=== PATIENT | male | born 1955 | race Caucasian/White ===

== ENCOUNTER 2018-03-31 18:03 | Inpatient (IN) | payer MEDICARE, BC ==
[2018-03-31 18:31] LABS: HEMATOCRIT 26.2 % (41.0-60); HEMOGLOBIN 8.7 gm/dL (12-16); MEAN CELL VOLUME 93.7 fl (80-99); MEAN CORPUSCULAR HEMOGLOBIN 31.1 pg (26.0-30.0); MEAN CORPUSCULAR HGB CONC 33.2 pg (28.0-36.0); MEAN PLATELET VOLUME 7.4 fl; PLATELET COUNT 159 Th/cmm (150-400); RED BLOOD COUNT 2.79 Mil/cmm (4.30-5.70); RED CELL DISTRIBUTION WIDTH 21.2 % (11.5-20.0); WHITE BLOOD COUNT 11.1 Th/cmm (4.8-10.8)
[2018-03-31 18:48] LABS: ALB/GLOB RATIO 0.8 (1.0-1.8); ALBUMIN 2.4 gm/dL (4.2-5.5); BILIRUBIN,TOTAL 0.6 mg/dL (0.3-1.0); CALCIUM SERUM 7.9 mg/dL (8.6-10.3); CARBON DIOXIDE 24.6 mEq/L (21.0-31.0); CREATININE - SERUM 2.3 mg/dL (0.7-1.3); GFR AFRICAN-AMERICAN 37.5 ml/min (>90); POTASSIUM SERUM 3.6 mEq/L (3.5-5.1); TOTAL PROTEIN,SERUM 5.6 gm/dL (6.0-8.3)
[2018-03-31 18:55] LABS: URINE MICROSCOPIC INDICATED? YES; URINE SOURCE CLEAN C
[2018-03-31 18:56] LABS: URINE BILIRUBIN NEGATIVE (NEGATIVE); URINE BLOOD LARGE (NEGATIVE); URINE GLUCOSE (UA) NEGATIVE (NEGATIVE); URINE KETONE NEGATIVE (NEGATIVE); URINE LEUKOCYTE ESTERASE MODERATE (NEGATIVE); URINE NITRATE NEGATIVE (NEGATIVE); URINE PROTEIN >=300 mg/dL (NEGATIVE); URINE UROBILINOGEN 0.2 E.U./dL (0.2 - 1.0)
--- NOTE | 2018-03-31 18:58 | ED Physician Chart ---
ED Chief Complaint/HPI - Patient Information Date Seen:: 03/31/18 Time Seen:: 18:24 Chief Complaint:: INFECTED COCCYX DECUBES History of Present Illness:: THIS IS A 62 YR OLD DIALYSIS PATIENT WAS SENT HERE FOR AN EVALUATION OF THE MULTIPLE DECUBITI AND RENAL FAILURE. HE MISSED HAVING DIALYSIS YESTERDAY AND IS DIABETIC WITH A GENERALIZE BULLA TYPE RASH NOTED. Allergies:: Allergies Allergy/AdvReac Type Severity Reaction Status Date / Time Penicillins Allergy Verified 03/31/18 18:19 vancomycin Allergy Verified 03/31/18 18:19 Vitals:: Vital Signs - 8 hr 03/31/18 18:20 Temp 98.0 F HR 89 RR 18 BP 104/58 O2 Sat % 98 Historian:: EMS, Medical Records Review:: Nurse's Note Reviewed, Transfer documents Reviewed ED Review of Systems - Review of Systems General/Constitutional: No fever, No chills, No weight loss, No weakness, No diaphoresis, No edema, No loss of appetite Skin: Skin lesions, No rash, No bruising Head: No headache, No light-headedness Eyes: No loss of vision, No pain, No diplopia ENT: No earache, No nasal drainage, No sore throat, No tinnitus Neck: No neck pain, No swelling, No thyromegaly, No stiffness, No mass noted Cardio Vascular: No chest pain, No palpitations, No PND, No orthopnea, No edema Pulmonary: No SOB, No cough, No sputum, No wheezing GI: No nausea, No vomiting, No diarrhea, No pain, No melena, No hematochezia, No constipation, No hematemesis G/U: No dysuria, No frequency, No hematuria Musculoskeletal: Bone or joint pain, No back pain, No muscle pain Endocrine: No polyuria, No polydipsia Psychiatric: No prior psych history, No depression, Anxiety, No suicidal ideation Hematopoietic: Bruising, No lymphadenopathy Allergic/Immuno: No urticaria, No angioedema Neurological: No syncope, No focal symptoms, No weakness, No paresthesia, No headache, No seizure, No dizziness, No confusion, No vertigo ED Past Medical History - Past Medical History Obtainable: Yes Past Medical History: HTN, DM, CVA/TIA, ESRD Family History: None Social History: Non Smoker, No Alcohol, No Drug Use, Care Facility Surgical History: None Psychiatricy History: Dementia ED Physical Exam - Physical Examination General/Constitutional: Awake, Well-developed, well-nourished, Alert, No distress, GCS 15, Non-toxic appearing, Ambulatory Head: Atraumatic Eyes: Lids, conjuctiva normal, PERRL, EOMI Skin: Nl inspection, No rash (GENERALIZED BULBA RASH), No skin lesions, No ecchymosis, Well hydrated, No lymphadenopathy ENMT: External ears, nose nl, Nasal exam nl, Lips, teeth, gums nl Neck: Nontender, Full ROM w/o pain, No JVD, No nuchal rigidity, No bruit, No mass, No stridor Respiratory: Nl effort/Exclusion, Clear to Auscultation, No Wheeze/Rhonchi/Rales Cardio Vascular: RRR, No murmur, gallop, rubs, NL S1 S2 GI: No tenderness/rebounding/guarding, No organomegaly, No hernia, Normal BS's, Nondistended, No mass/bruits, No McBurney tenderness : No CVA tenderness Extremities: No tenderness or effusion, Full ROM, normal strength in all extremities, No edema, Normal digits & nails Neuro/Psych: Alert/oriented, DTR's symmetric, Normal sensory exam, Normal motor strength, Judgement/insight normal, Mood normal, Normal gait, No focal deficits Misc: Normal back, No paraspinal tenderness ED Labs/Radiology/EKG Results - Lab Results Results: Laboratory Tests 03/31/18 03/31/18 18:25 18:25 WBC 11.1 H RBC 2.79 L Hgb 8.7 L Hct 26.2 L MCV 93.7 MCH 31.1 H MCHC Differential 33.2 RDW 21.2 H Plt Count 159 MPV 7.4 Neutrophils % 86.1 H Lymphocytes % 5.3 L Monocytes % 5.4 Eosinophils % 2.7 Basophils % 0.5 Sodium 125 L Potassium 3.6 Chloride 91 L Carbon Dioxide 24.6 Anion Gap 13.0 BUN 26 H Creatinine 2.3 H Est GFR ( Amer) 37.5 Est GFR (Non-Af Amer) 31.0 BUN/Creatinine Ratio 11.3 Glucose 86 Calcium 7.9 L Total Bilirubin 0.6 AST 9 L ALT 6 L Alkaline Phosphatase 124 H Total Protein 5.6 L Albumin 2.4 L Globulin 3.2 Albumin/Globulin Ratio 0.8 L Abnormal Lab Results 03/31/18 03/31/18 03/31/18 18:25 18:25 18:25 WBC 11.1 H RBC 2.79 L Hgb 8.7 L Hct 26.2 L MCV 93.7 MCH 31.1 H MCHC Differential 33.2 RDW 21.2 H Plt Count 159 MPV 7.4 Neutrophils % ENVIRONMENTAL JOURNALIST Lymphocytes % ENVIRONMENTAL JOURNALIST Monocytes % ENVIRONMENTAL JOURNALIST Eosinophils % ENVIRONMENTAL JOURNALIST Basophils % ENVIRONMENTAL JOURNALIST Sodium 125 L Potassium 3.6 Chloride 91 L Carbon Dioxide 24.6 Anion Gap 13.0 BUN 26 H Creatinine 2.3 H Est GFR ( Amer) 37.5 Est GFR (Non-Af Amer) 31.0 BUN/Creatinine Ratio 11.3 Glucose 86 Calcium 7.9 L Total Bilirubin 0.6 AST 9 L ALT 6 L Alkaline Phosphatase 124 H Troponin I 0.05 Total Protein 5.6 L Albumin 2.4 L Globulin 3.2 Albumin/Globulin Ratio 0.8 L Urine Source Urine Color Urine Clarity Urine pH Ur Specific [place] Urine Protein Urine Glucose (UA) Urine Ketones Urine Blood Urine Nitrate Urine Bilirubin Urine Urobilinogen Ur Leukocyte Esterase Urine RBC Urine WBC Ur Epithelial Cells Urine Bacteria 03/31/18 18:45 WBC RBC Hgb Hct MCV MCH MCHC Differential RDW Plt Count MPV Neutrophils % Lymphocytes % Monocytes % Eosinophils % Basophils % Sodium Potassium Chloride Carbon Dioxide Anion Gap BUN Creatinine Est GFR ( Amer) Est GFR (Non-Af Amer) BUN/Creatinine Ratio Glucose Calcium Total Bilirubin AST ALT Alkaline Phosphatase Troponin I Total Protein Albumin Globulin Albumin/Globulin Ratio Urine Source CLEAN C Urine Color YELLOW Urine Clarity CLOUDY Urine pH 6.0 Ur Specific [place] 1.020 Urine Protein >=300 Urine Glucose (UA) NEGATIVE Urine Ketones NEGATIVE Urine Blood LARGE H Urine Nitrate NEGATIVE Urine Bilirubin NEGATIVE Urine Urobilinogen 0.2 Ur Leukocyte Esterase MODERATE H Urine RBC 50-100 H Urine WBC 25-50 H Ur Epithelial Cells NONE SEEN Urine Bacteria FEW - Radiology Results Results: CHEST X-RAY = NAD SEEN - EKG Interpretations EKG Time:: 18:12 Rate & Rhythm: RATE= 90, LEFT SINUS Mcinty[place]: LEFT AXIS ED Assessment - Assessment General Assessment: MULTIPLE DECUBITI INFECTIVE RASH DEHYDRATION ED Septic Shock - . Is Septic Shock (SBP<90, OR Lactate>4 mmol\L) present?: No - <6hrs of presentation: Vital Signs: Vital Signs - 8 hr 03/31/ 18:20 Temp 98.0 F HR 89 RR 18 BP 104/58 O2 Sat % 98 ED Reassessment (Disposition) - Diagnosis Diagnosis:: DEHYDRATION MULTIPLE DECUBE ULCERS URINARY TRACT INFECTION ANEMIA INFECTIVE GENERALIZE RASH - Patient Disposition Discharge/Transfer:: Acute Care w/in this hosp Admitting Medical Physician:: Omar Schrader Condition at Disposition:: Improved ED Discharge Plan - Patient Disposition Admit/Discharge/Transfer: Acute Care w/in this hosp Condition at Disposition: Improved
[2018-03-31 19:45] LABS: URINE CLARITY CLOUDY (CLEAR); URINE COLOR YELLOW
[2018-03-31 19:50] LABS: URINE RBC 50-100 /hpf (0-5)
[2018-03-31 19:51] LABS: URINE BACTERIA FEW /hpf (NONE SEEN); URINE EPITHELIAL CELLS NONE SEEN /lpf (FEW); URINE WBC 25-50 /hpf (0-5)
[2018-03-31 20:16] LABS: BAND NEUTROPHILE 5 % (0-10); BASOPHIL 0 % (0-3); EOSINOPHIL 3 % (0-5); LYMPHOCYTE 7 % (20-50); MONOCYTE 5 % (2-10); NEUTROPHILS 80 % (40-80); PLATELET ESTIMATE ADEQUATE (NORMAL)
[2018-03-31 20:17] LABS: ANISOCYTOSIS 1+; PLATELET MORPHOLOGY NORMAL (NORMAL)
[2018-03-31 20:19] LABS: BAND NEUTROPHILE 5 % (0-10); BASOPHIL 0 % (0-3); EOSINOPHIL 3 % (0-5); LYMPHOCYTE 7 % (20-50); MONOCYTE 5 % (2-10); NEUTROPHILS 80 % (40-80); PLATELET ESTIMATE ADEQUATE (NORMAL); PLATELET MORPHOLOGY NORMAL (NORMAL)
[2018-03-31 20:20] LABS: ANISOCYTOSIS 1+
[2018-03-31 20:22] LABS: BAND NEUTROPHILE 5 % (0-10); BASOPHIL 0 % (0-3); EOSINOPHIL 3 % (0-5); LYMPHOCYTE 7 % (20-50); MONOCYTE 5 % (2-10); NEUTROPHILS 80 % (40-80); PLATELET ESTIMATE ADEQUATE (NORMAL); PLATELET MORPHOLOGY NORMAL (NORMAL)
[2018-03-31 20:23] LABS: ANISOCYTOSIS 1+
[2018-03-31] MEDS ORDERED: Fleet Enema 135 mL RC PRN (22:22)
[2018-03-31] MEDS ORDERED: Dextrose 50% 50 mL Abboject IVP PRN (23:04)
[2018-03-31 23:57] VITALS: BP 102/60
[2018-04-01] MEDS: D5-0.45NS 1,000 ML IV SCH
[2018-04-01] MEDS ORDERED: Pneumococcal Vaccine 0.5 mL Vial IM ONE (00:10)
[2018-04-01] MEDS: Hydrocodone/APAP 5mg/325mg Tab PO PRN ×3 (00:23→20:31)
[2018-04-01] MEDS: Albuterol/Ipratropium Neb 3 ML AERS HHN SCH ×4 (00:58→19:11)
[2018-04-01] MEDS ORDERED: Levofloxacin 500mg/100mL 500 MG/100 ML BAG IV ONE ×3 (01:57→09:00)
--- NOTE | 2018-04-01 03:44 | Consultation ---
DATE OF CONSULTATION: 03/31/2018 INFECTIOUS DISEASE CONSULTATION REFERRING PHYSICIAN: Dr. Schrader. REASON FOR CONSULTATION: Multiple wounds. HISTORY OF PRESENT ILLNESS: The patient is a 62-year-old with past medical history of prolonged MRSA sepsis, suspected endocarditis, CKD stage 5, on hemodialysis, CHF, sacral decubitus ulcer stage 4, chronic pain syndrome, history of CVA, TIA, history of diabetes mellitus type 2, and hypertension, brought in from nursing facility for infected coccyx sacral decubitus ulcer. ____ on initial evaluation, temperature 98 degrees Fahrenheit and WBC count was 11,100. The patient was started on Rocephin and doxycycline. ID consult was called for antibiotic management. PAST MEDICAL HISTORY: Includes: 1. MRSA bacteremia and sepsis for prolonged period. 2. Nonhealing sacral decubitus ulcer. 3. Chronic kidney disease stage 5, on hemodialysis. 4. Diabetes mellitus type 2. 5. Chronic pain syndrome. REVIEW OF SYSTEMS: GENERAL: The patient has body pain, otherwise no fever, no chills. HEENT: No diplopia, no photophobia, no sore throat. RESPIRATORY: No cough, no shortness of breath. CARDIOVASCULAR: No chest pain or palpitation. GASTROINTESTINAL: No nausea, no vomiting, no diarrhea, no constipation. GENITOURINARY: No dysuria. NEUROLOGIC: No headache, no dizziness, no focal weakness. PHYSICAL EXAMINATION: VITAL SIGNS: Current vial sign shows temperature is 99 degrees Fahrenheit, pulse 90, respiration 20, blood pressure 100/60. GENERAL: The patient is comfortable lying in the bed, not in acute distress. HEENT: Head is normocephalic, atraumatic. Oral cavity moist, pink tongue. Eyes: Pallor is present, no icterus. PERRLA, EOMI. NECK: Supple, no JVD, no bruit. Trachea midline. LUNGS: Bilateral breath sounds. No crackles or wheezing. HEART: S1, S2 within normal limits. Regular rhythm. No murmur, no gallop. ABDOMEN: Soft, nontender, nondistended. Bowel sounds present. EXTREMITIES: No cyanosis, no clubbing, no edema. NEUROLOGIC: Alert, awake, and oriented x 3. LABORATORY DATA: Current lab shows WBC count is 11,100, hemoglobin 8.7, hematocrit 26.2, platelets are 159,000. Neutrophil is 80%. Sodium is 125, potassium 3.6, chloride 91, bicarbonate is 24.6, BUN is 26, and creatinine is 2.3. UA shows large blood, WBC 25-50 with a moderate leukoesterase, RBCs 50-100, and bacteria few. IMPRESSION: 1. Sacral decubitus ulcer. 2. History of Methicillin-resistant Staphylococcus aureus infection. 3. Urinary tract infection. 4. Anemia. 5. Diabetes mellitus type 2. 6. Hypertension. RECOMMENDATIONS: We will start Levaquin. Check the blood culture and go from there. We will do the wound care. Thank you, Dr. Schrader for involving me in taking care of this patient. JOB# [id number]
[2018-04-01 06:40] LABS: HEMATOCRIT 26.4 % (41.0-60); HEMOGLOBIN 8.9 gm/dL (12-16); MEAN CELL VOLUME 93.4 fl (80-99); MEAN CORPUSCULAR HEMOGLOBIN 31.6 pg (26.0-30.0); MEAN CORPUSCULAR HGB CONC 33.8 pg (28.0-36.0); MEAN PLATELET VOLUME 7.7 fl; PLATELET COUNT 158 Th/cmm (150-400); RED BLOOD COUNT 2.82 Mil/cmm (4.30-5.70); RED CELL DISTRIBUTION WIDTH 22.9 % (11.5-20.0); WHITE BLOOD COUNT 7.6 Th/cmm (4.8-10.8)
[2018-04-01 06:47] LABS: ANION GAP 12.7 (7.0-16.0); CALCIUM SERUM 7.9 mg/dL (8.6-10.3); CREATININE - SERUM 2.5 mg/dL (0.7-1.3); GFR NON AFRICAN-AMERICAN 28.1 ml/min; POTASSIUM SERUM 3.7 mEq/L (3.5-5.1)
[2018-04-01 07:06] LABS: BAND NEUTROPHILE 1 % (0-10); EOSINOPHIL 3 % (0-5); LYMPHOCYTE 6 % (20-50); MONOCYTE 4 % (2-10); NEUTROPHILS 85 % (40-80)
[2018-04-01 07:07] LABS: ANISOCYTOSIS 1+; BASOPHIL 1 % (0-3)
[2018-04-01] MEDS ORDERED: INSULIN ASPART SLIDING SCALE 100 UNITS/ML UNIT SUBQ SCH (07:30)
--- NOTE | 2018-04-01 07:53 | Diagnostic Imaging Report ---
CHEST X-RAY: AP view INDICATION: CHF COMPARISON: None FINDINGS: Right dialysis catheter is noted with tip not well visualized due to overlapping from multilevel spinal fixation hardware. Mild congestive changes are seen with small bilateral effusions. Mild cardiomegaly is noted with atherosclerosis. Diffuse postsurgical changes of the thoracic spine are noted. IMPRESSION: Mild congestive changes with small bilateral effusions. Pneumonia of the left lung base cannot be excluded. Mild cardiomegaly with atherosclerosis. Right sided dialysis catheter noted. Diffuse postsurgical changes of the thoracic spine.
[2018-04-01] MEDS: INSULIN ASPART SLIDING SCALE 100 UNITS/ML UNIT SUBQ SCH ×4 (08:03→20:31)
[2018-04-01] MEDS: Levothyroxine 0.025 Mg Tab PO SCH (08:06)
[2018-04-01] MEDS: Pantoprazole 40 mg EC Tab PO SCH (08:43)
[2018-04-01] MEDS: Vitamin B Complex w/Vitamin C Tab PO SCH (08:43)
[2018-04-01] MEDS: Multivitamin w/ Minerals Tab PO SCH (08:43)
[2018-04-01] MEDS ORDERED: DARBEPOETIN ALFA SQ SCH (09:00)
[2018-04-01] MEDS ORDERED: [UNRECOGNIZED DRUG - OTHER] SQ SCH (09:00)
[2018-04-01] MEDS ORDERED: ARGININE HCL PO SCH (09:00)
[2018-04-01] MEDS ORDERED: Non-Formulary Item 1 EA (Cranberry Fruit Extract [Cranberry] 425 MG) PO SCH (09:00)
[2018-04-01] MEDS ORDERED: Non-Formulary Item 1 EA (Argin/Glut/Cahmb/Collag/Mv-Min [Juven Packet] 1 EACH) PO SCH (09:00)
[2018-04-01] MEDS ORDERED: [UNRECOGNIZED DRUG - OTHER] TP SCH (09:00)
[2018-04-01] MEDS: cefTRIAXone 1 GM in Sodium Chloride 0.9% 50 ML IV SCH (20:25)
[2018-04-01] MEDS: Atorvastatin Calcium 10 MG TAB PO SCH (20:27)
[2018-04-01] MEDS ORDERED: Albumin 25% 25gm/100mL 25 GM/100 ML BTL IV ONE (23:00)
--- NOTE | 2018-04-01 23:13 | Infectious Disease Prog Note ---
Infectious Disease Subjective - Review of Systems Service Date: 04/01/18 Subjective: No new change, no fever. Infectious Disease Objective - Results Result Diagrams: 04/01/18 06:03 04/01/18 06:03 Recent Labs: Laboratory Last Values WBC 7.6 Th/cmm (4.8-10.8) 04/01/18 06:03 RBC 2.82 Mil/cmm (4.30-5.70) L 04/01/18 06:03 Hgb 8.9 gm/dL (12-16) L 04/01/18 06:03 Hct 26.4 % (41.0-60) L 04/01/18 06:03 MCV 93.4 fl (80-99) 04/01/18 06:03 MCH 31.6 pg (26.0-30.0) H 04/01/18 06:03 MCHC Differential 33.8 pg (28.0-36.0) 04/01/18 06:03 RDW 22.9 % (11.5-20.0) H 04/01/18 06:03 Plt Count 158 Th/cmm (150-400) 04/01/18 06:03 MPV 7.7 fl 04/01/18 06:03 Add Manual Diff YES 04/01/18 06:03 Neutrophils % NURSE RECEPTIONIST 03/31/18 18:25 Band Neutrophils % 1 % (0-10) 04/01/18 06:03 Lymphocytes % NURSE RECEPTIONIST 03/31/18 18:25 Monocytes % NURSE RECEPTIONIST 03/31/18 18:25 Eosinophils % NURSE RECEPTIONIST 03/31/18 18:25 Basophils % NURSE RECEPTIONIST 03/31/18 18:25 Neutrophils (Manual) 85 % (40-80) H 04/01/18 06:03 Lymphocytes 6 % (20-50) L 04/01/18 06:03 Monocytes 4 % (2-10) 04/01/18 06:03 Eosinophils 3 % (0-5) 04/01/18 06:03 Basophils 1 % (0-3) 04/01/18 06:03 Platelet Estimate ADEQUATE (NORMAL) 03/31/18 18:25 Platelet Morphology NORMAL (NORMAL) 03/31/18 18:25 Anisocytosis 1+ 04/01/18 06:03 RBC Morph Micro Appear ABNORMAL (NORMAL) 03/31/18 18:25 Sodium 127 mEq/L (136-145) L 04/01/18 06:03 Potassium 3.7 mEq/L (3.5-5.1) 04/01/18 06:03 Chloride 92 mEq/L (98-107) L 04/01/18 06:03 Carbon Dioxide 26.0 mEq/L (21.0-31.0) 04/01/18 06:03 Anion Gap 12.7 (7.0-16.0) 04/01/18 06:03 BUN 28 mg/dL (7-25) H 04/01/18 06:03 Creatinine 2.5 mg/dL (0.7-1.3) H 04/01/18 06:03 Est GFR ( Amer) 34.0 ml/min (>90) 04/01/18 06:03 Est GFR (Non-Af Amer) 28.1 ml/min 04/01/18 06:03 BUN/Creatinine Ratio 11.2 04/01/18 06:03 Glucose 90 mg/dL (70-105) 04/01/18 06:03 POC Glucose 148 MG/DL (70 - 105) H 04/01/18 16:38 Calcium 7.9 mg/dL (8.6-10.3) L 04/01/18 06:03 Total Bilirubin 0.6 mg/dL (0.3-1.0) 03/31/18 18:25 AST 9 U/L (13-39) L 03/31/18 18:25 ALT 6 U/L (7-52) L 03/31/18 18:25 Alkaline Phosphatase 124 U/L (34-104) H 03/31/18 18:25 Troponin I 0.05 ng/mL (0.01-0.05) 03/31/18 18:25 Total Protein 5.6 gm/dL (6.0-8.3) L 03/31/18 18:25 Albumin 2.4 gm/dL (4.2-5.5) L 03/31/18 18:25 Globulin 3.2 gm/dL 03/31/18 18:25 Albumin/Globulin Ratio 0.8 (1.0-1.8) L 03/31/18 18:25 Urine Source CLEAN C 03/31/18 18:45 Urine Color YELLOW 03/31/18 18:45 Urine Clarity CLOUDY (CLEAR) 03/31/18 18:45 Urine pH 6.0 (4.6 - 8.0) 03/31/18 18:45 Ur Specific [place] 1.020 (1.005-1.030) 03/31/18 18:45 Urine Protein >=300 mg/dL (NEGATIVE) 03/31/18 18:45 Urine Glucose (UA) NEGATIVE mg/dL (NEGATIVE) 03/31/18 18:45 Urine Ketones NEGATIVE mg/dL (NEGATIVE) 03/31/18 18:45 Urine Blood LARGE (NEGATIVE) H 03/31/18 18:45 Urine Nitrate NEGATIVE (NEGATIVE) 03/31/18 18:45 Urine Bilirubin NEGATIVE (NEGATIVE) 03/31/18 18:45 Urine Urobilinogen 0.2 E.U./dL (0.2 - 1.0) 03/31/18 18:45 Ur Leukocyte Esterase MODERATE (NEGATIVE) H 03/31/18 18:45 Urine RBC 50-100 /hpf (0-5) H 03/31/18 18:45 Urine WBC 25-50 /hpf (0-5) H 03/31/18 18:45 Ur Epithelial Cells NONE SEEN /lpf (FEW) 03/31/18 18:45 Urine Bacteria FEW /hpf (NONE SEEN) 03/31/18 18:45 - Physical Exam Vitals and I&O: Vital Signs Temp 97.1 F 04/01/18 16:00 Pulse 95 04/01/18 19:11 Resp 18 04/01/18 19:11 BP 104/64 04/01/18 16:00 Pulse Ox 99 04/01/18 19:11 Intake & Output 04/01/18 04/01/18 04/02/18 06:59 18:59 06:59 Intake Total 600 1800 Output Total 312 100 Balance 288 1700 Weight (lbs) 93.894 kg 91.626 kg 91.626 kg Intake: Oral 600 1800 Output: Drainage 10 right buttock 10 Urine 300 100 Stool 2 Other: # Bowel Movements 2 1 Stool Characteristics Liquid Weight Source Bedscale Bedscale Bedscale Active Medications: Current Medications Acetaminophen (Tylenol) 650 mg PO Q4HR PRN PRN Reason: MILD Pain or Fever >101 Stop: 05/30/18 22:21 Acetaminophen/Hydrocodone Bitart ([place] 5mg/325mg) 1 tab PO Q6H PRN PRN Reason: Pain (Severe) Stop: 05/30/18 22:21 Last Admin: 04/01/18 20:31 Dose: 1 tab Albuterol/Ipratropium (Duoneb Neb) 3 ml HHN Q6HRT [facility] Stop: 05/31/18 00:59 Last Admin: 04/01/18 19:11 Dose: 3 ml Ascorbic Acid (Vitamin C) 500 mg PO DAILY [facility] Stop: 05/31/18 08:59 Last Admin: 04/01/18 08:33 Dose: 500 mg Aspirin (Ecotrin) 81 mg PO DAILY [facility] Stop: 05/31/18 08:59 Last Admin: 04/01/18 08:33 Dose: 81 mg Atorvastatin Calcium (Lipitor) 20 mg PO HS [facility] Stop: 05/31/18 20:59 Last Admin: 04/01/18 20:27 Dose: 20 mg Bisacodyl (Dulcolax 10 Mg Supp) 10 mg RC DAILY PRN PRN Reason: Constipation Stop: 05/30/18 22:21 Dextrose (D50w) 50 ml IVP PRN PRN; Protocol PRN Reason: HYPOGLYCEMIA PROTOCOL Stop: 05/30/18 23:03 Diphenhydramine HCl (Benadryl) 25 mg PO Q6HR PRN PRN Reason: Itching Stop: 05/30/18 22:21 Last Admin: 04/01/18 00:23 Dose: 25 mg Docusate Sodium (Colace) 100 mg PO DAILY [facility] Stop: 05/31/18 08:59 Last Admin: 04/01/18 08:33 Dose: 100 mg Doxycycline Hyclate (Vibramycin) 100 mg PO BID@1000,1700 [facility] Stop: 05/31/18 09:59 Last Admin: 04/01/18 17:27 Dose: 100 mg Ceftriaxone Sodium 1 gm/ (Sodium Chloride) 50 mls @ 100 mls/hr IV Q24HR@2100 [facility] Stop: 05/31/18 20:59 Last Admin: 04/01/18 20:25 Dose: 100 mls/hr Dextrose/Sodium Chloride (D5-0.45ns) 1,000 mls @ 50 mls/hr IV .Q20H [facility] Stop: 05/30/18 21:59 Last Admin: 04/01/18 00:00 Dose: 50 mls/hr Levofloxacin (Levaquin Pb) 250 mg in 50 mls @ 50 mls/hr IV Q24HR@0900 [facility] Stop: 06/01/18 08:59 Albumin Human (Albuminar 25%) 25 gm in 100 mls @ 50 mls/hr IV X1 ONE Stop: 04/02/18 00:59 Last Admin: 04/01/18 23:01 Dose: 50 mls/hr Insulin Aspart (Novolog Insulin Sliding Scale) 0 units SUBQ ACHS [facility]; Protocol Stop: 05/31/18 07:29 Last Admin: 04/01/18 20:31 Dose: Not Given Levetiracetam (Keppra) 500 mg PO BID [facility] Stop: 05/31/18 08:59 Last Admin: 04/01/18 17:27 Dose: 500 mg Levothyroxine Sodium (Synthroid) 0.025 mg PO QDAC [facility] Stop: 05/31/18 07:29 Last Admin: 04/01/18 08:06 Dose: 0.025 mg Lorazepam (Ativan) 1 mg IVP Q6H PRN; Protocol PRN Reason: Agitation Stop: 05/31/18 22:59 Miscellaneous (Darbepoetin [place] In Polysorbat [Aranesp]) 85 mcg SQ UD [facility] Stop: 05/31/18 08:59 Pantoprazole Sodium (Protonix) 40 mg PO DAILY [facility] Stop: 05/31/18 08:59 Last Admin: 04/01/18 08:43 Dose: 40 mg Rifampin (Rifadin) 600 mg PO DAILY [facility] Stop: 05/31/18 08:59 Sodium Phosphate (Fleet Enema) 135 ml RC DAILY PRN PRN Reason: Constipation Stop: 05/30/18 22:21 Vitamin B Complex/Vit C/Folic Acid (Vitamin B Complex W/Vitamin C) 1 tab PO DAILY [facility] Stop: 05/31/18 08:59 Last Admin: 04/01/18 08:43 Dose: 1 tab Zinc Sulfate (Zinc Sulfate) 220 mg PO DAILY [facility] Stop: 05/31/18 08:59 Last Admin: 04/01/18 08:34 Dose: 220 mg General: no acute distress, well developed, well nourished HEENT: atraumatic, normocephalic, PERRLA, EOMI Neck: supple, no thyromegaly, no lymphadenopathy Cardiovascular: S1S2, regular Lungs: clear to auscultation bilaterally, clear to percussion Abdomen: soft, no tender, no mass Extremities: no cyanosis, no clubbing, no edema Neurological: awake, alert, oriented Skin: intact Infectious Disease Assmt/Plan - Assessment Assessment: 1. Sacral decubitus ulcer. 2. History of Methicillin-resistant Staphylococcus aureus infection. 3. Urinary tract infection. 4. Anemia. 5. Diabetes mellitus type 2. 6. Hypertension. - Plan Plan: Continue levaquin. Wound care.
--- NOTE | 2018-04-01 23:16 | Consultation ---
DATE OF CONSULTATION: AGE: 62 years. SEX: Male. RACE: . HISTORY OF PRESENT ILLNESS: The patient looks much older than the age noted here. He admitted because of the fact that the patient has chronic renal failure, also has a UTI and multiple skin lesions and some punch skin lesions, reasons for this is not clear. The patient is somewhat disoriented and definitely has dementia moderately. He keeps on saying same things again and again. He does not know who his kidney doctor was, where he is being dialyzed, but he remembers that he has been dialyzed for about six months or so. On further questioning, denies any pain at present time. 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 Besides this, he does not know anything more. The patient does have multiple skin lesions on the knuckles in the thigh area, which had punched in big lesions. The patient is asking for the nurse again and again. PHYSICAL EXAMINATION: VITAL SIGNS: The patient's vital signs at present are stable. The patient is afebrile at present time. Blood pressure 115/61, temperature 97.6 degrees Fahrenheit, heart rate around 96 per minute. HEENT: Oropharynx is clear. The patient does have some lesions even on the face of the skin, reason for this is not clear. NECK: Jugular venous pressure is not raised. The patient has a dialysis catheter in the right subclavian area. Clinical examination further reveals the patient to be a little bit on the dry side. CHEST: Reveals good air entry with few rhonchi. No significant rales noticed. ABDOMEN: Soft, nontender. No organomegaly noticed there. EXTREMITIES: As mentioned before, there are multiple punch lesions on the thigh and the patient is basically lying in the bed, not able to move his lower extremities well. Upper extremities, he is able to move, but the left arm is wrapped around because probably also of the skin lesions. GENITOURINARY: Denies any pain on urination. LABORATORY DATA: The patient had a biochemical data done this morning, which revealed sodium 127, potassium 3.7, chloride 92, CO2 content 26, BUN 28, creatinine 2.5, GFR calculated is 28.1-34. Hemoglobin 8.9, WBC count 7.6, platelet count 158. MEDICATIONS: Considering all the above and the patient is on multiple medications, which include; 1. Tylenol and Tylenol with hydrocodone. 2. The patient was on inhalation therapy. 3. Antilipid therapy 20 mg atorvastatin. 4. Benadryl at q.6 hours p.r.n. for itching. 5. Docusate sodium for constipation. 6. The patient is also on doxycycline 100 mg p.o. b.i.d. 7. Ceftriaxone 1 gram q.24 hours. 8. Levofloxacin 250 mg daily. 9. The patient also on insulin as per sliding scale. 10. In addition to that, the patient is also on Synthroid 25 mcg daily. 11. Keppra 500 mg p.o. b.i.d. 12. Rifampin, reason not known why. 13. Combination vitamin along with zinc sulfate. IMPRESSION: Considering that the impression remains as: 1. Chronic renal failure. 2. Anemia. 3. Rule out iron deficiency. 4. Dementia. 5. Urine shows suggestion of urinary tract infection, so likely that for multiple medications including rifampin. Therefore, we will try to get more information about any infective pathology plus possibly a seizure disorder because the patient is on Keppra. PLAN: To get more information. Consideration dialysis tomorrow, repeat chemistries, get a iron profile. I appreciate and thank Dr. Schrader for referring this patient to me and would do the needful. JOB# [id number]
[2018-04-02] MEDS: Albuterol/Ipratropium Neb 3 ML AERS HHN SCH ×4 (00:24→19:10)
[2018-04-02] MEDS: D5-0.45NS 1,000 ML IV SCH ×2 (00:29→17:54)
--- NOTE | 2018-04-02 02:49 | History & Physical ---
ADMIT DATE: HISTORY OF PRESENT ILLNESS: The patient very well known to me. The patient came from [place] with multiple wounds and having fever and increasing renal problems. The patient is a 62-year-old male patient, known to have history of prolonged MRSA sepsis, history of suspected endocarditis, history of ESRD and on dialysis, CHF, history of sacral decubitus type 4, chronic pain syndrome, history of CVA, history of hypertension, [facility] from the [facility] because of infected sacral decubitus ulcer and the patient's temperature was high. The patient was started on Rocephin ____. The patient was admitted. PHYSICAL EXAMINATION: HEAD: Normal. ENT: Normal. NECK: Supple, nontender. LUNGS: Clear. CARDIOVASCULAR SYSTEM: S1, S2 heard. SKIN: Sacral decubitus noted. LABORATORY DATA: WBC count 11,000, hemoglobin 8.7, platelets are normal. Urine showed WBCs 25-50. DIAGNOSES: Sacral decubitus, infected; methicillin-resistant Staphylococcus infection; urinary tract infection; anemia; diabetes type 2; hypertension. PLAN: The patient is being admitted. I will go ahead give IV antibiotic. We will have ID consult as well as a Nephrology consult. I will follow the patient. JOB# [id number]
[2018-04-02 06:33] LABS: % BASOPHILS 1.2 % (0.0-2.0); % EOSINOPHILS 2.3 % (0.0-5.0); % LYMPHOCYTES 7.9 % (20.0-50.0); % MONOCYTES 8.4 % (2.0-10.0); % NEUTROPHILS 80.2 % (40.0-80.0); BASOPHILE ABSOLUTE 0.1 Th/cumm (0-0.2); EOSINOPHILE ABSOLUTE 0.2 Th/cmm (0.1-0.4); HEMATOCRIT 24.6 % (41.0-60); HEMOGLOBIN 8.3 gm/dL (12-16); LYMPHOCYTE ABSOLUTE 0.6 Th/cmm (1.5-3.0); MEAN CELL VOLUME 93.1 fl (80-99); MEAN CORPUSCULAR HEMOGLOBIN 31.2 pg (26.0-30.0); MEAN CORPUSCULAR HGB CONC 33.6 pg (28.0-36.0); MEAN PLATELET VOLUME 7.7 fl; MONOCYTE ABSOLUTE 0.6 Th/cmm (0.3-1.0); NEUTROPHILE ABSOLUTE 6.2 Th/cmm (1.8-8.0); PLATELET COUNT 162 Th/cmm (150-400); RED BLOOD COUNT 2.65 Mil/cmm (4.30-5.70); RED CELL DISTRIBUTION WIDTH 22.5 % (11.5-20.0); WHITE BLOOD COUNT 7.7 Th/cmm (4.8-10.8)
[2018-04-02 06:41] LABS: ALB/GLOB RATIO 0.9 (1.0-1.8); ALBUMIN 2.7 gm/dL (4.2-5.5); ANION GAP 13.8 (7.0-16.0); BILIRUBIN,TOTAL 0.5 mg/dL (0.3-1.0); CALCIUM SERUM 8.2 mg/dL (8.6-10.3); CARBON DIOXIDE 25.1 mEq/L (21.0-31.0); CREATININE - SERUM 2.8 mg/dL (0.7-1.3); GFR AFRICAN-AMERICAN 29.9 ml/min (>90); GFR NON AFRICAN-AMERICAN 24.7 ml/min; PHOSPHOROUS 4.8 mg/dL (2.5-5.0); POTASSIUM SERUM 3.9 mEq/L (3.5-5.1); TOTAL PROTEIN,SERUM 5.7 gm/dL (6.0-8.3)
[2018-04-02] MEDS: Levothyroxine 0.025 Mg Tab PO SCH (07:49)
[2018-04-02 08:30] LABS: BASOPHIL 2 % (0-3); EOSINOPHIL 3 % (0-5); LYMPHOCYTE 7 % (20-50); MONOCYTE 6 % (2-10); NEUTROPHILS 82 % (40-80); PLATELET ESTIMATE ADEQUATE (NORMAL)
[2018-04-02 08:31] LABS: ANISOCYTOSIS 1+
[2018-04-02] MEDS: INSULIN ASPART SLIDING SCALE 100 UNITS/ML UNIT SUBQ SCH ×4 (08:36→22:13)
[2018-04-02] MEDS: Levofloxacin 250mg/50mL 250 MG/50 ML BAG IV SCH (10:01)
[2018-04-02] MEDS: Multivitamin w/ Minerals Tab PO SCH (10:08)
[2018-04-02] MEDS: Vitamin B Complex w/Vitamin C Tab PO SCH (10:08)
[2018-04-02] MEDS: Pantoprazole 40 mg EC Tab PO SCH ×2 (10:08→10:31)
[2018-04-02] MEDS: Lactobacillus Rhamnosus GG 15 Billion CFU CAP.SPRINK PO SCH (14:29)
[2018-04-02] MEDS: Hydrocodone/APAP 5mg/325mg Tab PO PRN (14:29)
[2018-04-02] MEDS: Epoetin Alfa 20000 Units/mL Vial IVP SCH (14:32)
[2018-04-02] MEDS ORDERED: Epoetin Alfa 20000 Units/mL Vial SUBQ SCH (15:00)
[2018-04-02] MEDS ORDERED: Heparin Sodium 1,000 Units/mL Vial HD ONE (15:41)
--- NOTE | 2018-04-02 16:13 | General Progress Note ---
Subjective - Review of Systems Events since last encounter: patient tolerating antibiotics well no distress Objective - Results Result Diagrams: 04/02/18 06:00 04/02/18 06:00 Recent Labs: Laboratory Last Values WBC 7.7 Th/cmm (4.8-10.8) 04/02/18 06:00 RBC 2.65 Mil/cmm (4.30-5.70) L 04/02/18 06:00 Hgb 8.3 gm/dL (12-16) L 04/02/18 06:00 Hct 24.6 % (41.0-60) L 04/02/18 06:00 MCV 93.1 fl (80-99) 04/02/18 06:00 MCH 31.2 pg (26.0-30.0) H 04/02/18 06:00 MCHC Differential 33.6 pg (28.0-36.0) 04/02/18 06:00 RDW 22.5 % (11.5-20.0) H 04/02/18 06:00 Plt Count 162 Th/cmm (150-400) 04/02/18 06:00 MPV 7.7 fl 04/02/18 06:00 Add Manual Diff YES 04/01/18 06:03 Neutrophils % 80.2 % (40.0-80.0) H 04/02/18 06:00 Band Neutrophils % 1 % (0-10) 04/01/18 06:03 Lymphocytes % 7.9 % (20.0-50.0) L 04/02/18 06:00 Monocytes % 8.4 % (2.0-10.0) 04/02/18 06:00 Eosinophils % 2.3 % (0.0-5.0) 04/02/18 06:00 Basophils % 1.2 % (0.0-2.0) 04/02/18 06:00 Neutrophils (Manual) 82 % (40-80) H 04/02/18 06:00 Lymphocytes 7 % (20-50) L 04/02/18 06:00 Monocytes 6 % (2-10) 04/02/18 06:00 Eosinophils 3 % (0-5) 04/02/18 06:00 Basophils 2 % (0-3) 04/02/18 06:00 Platelet Estimate ADEQUATE (NORMAL) 04/02/18 06:00 Platelet Morphology NORMAL (NORMAL) 03/31/18 18:25 Anisocytosis 1+ 04/02/18 06:00 RBC Morph Micro Appear ABNORMAL (NORMAL) 03/31/18 18:25 Sodium 125 mEq/L (136-145) L 04/02/18 06:00 Potassium 3.9 mEq/L (3.5-5.1) 04/02/18 06:00 Chloride 90 mEq/L (98-107) L 04/02/18 06:00 Carbon Dioxide 25.1 mEq/L (21.0-31.0) 04/02/18 06:00 Anion Gap 13.8 (7.0-16.0) 04/02/18 06:00 BUN 31 mg/dL (7-25) H 04/02/18 06:00 Creatinine 2.8 mg/dL (0.7-1.3) H 04/02/18 06:00 Est GFR ( Amer) 29.9 ml/min (>90) 04/02/18 06:00 Est GFR (Non-Af Amer) 24.7 ml/min 04/02/18 06:00 BUN/Creatinine Ratio 11.1 04/02/18 06:00 Glucose 141 mg/dL (70-105) H 04/02/18 06:00 POC Glucose 161 MG/DL (70 - 105) H 04/02/18 11:46 Calcium 8.2 mg/dL (8.6-10.3) L 04/02/18 06:00 Phosphorus 4.8 mg/dL (2.5-5.0) 04/02/18 06:00 Total Bilirubin 0.5 mg/dL (0.3-1.0) 04/02/18 06:00 AST 8 U/L (13-39) L 04/02/18 06:00 ALT 6 U/L (7-52) L 04/02/18 06:00 Alkaline Phosphatase 104 U/L (34-104) 04/02/18 06:00 Troponin I 0.05 ng/mL (0.01-0.05) 03/31/18 18:25 Total Protein 5.7 gm/dL (6.0-8.3) L 04/02/18 06:00 Albumin 2.7 gm/dL (4.2-5.5) L 04/02/18 06:00 Globulin 3.0 gm/dL 04/02/18 06:00 Albumin/Globulin Ratio 0.9 (1.0-1.8) L 04/02/18 06:00 Urine Source CLEAN C 03/31/18 18:45 Urine Color YELLOW 03/31/18 18:45 Urine Clarity CLOUDY (CLEAR) 03/31/18 18:45 Urine pH 6.0 (4.6 - 8.0) 03/31/18 18:45 Ur Specific [place] 1.020 (1.005-1.030) 03/31/18 18:45 Urine Protein >=300 mg/dL (NEGATIVE) 03/31/18 18:45 Urine Glucose (UA) NEGATIVE mg/dL (NEGATIVE) 03/31/18 18:45 Urine Ketones NEGATIVE mg/dL (NEGATIVE) 03/31/18 18:45 Urine Blood LARGE (NEGATIVE) H 03/31/18 18:45 Urine Nitrate NEGATIVE (NEGATIVE) 03/31/18 18:45 Urine Bilirubin NEGATIVE (NEGATIVE) 03/31/18 18:45 Urine Urobilinogen 0.2 E.U./dL (0.2 - 1.0) 03/31/18 18:45 Ur Leukocyte Esterase MODERATE (NEGATIVE) H 03/31/18 18:45 Urine RBC 50-100 /hpf (0-5) H 03/31/18 18:45 Urine WBC 25-50 /hpf (0-5) H 03/31/18 18:45 Ur Epithelial Cells NONE SEEN /lpf (FEW) 03/31/18 18:45 Urine Bacteria FEW /hpf (NONE SEEN) 03/31/18 18:45 - Physical Exam Vitals and I&O: Vital Signs Temp 97.4 F 04/02/18 11:59 Pulse 74 04/02/18 12:01 Resp 18 04/02/18 12:01 BP 93/59 04/02/18 11:59 Pulse Ox 100 04/02/18 12:01 Intake & Output 04/01/18 04/02/18 04/02/18 18:59 06:59 18:59 Intake Total 600 3100 Output Total 312 100 Balance 288 3000 Weight (lbs) 91.626 kg 91.626 kg Intake: Intake, IV Amount 1000 D5-0.45NS 1,000 ml @ 50 1000 mls/hr IV .Q20H [facility] Rx#: [id number] Oral 600 2100 Output: Drainage 10 right buttock 10 Urine 300 100 Stool 2 Other: # Bowel Movements 2 1 Stool Characteristics Liquid Liquid Liquid Brown Weight Source Bedscale Bedscale Active Medications: Current Medications Acetaminophen (Tylenol) 650 mg PO Q4HR PRN PRN Reason: MILD Pain or Fever >101 Stop: 05/30/18 22:21 Acetaminophen/Hydrocodone Bitart ([place] 5mg/325mg) 1 tab PO Q6H PRN PRN Reason: Pain (Severe) Stop: 05/30/18 22:21 Last Admin: 04/02/18 14:29 Dose: 1 tab Albuterol/Ipratropium (Duoneb Neb) 3 ml HHN Q6HRT [facility] Stop: 05/31/18 00:59 Last Admin: 04/02/18 12:00 Dose: 3 ml Ascorbic Acid (Vitamin C) 500 mg PO DAILY [facility] Stop: 05/31/18 08:59 Last Admin: 04/02/18 10:07 Dose: Not Given Aspirin (Ecotrin) 81 mg PO DAILY [facility] Stop: 05/31/18 08:59 Last Admin: 04/02/18 10:07 Dose: Not Given Atorvastatin Calcium (Lipitor) 20 mg PO HS [facility] Stop: 05/31/18 20:59 Last Admin: 04/01/18 20:27 Dose: 20 mg Bisacodyl (Dulcolax 10 Mg Supp) 10 mg RC DAILY PRN PRN Reason: Constipation Stop: 05/30/18 22:21 Dextrose (D50w) 50 ml IVP PRN PRN; Protocol PRN Reason: HYPOGLYCEMIA PROTOCOL Stop: 05/30/18 23:03 Diphenhydramine HCl (Benadryl) 25 mg PO Q6HR PRN PRN Reason: Itching Stop: 05/30/18 22:21 Last Admin: 04/01/18 00:23 Dose: 25 mg Docusate Sodium (Colace) 100 mg PO DAILY [facility] Stop: 05/31/18 08:59 Last Admin: 04/02/18 10:07 Dose: Not Given Doxycycline Hyclate (Vibramycin) 100 mg PO BID@1000,1700 [facility] Stop: 05/31/18 09:59 Last Admin: 04/02/18 10:08 Dose: Not Given Epoetin Ramirez (Epogen) 5,000 units IVP MoWeFr [facility] Stop: 06/01/18 14:59 Last Admin: 04/02/18 14:32 Dose: 5,000 units Ceftriaxone Sodium 1 gm/ (Sodium Chloride) 50 mls @ 100 mls/hr IV Q24HR@2100 [facility] Stop: 05/31/18 20:59 Last Admin: 04/01/18 20:25 Dose: 100 mls/hr Levofloxacin (Levaquin Pb) 250 mg in 50 mls @ 50 mls/hr IV Q24HR@0900 [facility] Stop: 06/01/18 08:59 Last Admin: 04/02/18 10:01 Dose: 50 mls/hr Dextrose/Sodium Chloride (D5-0.45ns) 1,000 mls @ 75 mls/hr IV .[id number] [facility] Stop: 06/01/18 14:44 Insulin Aspart (Novolog Insulin Sliding Scale) 0 units SUBQ ACHS [facility]; Protocol Stop: 05/31/18 07:29 Last Admin: 04/02/18 12:46 Dose: 2 units Lactobacillus Rhamnosus (Culturelle 15b) 1 each PO DAILY [facility] Stop: 06/01/18 12:59 Last Admin: 04/02/18 14:29 Dose: 1 each Levetiracetam (Keppra) 500 mg PO BID [facility] Stop: 05/31/18 08:59 Last Admin: 04/02/18 10:30 Dose: 500 mg Levothyroxine Sodium (Synthroid) 0.025 mg PO QDAC [facility] Stop: 05/31/18 07:29 Last Admin: 04/02/18 07:49 Dose: Not Given Lorazepam (Ativan) 1 mg IVP Q6H PRN; Protocol PRN Reason: Agitation Stop: 05/31/18 22:59 Last Admin: 04/02/18 00:37 Dose: 1 mg Miscellaneous (Clinical Monitoring) 1 ea MC PRN PRN PRN Reason: RENAL Stop: 06/01/18 10:15 Pantoprazole Sodium (Protonix) 40 mg PO DAILY [facility] Stop: 05/31/18 08:59 Last Admin: 04/02/18 10:31 Dose: 40 mg Rifampin (Rifadin) 600 mg PO DAILY [facility] Stop: 05/31/18 08:59 Sodium Phosphate (Fleet Enema) 135 ml RC DAILY PRN PRN Reason: Constipation Stop: 05/30/18 22:21 Vitamin B Complex/Vit C/Folic Acid (Vitamin B Complex W/Vitamin C) 1 tab PO DAILY [facility] Stop: 05/31/18 08:59 Last Admin: 04/02/18 10:08 Dose: Not Given Zinc Sulfate (Zinc Sulfate) 220 mg PO DAILY [facility] Stop: 05/31/18 08:59 Last Admin: 04/02/18 10:08 Dose: Not Given
[2018-04-02] MEDS: cefTRIAXone 1 GM in Sodium Chloride 0.9% 50 ML IV SCH (21:19)
[2018-04-02] MEDS: Atorvastatin Calcium 10 MG TAB PO SCH (21:19)
[2018-04-03] MEDS: Albuterol/Ipratropium Neb 3 ML AERS HHN SCH ×4 (00:07→19:31)
[2018-04-03] MEDS: Hydrocodone/APAP 5mg/325mg Tab PO PRN ×2 (05:21→15:26)
[2018-04-03] MEDS: INSULIN ASPART SLIDING SCALE 100 UNITS/ML UNIT SUBQ SCH ×4 (07:58→22:49)
[2018-04-03] MEDS: D5-0.45NS 1,000 ML IV SCH ×2 (08:08→22:12)
--- NOTE | 2018-04-03 08:57 | Infectious Disease Prog Note ---
Infectious Disease Subjective - Review of Systems Service Date: 04/03/18 Subjective: No new change, no fever. Infectious Disease Objective - Results Result Diagrams: 04/02/18 06:00 04/02/18 06:00 Recent Labs: Laboratory Last Values WBC 7.7 Th/cmm (4.8-10.8) 04/02/18 06:00 RBC 2.65 Mil/cmm (4.30-5.70) L 04/02/18 06:00 Hgb 8.3 gm/dL (12-16) L 04/02/18 06:00 Hct 24.6 % (41.0-60) L 04/02/18 06:00 MCV 93.1 fl (80-99) 04/02/18 06:00 MCH 31.2 pg (26.0-30.0) H 04/02/18 06:00 MCHC Differential 33.6 pg (28.0-36.0) 04/02/18 06:00 RDW 22.5 % (11.5-20.0) H 04/02/18 06:00 Plt Count 162 Th/cmm (150-400) 04/02/18 06:00 MPV 7.7 fl 04/02/18 06:00 Add Manual Diff YES 04/01/18 06:03 Neutrophils % 80.2 % (40.0-80.0) H 04/02/18 06:00 Band Neutrophils % 1 % (0-10) 04/01/18 06:03 Lymphocytes % 7.9 % (20.0-50.0) L 04/02/18 06:00 Monocytes % 8.4 % (2.0-10.0) 04/02/18 06:00 Eosinophils % 2.3 % (0.0-5.0) 04/02/18 06:00 Basophils % 1.2 % (0.0-2.0) 04/02/18 06:00 Neutrophils (Manual) 82 % (40-80) H 04/02/18 06:00 Lymphocytes 7 % (20-50) L 04/02/18 06:00 Monocytes 6 % (2-10) 04/02/18 06:00 Eosinophils 3 % (0-5) 04/02/18 06:00 Basophils 2 % (0-3) 04/02/18 06:00 Platelet Estimate ADEQUATE (NORMAL) 04/02/18 06:00 Platelet Morphology NORMAL (NORMAL) 03/31/18 18:25 Anisocytosis 1+ 04/02/18 06:00 RBC Morph Micro Appear ABNORMAL (NORMAL) 03/31/18 18:25 Sodium 125 mEq/L (136-145) L 04/02/18 06:00 Potassium 3.9 mEq/L (3.5-5.1) 04/02/18 06:00 Chloride 90 mEq/L (98-107) L 04/02/18 06:00 Carbon Dioxide 25.1 mEq/L (21.0-31.0) 04/02/18 06:00 Anion Gap 13.8 (7.0-16.0) 04/02/18 06:00 BUN 31 mg/dL (7-25) H 04/02/18 06:00 Creatinine 2.8 mg/dL (0.7-1.3) H 04/02/18 06:00 Est GFR ( Amer) 29.9 ml/min (>90) 04/02/18 06:00 Est GFR (Non-Af Amer) 24.7 ml/min 04/02/18 06:00 BUN/Creatinine Ratio 11.1 04/02/18 06:00 Glucose 141 mg/dL (70-105) H 04/02/18 06:00 POC Glucose 93 MG/DL (70 - 105) 04/03/18 06:56 Calcium 8.2 mg/dL (8.6-10.3) L 04/02/18 06:00 Phosphorus 4.8 mg/dL (2.5-5.0) 04/02/18 06:00 Total Bilirubin 0.5 mg/dL (0.3-1.0) 04/02/18 06:00 AST 8 U/L (13-39) L 04/02/18 06:00 ALT 6 U/L (7-52) L 04/02/18 06:00 Alkaline Phosphatase 104 U/L (34-104) 04/02/18 06:00 Troponin I 0.05 ng/mL (0.01-0.05) 03/31/18 18:25 Total Protein 5.7 gm/dL (6.0-8.3) L 04/02/18 06:00 Albumin 2.7 gm/dL (4.2-5.5) L 04/02/18 06:00 Globulin 3.0 gm/dL 04/02/18 06:00 Albumin/Globulin Ratio 0.9 (1.0-1.8) L 04/02/18 06:00 Urine Source CLEAN C 03/31/18 18:45 Urine Color YELLOW 03/31/18 18:45 Urine Clarity CLOUDY (CLEAR) 03/31/18 18:45 Urine pH 6.0 (4.6 - 8.0) 03/31/18 18:45 Ur Specific [place] 1.020 (1.005-1.030) 03/31/18 18:45 Urine Protein >=300 mg/dL (NEGATIVE) 03/31/18 18:45 Urine Glucose (UA) NEGATIVE mg/dL (NEGATIVE) 03/31/18 18:45 Urine Ketones NEGATIVE mg/dL (NEGATIVE) 03/31/18 18:45 Urine Blood LARGE (NEGATIVE) H 03/31/18 18:45 Urine Nitrate NEGATIVE (NEGATIVE) 03/31/18 18:45 Urine Bilirubin NEGATIVE (NEGATIVE) 03/31/18 18:45 Urine Urobilinogen 0.2 E.U./dL (0.2 - 1.0) 03/31/18 18:45 Ur Leukocyte Esterase MODERATE (NEGATIVE) H 03/31/18 18:45 Urine RBC 50-100 /hpf (0-5) H 03/31/18 18:45 Urine WBC 25-50 /hpf (0-5) H 03/31/18 18:45 Ur Epithelial Cells NONE SEEN /lpf (FEW) 03/31/18 18:45 Urine Bacteria FEW /hpf (NONE SEEN) 03/31/18 18:45 - Physical Exam Vitals and I&O: Vital Signs Temp 98.3 F 04/03/18 07:57 Pulse 91 04/03/18 07:57 Resp 20 04/03/18 07:57 BP 112/67 04/03/18 07:57 Pulse Ox 99 04/03/18 07:57 Intake & Output 04/02/18 04/03/18 04/03/18 18:59 06:59 18:59 Intake Total 700 1000 Output Total 1200 350 Balance -500 -350 1000 Weight (lbs) 90.718 kg 90.718 kg Intake: Intake, IV Amount 1000 D5-0.45NS 1,000 ml @ 75 1000 mls/hr IV .[id number] [facility] Rx #:[id number] Oral 700 Output: Urine 200 350 Stool 0 Hemodialysis 1000 Other: # Bowel Movements 0 Stool Characteristics Liquid Liquid Brown Weight Source Bedscale Bedscale Active Medications: Current Medications Acetaminophen (Tylenol) 650 mg PO Q4HR PRN PRN Reason: MILD Pain or Fever >101 Stop: 05/30/18 22:21 Acetaminophen/Hydrocodone Bitart ([place] 5mg/325mg) 1 tab PO Q6H PRN PRN Reason: Pain (Severe) Stop: 05/30/18 22:21 Last Admin: 04/03/18 05:21 Dose: 1 tab Albuterol/Ipratropium (Duoneb Neb) 3 ml HHN Q6HRT [facility] Stop: 05/31/18 00:59 Last Admin: 04/03/18 07:16 Dose: 3 ml Ascorbic Acid (Vitamin C) 500 mg PO DAILY [facility] Stop: 05/31/18 08:59 Last Admin: 04/02/18 10:07 Dose: Not Given Aspirin (Ecotrin) 81 mg PO DAILY [facility] Stop: 05/31/18 08:59 Last Admin: 04/02/18 10:07 Dose: Not Given Atorvastatin Calcium (Lipitor) 20 mg PO HS [facility] Stop: 05/31/18 20:59 Last Admin: 04/02/18 21:19 Dose: 20 mg Bisacodyl (Dulcolax 10 Mg Supp) 10 mg RC DAILY PRN PRN Reason: Constipation Stop: 05/30/18 22:21 [place] Oil/Romanian Balsam/Trypsin (Venelex) 1 appl TP DAILY [facility] Stop: 06/02/18 08:59 Dextrose (D50w) 50 ml IVP PRN PRN; Protocol PRN Reason: HYPOGLYCEMIA PROTOCOL Stop: 05/30/18 23:03 Diphenhydramine HCl (Benadryl) 25 mg PO Q6HR PRN PRN Reason: Itching Stop: 05/30/18 22:21 Last Admin: 04/01/18 00:23 Dose: 25 mg Docusate Sodium (Colace) 100 mg PO DAILY [facility] Stop: 05/31/18 08:59 Last Admin: 04/02/18 10:07 Dose: Not Given Doxycycline Hyclate (Vibramycin) 100 mg PO BID@1000,1700 [facility] Stop: 05/31/18 09:59 Last Admin: 04/02/18 16:47 Dose: 100 mg Epoetin Ramirez (Epogen) 5,000 units IVP MoWeFr [facility] Stop: 06/01/18 14:59 Last Admin: 04/02/18 14:32 Dose: 5,000 units Ceftriaxone Sodium 1 gm/ (Sodium Chloride) 50 mls @ 100 mls/hr IV Q24HR@2100 [facility] Stop: 05/31/18 20:59 Last Admin: 04/02/18 21:19 Dose: 100 mls/hr Levofloxacin (Levaquin Pb) 250 mg in 50 mls @ 50 mls/hr IV Q24HR@0900 [facility] Stop: 06/01/18 08:59 Last Admin: 04/02/18 10:01 Dose: 50 mls/hr Dextrose/Sodium Chloride (D5-0.45ns) 1,000 mls @ 75 mls/hr IV .[id number] [facility] Stop: 06/01/18 14:44 Last Admin: 04/03/18 08:08 Dose: 75 mls/hr Insulin Aspart (Novolog Insulin Sliding Scale) 0 units SUBQ ACHS [facility]; Protocol Stop: 05/31/18 07:29 Last Admin: 04/03/18 07:58 Dose: Not Given Lactobacillus Rhamnosus (Culturelle 15b) 1 each PO DAILY [facility] Stop: 06/01/18 12:59 Last Admin: 04/02/18 14:29 Dose: 1 each Levetiracetam (Keppra) 500 mg PO BID [facility] Stop: 05/31/18 08:59 Last Admin: 04/02/18 16:47 Dose: 500 mg Levothyroxine Sodium (Synthroid) 0.025 mg PO QDAC [facility] Stop: 05/31/18 07:29 Last Admin: 04/02/18 07:49 Dose: Not Given Lorazepam (Ativan) 1 mg IVP Q6H PRN; Protocol PRN Reason: Agitation Stop: 05/31/18 22:59 Last Admin: 04/02/18 23:11 Dose: 1 mg Miscellaneous (Clinical Monitoring) 1 ea MC PRN PRN PRN Reason: RENAL Stop: 06/01/18 10:15 Pantoprazole Sodium (Protonix) 40 mg PO DAILY [facility] Stop: 05/31/18 08:59 Last Admin: 04/02/18 10:31 Dose: 40 mg Rifampin (Rifadin) 600 mg PO DAILY [facility] Stop: 05/31/18 08:59 Sodium Phosphate (Fleet Enema) 135 ml RC DAILY PRN PRN Reason: Constipation Stop: 05/30/18 22:21 Vitamin B Complex/Vit C/Folic Acid (Vitamin B Complex W/Vitamin C) 1 tab PO DAILY [facility] Stop: 05/31/18 08:59 Last Admin: 04/02/18 10:08 Dose: Not Given Zinc Sulfate (Zinc Sulfate) 220 mg PO DAILY [facility] Stop: 05/31/18 08:59 Last Admin: 04/02/18 10:08 Dose: Not Given General: no acute distress, well developed, well nourished HEENT: atraumatic, normocephalic, PERRLA, EOMI Neck: supple Cardiovascular: S1S2, regular Lungs: clear to auscultation bilaterally, clear to percussion Abdomen: soft, no tender, no distended Extremities: no cyanosis, no clubbing, no edema Neurological: awake, alert, oriented Skin: other (decubiti) Infectious Disease Assmt/Plan - Assessment Assessment: 1. Sacral decubitus ulcer. 2. History of Methicillin-resistant Staphylococcus aureus infection. 3. Urinary tract infection. 4. Anemia. 5. Diabetes mellitus type 2. 6. Hypertension. - Plan Plan: Continue levaquin. Wound care. Nutritional Asmnt/Malnutr-PDOC - Dietary Evaluation Malnutrition Findings (Please click <Entered> for more info): Nutritional Asmnt/Malnutrition Start: 04/02/18 16: 21 Text: Status: Complete Freq: Protocol: Document 04/02/18 16:42 LCHENG (Rec: 04/02/18 17:12 LCHENG [email or web address]) Nutritional Asmnt/Malnutrition Patient General Information Nutritional Screening High Risk Consult Diagnosis UTI, renal failure Pertinent Medical Hx/Surgical Hx HTN, DM, CVA/TIA, ESRD, dementia Subjective Information Consult for multiple ulcer. Pt seen lying in bed at time of visit, awake and alert. Pt reported appetite was not good , requesting for oral supplement (chocolate flavor only). Per nurse, pt will start dialysis. Pt has multiple wounds noted. Current Diet Order/ Nutrition Support 2gm sodium, renal Pertinent Medications vit C, D5-0.45ns, colace, novolog, culturelle, levaquin, synthroid, protonix, vit B complex w/ vit C, zinc Pertinent Labs 04/02 Na 125, Cl 90, BUN 31, Cr 2.8, glucose 141, POc 146-161 Nutritional Hx/Data Height 1.8 m Height (Calculated Centimeters) 180.3 Current Weight (lbs) 91.626 kg Weight (Calculated Kilograms) 91.6 Weight (Calculated Grams) 10614.7 [place] Body Weight 172 Body Mass Index (BMI) 28.1 GI Symptoms Skin Integrity/Comment: 3+ pitting adema to right upper extremity, 1+ pitting edemat to left arm reddened to right buttocks, ulcer to left buttocks, left and right arms Current %PO Fair (50-74%) Estimated Nutritional Goals BEE in Kcals: Adj wt of IBW Calories/Kcals/Kg 25-30 Kcals Calculated [id number] Protein: Adj wt of IBW Protein g/k.1-1.3 Protein Calculated 89-105 Fluid: ml 2024-243ml (1ml/kcal) Nutritional Problem 3. Problem Problem increased nutrition needs ( calorie and protein) Etiology impaired skin integrity, increased protein loss Signs/Symptoms: multiple ulcer, pt on dialysis 2. Problem Problem inadequate food intake Etiology poor appetite Signs/Symptoms: PO intake 50% 1. Problem Problem altered nutrition related labs Etiology electrolytes imbalance, hx of DM, ESRD Signs/Symptoms: Na 125, Cl 90, BUN 31, Cr 2.8, Glucose 141, POC 146-161 Malnutrition Alert Is there a minimum of two criteria No selected? Query Text:Check all the applicable criteria. A minimum of two criteria are recommended for diagnosis of either severe or non-severe malnutrition. Malnutrition Related to Morbid Obesity Malnutrition related to morbid obesity No Intervention/Recommendation Comments 1. Continue with current diet as ordered. If glucose continue high, will consider adding CCHO diet. 2. Recommend adding oral supplement Glucerna (chocolate flavor) daily to increased nutrition intake, Hever BID for wound healing. DONAVAN Stack notified. 2. Monitor PO intake, wt, labs and skin integrity 3. F/U as high risk in 2-3 days, 04/04-04/04 Expected Outcomes/Goals Expected Outcomes/Goals 1. PO intake to meet at least 75% of nutritional needs. 2. Wt stability, skin to remain intact, labs to approach WNL.
[2018-04-03] MEDS: Vitamin B Complex w/Vitamin C Tab PO SCH (09:05)
[2018-04-03] MEDS: Pantoprazole 40 mg EC Tab PO SCH (09:05)
[2018-04-03] MEDS: Levothyroxine 0.025 Mg Tab PO SCH (09:05)
[2018-04-03] MEDS: Levofloxacin 250mg/50mL 250 MG/50 ML BAG IV SCH (09:06)
[2018-04-03] MEDS: Multivitamin w/ Minerals Tab PO SCH (09:06)
[2018-04-03] MEDS: Lactobacillus Rhamnosus GG 15 Billion CFU CAP.SPRINK PO SCH (09:06)
[2018-04-03] MEDS: Venelex 60gm Tube TP SCH (09:06)
[2018-04-03] MEDS: Rifampin 300 mg Cap PO SCH (12:06)
[2018-04-03 16:16] LABS: FERRITIN 1538 ng/mL (30-400); IRON LC 33 ug/dL (38-169); TIBC (LC) 73 ug/dL (250-450); UIBC 40 ug/dL (111-343)
[2018-04-03] MEDS: cefTRIAXone 1 GM in Sodium Chloride 0.9% 50 ML IV SCH (21:40)
--- NOTE | 2018-04-03 22:24 | Infectious Disease Prog Note ---
Infectious Disease Subjective - Review of Systems Service Date: 04/03/18 Subjective: No new change, no fever. Infectious Disease Objective - Results Result Diagrams: 04/02/18 06:00 04/02/18 06:00 Recent Labs: Laboratory Last Values WBC 7.7 Th/cmm (4.8-10.8) 04/02/18 06:00 RBC 2.65 Mil/cmm (4.30-5.70) L 04/02/18 06:00 Hgb 8.3 gm/dL (12-16) L 04/02/18 06:00 Hct 24.6 % (41.0-60) L 04/02/18 06:00 MCV 93.1 fl (80-99) 04/02/18 06:00 MCH 31.2 pg (26.0-30.0) H 04/02/18 06:00 MCHC Differential 33.6 pg (28.0-36.0) 04/02/18 06:00 RDW 22.5 % (11.5-20.0) H 04/02/18 06:00 Plt Count 162 Th/cmm (150-400) 04/02/18 06:00 MPV 7.7 fl 04/02/18 06:00 Add Manual Diff YES 04/01/18 06:03 Neutrophils % 80.2 % (40.0-80.0) H 04/02/18 06:00 Band Neutrophils % 1 % (0-10) 04/01/18 06:03 Lymphocytes % 7.9 % (20.0-50.0) L 04/02/18 06:00 Monocytes % 8.4 % (2.0-10.0) 04/02/18 06:00 Eosinophils % 2.3 % (0.0-5.0) 04/02/18 06:00 Basophils % 1.2 % (0.0-2.0) 04/02/18 06:00 Neutrophils (Manual) 82 % (40-80) H 04/02/18 06:00 Lymphocytes 7 % (20-50) L 04/02/18 06:00 Monocytes 6 % (2-10) 04/02/18 06:00 Eosinophils 3 % (0-5) 04/02/18 06:00 Basophils 2 % (0-3) 04/02/18 06:00 Platelet Estimate ADEQUATE (NORMAL) 04/02/18 06:00 Platelet Morphology NORMAL (NORMAL) 03/31/18 18:25 Anisocytosis 1+ 04/02/18 06:00 RBC Morph Micro Appear ABNORMAL (NORMAL) 03/31/18 18:25 Sodium 125 mEq/L (136-145) L 04/02/18 06:00 Potassium 3.9 mEq/L (3.5-5.1) 04/02/18 06:00 Chloride 90 mEq/L (98-107) L 04/02/18 06:00 Carbon Dioxide 25.1 mEq/L (21.0-31.0) 04/02/18 06:00 Anion Gap 13.8 (7.0-16.0) 04/02/18 06:00 BUN 31 mg/dL (7-25) H 04/02/18 06:00 Creatinine 2.8 mg/dL (0.7-1.3) H 04/02/18 06:00 Est GFR ( Amer) 29.9 ml/min (>90) 04/02/18 06:00 Est GFR (Non-Af Amer) 24.7 ml/min 04/02/18 06:00 BUN/Creatinine Ratio 11.1 04/02/18 06:00 Glucose 141 mg/dL (70-105) H 04/02/18 06:00 POC Glucose 134 MG/DL (70 - 105) H 04/03/18 16:26 Calcium 8.2 mg/dL (8.6-10.3) L 04/02/18 06:00 Phosphorus 4.8 mg/dL (2.5-5.0) 04/02/18 06:00 Iron 33 ug/dL (38-169) L 04/02/18 06:00 TIBC 73 ug/dL (250-450) L 04/02/18 06:00 Iron Saturation 45 % (15-55) 04/02/18 06:00 Unsaturated IBC 40 ug/dL (111-343) L 04/02/18 06:00 Ferritin 1538 ng/mL (30-400) H 04/02/18 06:00 Total Bilirubin 0.5 mg/dL (0.3-1.0) 04/02/18 06:00 AST 8 U/L (13-39) L 07/16/18 06:00 ALT 6 U/L (7-52) L 04/02/18 06:00 Alkaline Phosphatase 104 U/L (34-104) 04/02/18 06:00 Troponin I 0.05 ng/mL (0.01-0.05) 03/31/18 18:25 Total Protein 5.7 gm/dL (6.0-8.3) L 04/02/18 06:00 Albumin 2.7 gm/dL (4.2-5.5) L 04/02/18 06:00 Globulin 3.0 gm/dL 04/02/18 06:00 Albumin/Globulin Ratio 0.9 (1.0-1.8) L 04/02/18 06:00 Urine Source CLEAN C 03/31/18 18:45 Urine Color YELLOW 03/31/18 18:45 Urine Clarity CLOUDY (CLEAR) 03/31/18 18:45 Urine pH 6.0 (4.6 - 8.0) 03/31/18 18:45 Ur Specific [place] 1.020 (1.005-1.030) 03/31/18 18:45 Urine Protein >=300 mg/dL (NEGATIVE) 03/31/18 18:45 Urine Glucose (UA) NEGATIVE mg/dL (NEGATIVE) 03/31/18 18:45 Urine Ketones NEGATIVE mg/dL (NEGATIVE) 03/31/18 18:45 Urine Blood LARGE (NEGATIVE) H 03/31/18 18:45 Urine Nitrate NEGATIVE (NEGATIVE) 03/31/18 18:45 Urine Bilirubin NEGATIVE (NEGATIVE) 03/31/18 18:45 Urine Urobilinogen 0.2 E.U./dL (0.2 - 1.0) 03/31/18 18:45 Ur Leukocyte Esterase MODERATE (NEGATIVE) H 03/31/18 18:45 Urine RBC 50-100 /hpf (0-5) H 03/31/18 18:45 Urine WBC 25-50 /hpf (0-5) H 03/31/18 18:45 Ur Epithelial Cells NONE SEEN /lpf (FEW) 03/31/18 18:45 Urine Bacteria FEW /hpf (NONE SEEN) 03/31/18 18:45 - Physical Exam Vitals and I&O: Vital Signs Temp 99.0 F 04/03/18 20:00 Pulse 94 04/03/18 20:00 Resp 19 04/03/18 20:00 BP 98/59 04/03/18 20:00 Pulse Ox 99 04/03/18 20:00 Intake & Output 04/03/18 04/03/18 04/04/18 06:59 18:59 06:59 Intake Total 50 1450 1000 Output Total 350 250 Balance -300 1200 1000 Weight (lbs) 90.718 kg 90.718 kg Intake: Intake, IV Amount 50 1050 1000 D5-0.45NS 1,000 ml @ 75 1000 1000 mls/hr IV .[id number] [facility] Rx #:[id number] Levofloxacin 250mg/50mL 50 250 mg In 50 ml @ 50 mls/ hr IV Q24HR@0900 [facility] Rx#: [id number] cefTRIAXone 1 gm In 50 Sodium Chloride 0.9% 50 ml @ 100 mls/hr IV Q24HR@ 2100 [facility] Rx#:[id number] Oral 400 Output: Urine 350 250 Other: # Bowel Movements 1 Stool Characteristics Liquid Liquid Brown Brown Weight Source Bedscale Bedscale Active Medications: Current Medications Acetaminophen (Tylenol) 650 mg PO Q4HR PRN PRN Reason: MILD Pain or Fever >101 Stop: 05/30/18 22:21 Acetaminophen/Hydrocodone Bitart ([place] 5mg/325mg) 1 tab PO Q6H PRN PRN Reason: Pain (Severe) Stop: 05/30/18 22:21 Last Admin: 04/03/18 15:26 Dose: 1 tab Albuterol/Ipratropium (Duoneb Neb) 3 ml HHN Q6HRT [facility] Stop: 05/31/18 00:59 Last Admin: 04/03/18 19:31 Dose: 3 ml Ascorbic Acid (Vitamin C) 500 mg PO DAILY [facility] Stop: 05/31/18 08:59 Last Admin: 04/03/18 09:05 Dose: 500 mg Aspirin (Ecotrin) 81 mg PO DAILY [facility] Stop: 05/31/18 08:59 Last Admin: 04/03/18 09:05 Dose: 81 mg Atorvastatin Calcium (Lipitor) 20 mg PO HS [facility] Stop: 05/31/18 20:59 Last Admin: 04/02/18 21:19 Dose: 20 mg Bisacodyl (Dulcolax 10 Mg Supp) 10 mg RC DAILY PRN PRN Reason: Constipation Stop: 05/30/18 22:21 [place] Oil/[place] Balsam/Trypsin (Venelex) 1 appl TP DAILY [facility] Stop: 06/02/18 08:59 Last Admin: 04/03/18 09:06 Dose: 1 appl Dextrose (D50w) 50 ml IVP PRN PRN; Protocol PRN Reason: HYPOGLYCEMIA PROTOCOL Stop: 05/30/18 23:03 Diphenhydramine HCl (Benadryl) 25 mg PO Q6HR PRN PRN Reason: Itching Stop: 05/30/18 22:21 Last Admin: 04/03/18 22:04 Dose: 25 mg Docusate Sodium (Colace) 100 mg PO DAILY [facility] Stop: 05/31/18 08:59 Last Admin: 04/03/18 09:05 Dose: 100 mg Doxycycline Hyclate (Vibramycin) 100 mg PO BID@1000,1700 [facility] Stop: 05/31/18 09:59 Last Admin: 04/03/18 16:26 Dose: 100 mg Epoetin [place] (Epogen) 5,000 units IVP MoWeFr [facility] Stop: 06/01/18 14:59 Last Admin: 04/02/18 14:32 Dose: 5,000 units Ceftriaxone Sodium 1 gm/ (Sodium Chloride) 50 mls @ 100 mls/hr IV Q24HR@2100 [facility] Stop: 05/31/18 20:59 Last Admin: 04/03/18 21:40 Dose: 100 mls/hr Levofloxacin (Levaquin Pb) 250 mg in 50 mls @ 50 mls/hr IV Q24HR@0900 [facility] Stop: 06/01/18 08:59 Last Infusion: 04/03/18 13:54 Dose: Infused Dextrose/Sodium Chloride (D5-0.45ns) 1,000 mls @ 75 mls/hr IV .[id number] [facility] Stop: 06/01/18 14:44 Last Admin: 04/03/18 22:12 Dose: 75 mls/hr Insulin Aspart (Novolog Insulin Sliding Scale) 0 units SUBQ ACHS [facility]; Protocol Stop: 05/31/18 07:29 Last Admin: 04/03/18 16:53 Dose: Not Given Lactobacillus Rhamnosus (Culturelle 15b) 1 each PO DAILY [facility] Stop: 06/01/18 12:59 Last Admin: 04/03/18 09:06 Dose: 1 each Levetiracetam (Keppra) 500 mg PO BID [facility] Stop: 05/31/18 08:59 Last Admin: 04/03/18 16:27 Dose: 500 mg Levothyroxine Sodium (Synthroid) 0.025 mg PO QDAC [facility] Stop: 05/31/18 07:29 Last Admin: 04/03/18 09:05 Dose: 0.025 mg Lorazepam (Ativan) 1 mg IVP Q6H PRN; Protocol PRN Reason: Agitation Stop: 05/31/18 22:59 Last Admin: 04/03/18 22:04 Dose: 1 mg Miscellaneous (Clinical Monitoring) 1 ea MC PRN PRN PRN Reason: RENAL Stop: 06/01/18 10:15 Pantoprazole Sodium (Protonix) 40 mg PO DAILY [facility] Stop: 05/31/18 08:59 Last Admin: 04/03/18 09:05 Dose: 40 mg Rifampin (Rifadin) 600 mg PO DAILY [facility] Stop: 04/17/18 10:59 Last Admin: 04/03/18 12:06 Dose: Not Given Sodium Phosphate (Fleet Enema) 135 ml RC DAILY PRN PRN Reason: Constipation Stop: 05/30/18 22:21 Vitamin B Complex/Vit C/Folic Acid (Vitamin B Complex W/Vitamin C) 1 tab PO DAILY [facility] Stop: 05/31/18 08:59 Last Admin: 04/03/18 09:05 Dose: 1 tab Zinc Sulfate (Zinc Sulfate) 220 mg PO DAILY [facility] Stop: 05/31/18 08:59 Last Admin: 04/03/18 09:05 Dose: 220 mg General: no acute distress, well developed, well nourished HEENT: atraumatic, normocephalic, PERRLA, EOMI, moist mucous membrane Neck: supple, no thyromegaly Cardiovascular: S1S2, regular Lungs: clear to auscultation bilaterally, clear to percussion Abdomen: soft, no tender, no hepatomegaly Extremities: no cyanosis, no clubbing Neurological: awake, alert, oriented Infectious Disease Assmt/Plan - Assessment Assessment: 1. Sacral decubitus ulcer. 2. History of Methicillin-resistant Staphylococcus aureus infection. 3. Urinary tract infection. 4. Anemia. 5. Diabetes mellitus type 2. 6. Hypertension. - Plan Plan: Continue levaquin. Wound care. Nutritional Asmnt/Malnutr-PDOC - Dietary Evaluation Malnutrition Findings (Please click <Entered> for more info): Nutritional Asmnt/Malnutrition Start: 04/02/18 16: 21 Text: Status: Complete Freq: Protocol: Document 04/02/18 16:42 LCHENG (Rec: 04/02/18 17:12 [id number]) Nutritional Asmnt/Malnutrition Patient General Information Nutritional Screening High Risk Consult Diagnosis UTI, renal failure Pertinent Medical Hx/Surgical Hx HTN, DM, CVA/TIA, ESRD, dementia Subjective Information Consult for multiple ulcer. Pt seen lying in bed at time of visit, awake and alert. Pt reported appetite was not good , requesting for oral supplement (chocolate flavor only). Per nurse, pt will start dialysis. Pt has multiple wounds noted. Current Diet Order/ Nutrition Support 2gm sodium, renal Pertinent Medications vit C, D5-0.45ns, colace, novolog, culturelle, levaquin, synthroid, protonix, vit B complex w/ vit C, zinc Pertinent Labs 04/02 Na 125, Cl 90, BUN 31, Cr 2.8, glucose 141, POc 146-161 Nutritional Hx/Data Height 1.8 m Height (Calculated Centimeters) 180.3 Current Weight (lbs) 91.626 kg Weight (Calculated Kilograms) 91.6 Weight (Calculated Grams) 58288.7 [place] Body Weight 172 Body Mass Index (BMI) 28.1 GI Symptoms Skin Integrity/Comment: 3+ pitting adema to right upper extremity, 1+ pitting edemat to left arm reddened to right buttocks, ulcer to left buttocks, left and right arms Current %PO Fair (50-74%) Estimated Nutritional Goals BEE in Kcals: Adj wt of IBW Calories/Kcals/Kg 25-30 Kcals Calculated 6044-2628 Protein: Adj wt of IBW Protein g/k.1-1.3 Protein Calculated 89-105 Fluid: ml 2024-243ml (1ml/kcal) Nutritional Problem 3. Problem Problem increased nutrition needs ( calorie and protein) Etiology impaired skin integrity, increased protein loss Signs/Symptoms: multiple ulcer, pt on dialysis 2. Problem Problem inadequate food intake Etiology poor appetite Signs/Symptoms: PO intake 50% 1. Problem Problem altered nutrition related labs Etiology electrolytes imbalance, hx of DM, ESRD Signs/Symptoms: Na 125, Cl 90, BUN 31, Cr 2.8, Glucose 141, POC 146-161 Malnutrition Alert Is there a minimum of two criteria No selected? Query Text:Check all the applicable criteria. A minimum of two criteria are recommended for diagnosis of either severe or non-severe malnutrition. Malnutrition Related to Morbid Obesity Malnutrition related to morbid obesity No Intervention/Recommendation Comments 1. Continue with current diet as ordered. If glucose continue high, will consider adding CCHO diet. 2. Recommend adding oral supplement Glucerna (chocolate flavor) daily to increased nutrition intake, Hever BID for wound healing. RN Seda notified. 2. Monitor PO intake, wt, labs and skin integrity 3. F/U as high risk in 2-3 days, 04/04-04/04 Expected Outcomes/Goals Expected Outcomes/Goals 1. PO intake to meet at least 75% of nutritional needs. 2. Wt stability, skin to remain intact, labs to approach WNL.
[2018-04-03] MEDS: Atorvastatin Calcium 10 MG TAB PO SCH (22:49)
[2018-04-04] MEDS: Albuterol/Ipratropium Neb 3 ML AERS HHN SCH ×4 (01:00→19:17)
[2018-04-04] MEDS: Levothyroxine 0.025 Mg Tab PO SCH (07:19)
--- NOTE | 2018-04-04 07:56 | Consultation ---
DATE OF CONSULTATION: 04/04/2018 PSYCHIATRIC CONSULT PATIENT'S AGE: 62. SEX: Male. PHYSICIAN: Dr. Schrader. TRAFFIC INCIDENT MANAGEMENT MANAGER: Dr. Shannon. CHIEF COMPLAINT: Confusion. HISTORY OF PRESENT ILLNESS: The patient was admitted to the hospital with decubitus ulcer. The patient has been anxious and confused. The patient thinks that he lives in [place] with his . The patient also is restless and has been confused. The patient is talking about a desire to go home in "[place]." He thinks that he lives in [place]. After further discussion, the patient said that about half-way, the patient said that he lives in a half-way. He is anxious, but denies feeling depressed. PAST PSYCHIATRIC HISTORY: The patient seems to have dementia. PAST MEDICAL HISTORY: As per Dr. Schrader. SOCIAL HISTORY: The patient said that he is and lives with his and has 3 children. He denies alcohol or drug use. MENTAL STATUS EXAM: The patient appears his stated age. Anxious. Cooperative. Mood not depressed nor elated. The patient denies any hallucinations or delusions, but the patient is very confused and forgetful. The patient denies any suicide or homicide. The patient is alert and oriented to situation, but not to place or person or date. Poor insight and poor judgment. ASSESSMENT: PRIMARY DIAGNOSIS: Generalized anxiety disorder. SECONDARY DIAGNOSIS: Dementia, moderate. TREATMENT PLAN: We will monitor the patient's behavior and condition closely. Also, we will monitor psychotropic medications. Thanks Dr. Schrader and we will follow up with you and will reevaluate for any possible use of antidepressants or antipsychotic medications. [facility] [id number]
[2018-04-04] MEDS: INSULIN ASPART SLIDING SCALE 100 UNITS/ML UNIT SUBQ SCH ×5 (07:58→21:05)
[2018-04-04] MEDS: Lactobacillus Rhamnosus GG 15 Billion CFU CAP.SPRINK PO SCH (09:23)
[2018-04-04] MEDS: Vitamin B Complex w/Vitamin C Tab PO SCH (09:23)
[2018-04-04] MEDS: Pantoprazole 40 mg EC Tab PO SCH (09:23)
[2018-04-04] MEDS: Rifampin 300 mg Cap PO SCH (09:24)
[2018-04-04] MEDS: Multivitamin w/ Minerals Tab PO SCH (09:24)
[2018-04-04] MEDS: Levofloxacin 250mg/50mL 250 MG/50 ML BAG IV SCH (09:31)
[2018-04-04] MEDS ORDERED: Heparin Sodium 1,000 Units/mL Vial HD ONE (10:36)
[2018-04-04] MEDS: Venelex 60gm Tube TP SCH (10:54)
[2018-04-04 11:08] LABS: ANION GAP 13.4 (7.0-16.0); CALCIUM SERUM 8.1 mg/dL (8.6-10.3); CARBON DIOXIDE 21.6 mEq/L (21.0-31.0); CREATININE - SERUM 2.4 mg/dL (0.7-1.3); GFR AFRICAN-AMERICAN 35.7 ml/min (>90); GFR NON AFRICAN-AMERICAN 29.5 ml/min
[2018-04-04 11:32] LABS: % BASOPHILS 1.2 % (0.0-2.0); % EOSINOPHILS 2.4 % (0.0-5.0); % LYMPHOCYTES 7.9 % (20.0-50.0); % MONOCYTES 9.1 % (2.0-10.0); % NEUTROPHILS 79.4 % (40.0-80.0); BASOPHILE ABSOLUTE 0.1 Th/cumm (0-0.2); EOSINOPHILE ABSOLUTE 0.2 Th/cmm (0.1-0.4); HEMOGLOBIN 8.7 gm/dL (12-16); LYMPHOCYTE ABSOLUTE 0.7 Th/cmm (1.5-3.0); MEAN CELL VOLUME 94.6 fl (80-99); MEAN CORPUSCULAR HEMOGLOBIN 31.5 pg (26.0-30.0); MEAN CORPUSCULAR HGB CONC 33.3 pg (28.0-36.0); MEAN PLATELET VOLUME 8.4 fl; MONOCYTE ABSOLUTE 0.8 Th/cmm (0.3-1.0); NEUTROPHILE ABSOLUTE 6.9 Th/cmm (1.8-8.0); PLATELET COUNT 161 Th/cmm (150-400); RED BLOOD COUNT 2.75 Mil/cmm (4.30-5.70); WHITE BLOOD COUNT 8.7 Th/cmm (4.8-10.8)
--- NOTE | 2018-04-04 14:54 | Infectious Disease Prog Note ---
Infectious Disease Subjective - Review of Systems Service Date: 04/04/18 Subjective: No new change, no fever. Infectious Disease Objective - Results Result Diagrams: 04/04/18 10:40 04/04/18 10:40 Recent Labs: Laboratory Last Values WBC 8.7 Th/cmm (4.8-10.8) 04/04/18 10:40 RBC 2.75 Mil/cmm (4.30-5.70) L 04/04/18 10:40 Hgb 8.7 gm/dL (12-16) L 04/04/18 10:40 Hct 26.0 % (41.0-60) L 04/04/18 10:40 MCV 94.6 fl (80-99) 04/04/18 10:40 MCH 31.5 pg (26.0-30.0) H 04/04/18 10:40 MCHC Differential 33.3 pg (28.0-36.0) 04/04/18 10:40 RDW 22.0 % (11.5-20.0) H 04/04/18 10:40 Plt Count 161 Th/cmm (150-400) 04/04/18 10:40 MPV 8.4 fl 04/04/18 10:40 Add Manual Diff YES 04/01/18 06:03 Neutrophils % 79.4 % (40.0-80.0) 04/04/18 10:40 Band Neutrophils % 1 % (0-10) 04/01/18 06:03 Lymphocytes % 7.9 % (20.0-50.0) L 04/04/18 10:40 Monocytes % 9.1 % (2.0-10.0) 04/04/18 10:40 Eosinophils % 2.4 % (0.0-5.0) 04/04/18 10:40 Basophils % 1.2 % (0.0-2.0) 04/04/18 10:40 Neutrophils (Manual) Not Reportable 04/04/18 10:40 Lymphocytes 7 % (20-50) L 04/02/18 06:00 Monocytes 6 % (2-10) 04/02/18 06:00 Eosinophils 3 % (0-5) 04/02/18 06:00 Basophils 2 % (0-3) 04/02/18 06:00 Platelet Estimate ADEQUATE (NORMAL) 04/02/18 06:00 Platelet Morphology NORMAL (NORMAL) 03/31/18 18:25 Anisocytosis 1+ 04/02/18 06:00 RBC Morph Micro Appear ABNORMAL (NORMAL) 03/31/18 18:25 Sodium 123 mEq/L (136-145) L 04/04/18 10:40 Potassium 4.0 mEq/L (3.5-5.1) 04/04/18 10:40 Chloride 92 mEq/L (98-107) L 04/04/18 10:40 Carbon Dioxide 21.6 mEq/L (21.0-31.0) 04/04/18 10:40 Anion Gap 13.4 (7.0-16.0) 04/04/18 10:40 BUN 23 mg/dL (7-25) 04/04/18 10:40 Creatinine 2.4 mg/dL (0.7-1.3) H 04/04/18 10:40 Est GFR ( Amer) 35.7 ml/min (>90) 04/04/18 10:40 Est GFR (Non-Af Amer) 29.5 ml/min 04/04/18 10:40 BUN/Creatinine Ratio 9.6 04/04/18 10:40 Glucose 138 mg/dL (70-105) H 04/04/18 10:40 POC Glucose 157 MG/DL (70 - 105) H 04/04/18 11:32 Calcium 8.1 mg/dL (8.6-10.3) L 04/04/18 10:40 Phosphorus 4.8 mg/dL (2.5-5.0) 04/02/18 06:00 Iron 33 ug/dL (38-169) L 04/02/18 06:00 TIBC 73 ug/dL (250-450) L 04/02/18 06:00 Iron Saturation 45 % (15-55) 04/02/18 06:00 Unsaturated IBC 40 ug/dL (111-343) L 04/02/18 06:00 Ferritin 1538 ng/mL (30-400) H 04/02/18 06:00 Total Bilirubin 0.5 mg/dL (0.3-1.0) 04/02/18 06:00 AST 8 U/L (13-39) L 04/02/18 06:00 ALT 6 U/L (7-52) L 04/02/18 06:00 Alkaline Phosphatase 104 U/L (34-104) 04/02/18 06:00 Troponin I 0.05 ng/mL (0.01-0.05) 03/31/18 18:25 Total Protein 5.7 gm/dL (6.0-8.3) L 04/02/18 06:00 Albumin 2.7 gm/dL (4.2-5.5) L 04/02/18 06:00 Globulin 3.0 gm/dL 04/02/18 06:00 Albumin/Globulin Ratio 0.9 (1.0-1.8) L 04/02/18 06:00 Urine Source CLEAN C 03/31/18 18:45 Urine Color YELLOW 03/31/18 18:45 Urine Clarity CLOUDY (CLEAR) 03/31/18 18:45 Urine pH 6.0 (4.6 - 8.0) 03/31/18 18:45 Ur Specific [place] 1.020 (1.005-1.030) 03/31/18 18:45 Urine Protein >=300 mg/dL (NEGATIVE) 03/31/18 18:45 Urine Glucose (UA) NEGATIVE mg/dL (NEGATIVE) 03/31/18 18:45 Urine Ketones NEGATIVE mg/dL (NEGATIVE) 03/31/18 18:45 Urine Blood LARGE (NEGATIVE) H 03/31/18 18:45 Urine Nitrate NEGATIVE (NEGATIVE) 03/31/18 18:45 Urine Bilirubin NEGATIVE (NEGATIVE) 03/31/18 18:45 Urine Urobilinogen 0.2 E.U./dL (0.2 - 1.0) 03/31/18 18:45 Ur Leukocyte Esterase MODERATE (NEGATIVE) H 03/31/18 18:45 Urine RBC 50-100 /hpf (0-5) H 03/31/18 18:45 Urine WBC 25-50 /hpf (0-5) H 03/31/18 18:45 Ur Epithelial Cells NONE SEEN /lpf (FEW) 03/31/18 18:45 Urine Bacteria FEW /hpf (NONE SEEN) 03/31/18 18:45 - Physical Exam Vitals and I&O: Vital Signs Temp 97.0 F 04/04/18 11:33 Pulse 95 04/04/18 12:33 Resp 18 04/04/18 12:33 BP 97/58 07/18/18 11:33 Pulse Ox 100 04/04/18 12:33 Intake & Output 04/03/18 04/04/18 04/04/18 18:59 06:59 18:59 Intake Total 1450 1050 200 Output Total 250 300 Balance 1200 1050 -100 Weight (lbs) 90.718 kg 91.626 kg Intake: Intake, IV Amount 1050 1050 D5-0.45NS 1,000 ml @ 75 1000 1000 mls/hr IV .[id number] [facility] Rx #:[id number] Levofloxacin 250mg/50mL 50 250 mg In 50 ml @ 50 mls/ hr IV Q24HR@0900 [facility] Rx#: [id number] cefTRIAXone 1 gm In 50 Sodium Chloride 0.9% 50 ml @ 100 mls/hr IV Q24HR@ 2100 [facility] Rx#:[id number] Oral 400 200 Output: Urine 250 300 Other: # Bowel Movements 1 1 Stool Characteristics Liquid Soft Liquid Brown Brown Brown Weight Source Bedscale Bedscale Active Medications: Current Medications Acetaminophen (Tylenol) 650 mg PO Q4HR PRN PRN Reason: MILD Pain or Fever >101 Stop: 05/30/18 22:21 Last Admin: 04/04/18 10:54 Dose: 650 mg Acetaminophen/Hydrocodone Bitart ([place] 5mg/325mg) 1 tab PO Q6H PRN PRN Reason: Pain (Severe) Stop: 05/30/18 22:21 Last Admin: 04/03/18 15:26 Dose: 1 tab Albuterol/Ipratropium (Duoneb Neb) 3 ml HHN Q6HRT [facility] Stop: 05/31/18 00:59 Last Admin: 04/04/18 12:33 Dose: 3 ml Ascorbic Acid (Vitamin C) 500 mg PO DAILY [facility] Stop: 05/31/18 08:59 Last Admin: 04/04/18 09:23 Dose: 500 mg Aspirin (Ecotrin) 81 mg PO DAILY [facility] Stop: 05/31/18 08:59 Last Admin: 04/04/18 09:24 Dose: 81 mg Atorvastatin Calcium (Lipitor) 20 mg PO HS [facility] Stop: 05/31/18 20:59 Last Admin: 04/03/18 22:49 Dose: Not Given Bisacodyl (Dulcolax 10 Mg Supp) 10 mg RC DAILY PRN PRN Reason: Constipation Stop: 05/30/18 22:21 [place] Oil/[place] Balsam/Trypsin (Venelex) 1 appl TP DAILY [facility] Stop: 06/02/18 08:59 Last Admin: 04/04/18 10:54 Dose: 1 appl Dextrose (D50w) 50 ml IVP PRN PRN; Protocol PRN Reason: HYPOGLYCEMIA PROTOCOL Stop: 05/30/18 23:03 Diphenhydramine HCl (Benadryl) 25 mg PO Q6HR PRN PRN Reason: Itching Stop: 05/30/18 22:21 Last Admin: 04/03/18 22:04 Dose: 25 mg Docusate Sodium (Colace) 100 mg PO DAILY [facility] Stop: 05/31/18 08:59 Last Admin: 04/04/18 09:23 Dose: 100 mg Doxycycline Hyclate (Vibramycin) 100 mg PO BID@1000,1700 [facility] Stop: 05/31/18 09:59 Last Admin: 04/04/18 09:24 Dose: 100 mg Epoetin Ramirez (Epogen) 5,000 units IVP MoWeFr [facility] Stop: 06/01/18 14:59 Last Admin: 04/02/18 14:32 Dose: 5,000 units Ceftriaxone Sodium 1 gm/ (Sodium Chloride) 50 mls @ 100 mls/hr IV Q24HR@2100 [facility] Stop: 05/31/18 20:59 Last Infusion: 04/03/18 22:50 Dose: Infused Levofloxacin (Levaquin Pb) 250 mg in 50 mls @ 50 mls/hr IV Q24HR@0900 [facility] Stop: 06/01/18 08:59 Last Admin: 04/04/18 09:31 Dose: 50 mls/hr Dextrose/Sodium Chloride (D5-0.45ns) 1,000 mls @ 75 mls/hr IV .[id number] [facility] Stop: 06/01/18 14:44 Last Admin: 04/03/18 22:12 Dose: 75 mls/hr Insulin Aspart (Novolog Insulin Sliding Scale) 0 units SUBQ ACHS [facility]; Protocol Stop: 05/31/18 07:29 Last Admin: 04/04/18 12:18 Dose: 4 units Lactobacillus Rhamnosus (Culturelle 15b) 1 each PO DAILY [facility] Stop: 06/01/18 12:59 Last Admin: 04/04/18 09:23 Dose: 1 each Levetiracetam (Keppra) 500 mg PO BID [facility] Stop: 05/31/18 08:59 Last Admin: 04/04/18 09:23 Dose: 500 mg Levothyroxine Sodium (Synthroid) 0.025 mg PO QDAC [facility] Stop: 05/31/18 07:29 Last Admin: 04/04/18 07:19 Dose: 0.025 mg Lorazepam (Ativan) 1 mg IVP Q6H PRN; Protocol PRN Reason: Agitation Stop: 05/31/18 22:59 Last Admin: 04/04/18 09:31 Dose: 1 mg Miscellaneous (Clinical Monitoring) 1 ea MC PRN PRN PRN Reason: RENAL Stop: 06/01/18 10:15 Pantoprazole Sodium (Protonix) 40 mg PO DAILY [facility] Stop: 05/31/18 08:59 Last Admin: 04/04/18 09:23 Dose: 40 mg Rifampin (Rifadin) 600 mg PO DAILY [facility] Stop: 04/17/18 10:59 Last Admin: 04/04/18 09:24 Dose: 600 mg Sodium Phosphate (Fleet Enema) 135 ml RC DAILY PRN PRN Reason: Constipation Stop: 05/30/18 22:21 Vitamin B Complex/Vit C/Folic Acid (Vitamin B Complex W/Vitamin C) 1 tab PO DAILY [facility] Stop: 05/31/18 08:59 Last Admin: 04/04/18 09:23 Dose: 1 tab Zinc Sulfate (Zinc Sulfate) 220 mg PO DAILY [facility] Stop: 05/31/18 08:59 Last Admin: 04/04/18 09:23 Dose: 220 mg General: no acute distress, well developed, well nourished HEENT: atraumatic, normocephalic, PERRLA, EOMI Neck: supple, no thyromegaly, no lymphadenopathy Cardiovascular: S1S2, regular Lungs: clear to auscultation bilaterally, clear to percussion Abdomen: soft, no tender, no distended Extremities: no cyanosis, no clubbing Neurological: awake, alert, oriented Skin: other (sacral wound.) Infectious Disease Assmt/Plan - Assessment Assessment: 1. Sacral decubitus ulcer. 2. History of Methicillin-resistant Staphylococcus aureus infection. 3. Urinary tract infection. 4. Anemia. 5. Diabetes mellitus type 2. 6. Hypertension. - Plan Plan: Continue levaquin. Wound care. Nutritional Asmnt/Malnutr-PDOC - Dietary Evaluation Malnutrition Findings (Please click <Entered> for more info): Nutritional Asmnt/Malnutrition Start: 04/02/18 16: 21 Text: Status: Complete Freq: Protocol: Document 04/02/18 16:42 JAZZ (Rec: 04/02/18 17:12 JAZZ DE JESUS-FN) Nutritional Asmnt/Malnutrition Patient General Information Nutritional Screening High Risk Consult Diagnosis UTI, renal failure Pertinent Medical Hx/Surgical Hx HTN, DM, CVA/TIA, ESRD, dementia Subjective Information Consult for multiple ulcer. Pt seen lying in bed at time of visit, awake and alert. Pt reported appetite was not good , requesting for oral supplement (chocolate flavor only). Per nurse, pt will start dialysis. Pt has multiple wounds noted. Current Diet Order/ Nutrition Support 2gm sodium, renal Pertinent Medications vit C, D5-0.45ns, colace, novolog, culturelle, levaquin, synthroid, protonix, vit B complex w/ vit C, zinc Pertinent Labs 04/02 Na 125, Cl 90, BUN 31, Cr 2.8, glucose 141, POc 146-161 Nutritional Hx/Data Height 1.8 m Height (Calculated Centimeters) 180.3 Current Weight (lbs) 91.626 kg Weight (Calculated Kilograms) 91.6 Weight (Calculated Grams) [address]2449.7 [place] Body Weight 172 Body Mass Index (BMI) 28.1 GI Symptoms Skin Integrity/Comment: 3+ pitting adema to right upper extremity, 1+ pitting edemat to left arm reddened to right buttocks, ulcer to left buttocks, left and right arms Current %PO Fair (50-74%) Estimated Nutritional Goals BEE in Kcals: Adj wt of IBW Calories/Kcals/Kg 25-30 Kcals Calculated 5906-0948 Protein: Adj wt of IBW Protein g/k.1-1.3 Protein Calculated 89-105 Fluid: ml 2024-243ml (1ml/kcal) Nutritional Problem 3. Problem Problem increased nutrition needs ( calorie and protein) Etiology impaired skin integrity, increased protein loss Signs/Symptoms: multiple ulcer, pt on dialysis 2. Problem Problem inadequate food intake Etiology poor appetite Signs/Symptoms: PO intake 50% 1. Problem Problem altered nutrition related labs Etiology electrolytes imbalance, hx of DM, ESRD Signs/Symptoms: Na 125, Cl 90, BUN 31, Cr 2.8, Glucose 141, POC 146-161 Malnutrition Alert Is there a minimum of two criteria No selected? Query Text:Check all the applicable criteria. A minimum of two criteria are recommended for diagnosis of either severe or non-severe malnutrition. Malnutrition Related to Morbid Obesity Malnutrition related to morbid obesity No Intervention/Recommendation Comments 1. Continue with current diet as ordered. If glucose continue high, will consider adding CCHO diet. 2. Recommend adding oral supplement Glucerna (chocolate flavor) daily to increased nutrition intake, Hever BID for wound healing. RN Seda notified. 2. Monitor PO intake, wt, labs and skin integrity 3. F/U as high risk in 2-3 days, 04/04-04/04 Expected Outcomes/Goals Expected Outcomes/Goals 1. PO intake to meet at least 75% of nutritional needs. 2. Wt stability, skin to remain intact, labs to approach WNL.
--- NOTE | 2018-04-04 15:30 | General Progress Note ---
Subjective - Review of Systems Events since last encounter: no new change,no fever Objective - Results Result Diagrams: 04/04/18 10:40 04/04/18 10:40 Recent Labs: Laboratory Last Values WBC 8.7 Th/cmm (4.8-10.8) 04/04/18 10:40 RBC 2.75 Mil/cmm (4.30-5.70) L 04/04/18 10:40 Hgb 8.7 gm/dL (12-16) L 04/04/18 10:40 Hct 26.0 % (41.0-60) L 04/04/18 10:40 MCV 94.6 fl (80-99) 04/04/18 10:40 MCH 31.5 pg (26.0-30.0) H 04/04/18 10:40 MCHC Differential 33.3 pg (28.0-36.0) 04/04/18 10:40 RDW 22.0 % (11.5-20.0) H 04/04/18 10:40 Plt Count 161 Th/cmm (150-400) 04/04/18 10:40 MPV 8.4 fl 04/04/18 10:40 Add Manual Diff YES 04/01/18 06:03 Neutrophils % 79.4 % (40.0-80.0) 04/04/18 10:40 Band Neutrophils % 1 % (0-10) 04/01/18 06:03 Lymphocytes % 7.9 % (20.0-50.0) L 04/04/18 10:40 Monocytes % 9.1 % (2.0-10.0) 04/04/18 10:40 Eosinophils % 2.4 % (0.0-5.0) 04/04/18 10:40 Basophils % 1.2 % (0.0-2.0) 04/04/18 10:40 Neutrophils (Manual) Not Reportable 04/04/18 10:40 Lymphocytes 7 % (20-50) L 04/02/18 06:00 Monocytes 6 % (2-10) 04/02/18 06:00 Eosinophils 3 % (0-5) 04/02/18 06:00 Basophils 2 % (0-3) 04/02/18 06:00 Platelet Estimate ADEQUATE (NORMAL) 04/02/18 06:00 Platelet Morphology NORMAL (NORMAL) 03/31/18 18:25 Anisocytosis 1+ 04/02/18 06:00 RBC Morph Micro Appear ABNORMAL (NORMAL) 03/31/18 18:25 Sodium 123 mEq/L (136-145) L 04/04/18 10:40 Potassium 4.0 mEq/L (3.5-5.1) 04/04/18 10:40 Chloride 92 mEq/L (98-107) L 04/04/18 10:40 Carbon Dioxide 21.6 mEq/L (21.0-31.0) 04/04/18 10:40 Anion Gap 13.4 (7.0-16.0) 04/04/18 10:40 BUN 23 mg/dL (7-25) 04/04/18 10:40 Creatinine 2.4 mg/dL (0.7-1.3) H 04/04/18 10:40 Est GFR ( Amer) 35.7 ml/min (>90) 04/04/18 10:40 Est GFR (Non-Af Amer) 29.5 ml/min 04/04/18 10:40 BUN/Creatinine Ratio 9.6 04/04/18 10:40 Glucose 138 mg/dL (70-105) H 04/04/18 10:40 POC Glucose 157 MG/DL (70 - 105) H 04/04/18 11:32 Calcium 8.1 mg/dL (8.6-10.3) L 04/04/18 10:40 Phosphorus 4.8 mg/dL (2.5-5.0) 04/02/18 06:00 Iron 33 ug/dL (38-169) L 04/02/18 06:00 TIBC 73 ug/dL (250-450) L 04/02/18 06:00 Iron Saturation 45 % (15-55) 04/02/18 06:00 Unsaturated IBC 40 ug/dL (111-343) L 04/02/18 06:00 Ferritin 1538 ng/mL (30-400) H 04/02/18 06:00 Total Bilirubin 0.5 mg/dL (0.3-1.0) 04/02/18 06:00 AST 8 U/L (13-39) L 04/02/18 06:00 ALT 6 U/L (7-52) L 04/02/18 06:00 Alkaline Phosphatase 104 U/L (34-104) 04/02/18 06:00 Troponin I 0.05 ng/mL (0.01-0.05) 03/31/18 18:25 Total Protein 5.7 gm/dL (6.0-8.3) L 04/02/18 06:00 Albumin 2.7 gm/dL (4.2-5.5) L 04/02/18 06:00 Globulin 3.0 gm/dL 04/02/18 06:00 Albumin/Globulin Ratio 0.9 (1.0-1.8) L 04/02/18 06:00 Urine Source CLEAN C 03/31/18 18:45 Urine Color YELLOW 03/31/18 18:45 Urine Clarity CLOUDY (CLEAR) 03/31/18 18:45 Urine pH 6.0 (4.6 - 8.0) 03/31/18 18:45 Ur Specific [place] 1.020 (1.005-1.030) 03/31/18 18:45 Urine Protein >=300 mg/dL (NEGATIVE) 03/31/18 18:45 Urine Glucose (UA) NEGATIVE mg/dL (NEGATIVE) 03/31/18 18:45 Urine Ketones NEGATIVE mg/dL (NEGATIVE) 03/31/18 18:45 Urine Blood LARGE (NEGATIVE) H 03/31/18 18:45 Urine Nitrate NEGATIVE (NEGATIVE) 03/31/18 18:45 Urine Bilirubin NEGATIVE (NEGATIVE) 03/31/18 18:45 Urine Urobilinogen 0.2 E.U./dL (0.2 - 1.0) 03/31/18 18:45 Ur Leukocyte Esterase MODERATE (NEGATIVE) H 03/31/18 18:45 Urine RBC 50-100 /hpf (0-5) H 03/31/18 18:45 Urine WBC 25-50 /hpf (0-5) H 03/31/18 18:45 Ur Epithelial Cells NONE SEEN /lpf (FEW) 03/31/18 18:45 Urine Bacteria FEW /hpf (NONE SEEN) 03/31/18 18:45 - Physical Exam Vitals and I&O: Vital Signs Temp 97.0 F 04/04/18 11:33 Pulse 95 04/04/18 12:33 Resp 18 04/04/18 12:33 BP 97/58 04/04/18 11:33 Pulse Ox 100 04/04/18 12:33 Intake & Output 04/03/18 04/04/18 04/04/18 18:59 06:59 18:59 Intake Total 1450 1050 200 Output Total 250 300 Balance 1200 1050 -100 Weight (lbs) 90.718 kg 91.626 kg Intake: Intake, IV Amount 1050 1050 D5-0.45NS 1,000 ml @ 75 1000 1000 mls/hr IV .[id number] [facility] Rx #:[id number] Levofloxacin 250mg/50mL 50 250 mg In 50 ml @ 50 mls/ hr IV Q24HR@0900 [facility] Rx#: [id number] cefTRIAXone 1 gm In 50 Sodium Chloride 0.9% 50 ml @ 100 mls/hr IV Q24HR@ 2100 [facility] Rx#:[id number] Oral 400 200 Output: Urine 250 300 Other: # Bowel Movements 1 1 Stool Characteristics Liquid Soft Liquid Brown Brown Brown Weight Source Bedscale Bedscale Active Medications: Current Medications Acetaminophen (Tylenol) 650 mg PO Q4HR PRN PRN Reason: MILD Pain or Fever >101 Stop: 05/30/18 22:21 Last Admin: 04/04/18 10:54 Dose: 650 mg Acetaminophen/Hydrocodone Bitart ([place] 5mg/325mg) 1 tab PO Q6H PRN PRN Reason: Pain (Severe) Stop: 05/30/18 22:21 Last Admin: 04/03/18 15:26 Dose: 1 tab Albuterol/Ipratropium (Duoneb Neb) 3 ml HHN Q6HRT [facility] Stop: 05/31/18 00:59 Last Admin: 04/04/18 12:33 Dose: 3 ml Ascorbic Acid (Vitamin C) 500 mg PO DAILY [facility] Stop: 05/31/18 08:59 Last Admin: 04/04/18 09:23 Dose: 500 mg Aspirin (Ecotrin) 81 mg PO DAILY [facility] Stop: 05/31/18 08:59 Last Admin: 04/04/18 09:24 Dose: 81 mg Atorvastatin Calcium (Lipitor) 20 mg PO HS [facility] Stop: 05/31/18 20:59 Last Admin: 04/03/18 22:49 Dose: Not Given Bisacodyl (Dulcolax 10 Mg Supp) 10 mg RC DAILY PRN PRN Reason: Constipation Stop: 05/30/18 22:21 [place] Oil/[place] Balsam/Trypsin (Venelex) 1 appl TP DAILY [facility] Stop: 06/02/18 08:59 Last Admin: 04/04/18 10:54 Dose: 1 appl Dextrose (D50w) 50 ml IVP PRN PRN; Protocol PRN Reason: HYPOGLYCEMIA PROTOCOL Stop: 05/30/18 23:03 Diphenhydramine HCl (Benadryl) 25 mg PO Q6HR PRN PRN Reason: Itching Stop: 05/30/18 22:21 Last Admin: 04/03/18 22:04 Dose: 25 mg Docusate Sodium (Colace) 100 mg PO DAILY [facility] Stop: 05/31/18 08:59 Last Admin: 04/04/18 09:23 Dose: 100 mg Doxycycline Hyclate (Vibramycin) 100 mg PO BID@1000,1700 [facility] Stop: 05/31/18 09:59 Last Admin: 04/04/18 09:24 Dose: 100 mg Epoetin Ramirez (Epogen) 5,000 units IVP MoWeFr [facility] Stop: 06/01/18 14:59 Last Admin: 04/02/18 14:32 Dose: 5,000 units Ceftriaxone Sodium 1 gm/ (Sodium Chloride) 50 mls @ 100 mls/hr IV Q24HR@2100 [facility] Stop: 05/31/18 20:59 Last Infusion: 04/03/18 22:50 Dose: Infused Levofloxacin (Levaquin Pb) 250 mg in 50 mls @ 50 mls/hr IV Q24HR@0900 [facility] Stop: 06/01/18 08:59 Last Admin: 04/04/18 09:31 Dose: 50 mls/hr Dextrose/Sodium Chloride (D5-0.45ns) 1,000 mls @ 75 mls/hr IV .[id number] [facility] Stop: 06/01/18 14:44 Last Admin: 04/03/18 22:12 Dose: 75 mls/hr Insulin Aspart (Novolog Insulin Sliding Scale) 0 units SUBQ ACHS [facility]; Protocol Stop: 05/31/18 07:29 Last Admin: 04/04/18 12:18 Dose: 4 units Lactobacillus Rhamnosus (Culturelle 15b) 1 each PO DAILY [facility] Stop: 06/01/18 12:59 Last Admin: 04/04/18 09:23 Dose: 1 each Levetiracetam (Keppra) 500 mg PO BID [facility] Stop: 05/31/18 08:59 Last Admin: 04/04/18 09:23 Dose: 500 mg Levothyroxine Sodium (Synthroid) 0.025 mg PO QDAC [facility] Stop: 05/31/18 07:29 Last Admin: 04/04/18 07:19 Dose: 0.025 mg Lorazepam (Ativan) 1 mg IVP Q6H PRN; Protocol PRN Reason: Agitation Stop: 05/31/18 22:59 Last Admin: 04/04/18 09:31 Dose: 1 mg Miscellaneous (Clinical Monitoring) 1 ea MC PRN PRN PRN Reason: RENAL Stop: 06/01/18 10:15 Pantoprazole Sodium (Protonix) 40 mg PO DAILY [facility] Stop: 05/31/18 08:59 Last Admin: 04/04/18 09:23 Dose: 40 mg Rifampin (Rifadin) 600 mg PO DAILY [facility] Stop: 04/17/18 10:59 Last Admin: 04/04/18 09:24 Dose: 600 mg Sodium Phosphate (Fleet Enema) 135 ml RC DAILY PRN PRN Reason: Constipation Stop: 05/30/18 22:21 Vitamin B Complex/Vit C/Folic Acid (Vitamin B Complex W/Vitamin C) 1 tab PO DAILY [facility] Stop: 05/31/18 08:59 Last Admin: 04/04/18 09:23 Dose: 1 tab Zinc Sulfate (Zinc Sulfate) 220 mg PO DAILY [facility] Stop: 05/31/18 08:59 Last Admin: 04/04/18 09:23 Dose: 220 mg Nutritional Asmnt/Malnutr-PDOC - Dietary Evaluation Malnutrition Findings (Please click <Entered> for more info): Nutritional Asmnt/Malnutrition Start: 04/02/18 16: 21 Text: Status: Complete Freq: Protocol: Document 04/02/18 16:42 [email or web address] (Rec: 04/02/18 17:12 [email or web address]) Nutritional Asmnt/Malnutrition Patient General Information Nutritional Screening High Risk Consult Diagnosis UTI, renal failure Pertinent Medical Hx/Surgical Hx HTN, DM, CVA/TIA, ESRD, dementia Subjective Information Consult for multiple ulcer. Pt seen lying in bed at time of visit, awake and alert. Pt reported appetite was not good , requesting for oral supplement (chocolate flavor only). Per nurse, pt will start dialysis. Pt has multiple wounds noted. Current Diet Order/ Nutrition Support 2gm sodium, renal Pertinent Medications vit C, D5-0.45ns, colace, novolog, culturelle, levaquin, synthroid, protonix, vit B complex w/ vit C, zinc Pertinent Labs 04/02 Na 125, Cl 90, BUN 31, Cr 2.8, glucose 141, POc 146-161 Nutritional Hx/Data Height 1.8 m Height (Calculated Centimeters) 180.3 Current Weight (lbs) 91.626 kg Weight (Calculated Kilograms) 91.6 Weight (Calculated Grams) 46656.7 [place] Body Weight 172 Body Mass Index (BMI) 28.1 GI Symptoms Skin Integrity/Comment: 3+ pitting adema to right upper extremity, 1+ pitting edemat to left arm reddened to right buttocks, ulcer to left buttocks, left and right arms Current %PO Fair (50-74%) Estimated Nutritional Goals BEE in Kcals: Adj wt of IBW Calories/Kcals/Kg 25-30 Kcals Calculated 8747-8347 Protein: Adj wt of IBW Protein g/k.1-1.3 Protein Calculated 89-105 Fluid: ml 2024-243ml (1ml/kcal) Nutritional Problem 3. Problem Problem increased nutrition needs ( calorie and protein) Etiology impaired skin integrity, increased protein loss Signs/Symptoms: multiple ulcer, pt on dialysis 2. Problem Problem inadequate food intake Etiology poor appetite Signs/Symptoms: PO intake 50% 1. Problem Problem altered nutrition related labs Etiology electrolytes imbalance, hx of DM, ESRD Signs/Symptoms: Na 125, Cl 90, BUN 31, Cr 2.8, Glucose 141, POC 146-161 Malnutrition Alert Is there a minimum of two criteria No selected? Query Text:Check all the applicable criteria. A minimum of two criteria are recommended for diagnosis of either severe or non-severe malnutrition. Malnutrition Related to Morbid Obesity Malnutrition related to morbid obesity No Intervention/Recommendation Comments 1. Continue with current diet as ordered. If glucose continue high, will consider adding CCHO diet. 2. Recommend adding oral supplement Glucerna (chocolate flavor) daily to increased nutrition intake, Hever BID for wound healing. DONAVAN Stack notified. 2. Monitor PO intake, wt, labs and skin integrity 3. F/U as high risk in 2-3 days, 04/04-04/04 Expected Outcomes/Goals Expected Outcomes/Goals 1. PO intake to meet at least 75% of nutritional needs. 2. Wt stability, skin to remain intact, labs to approach WNL.
[2018-04-04] MEDS: Epoetin Alfa 20000 Units/mL Vial IVP SCH (15:32)
[2018-04-04] MEDS: D5-0.45NS 1,000 ML IV SCH (15:32)
[2018-04-04] MEDS: Hydrocodone/APAP 5mg/325mg Tab PO PRN (17:28)
[2018-04-04] MEDS: cefTRIAXone 1 GM in Sodium Chloride 0.9% 50 ML IV SCH (20:54)
[2018-04-04] MEDS: Atorvastatin Calcium 10 MG TAB PO SCH (20:55)
[2018-04-05] MEDS: Albuterol/Ipratropium Neb 3 ML AERS HHN SCH ×4 (00:17→18:49)
[2018-04-05] MEDS: D5-0.45NS 1,000 ML IV SCH (06:35)
[2018-04-05] MEDS: Levothyroxine 0.025 Mg Tab PO SCH (06:35)
[2018-04-05] MEDS ORDERED: Probiotic Screen MC PRN (08:15)
[2018-04-05] MEDS: Rifampin 300 mg Cap PO SCH (09:25)
[2018-04-05] MEDS: Vitamin B Complex w/Vitamin C Tab PO SCH (09:25)
[2018-04-05] MEDS: Lactobacillus Rhamnosus GG 15 Billion CFU CAP.SPRINK PO SCH (09:26)
[2018-04-05] MEDS: Pantoprazole 40 mg EC Tab PO SCH (09:26)
[2018-04-05] MEDS: Multivitamin w/ Minerals Tab PO SCH (09:26)
[2018-04-05] MEDS: Venelex 60gm Tube TP SCH (09:28)
[2018-04-05] MEDS: Levofloxacin 250mg/50mL 250 MG/50 ML BAG IV SCH (09:29)
[2018-04-05] MEDS: Hydrocodone/APAP 5mg/325mg Tab PO PRN ×2 (09:37→21:22)
--- NOTE | 2018-04-05 12:24 | General Progress Note ---
Subjective - Review of Systems Events since last encounter: no fever in no distress Objective - Results Result Diagrams: 04/04/18 10:40 04/04/18 10:40 Recent Labs: Laboratory Last Values WBC 8.7 Th/cmm (4.8-10.8) 04/04/18 10:40 RBC 2.75 Mil/cmm (4.30-5.70) L 04/04/18 10:40 Hgb 8.7 gm/dL (12-16) L 04/04/18 10:40 Hct 26.0 % (41.0-60) L 04/04/18 10:40 MCV 94.6 fl (80-99) 04/04/18 10:40 MCH 31.5 pg (26.0-30.0) H 04/04/18 10:40 MCHC Differential 33.3 pg (28.0-36.0) 04/04/18 10:40 RDW 22.0 % (11.5-20.0) H 04/04/18 10:40 Plt Count 161 Th/cmm (150-400) 04/04/18 10:40 MPV 8.4 fl 04/04/18 10:40 Add Manual Diff YES 04/01/18 06:03 Neutrophils % 79.4 % (40.0-80.0) 04/04/18 10:40 Band Neutrophils % 1 % (0-10) 04/01/18 06:03 Lymphocytes % 7.9 % (20.0-50.0) L 04/04/18 10:40 Monocytes % 9.1 % (2.0-10.0) 04/04/18 10:40 Eosinophils % 2.4 % (0.0-5.0) 04/04/18 10:40 Basophils % 1.2 % (0.0-2.0) 04/04/18 10:40 Neutrophils (Manual) Not Reportable 04/04/18 10:40 Lymphocytes 7 % (20-50) L 04/02/18 06:00 Monocytes 6 % (2-10) 04/02/18 06:00 Eosinophils 3 % (0-5) 04/02/18 06:00 Basophils 2 % (0-3) 04/02/18 06:00 Platelet Estimate ADEQUATE (NORMAL) 04/02/18 06:00 Platelet Morphology NORMAL (NORMAL) 03/31/18 18:25 Anisocytosis 1+ 04/02/18 06:00 RBC Morph Micro Appear ABNORMAL (NORMAL) 03/31/18 18:25 Sodium 123 mEq/L (136-145) L 04/04/18 10:40 Potassium 4.0 mEq/L (3.5-5.1) 04/04/18 10:40 Chloride 92 mEq/L (98-107) L 04/04/18 10:40 Carbon Dioxide 21.6 mEq/L (21.0-31.0) 04/04/18 10:40 Anion Gap 13.4 (7.0-16.0) 04/04/18 10:40 BUN 23 mg/dL (7-25) 04/04/18 10:40 Creatinine 2.4 mg/dL (0.7-1.3) H 04/04/18 10:40 Est GFR ( Amer) 35.7 ml/min (>90) 04/04/18 10:40 Est GFR (Non-Af Amer) 29.5 ml/min 04/04/18 10:40 BUN/Creatinine Ratio 9.6 04/04/18 10:40 Glucose 138 mg/dL (70-105) H 04/04/18 10:40 POC Glucose 181 MG/DL (70 - 105) H 04/05/18 06:39 Calcium 8.1 mg/dL (8.6-10.3) L 04/04/18 10:40 Phosphorus 4.8 mg/dL (2.5-5.0) 04/02/18 06:00 Iron 33 ug/dL (38-169) L 04/02/18 06:00 TIBC 73 ug/dL (250-450) L 04/02/18 06:00 Iron Saturation 45 % (15-55) 04/02/18 06:00 Unsaturated IBC 40 ug/dL (111-343) L 04/02/18 06:00 Ferritin 1538 ng/mL (30-400) H 04/02/18 06:00 Total Bilirubin 0.5 mg/dL (0.3-1.0) 04/02/18 06:00 AST 8 U/L (13-39) L 04/02/18 06:00 ALT 6 U/L (7-52) L 04/02/18 06:00 Alkaline Phosphatase 104 U/L (34-104) 04/02/18 06:00 Troponin I 0.05 ng/mL (0.01-0.05) 03/31/18 18:25 Total Protein 5.7 gm/dL (6.0-8.3) L 04/02/18 06:00 Albumin 2.7 gm/dL (4.2-5.5) L 04/02/18 06:00 Globulin 3.0 gm/dL 04/02/18 06:00 Albumin/Globulin Ratio 0.9 (1.0-1.8) L 04/02/18 06:00 Urine Source CLEAN C 03/31/18 18:45 Urine Color YELLOW 03/31/18 18:45 Urine Clarity CLOUDY (CLEAR) 03/31/18 18:45 Urine pH 6.0 (4.6 - 8.0) 03/31/18 18:45 Ur Specific [place] 1.020 (1.005-1.030) 03/31/18 18:45 Urine Protein >=300 mg/dL (NEGATIVE) 03/31/18 18:45 Urine Glucose (UA) NEGATIVE mg/dL (NEGATIVE) 03/31/18 18:45 Urine Ketones NEGATIVE mg/dL (NEGATIVE) 03/31/18 18:45 Urine Blood LARGE (NEGATIVE) H 03/31/18 18:45 Urine Nitrate NEGATIVE (NEGATIVE) 03/31/18 18:45 Urine Bilirubin NEGATIVE (NEGATIVE) 03/31/18 18:45 Urine Urobilinogen 0.2 E.U./dL (0.2 - 1.0) 03/31/18 18:45 Ur Leukocyte Esterase MODERATE (NEGATIVE) H 03/31/18 18:45 Urine RBC 50-100 /hpf (0-5) H 03/31/18 18:45 Urine WBC 25-50 /hpf (0-5) H 03/31/18 18:45 Ur Epithelial Cells NONE SEEN /lpf (FEW) 03/31/18 18:45 Urine Bacteria FEW /hpf (NONE SEEN) 03/31/18 18:45 - Physical Exam Vitals and I&O: Vital Signs Temp 97.8 F 04/05/18 11:16 Pulse 100 04/05/18 11:16 Resp 19 04/05/18 11:16 BP 103/62 04/05/18 11:16 Pulse Ox 99 07/19/18 11:16 Intake & Output 04/04/18 04/05/18 04/05/18 18:59 06:59 18:59 Intake Total 1750 1200 200 Output Total 1000 100 100 Balance 750 1100 100 Weight (lbs) 89.811 kg 89.811 kg 89.811 kg Intake: Intake, IV Amount 1050 1000 D5-0.45NS 1,000 ml @ 75 1000 1000 mls/hr IV .[id number] [facility] Rx #:[id number] Levofloxacin 250mg/50mL 50 250 mg In 50 ml @ 50 mls/ hr IV Q24HR@0900 [facility] Rx#: [id number] Oral 700 200 200 Output: Urine 500 100 100 Hemodialysis 500 Other: # Bowel Movements 1 1 1 Stool Characteristics Liquid Liquid Liquid Brown Brown Brown Weight Source Bedscale Bedscale Bedscale Active Medications: Current Medications Acetaminophen (Tylenol) 650 mg PO Q4HR PRN PRN Reason: MILD Pain or Fever >101 Stop: 05/30/18 22:21 Last Admin: 04/04/18 10:54 Dose: 650 mg Acetaminophen/Hydrocodone Bitart ([place] 5mg/325mg) 1 tab PO Q6H PRN PRN Reason: Pain (Severe) Stop: 05/30/18 22:21 Last Admin: 04/05/18 09:37 Dose: 1 tab Albuterol/Ipratropium (Duoneb Neb) 3 ml HHN Q6HRT [facility] Stop: 05/31/18 00:59 Last Admin: 04/05/18 07:18 Dose: 3 ml Ascorbic Acid (Vitamin C) 500 mg PO DAILY [facility] Stop: 05/31/18 08:59 Last Admin: 04/05/18 09:26 Dose: 500 mg Aspirin (Ecotrin) 81 mg PO DAILY [facility] Stop: 05/31/18 08:59 Last Admin: 04/05/18 09:26 Dose: 81 mg Atorvastatin Calcium (Lipitor) 20 mg PO HS [facility] Stop: 05/31/18 20:59 Last Admin: 04/04/18 20:55 Dose: 20 mg Bisacodyl (Dulcolax 10 Mg Supp) 10 mg RC DAILY PRN PRN Reason: Constipation Stop: 05/30/18 22:21 [place] Oil/[place] Balsam/Trypsin (Venelex) 1 appl TP DAILY [facility] Stop: 06/02/18 08:59 Last Admin: 04/05/18 09:28 Dose: 1 appl Dextrose (D50w) 50 ml IVP PRN PRN; Protocol PRN Reason: HYPOGLYCEMIA PROTOCOL Stop: 05/30/18 23:03 Diphenhydramine HCl (Benadryl) 25 mg PO Q6HR PRN PRN Reason: Itching Stop: 05/30/18 22:21 Last Admin: 04/03/18 22:04 Dose: 25 mg Docusate Sodium (Colace) 100 mg PO DAILY [facility] Stop: 05/31/18 08:59 Last Admin: 04/05/18 09:26 Dose: 100 mg Doxycycline Hyclate (Vibramycin) 100 mg PO BID@1000,1700 [facility] Stop: 05/31/18 09:59 Last Admin: 04/05/18 10:28 Dose: Not Given Epoetin Ramirez (Epogen) 5,000 units IVP MoWeFr [facility] Stop: 06/01/18 14:59 Last Admin: 04/04/18 15:32 Dose: 5,000 units Ceftriaxone Sodium 1 gm/ (Sodium Chloride) 50 mls @ 100 mls/hr IV Q24HR@2100 [facility] Stop: 05/31/18 20:59 Last Admin: 04/04/18 20:54 Dose: 100 mls/hr Levofloxacin (Levaquin Pb) 250 mg in 50 mls @ 50 mls/hr IV Q24HR@0900 [facility] Stop: 06/01/18 08:59 Last Admin: 04/05/18 09:29 Dose: 50 mls/hr Dextrose/Sodium Chloride (D5-0.45ns) 1,000 mls @ 75 mls/hr IV .[id number] [facility] Stop: 06/01/18 14:44 Last Admin: 04/05/18 06:35 Dose: 75 mls/hr Insulin Aspart (Novolog Insulin Sliding Scale) 0 units SUBQ ACHS [facility]; Protocol Stop: 05/31/18 07:29 Last Admin: 04/04/18 21:05 Dose: Not Given Lactobacillus Rhamnosus (Culturelle 15b) 1 each PO DAILY [facility] Stop: 06/01/18 12:59 Last Admin: 04/05/18 09:26 Dose: 1 each Levetiracetam (Keppra) 500 mg PO BID [facility] Stop: 05/31/18 08:59 Last Admin: 04/05/18 09:44 Dose: Not Given Levothyroxine Sodium (Synthroid) 0.025 mg PO QDAC [facility] Stop: 05/31/18 07:29 Last Admin: 04/05/18 06:35 Dose: 0.025 mg Lorazepam (Ativan) 1 mg IVP Q6H PRN; Protocol PRN Reason: Agitation Stop: 05/31/18 22:59 Last Admin: 04/05/18 05:02 Dose: 1 mg Miscellaneous (Clinical Monitoring) 1 ea PRN PRN PRN Reason: RENAL Stop: 06/01/18 10:15 Miscellaneous (Probiotic Screen) 1 ea PRN PRN PRN Reason: PROTOCOL Stop: 06/04/18 08:14 Pantoprazole Sodium (Protonix) 40 mg PO DAILY [facility] Stop: 05/31/18 08:59 Last Admin: 04/05/18 09:26 Dose: 40 mg Rifampin (Rifadin) 600 mg PO DAILY [facility] Stop: 04/17/18 10:59 Last Admin: 04/05/18 09:25 Dose: 600 mg Sodium Phosphate (Fleet Enema) 135 ml RC DAILY PRN PRN Reason: Constipation Stop: 05/30/18 22:21 Vitamin B Complex/Vit C/Folic Acid (Vitamin B Complex W/Vitamin C) 1 tab PO DAILY [facility] Stop: 05/31/18 08:59 Last Admin: 04/05/18 09:25 Dose: 1 tab Zinc Sulfate (Zinc Sulfate) 220 mg PO DAILY [facility] Stop: 05/31/18 08:59 Last Admin: 04/05/18 09:26 Dose: 220 mg Nutritional Asmnt/Malnutr-PDOC - Dietary Evaluation Malnutrition Findings (Please click <Entered> for more info): Nutritional Asmnt/Malnutrition Start: 04/02/18 16: 21 Text: Status: Complete Freq: Protocol: Document 04/02/18 16:42 LCHENG (Rec: 04/02/18 17:12 JAZZ [email or web address]) Nutritional Asmnt/Malnutrition Patient General Information Nutritional Screening High Risk Consult Diagnosis UTI, renal failure Pertinent Medical Hx/Surgical Hx HTN, DM, CVA/TIA, ESRD, dementia Subjective Information Consult for multiple ulcer. Pt seen lying in bed at time of visit, awake and alert. Pt reported appetite was not good , requesting for oral supplement (chocolate flavor only). Per nurse, pt will start dialysis. Pt has multiple wounds noted. Current Diet Order/ Nutrition Support 2gm sodium, renal Pertinent Medications vit C, D5-0.45ns, colace, novolog, culturelle, levaquin, synthroid, protonix, vit B complex w/ vit C, zinc Pertinent Labs 04/02 Na 125, Cl 90, BUN 31, Cr 2.8, glucose 141, POc 146-161 Nutritional Hx/Data Height 1.8 m Height (Calculated Centimeters) 180.3 Current Weight (lbs) 91.626 kg Weight (Calculated Kilograms) 91.6 Weight (Calculated Grams) 13656.7 [place] Body Weight 172 Body Mass Index (BMI) 28.1 GI Symptoms Skin Integrity/Comment: 3+ pitting adema to right upper extremity, 1+ pitting edemat to left arm reddened to right buttocks, ulcer to left buttocks, left and right arms Current %PO Fair (50-74%) Estimated Nutritional Goals BEE in Kcals: Adj wt of IBW Calories/Kcals/Kg 25-30 Kcals Calculated 0603-6472 Protein: Adj wt of IBW Protein g/k.1-1.3 Protein Calculated 89-105 Fluid: ml 2024-243ml (1ml/kcal) Nutritional Problem 3. Problem Problem increased nutrition needs ( calorie and protein) Etiology impaired skin integrity, increased protein loss Signs/Symptoms: multiple ulcer, pt on dialysis 2. Problem Problem inadequate food intake Etiology poor appetite Signs/Symptoms: PO intake 50% 1. Problem Problem altered nutrition related labs Etiology electrolytes imbalance, hx of DM, ESRD Signs/Symptoms: Na 125, Cl 90, BUN 31, Cr 2.8, Glucose 141, POC 146-161 Malnutrition Alert Is there a minimum of two criteria No selected? Query Text:Check all the applicable criteria. A minimum of two criteria are recommended for diagnosis of either severe or non-severe malnutrition. Malnutrition Related to Morbid Obesity Malnutrition related to morbid obesity No Intervention/Recommendation Comments 1. Continue with current diet as ordered. If glucose continue high, will consider adding CCHO diet. 2. Recommend adding oral supplement Glucerna (chocolate flavor) daily to increased nutrition intake, Hever BID for wound healing. DONAVAN Stack notified. 2. Monitor PO intake, wt, labs and skin integrity 3. F/U as high risk in 2-3 days, 04/04-04/04 Expected Outcomes/Goals Expected Outcomes/Goals 1. PO intake to meet at least 75% of nutritional needs. 2. Wt stability, skin to remain intact, labs to approach WNL.
[2018-04-05] MEDS: INSULIN ASPART SLIDING SCALE 100 UNITS/ML UNIT SUBQ SCH ×4 (12:30→21:49)
[2018-04-05] MEDS: Atorvastatin Calcium 10 MG TAB PO SCH (21:22)
[2018-04-05] MEDS: cefTRIAXone 1 GM in Sodium Chloride 0.9% 50 ML IV SCH (21:32)
[2018-04-06] MEDS: Albuterol/Ipratropium Neb 3 ML AERS HHN SCH ×4 (00:40→19:26)
[2018-04-06] MEDS: Levothyroxine 0.025 Mg Tab PO SCH (06:33)
[2018-04-06] MEDS: INSULIN ASPART SLIDING SCALE 100 UNITS/ML UNIT SUBQ SCH ×4 (06:42→22:33)
[2018-04-06] MEDS: Lactobacillus Rhamnosus GG 15 Billion CFU CAP.SPRINK PO SCH (08:24)
[2018-04-06] MEDS: Pantoprazole 40 mg EC Tab PO SCH (08:25)
[2018-04-06] MEDS: Levofloxacin 250mg/50mL 250 MG/50 ML BAG IV SCH (08:27)
[2018-04-06] MEDS: Rifampin 300 mg Cap PO SCH (08:27)
[2018-04-06] MEDS: Multivitamin w/ Minerals Tab PO SCH (08:42)
[2018-04-06] MEDS: Vitamin B Complex w/Vitamin C Tab PO SCH (08:42)
[2018-04-06] MEDS: Venelex 60gm Tube TP SCH (09:26)
[2018-04-06 09:39] LABS: % BASOPHILS 0.9 % (0.0-2.0); % EOSINOPHILS 1.9 % (0.0-5.0); % LYMPHOCYTES 8.9 % (20.0-50.0); % MONOCYTES 9.2 % (2.0-10.0); % NEUTROPHILS 79.1 % (40.0-80.0); BASOPHILE ABSOLUTE 0.1 Th/cumm (0-0.2); EOSINOPHILE ABSOLUTE 0.2 Th/cmm (0.1-0.4); HEMATOCRIT 26.7 % (41.0-60); HEMOGLOBIN 8.8 gm/dL (12-16); LYMPHOCYTE ABSOLUTE 0.8 Th/cmm (1.5-3.0); MEAN CORPUSCULAR HEMOGLOBIN 31.4 pg (26.0-30.0); MEAN CORPUSCULAR HGB CONC 33.1 pg (28.0-36.0); MEAN PLATELET VOLUME 8.3 fl; MONOCYTE ABSOLUTE 0.9 Th/cmm (0.3-1.0); NEUTROPHILE ABSOLUTE 7.3 Th/cmm (1.8-8.0); PLATELET COUNT 175 Th/cmm (150-400); RED BLOOD COUNT 2.81 Mil/cmm (4.30-5.70); RED CELL DISTRIBUTION WIDTH 21.5 % (11.5-20.0); WHITE BLOOD COUNT 9.3 Th/cmm (4.8-10.8)
[2018-04-06 10:12] LABS: ANION GAP 12.3 (7.0-16.0); CALCIUM SERUM 8.2 mg/dL (8.6-10.3); CARBON DIOXIDE 21.6 mEq/L (21.0-31.0); CREATININE - SERUM 2.6 mg/dL (0.7-1.3); GFR AFRICAN-AMERICAN 32.5 ml/min (>90); GFR NON AFRICAN-AMERICAN 26.9 ml/min; POTASSIUM SERUM 3.9 mEq/L (3.5-5.1)
[2018-04-06] MEDS: Epoetin Alfa 20000 Units/mL Vial IVP SCH (16:03)
--- NOTE | 2018-04-06 16:16 | Progress Notes ---
DATE: 04/06/2018 SUBJECTIVE: Chart reviewed and the patient interviewed. Also discussed the patient's condition with the staff and reviewed records and labs. The patient is still agitated and restless. The patient also still needs lots of redirections. He also is still in irritable and angry mood. Otherwise, the patient is compliant with taking medications with no side effects of medications. ASSESSMENT: The patient is irritable and agitated. TREATMENT PLAN: We will add Abilify in a dose of 2 mg twice a day. Also, we will continue to work on ineffective coping and on behavioral modification. JOB# [id number]
[2018-04-06] MEDS: Hydrocodone/APAP 5mg/325mg Tab PO PRN (18:33)
[2018-04-06] MEDS: Atorvastatin Calcium 10 MG TAB PO SCH (20:29)
[2018-04-07] MEDS: Albuterol/Ipratropium Neb 3 ML AERS HHN SCH ×4 (00:29→19:52)
[2018-04-07] MEDS: Hydrocodone/APAP 5mg/325mg Tab PO PRN ×3 (01:48→17:55)
[2018-04-07 05:44] LABS: % BASOPHILS 1.6 % (0.0-2.0); % EOSINOPHILS 1.7 % (0.0-5.0); % LYMPHOCYTES 9.8 % (20.0-50.0); % MONOCYTES 10.7 % (2.0-10.0); % NEUTROPHILS 76.2 % (40.0-80.0); BASOPHILE ABSOLUTE 0.1 Th/cumm (0-0.2); EOSINOPHILE ABSOLUTE 0.1 Th/cmm (0.1-0.4); HEMATOCRIT 26.8 % (41.0-60); LYMPHOCYTE ABSOLUTE 0.9 Th/cmm (1.5-3.0); MEAN CELL VOLUME 94.7 fl (80-99); MEAN CORPUSCULAR HEMOGLOBIN 31.9 pg (26.0-30.0); MEAN CORPUSCULAR HGB CONC 33.6 pg (28.0-36.0); MEAN PLATELET VOLUME 8.2 fl; MONOCYTE ABSOLUTE 0.9 Th/cmm (0.3-1.0); NEUTROPHILE ABSOLUTE 6.7 Th/cmm (1.8-8.0); PLATELET COUNT 205 Th/cmm (150-400); RED BLOOD COUNT 2.82 Mil/cmm (4.30-5.70); RED CELL DISTRIBUTION WIDTH 22.3 % (11.5-20.0); WHITE BLOOD COUNT 8.7 Th/cmm (4.8-10.8)
[2018-04-07 06:09] LABS: ALB/GLOB RATIO 0.8 (1.0-1.8); ALBUMIN 2.4 gm/dL (4.2-5.5); ANION GAP 12.7 (7.0-16.0); BILIRUBIN,TOTAL 0.4 mg/dL (0.3-1.0); CALCIUM SERUM 8.3 mg/dL (8.6-10.3); CARBON DIOXIDE 21.6 mEq/L (21.0-31.0); CREATININE - SERUM 2.8 mg/dL (0.7-1.3); GFR AFRICAN-AMERICAN 29.9 ml/min (>90); GFR NON AFRICAN-AMERICAN 24.7 ml/min; POTASSIUM SERUM 4.3 mEq/L (3.5-5.1); TOTAL PROTEIN,SERUM 5.5 gm/dL (6.0-8.3)
[2018-04-07] MEDS: INSULIN ASPART SLIDING SCALE 100 UNITS/ML UNIT SUBQ SCH ×4 (08:11→22:54)
[2018-04-07] MEDS: Multivitamin w/ Minerals Tab PO SCH (09:14)
[2018-04-07] MEDS: Vitamin B Complex w/Vitamin C Tab PO SCH (09:14)
[2018-04-07] MEDS: Levothyroxine 0.025 Mg Tab PO SCH (09:30)
[2018-04-07] MEDS: Lactobacillus Rhamnosus GG 15 Billion CFU CAP.SPRINK PO SCH (09:30)
[2018-04-07] MEDS: Pantoprazole 40 mg EC Tab PO SCH (09:31)
[2018-04-07] MEDS: Levofloxacin 250mg/50mL 250 MG/50 ML BAG IV SCH (09:49)
[2018-04-07] MEDS: Venelex 60gm Tube TP SCH (09:58)
--- NOTE | 2018-04-07 10:55 | General Progress Note ---
Subjective - Review of Systems Service Date: 04/07/18 Events since last encounter: chart reviewed bedridden status, etiology?? has huge right hip ulcer stage 4, smaller left high ulcer bilateral heel necrosis, likely stage 4 leg superficial ulcers Plan: arterial and venous doppler will need wound vac for hip ulcer, debridement of heel ulcers called message left Objective - Results Result Diagrams: 04/07/18 05:27 04/07/18 05:27 Recent Labs: Laboratory Last Values WBC 8.7 Th/cmm (4.8-10.8) 04/07/18 05:27 RBC 2.82 Mil/cmm (4.30-5.70) L 04/07/18 05:27 Hgb 9.0 gm/dL (12-16) L 04/07/18 05:27 Hct 26.8 % (41.0-60) L 04/07/18 05:27 MCV 94.7 fl (80-99) 04/07/18 05:27 MCH 31.9 pg (26.0-30.0) H 04/07/18 05:27 MCHC Differential 33.6 pg (28.0-36.0) 04/07/18 05:27 RDW 22.3 % (11.5-20.0) H 04/07/18 05:27 Plt Count 205 Th/cmm (150-400) 04/07/18 05:27 MPV 8.2 fl 04/07/18 05:27 Add Manual Diff YES 04/01/18 06:03 Neutrophils % 76.2 % (40.0-80.0) 04/07/18 05:27 Band Neutrophils % 1 % (0-10) 04/01/18 06:03 Lymphocytes % 9.8 % (20.0-50.0) L 04/07/18 05:27 Monocytes % 10.7 % (2.0-10.0) H 04/07/18 05:27 Eosinophils % 1.7 % (0.0-5.0) 04/07/18 05:27 Basophils % 1.6 % (0.0-2.0) 04/07/18 05:27 Neutrophils (Manual) Not Reportable 04/04/18 10:40 Lymphocytes 7 % (20-50) L 04/02/18 06:00 Monocytes 6 % (2-10) 04/02/18 06:00 Eosinophils 3 % (0-5) 04/02/18 06:00 Basophils 2 % (0-3) 04/02/18 06:00 Platelet Estimate ADEQUATE (NORMAL) 04/02/18 06:00 Platelet Morphology NORMAL (NORMAL) 03/31/18 18:25 Anisocytosis 1+ 04/02/18 06:00 RBC Morph Micro Appear ABNORMAL (NORMAL) 03/31/18 18:25 Sodium 124 mEq/L (136-145) L 04/07/18 05:27 Potassium 4.3 mEq/L (3.5-5.1) 04/07/18 05:27 Chloride 94 mEq/L (98-107) L 04/07/18 05:27 Carbon Dioxide 21.6 mEq/L (21.0-31.0) 04/07/18 05:27 Anion Gap 12.7 (7.0-16.0) 04/07/18 05:27 BUN 30 mg/dL (7-25) H 04/07/18 05:27 Creatinine 2.8 mg/dL (0.7-1.3) H 04/07/18 05:27 Est GFR ( Amer) 29.9 ml/min (>90) 04/07/18 05:27 Est GFR (Non-Af Amer) 24.7 ml/min 04/07/18 05:27 BUN/Creatinine Ratio 10.7 04/07/18 05:27 Glucose 88 mg/dL (70-105) 04/07/18 05:27 POC Glucose 91 MG/DL (70 - 105) 04/07/18 06:53 Calcium 8.3 mg/dL (8.6-10.3) L 04/07/18 05:27 Phosphorus 4.8 mg/dL (2.5-5.0) 04/02/18 06:00 Iron 33 ug/dL (38-169) L 04/02/18 06:00 TIBC 73 ug/dL (250-450) L 04/02/18 06:00 Iron Saturation 45 % (15-55) 04/02/18 06:00 Unsaturated IBC 40 ug/dL (111-343) L 04/02/18 06:00 Ferritin 1538 ng/mL (30-400) H 04/02/18 06:00 Total Bilirubin 0.4 mg/dL (0.3-1.0) 04/07/18 05:27 AST 7 U/L (13-39) L 04/07/18 05:27 ALT 3 U/L (7-52) L 04/07/18 05:27 Alkaline Phosphatase 108 U/L (34-104) H 04/07/18 05:27 Troponin I 0.05 ng/mL (0.01-0.05) 03/31/18 18:25 Total Protein 5.5 gm/dL (6.0-8.3) L 04/07/18 05:27 Albumin 2.4 gm/dL (4.2-5.5) L 04/07/18 05:27 Globulin 3.1 gm/dL 04/07/18 05:27 Albumin/Globulin Ratio 0.8 (1.0-1.8) L 04/07/18 05:27 Urine Source CLEAN C 03/31/18 18:45 Urine Color YELLOW 03/31/18 18:45 Urine Clarity CLOUDY (CLEAR) 03/31/18 18:45 Urine pH 6.0 (4.6 - 8.0) 03/31/18 18:45 Ur Specific [place] 1.020 (1.005-1.030) 03/31/18 18:45 Urine Protein >=300 mg/dL (NEGATIVE) 03/31/18 18:45 Urine Glucose (UA) NEGATIVE mg/dL (NEGATIVE) 03/31/18 18:45 Urine Ketones NEGATIVE mg/dL (NEGATIVE) 03/31/18 18:45 Urine Blood LARGE (NEGATIVE) H 03/31/18 18:45 Urine Nitrate NEGATIVE (NEGATIVE) 03/31/18 18:45 Urine Bilirubin NEGATIVE (NEGATIVE) 03/31/18 18:45 Urine Urobilinogen 0.2 E.U./dL (0.2 - 1.0) 03/31/18 18:45 Ur Leukocyte Esterase MODERATE (NEGATIVE) H 03/31/18 18:45 Urine RBC 50-100 /hpf (0-5) H 03/31/18 18:45 Urine WBC 25-50 /hpf (0-5) H 03/31/18 18:45 Ur Epithelial Cells NONE SEEN /lpf (FEW) 03/31/18 18:45 Urine Bacteria FEW /hpf (NONE SEEN) 03/31/18 18:45 - Physical Exam Vitals and I&O: Vital Signs Temp 97.6 F 04/07/18 07:59 Pulse 91 04/07/18 07:59 Resp 19 04/07/18 07:59 BP 121/59 04/07/18 07:59 Pulse Ox 98 04/07/18 07:59 Intake & Output 04/06/18 04/07/18 04/07/18 18:59 06:59 18:59 Intake Total 350 Output Total 251 150 Balance 99 -150 Weight (lbs) 89.811 kg 120.741 kg 90.718 kg Intake: Intake, IV Amount 50 Levofloxacin 250mg/50mL 50 250 mg In 50 ml @ 50 mls/ hr IV Q24HR@0900 [facility] Rx#: [id number] Oral 300 Output: Urine 250 150 Stool 1 Other: Stool Characteristics Liquid Liquid Brown Brown Weight Source Bedscale Bedscale Bedscale Active Medications: Current Medications Acetaminophen (Tylenol) 650 mg PO Q4HR PRN PRN Reason: MILD Pain or Fever >101 Stop: 05/30/18 22:21 Last Admin: 04/06/18 16:03 Dose: 650 mg Acetaminophen/Hydrocodone Bitart ([place] 5mg/325mg) 1 tab PO Q6H PRN PRN Reason: Pain (Severe) Stop: 05/30/18 22:21 Last Admin: 04/07/18 01:48 Dose: 1 tab Albuterol/Ipratropium (Duoneb Neb) 3 ml HHN Q6HRT [facility] Stop: 05/31/18 00:59 Last Admin: 04/07/18 06:51 Dose: 3 ml Aripiprazole (Abilify) 2 mg PO DAILY [facility]; Protocol Stop: 06/05/18 08:59 Last Admin: 04/07/18 09:30 Dose: Not Given Ascorbic Acid (Vitamin C) 500 mg PO DAILY [facility] Stop: 05/31/18 08:59 Last Admin: 04/07/18 09:14 Dose: 500 mg Aspirin (Ecotrin) 81 mg PO DAILY [facility] Stop: 05/31/18 08:59 Last Admin: 04/07/18 09:30 Dose: Not Given Atorvastatin Calcium (Lipitor) 20 mg PO [facility] Stop: 05/31/18 20:59 Last Admin: 04/06/18 20:29 Dose: 20 mg Bisacodyl (Dulcolax 10 Mg Supp) 10 mg RC DAILY PRN PRN Reason: Constipation Stop: 05/30/18 22:21 [place] Oil/[place] Balsam/Trypsin (Venelex) 1 appl TP DAILY [facility] Stop: 06/02/18 08:59 Last Admin: 04/07/18 09:58 Dose: 1 appl Dextrose (D50w) 50 ml IVP PRN PRN; Protocol PRN Reason: HYPOGLYCEMIA PROTOCOL Stop: 05/30/18 23:03 Diphenhydramine HCl (Benadryl) 25 mg PO Q6HR PRN PRN Reason: Itching Stop: 05/30/18 22:21 Last Admin: 04/07/18 02:26 Dose: 25 mg Docusate Sodium (Colace) 100 mg PO DAILY [facility] Stop: 05/31/18 08:59 Last Admin: 04/07/18 09:30 Dose: Not Given Epoetin Ramirez (Epogen) 5,000 units IVP MoWeFr [facility] Stop: 06/01/18 14:59 Last Admin: 04/06/18 16:03 Dose: 5,000 units Levofloxacin (Levaquin Pb) 250 mg in 50 mls @ 50 mls/hr IV Q24HR@0900 [facility] Stop: 06/01/18 08:59 Last Admin: 04/07/18 09:49 Dose: 50 mls/hr Insulin Aspart (Novolog Insulin Sliding Scale) 0 units SUBQ ACHS [facility]; Protocol Stop: 05/31/18 07:29 Last Admin: 04/07/18 08:11 Dose: Not Given Lactobacillus Rhamnosus (Culturelle 15b) 1 each PO DAILY [facility] Stop: 06/01/18 12:59 Last Admin: 04/07/18 09:30 Dose: Not Given Levetiracetam (Keppra) 500 mg PO BID [facility] Stop: 05/31/18 08:59 Last Admin: 04/07/18 09:14 Dose: 500 mg Levothyroxine Sodium (Synthroid) 0.025 mg PO QDAC [facility] Stop: 05/31/18 07:29 Last Admin: 04/07/18 09:30 Dose: Not Given Lorazepam (Ativan) 1 mg IVP Q6H PRN; Protocol PRN Reason: Agitation Stop: 05/31/18 22:59 Last Admin: 04/07/18 09:17 Dose: 1 mg Miscellaneous (Clinical Monitoring) 1 ea PRN PRN PRN Reason: RENAL Stop: 06/01/18 10:15 Miscellaneous (Probiotic Screen) 1 ea PRN PRN PRN Reason: PROTOCOL Stop: 06/04/18 08:14 Pantoprazole Sodium (Protonix) 40 mg PO DAILY [facility] Stop: 05/31/18 08:59 Last Admin: 04/07/18 09:31 Dose: Not Given Sodium Chloride (Nacl Tab) 1 gm PO BID [facility] Stop: 06/05/18 16:59 Last Admin: 04/07/18 09:14 Dose: 1 gm Sodium Phosphate (Fleet Enema) 135 ml RC DAILY PRN PRN Reason: Constipation Stop: 05/30/18 22:21 Vitamin B Complex/Vit C/Folic Acid (Vitamin B Complex W/Vitamin C) 1 tab PO DAILY [facility] Stop: 05/31/18 08:59 Last Admin: 04/07/18 09:14 Dose: 1 tab Zinc Sulfate (Zinc Sulfate) 220 mg PO DAILY [facility] Stop: 05/31/18 08:59 Last Admin: 04/07/18 09:14 Dose: 220 mg Nutritional Asmnt/Malnutr-PDOC - Dietary Evaluation Malnutrition Findings (Please click <Entered> for more info): Nutritional Asmnt/Malnutrition Start: 04/02/18 16: 21 Text: Status: Complete Freq: Protocol: Document 04/02/18 16:42 LCHENG (Rec: 04/02/18 17:12 LCHENG [email or web address]) Nutritional Asmnt/Malnutrition Patient General Information Nutritional Screening High Risk Consult Diagnosis UTI, renal failure Pertinent Medical Hx/Surgical Hx HTN, DM, CVA/TIA, ESRD, dementia Subjective Information Consult for multiple ulcer. Pt seen lying in bed at time of visit, awake and alert. Pt reported appetite was not good , requesting for oral supplement (chocolate flavor only). Per nurse, pt will start dialysis. Pt has multiple wounds noted. Current Diet Order/ Nutrition Support 2gm sodium, renal Pertinent Medications vit C, D5-0.45ns, colace, novolog, culturelle, levaquin, synthroid, protonix, vit B complex w/ vit C, zinc Pertinent Labs 04/02 Na 125, Cl 90, BUN 31, Cr 2.8, glucose 141, POc 146-161 Nutritional Hx/Data Height 1.8 m Height (Calculated Centimeters) 180.3 Current Weight (lbs) 91.626 kg Weight (Calculated Kilograms) 91.6 Weight (Calculated Grams) 86395.7 [place] Body Weight 172 Body Mass Index (BMI) 28.1 GI Symptoms Skin Integrity/Comment: 3+ pitting adema to right upper extremity, 1+ pitting edemat to left arm reddened to right buttocks, ulcer to left buttocks, left and right arms Current %PO Fair (50-74%) Estimated Nutritional Goals BEE in Kcals: Adj wt of IBW Calories/Kcals/Kg 25-30 Kcals Calculated 3329-6880 Protein: Adj wt of IBW Protein g/k.1-1.3 Protein Calculated 89-105 Fluid: ml 2024-243ml (1ml/kcal) Nutritional Problem 3. Problem Problem increased nutrition needs ( calorie and protein) Etiology impaired skin integrity, increased protein loss Signs/Symptoms: multiple ulcer, pt on dialysis 2. Problem Problem inadequate food intake Etiology poor appetite Signs/Symptoms: PO intake 50% 1. Problem Problem altered nutrition related labs Etiology electrolytes imbalance, hx of DM, ESRD Signs/Symptoms: Na 125, Cl 90, BUN 31, Cr 2.8, Glucose 141, POC 146-161 Malnutrition Alert Is there a minimum of two criteria No selected? Query Text:Check all the applicable criteria. A minimum of two criteria are recommended for diagnosis of either severe or non-severe malnutrition. Malnutrition Related to Morbid Obesity Malnutrition related to morbid obesity No Intervention/Recommendation Comments 1. Continue with current diet as ordered. If glucose continue high, will consider adding CCHO diet. 2. Recommend adding oral supplement Glucerna (chocolate flavor) daily to increased nutrition intake, Hever BID for wound healing. RN Seda notified. 2. Monitor PO intake, wt, labs and skin integrity 3. F/U as high risk in 2-3 days, 04/04-04/04 Expected Outcomes/Goals Expected Outcomes/Goals 1. PO intake to meet at least 75% of nutritional needs. 2. Wt stability, skin to remain intact, labs to approach WNL.
--- NOTE | 2018-04-07 17:47 | Progress Notes ---
DATE: 04/07/2018 SUBJECTIVE: The patient was seen in his room, lying in the bed. The patient is a poor historian due to medical condition. Otherwise, the patient appears to be in no acute distress. OBJECTIVE: VITAL SIGNS: Temperature 97.6, heart rate of 91, blood pressure 121/59, respiration of 19, 98% saturation. HEENT: Head is atraumatic and normocephalic. Eyes: Bilateral conjunctivae are clear. Bilateral pupils are equally round and reactive. NECK: Supple. No JVD. CARDIOVASCULAR: S1 and S2, without murmur. PULMONARY: Clear to auscultation. GASTROINTESTINAL: Soft and nontender without guarding. Positive bowel sounds. MUSCULOSKELETAL: No clubbing. No cyanosis noted. ASSESSMENT: 1. Urinary tract infection. 2. Sacral decubitus ulcer. 3. Anemia. 4. Diabetes. 5. Hypertension. 6. Dementia. 7. End-stage renal disease, hemodialysis dependent. PLAN: We will continue to keep the patient inpatient and follow up with ID doctor for antibiotic management. We are going follow up with the psychiatrist regarding patient's psychiatric problem. Treatment plans were discussed with the patient's nurse. Treatment plans were discussed with Dr. Schrader. JOB# [id number]
[2018-04-07] MEDS: Atorvastatin Calcium 10 MG TAB PO SCH (22:37)
[2018-04-08] MEDS: Hydrocodone/APAP 5mg/325mg Tab PO PRN ×2 (03:37→20:41)
[2018-04-08] MEDS: Albuterol/Ipratropium Neb 3 ML AERS HHN SCH ×4 (06:48→18:39)
[2018-04-08] MEDS: Levothyroxine 0.025 Mg Tab PO SCH (06:53)
[2018-04-08] MEDS: INSULIN ASPART SLIDING SCALE 100 UNITS/ML UNIT SUBQ SCH ×4 (07:35→20:49)
[2018-04-08] MEDS: Multivitamin w/ Minerals Tab PO SCH (08:46)
[2018-04-08] MEDS: Lactobacillus Rhamnosus GG 15 Billion CFU CAP.SPRINK PO SCH (08:46)
[2018-04-08] MEDS: Vitamin B Complex w/Vitamin C Tab PO SCH (08:47)
[2018-04-08] MEDS: Pantoprazole 40 mg EC Tab PO SCH (08:47)
[2018-04-08 09:05] LABS: % BASOPHILS 1.5 % (0.0-2.0); % EOSINOPHILS 2.7 % (0.0-5.0); % LYMPHOCYTES 10.6 % (20.0-50.0); % NEUTROPHILS 76.2 % (40.0-80.0); BASOPHILE ABSOLUTE 0.1 Th/cumm (0-0.2); EOSINOPHILE ABSOLUTE 0.2 Th/cmm (0.1-0.4); HEMATOCRIT 26.4 % (41.0-60); HEMOGLOBIN 8.5 gm/dL (12-16); LYMPHOCYTE ABSOLUTE 0.8 Th/cmm (1.5-3.0); MEAN CELL VOLUME 95.3 fl (80-99); MEAN CORPUSCULAR HEMOGLOBIN 30.8 pg (26.0-30.0); MEAN CORPUSCULAR HGB CONC 32.3 pg (28.0-36.0); MEAN PLATELET VOLUME 8.1 fl; MONOCYTE ABSOLUTE 0.7 Th/cmm (0.3-1.0); NEUTROPHILE ABSOLUTE 5.9 Th/cmm (1.8-8.0); PLATELET COUNT 196 Th/cmm (150-400); RED BLOOD COUNT 2.77 Mil/cmm (4.30-5.70); RED CELL DISTRIBUTION WIDTH 21.4 % (11.5-20.0); WHITE BLOOD COUNT 7.7 Th/cmm (4.8-10.8)
[2018-04-08] MEDS: Levofloxacin 250mg/50mL 250 MG/50 ML BAG IV SCH (09:24)
[2018-04-08] MEDS: Venelex 60gm Tube TP SCH (09:33)
--- NOTE | 2018-04-08 09:50 | Diagnostic Imaging Report ---
Exam: Ultrasound examination of the deep venous circulation lower extremities bilaterally. HISTORY: Peripheral vascular disease. Findings: Real-time ultrasound examination of the deep arterial circulation lower extremity bilaterally was performed multiple planes utilizing color Doppler technique. The study is a limited view due to patient inability to cooperate. The study demonstrates predominantly triphasic flow through the common femoral arteries bilaterally. The popliteal arteries demonstrate triphasic flow Below the trifurcation the flow is biphasic, there is evidence of mild to moderate plaque formation. The ankle-brachial indices are not obtained, patient refused. There is evidence for mild to moderate plaque formation throughout the distal superficial femoral artery popliteal arteries and basilar pleural trifurcation. The flow in the anterior posterior tibial arteries is monophasic. IMPRESSION: Limited examination due to patient inability to cooperate with exam. Mild to moderate amount of plaque formation seen throughout the distal superficial femoral arteries and popliteal arteries. The flow below the trifurcation is monophasic. Patient has right toes amputated.
--- NOTE | 2018-04-08 09:51 | Diagnostic Imaging Report ---
Bilateral lower extremity Doppler venous ultrasound exam HISTORY: Pain/swelling Sonographic sector images were obtained through the deep venous systems of both legs. Associated Doppler data was obtained. The exam demonstrates patency of the common femoral, superficial femoral, popliteal, and posterior tibial veins bilaterally. Specifically, no thrombus is seen. There are normal compressibility and augmentation responses. IMPRESSION: Negative exam for deep vein thrombophlebitis.
--- NOTE | 2018-04-08 10:26 | General Progress Note ---
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 leg ulcers in no acute distress Objective - Results Result Diagrams: 04/08/18 08:35 04/07/18 05:27 Recent Labs: Laboratory Last Values WBC 7.7 Th/cmm (4.8-10.8) 04/08/18 08:35 RBC 2.77 Mil/cmm (4.30-5.70) L 04/08/18 08:35 Hgb 8.5 gm/dL (12-16) L 04/08/18 08:35 Hct 26.4 % (41.0-60) L 04/08/18 08:35 MCV 95.3 fl (80-99) 04/08/18 08:35 MCH 30.8 pg (26.0-30.0) H 04/08/18 08:35 MCHC Differential 32.3 pg (28.0-36.0) 04/08/18 08:35 RDW 21.4 % (11.5-20.0) H 04/08/18 08:35 Plt Count 196 Th/cmm (150-400) 04/08/18 08:35 MPV 8.1 fl 04/08/18 08:35 Add Manual Diff YES 04/01/18 06:03 Neutrophils % 76.2 % (40.0-80.0) 04/08/18 08:35 Band Neutrophils % 1 % (0-10) 04/01/18 06:03 Lymphocytes % 10.6 % (20.0-50.0) L 04/08/18 08:35 Monocytes % 9.0 % (2.0-10.0) 04/08/18 08:35 Eosinophils % 2.7 % (0.0-5.0) 04/08/18 08:35 Basophils % 1.5 % (0.0-2.0) 04/08/18 08:35 Neutrophils (Manual) Not Reportable 04/04/18 10:40 Lymphocytes 7 % (20-50) L 04/02/18 06:00 Monocytes 6 % (2-10) 04/02/18 06:00 Eosinophils 3 % (0-5) 04/02/18 06:00 Basophils 2 % (0-3) 04/02/18 06:00 Platelet Estimate ADEQUATE (NORMAL) 04/02/18 06:00 Platelet Morphology NORMAL (NORMAL) 03/31/18 18:25 Anisocytosis 1+ 04/02/18 06:00 RBC Morph Micro Appear ABNORMAL (NORMAL) 03/31/18 18:25 Sodium 124 mEq/L (136-145) L 04/07/18 05:27 Potassium 4.3 mEq/L (3.5-5.1) 04/07/18 05:27 Chloride 94 mEq/L (98-107) L 04/07/18 05:27 Carbon Dioxide 21.6 mEq/L (21.0-31.0) 04/07/18 05:27 Anion Gap 12.7 (7.0-16.0) 04/07/18 05:27 BUN 30 mg/dL (7-25) H 04/07/18 05:27 Creatinine 2.8 mg/dL (0.7-1.3) H 04/07/18 05:27 Est GFR ( Amer) 29.9 ml/min (>90) 04/07/18 05:27 Est GFR (Non-Af Amer) 24.7 ml/min 04/07/18 05:27 BUN/Creatinine Ratio 10.7 04/07/18 05:27 Glucose 88 mg/dL (70-105) 04/07/18 05:27 POC Glucose 87 MG/DL (70 - 105) 04/08/18 06:22 Calcium 8.3 mg/dL (8.6-10.3) L 04/07/18 05:27 Phosphorus 4.8 mg/dL (2.5-5.0) 04/02/18 06:00 Iron 33 ug/dL (38-169) L 04/02/18 06:00 TIBC 73 ug/dL (250-450) L 04/02/18 06:00 Iron Saturation 45 % (15-55) 04/02/18 06:00 Unsaturated IBC 40 ug/dL (111-343) L 04/02/18 06:00 Ferritin 1538 ng/mL (30-400) H 04/02/18 06:00 Total Bilirubin 0.4 mg/dL (0.3-1.0) 04/07/18 05:27 AST 7 U/L (13-39) L 04/07/18 05:27 ALT 3 U/L (7-52) L 04/07/18 05:27 Alkaline Phosphatase 108 U/L (34-104) H 04/07/18 05:27 Troponin I 0.05 ng/mL (0.01-0.05) 03/31/18 18:25 B-Natriuretic Peptide > 5000.0 pg/mL (5.0-100.0) H 04/08/18 08:35 Total Protein 5.5 gm/dL (6.0-8.3) L 04/07/18 05:27 Albumin 2.4 gm/dL (4.2-5.5) L 04/07/18 05:27 Globulin 3.1 gm/dL 04/07/18 05:27 Albumin/Globulin Ratio 0.8 (1.0-1.8) L 04/07/18 05:27 Urine Source CLEAN C 03/31/18 18:45 Urine Color YELLOW 03/31/18 18:45 Urine Clarity CLOUDY (CLEAR) 03/31/18 18:45 Urine pH 6.0 (4.6 - 8.0) 03/31/18 18:45 Ur Specific [place] 1.020 (1.005-1.030) 03/31/18 18:45 Urine Protein >=300 mg/dL (NEGATIVE) 03/31/18 18:45 Urine Glucose (UA) NEGATIVE mg/dL (NEGATIVE) 03/31/18 18:45 Urine Ketones NEGATIVE mg/dL (NEGATIVE) 03/31/18 18:45 Urine Blood LARGE (NEGATIVE) H 03/31/18 18:45 Urine Nitrate NEGATIVE (NEGATIVE) 03/31/18 18:45 Urine Bilirubin NEGATIVE (NEGATIVE) 03/31/18 18:45 Urine Urobilinogen 0.2 E.U./dL (0.2 - 1.0) 03/31/18 18:45 Ur Leukocyte Esterase MODERATE (NEGATIVE) H 03/31/18 18:45 Urine RBC 50-100 /hpf (0-5) H 03/31/18 18:45 Urine WBC 25-50 /hpf (0-5) H 03/31/18 18:45 Ur Epithelial Cells NONE SEEN /lpf (FEW) 03/31/18 18:45 Urine Bacteria FEW /hpf (NONE SEEN) 03/31/18 18:45 - Physical Exam Vitals and I&O: Vital Signs Temp 97.3 F 07/22/18 03:00 Pulse 91 04/08/18 06:50 Resp 17 04/08/18 08:16 BP 99/63 04/08/18 03:00 Pulse Ox 100 04/08/18 06:50 Intake & Output 04/07/18 04/08/18 04/08/18 18:59 06:59 18:59 Intake Total 500 340 Output Total 400 160 Balance 100 180 Weight (lbs) 90.718 kg 88.133 kg Intake: Intake, IV Amount 50 Levofloxacin 250mg/50mL 50 250 mg In 50 ml @ 50 mls/ hr IV Q24HR@0900 [facility] Rx#: [id number] Oral 450 340 Output: Urine 350 150 Stool 50 10 Other: Stool Characteristics Liquid Liquid Liquid Brown Brown Brown [facility] Active Medications: Current Medications Acetaminophen (Tylenol) 650 mg PO Q4HR PRN PRN Reason: MILD Pain or Fever >101 Stop: 05/30/18 22:21 Last Admin: 04/07/18 22:54 Dose: 650 mg Albuterol/Ipratropium (Duoneb Neb) 3 ml HHN Q6HRT [facility] Stop: 05/31/18 00:59 Last Admin: 04/08/18 06:48 Dose: 3 ml Aripiprazole (Abilify) 2 mg PO DAILY [facility]; Protocol Stop: 06/05/18 08:59 Last Admin: 04/08/18 08:47 Dose: 2 mg Ascorbic Acid (Vitamin C) 500 mg PO DAILY [facility] Stop: 05/31/18 08:59 Last Admin: 04/08/18 08:47 Dose: 500 mg Aspirin (Ecotrin) 81 mg PO DAILY [facility] Stop: 05/31/18 08:59 Last Admin: 04/08/18 08:47 Dose: 81 mg Atorvastatin Calcium (Lipitor) 20 mg PO HS [facility] Stop: 05/31/18 20:59 Last Admin: 04/07/18 22:37 Dose: 20 mg Bisacodyl (Dulcolax 10 Mg Supp) 10 mg RC DAILY PRN PRN Reason: Constipation Stop: 05/30/18 22:21 [place] Oil/[place]itt[place] Balsam/Trypsin (Venelex) 1 appl TP DAILY [facility] Stop: 06/02/18 08:59 Last Admin: 04/08/18 09:33 Dose: 1 appl Dextrose (D50w) 50 ml IVP PRN PRN; Protocol PRN Reason: HYPOGLYCEMIA PROTOCOL Stop: 05/30/18 23:03 Diphenhydramine HCl (Benadryl) 25 mg PO Q6HR PRN PRN Reason: Itching Stop: 05/30/18 22:21 Last Admin: 04/07/18 23:16 Dose: 25 mg Docusate Sodium (Colace) 100 mg PO DAILY [facility] Stop: 05/31/18 08:59 Last Admin: 04/08/18 09:33 Dose: Not Given Epoetin Ramirez (Epogen) 5,000 units IVP MoWeFr [facility] Stop: 06/01/18 14:59 Last Admin: 04/06/18 16:03 Dose: 5,000 units Levofloxacin (Levaquin Pb) 250 mg in 50 mls @ 50 mls/hr IV Q24HR@0900 [facility] Stop: 06/01/18 08:59 Last Admin: 04/08/18 09:24 Dose: 50 mls/hr Insulin Aspart (Novolog Insulin Sliding Scale) 0 units SUBQ ACHS [facility]; Protocol Stop: 05/31/18 07:29 Last Admin: 04/08/18 07:35 Dose: Not Given Lactobacillus Rhamnosus (Culturelle 15b) 1 each PO DAILY [facility] Stop: 06/01/18 12:59 Last Admin: 04/08/18 08:46 Dose: 1 each Levetiracetam (Keppra) 500 mg PO BID [facility] Stop: 05/31/18 08:59 Last Admin: 04/08/18 08:47 Dose: 500 mg Levothyroxine Sodium (Synthroid) 0.025 mg PO QDAC [facility] Stop: 05/31/18 07:29 Last Admin: 04/08/18 06:53 Dose: Not Given Lorazepam (Ativan) 1 mg IVP Q6H PRN; Protocol PRN Reason: Agitation Stop: 05/31/18 22:59 Last Admin: 04/08/18 10:20 Dose: 1 mg Miscellaneous (Clinical Monitoring) 1 ea MC PRN PRN PRN Reason: RENAL Stop: 06/01/18 10:15 Miscellaneous (Probiotic Screen) 1 ea PRN PRN PRN Reason: PROTOCOL Stop: 06/04/18 08:14 Pantoprazole Sodium (Protonix) 40 mg PO DAILY [facility] Stop: 05/31/18 08:59 Last Admin: 04/08/18 08:47 Dose: 40 mg Sodium Chloride (Nacl Tab) 1 gm PO TID [facility] Stop: 06/06/18 15:14 Last Admin: 04/08/18 08:47 Dose: 1 gm Sodium Phosphate (Fleet Enema) 135 ml RC DAILY PRN PRN Reason: Constipation Stop: 05/30/18 22:21 Vitamin B Complex/Vit C/Folic Acid (Vitamin B Complex W/Vitamin C) 1 tab PO DAILY [facility] Stop: 05/31/18 08:59 Last Admin: 04/08/18 08:47 Dose: 1 tab Zinc Sulfate (Zinc Sulfate) 220 mg PO DAILY [facility] Stop: 05/31/18 08:59 Last Admin: 04/08/18 09:34 Dose: 220 mg General: No acute distress HEENT: Atraumatic Neck: Supple Cardiovascular: Regular rate, Normal S1, Normal S2 Lungs: Clear to auscultation Abdomen: Bowel sounds Assessment/Plan - Plan Plan: as per order sheet wound care Nutritional Asmnt/Malnutr-PDOC - Dietary Evaluation Malnutrition Findings (Please click <Entered> for more info): Nutritional Asmnt/Malnutrition Start: 04/02/18 16: 21 Text: Status: Complete Freq: Protocol: Document 04/02/18 16:42 LCHENG (Rec: 04/02/18 17:12 [email or web address]) Nutritional Asmnt/Malnutrition Patient General Information Nutritional Screening High Risk Consult Diagnosis UTI, renal failure Pertinent Medical Hx/Surgical Hx HTN, DM, CVA/TIA, ESRD, dementia Subjective Information Consult for multiple ulcer. Pt seen lying in bed at time of visit, awake and alert. Pt reported appetite was not good , requesting for oral supplement (chocolate flavor only). Per nurse, pt will start dialysis. Pt has multiple wounds noted. Current Diet Order/ Nutrition Support 2gm sodium, renal Pertinent Medications vit C, D5-0.45ns, colace, novolog, culturelle, levaquin, synthroid, protonix, vit B complex w/ vit C, zinc Pertinent Labs 04/02 Na 125, Cl 90, BUN 31, Cr 2.8, glucose 141, POc 146-161 Nutritional Hx/Data Height 1.8 m Height (Calculated Centimeters) 180.3 Current Weight (lbs) 91.626 kg Weight (Calculated Kilograms) 91.6 Weight (Calculated Grams) 38046.7 [place] Body Weight 172 Body Mass Index (BMI) 28.1 GI Symptoms Skin Integrity/Comment: 3+ pitting adema to right upper extremity, 1+ pitting edemat to left arm reddened to right buttocks, ulcer to left buttocks, left and right arms Current %PO Fair (50-74%) Estimated Nutritional Goals BEE in Kcals: Adj wt of IBW Calories/Kcals/Kg 25-30 Kcals Calculated 1394-5058 Protein: Adj wt of IBW Protein g/k.1-1.3 Protein Calculated 89-105 Fluid: ml 2024-243ml (1ml/kcal) Nutritional Problem 3. Problem Problem increased nutrition needs ( calorie and protein) Etiology impaired skin integrity, increased protein loss Signs/Symptoms: multiple ulcer, pt on dialysis 2. Problem Problem inadequate food intake Etiology poor appetite Signs/Symptoms: PO intake 50% 1. Problem Problem altered nutrition related labs Etiology electrolytes imbalance, hx of DM, ESRD Signs/Symptoms: Na 125, Cl 90, BUN 31, Cr 2.8, Glucose 141, POC 146-161 Malnutrition Alert Is there a minimum of two criteria No selected? Query Text:Check all the applicable criteria. A minimum of two criteria are recommended for diagnosis of either severe or non-severe malnutrition. Malnutrition Related to Morbid Obesity Malnutrition related to morbid obesity No Intervention/Recommendation Comments 1. Continue with current diet as ordered. If glucose continue high, will consider adding CCHO diet. 2. Recommend adding oral supplement Glucerna (chocolate flavor) daily to increased nutrition intake, Hever BID for wound healing. DONAVAN Stack notified. 2. Monitor PO intake, wt, labs and skin integrity 3. F/U as high risk in 2-3 days, 04/04-04/04 Expected Outcomes/Goals Expected Outcomes/Goals 1. PO intake to meet at least 75% of nutritional needs. 2. Wt stability, skin to remain intact, labs to approach WNL.
--- NOTE | 2018-04-08 11:04 | Progress Notes ---
DATE: 04/08/2018 SUBJECTIVE: Chart reviewed and the patient interviewed. Also discussed the patient's condition with the staff and reviewed records and labs. The patient seems to be slightly calmer. He seems to be less agitated and less irritable. Also, he is yet to redirect him. He still has episodes of anger and irritability, but seems to be less than before. ASSESSMENT: The patient seems to be calmer and less irritable. TREATMENT PLAN: Continue to monitor behavior and condition closely. Also, continue working on his ineffective coping. JOB# [id number]
[2018-04-08 11:34] LABS: ANION GAP 13.6 (7.0-16.0); CALCIUM SERUM 8.3 mg/dL (8.6-10.3); GFR AFRICAN-AMERICAN 27.6 ml/min (>90); GFR NON AFRICAN-AMERICAN 22.8 ml/min; POTASSIUM SERUM 4.6 mEq/L (3.5-5.1)
--- NOTE | 2018-04-08 12:30 | General Progress Note ---
Subjective - Review of Systems Service Date: 04/08/18 Events since last encounter: callled yesterday and informed about multiple ulcers and possible treatment for same she wants to be called back after 3 pm today consent for surgery ordered pending decision by who POA Objective - Results Result Diagrams: 04/08/18 08:35 04/08/18 08:35 Recent Labs: Laboratory Last Values WBC 7.7 Th/cmm (4.8-10.8) 04/08/18 08:35 RBC 2.77 Mil/cmm (4.30-5.70) L 04/08/18 08:35 Hgb 8.5 gm/dL (12-16) L 04/08/18 08:35 Hct 26.4 % (41.0-60) L 04/08/18 08:35 MCV 95.3 fl (80-99) 04/08/18 08:35 MCH 30.8 pg (26.0-30.0) H 04/08/18 08:35 MCHC Differential 32.3 pg (28.0-36.0) 04/08/18 08:35 RDW 21.4 % (11.5-20.0) H 04/08/18 08:35 Plt Count 196 Th/cmm (150-400) 04/08/18 08:35 MPV 8.1 fl 04/08/18 08:35 Add Manual Diff YES 04/01/18 06:03 Neutrophils % 76.2 % (40.0-80.0) 04/08/18 08:35 Band Neutrophils % 1 % (0-10) 04/01/18 06:03 Lymphocytes % 10.6 % (20.0-50.0) L 04/08/18 08:35 Monocytes % 9.0 % (2.0-10.0) 04/08/18 08:35 Eosinophils % 2.7 % (0.0-5.0) 04/08/18 08:35 Basophils % 1.5 % (0.0-2.0) 04/08/18 08:35 Neutrophils (Manual) Not Reportable 04/04/18 10:40 Lymphocytes 7 % (20-50) L 04/02/18 06:00 Monocytes 6 % (2-10) 04/02/18 06:00 Eosinophils 3 % (0-5) 04/02/18 06:00 Basophils 2 % (0-3) 04/02/18 06:00 Platelet Estimate ADEQUATE (NORMAL) 04/02/18 06:00 Platelet Morphology NORMAL (NORMAL) 03/31/18 18:25 Anisocytosis 1+ 04/02/18 06:00 RBC Morph Micro Appear ABNORMAL (NORMAL) 03/31/18 18:25 Sodium 125 mEq/L (136-145) L 04/08/18 08:35 Potassium 4.6 mEq/L (3.5-5.1) 04/08/18 08:35 Chloride 95 mEq/L (98-107) L 04/08/18 08:35 Carbon Dioxide 21.0 mEq/L (21.0-31.0) 04/08/18 08:35 Anion Gap 13.6 (7.0-16.0) 04/08/18 08:35 BUN 34 mg/dL (7-25) H 04/08/18 08:35 Creatinine 3.0 mg/dL (0.7-1.3) H 04/08/18 08:35 Est GFR ( Amer) 27.6 ml/min (>90) 04/08/18 08:35 Est GFR (Non-Af Amer) 22.8 ml/min 04/08/18 08:35 BUN/Creatinine Ratio 11.3 04/08/18 08:35 Glucose 93 mg/dL (70-105) 04/08/18 08:35 POC Glucose 118 MG/DL (70 - 105) H 04/08/18 12:03 Calcium 8.3 mg/dL (8.6-10.3) L 04/08/18 08:35 Phosphorus 4.8 mg/dL (2.5-5.0) 04/02/18 06:00 Iron 33 ug/dL (38-169) L 04/02/18 06:00 TIBC 73 ug/dL (250-450) L 04/02/18 06:00 Iron Saturation 45 % (15-55) 04/02/18 06:00 Unsaturated IBC 40 ug/dL (111-343) L 04/02/18 06:00 Ferritin 1538 ng/mL (30-400) H 04/02/18 06:00 Total Bilirubin 0.4 mg/dL (0.3-1.0) 04/07/18 05:27 AST 7 U/L (13-39) L 04/07/18 05:27 ALT 3 U/L (7-52) L 04/07/18 05:27 Alkaline Phosphatase 108 U/L (34-104) H 04/07/18 05:27 Troponin I 0.05 ng/mL (0.01-0.05) 03/31/18 18:25 B-Natriuretic Peptide > 5000.0 pg/mL (5.0-100.0) H 04/08/18 08:35 Total Protein 5.5 gm/dL (6.0-8.3) L 04/07/18 05:27 Albumin 2.4 gm/dL (4.2-5.5) L 04/07/18 05:27 Globulin 3.1 gm/dL 04/07/18 05:27 Albumin/Globulin Ratio 0.8 (1.0-1.8) L 04/07/18 05:27 Urine Source CLEAN C 03/31/18 18:45 Urine Color YELLOW 03/31/18 18:45 Urine Clarity CLOUDY (CLEAR) 03/31/18 18:45 Urine pH 6.0 (4.6 - 8.0) 03/31/18 18:45 Ur Specific [place] 1.020 (1.005-1.030) 03/31/18 18:45 Urine Protein >=300 mg/dL (NEGATIVE) 03/31/18 18:45 Urine Glucose (UA) NEGATIVE mg/dL (NEGATIVE) 03/31/18 18:45 Urine Ketones NEGATIVE mg/dL (NEGATIVE) 03/31/18 18:45 Urine Blood LARGE (NEGATIVE) H 03/31/18 18:45 Urine Nitrate NEGATIVE (NEGATIVE) 03/31/18 18:45 Urine Bilirubin NEGATIVE (NEGATIVE) 03/31/18 18:45 Urine Urobilinogen 0.2 E.U./dL (0.2 - 1.0) 03/31/18 18:45 Ur Leukocyte Esterase MODERATE (NEGATIVE) H 03/31/18 18:45 Urine RBC 50-100 /hpf (0-5) H 03/31/18 18:45 Urine WBC 25-50 /hpf (0-5) H 03/31/18 18:45 Ur Epithelial Cells NONE SEEN /lpf (FEW) 03/31/18 18:45 Urine Bacteria FEW /hpf (NONE SEEN) 03/31/18 18:45 - Physical Exam Vitals and I&O: Vital Signs Temp 97.4 F 04/08/18 11:59 Pulse 97 04/08/18 12:25 Resp 18 04/08/18 12:25 BP 110/70 04/08/18 11:59 Pulse Ox 99 04/08/18 12:25 Intake & Output 04/07/18 04/08/18 04/08/18 18:59 06:59 18:59 Intake Total 500 340 Output Total 400 160 Balance 100 180 Weight (lbs) 90.718 kg 88.133 kg Intake: Intake, IV Amount 50 Levofloxacin 250mg/50mL 50 250 mg In 50 ml @ 50 mls/ hr IV Q24HR@0900 [facility] Rx#: [id number] Oral 450 340 Output: Urine 350 150 Stool 50 10 Other: Stool Characteristics Liquid Liquid Liquid Brown Brown Brown Weight Source [facility] Active Medications: Current Medications Acetaminophen (Tylenol) 650 mg PO Q4HR PRN PRN Reason: MILD Pain or Fever >101 Stop: 05/30/18 22:21 Last Admin: 04/08/18 11:18 Dose: 650 mg Albuterol/Ipratropium (Duoneb Neb) 3 ml HHN Q6HRT [facility] Stop: 05/31/18 00:59 Last Admin: 04/08/18 12:12 Dose: 3 ml Aripiprazole (Abilify) 2 mg PO DAILY [facility]; Protocol Stop: 06/05/18 08:59 Last Admin: 04/08/18 08:47 Dose: 2 mg Ascorbic Acid (Vitamin C) 500 mg PO DAILY [facility] Stop: 05/31/18 08:59 Last Admin: 04/08/18 08:47 Dose: 500 mg Aspirin (Ecotrin) 81 mg PO DAILY [facility] Stop: 05/31/18 08:59 Last Admin: 04/08/18 08:47 Dose: 81 mg Atorvastatin Calcium (Lipitor) 20 mg PO HS [facility] Stop: 05/31/18 20:59 Last Admin: 04/07/18 22:37 Dose: 20 mg Bisacodyl (Dulcolax 10 Mg Supp) 10 mg RC DAILY PRN PRN Reason: Constipation Stop: 05/30/18 22:21 [place] Oil/[place] Balsam/Trypsin (Venelex) 1 appl TP DAILY [facility] Stop: 06/02/18 08:59 Last Admin: 04/08/18 09:33 Dose: 1 appl Dextrose (D50w) 50 ml IVP PRN PRN; Protocol PRN Reason: HYPOGLYCEMIA PROTOCOL Stop: 05/30/18 23:03 Diphenhydramine HCl (Benadryl) 25 mg PO Q6HR PRN PRN Reason: Itching Stop: 05/30/18 22:21 Last Admin: 04/07/18 23:16 Dose: 25 mg Docusate Sodium (Colace) 100 mg PO DAILY [facility] Stop: 05/31/18 08:59 Last Admin: 04/08/18 09:33 Dose: Not Given Epoetin Ramirez (Epogen) 5,000 units IVP MoWeFr [facility] Stop: 06/01/18 14:59 Last Admin: 04/06/18 16:03 Dose: 5,000 units Levofloxacin (Levaquin Pb) 250 mg in 50 mls @ 50 mls/hr IV Q24HR@0900 [facility] Stop: 06/01/18 08:59 Last Admin: 04/08/18 09:24 Dose: 50 mls/hr Insulin Aspart (Novolog Insulin Sliding Scale) 0 units SUBQ ACHS [facility]; Protocol Stop: 05/31/18 07:29 Last Admin: 04/08/18 07:35 Dose: Not Given Lactobacillus Rhamnosus (Culturelle 15b) 1 each PO DAILY [facility] Stop: 06/01/18 12:59 Last Admin: 04/08/18 08:46 Dose: 1 each Levetiracetam (Keppra) 500 mg PO BID [facility] Stop: 05/31/18 08:59 Last Admin: 04/08/18 08:47 Dose: 500 mg Levothyroxine Sodium (Synthroid) 0.025 mg PO QDAC [facility] Stop: 05/31/18 07:29 Last Admin: 04/08/18 06:53 Dose: Not Given Lorazepam (Ativan) 1 mg IVP Q6H PRN; Protocol PRN Reason: Agitation Stop: 05/31/18 22:59 Last Admin: 04/08/18 10:20 Dose: 1 mg Miscellaneous (Clinical Monitoring) 1 ea PRN PRN PRN Reason: RENAL Stop: 06/01/18 10:15 Miscellaneous (Probiotic Screen) 1 ea MC PRN PRN PRN Reason: PROTOCOL Stop: 06/04/18 08:14 Pantoprazole Sodium (Protonix) 40 mg PO DAILY [facility] Stop: 05/31/18 08:59 Last Admin: 04/08/18 08:47 Dose: 40 mg Sodium Chloride (Nacl Tab) 1 gm PO TID [facility] Stop: 06/06/18 15:14 Last Admin: 04/08/18 08:47 Dose: 1 gm Sodium Phosphate (Fleet Enema) 135 ml RC DAILY PRN PRN Reason: Constipation Stop: 05/30/18 22:21 Vitamin B Complex/Vit C/Folic Acid (Vitamin B Complex W/Vitamin C) 1 tab PO DAILY [facility] Stop: 05/31/18 08:59 Last Admin: 04/08/18 08:47 Dose: 1 tab Zinc Sulfate (Zinc Sulfate) 220 mg PO DAILY [facility] Stop: 05/31/18 08:59 Last Admin: 04/08/18 09:34 Dose: 220 mg General: No acute distress HEENT: Atraumatic Neck: Supple Cardiovascular: Regular rate, Normal S1, Normal S2 Lungs: Clear to auscultation Abdomen: Bowel sounds Nutritional Asmnt/Malnutr-PDOC - Dietary Evaluation Malnutrition Findings (Please click <Entered> for more info): Nutritional Asmnt/Malnutrition Start: 04/02/18 16: 21 Text: Status: Complete Freq: Protocol: Document 04/02/18 16:42 LCHENG (Rec: 04/02/18 17:12 LCHENG [email or web address]) Nutritional Asmnt/Malnutrition Patient General Information Nutritional Screening High Risk Consult Diagnosis UTI, renal failure Pertinent Medical Hx/Surgical Hx HTN, DM, CVA/TIA, ESRD, dementia Subjective Information Consult for multiple ulcer. Pt seen lying in bed at time of visit, awake and alert. Pt reported appetite was not good , requesting for oral supplement (chocolate flavor only). Per nurse, pt will start dialysis. Pt has multiple wounds noted. Current Diet Order/ Nutrition Support 2gm sodium, renal Pertinent Medications vit C, D5-0.45ns, colace, novolog, culturelle, levaquin, synthroid, protonix, vit B complex w/ vit C, zinc Pertinent Labs 04/02 Na 125, Cl 90, BUN 31, Cr 2.8, glucose 141, POc 146-161 Nutritional Hx/Data Height 1.8 m Height (Calculated Centimeters) 180.3 Current Weight (lbs) 91.626 kg Weight (Calculated Kilograms) 91.6 Weight (Calculated Grams) 18242.7 [place] Body Weight 172 Body Mass Index (BMI) 28.1 GI Symptoms Skin Integrity/Comment: 3+ pitting adema to right upper extremity, 1+ pitting edemat to left arm reddened to right buttocks, ulcer to left buttocks, left and right arms Current %PO Fair (50-74%) Estimated Nutritional Goals BEE in Kcals: Adj wt of IBW Calories/Kcals/Kg 25-30 Kcals Calculated 6387-1653 Protein: Adj wt of IBW Protein g/k.1-1.3 Protein Calculated 89-105 Fluid: ml 2024-243ml (1ml/kcal) Nutritional Problem 3. Problem Problem increased nutrition needs ( calorie and protein) Etiology impaired skin integrity, increased protein loss Signs/Symptoms: multiple ulcer, pt on dialysis 2. Problem Problem inadequate food intake Etiology poor appetite Signs/Symptoms: PO intake 50% 1. Problem Problem altered nutrition related labs Etiology electrolytes imbalance, hx of DM, ESRD Signs/Symptoms: Na 125, Cl 90, BUN 31, Cr 2.8, Glucose 141, POC 146-161 Malnutrition Alert Is there a minimum of two criteria No selected? Query Text:Check all the applicable criteria. A minimum of two criteria are recommended for diagnosis of either severe or non-severe malnutrition. Malnutrition Related to Morbid Obesity Malnutrition related to morbid obesity No Intervention/Recommendation Comments 1. Continue with current diet as ordered. If glucose continue high, will consider adding CCHO diet. 2. Recommend adding oral supplement Glucerna (chocolate flavor) daily to increased nutrition intake, Hever BID for wound healing. DONAVAN Stack notified. 2. Monitor PO intake, wt, labs and skin integrity 3. F/U as high risk in 2-3 days, 04/04-04/04 Expected Outcomes/Goals Expected Outcomes/Goals 1. PO intake to meet at least 75% of nutritional needs. 2. Wt stability, skin to remain intact, labs to approach WNL.
--- NOTE | 2018-04-08 12:31 | General Progress Note ---
Subjective - Review of Systems Service Date: 04/08/18 Events since last encounter: BNP over 5000 recommend Cardiology consult prior to surgery Objective - Results Result Diagrams: 04/08/18 08:35 04/08/18 08:35 Recent Labs: Laboratory Last Values WBC 7.7 Th/cmm (4.8-10.8) 04/08/18 08:35 RBC 2.77 Mil/cmm (4.30-5.70) L 04/08/18 08:35 Hgb 8.5 gm/dL (12-16) L 04/08/18 08:35 Hct 26.4 % (41.0-60) L 04/08/18 08:35 MCV 95.3 fl (80-99) 04/08/18 08:35 MCH 30.8 pg (26.0-30.0) H 04/08/18 08:35 MCHC Differential 32.3 pg (28.0-36.0) 04/08/18 08:35 RDW 21.4 % (11.5-20.0) H 04/08/18 08:35 Plt Count 196 Th/cmm (150-400) 04/08/18 08:35 MPV 8.1 fl 04/08/18 08:35 Add Manual Diff YES 04/01/18 06:03 Neutrophils % 76.2 % (40.0-80.0) 04/08/18 08:35 Band Neutrophils % 1 % (0-10) 04/01/18 06:03 Lymphocytes % 10.6 % (20.0-50.0) L 04/08/18 08:35 Monocytes % 9.0 % (2.0-10.0) 04/08/18 08:35 Eosinophils % 2.7 % (0.0-5.0) 04/08/18 08:35 Basophils % 1.5 % (0.0-2.0) 04/08/18 08:35 Neutrophils (Manual) Not Reportable 04/04/18 10:40 Lymphocytes 7 % (20-50) L 04/02/18 06:00 Monocytes 6 % (2-10) 04/02/18 06:00 Eosinophils 3 % (0-5) 04/02/18 06:00 Basophils 2 % (0-3) 04/02/18 06:00 Platelet Estimate ADEQUATE (NORMAL) 04/02/18 06:00 Platelet Morphology NORMAL (NORMAL) 03/31/18 18:25 Anisocytosis 1+ 04/02/18 06:00 RBC Morph Micro Appear ABNORMAL (NORMAL) 03/31/18 18:25 Sodium 125 mEq/L (136-145) L 04/08/18 08:35 Potassium 4.6 mEq/L (3.5-5.1) 04/08/18 08:35 Chloride 95 mEq/L (98-107) L 04/08/18 08:35 Carbon Dioxide 21.0 mEq/L (21.0-31.0) 04/08/18 08:35 Anion Gap 13.6 (7.0-16.0) 04/08/18 08:35 BUN 34 mg/dL (7-25) H 04/08/18 08:35 Creatinine 3.0 mg/dL (0.7-1.3) H 04/08/18 08:35 Est GFR ( Amer) 27.6 ml/min (>90) 04/08/18 08:35 Est GFR (Non-Af Amer) 22.8 ml/min 04/08/18 08:35 BUN/Creatinine Ratio 11.3 04/08/18 08:35 Glucose 93 mg/dL (70-105) 04/08/18 08:35 POC Glucose 118 MG/DL (70 - 105) H 04/08/18 12:03 Calcium 8.3 mg/dL (8.6-10.3) L 04/08/18 08:35 Phosphorus 4.8 mg/dL (2.5-5.0) 04/02/18 06:00 Iron 33 ug/dL (38-169) L 04/02/18 06:00 TIBC 73 ug/dL (250-450) L 04/02/18 06:00 Iron Saturation 45 % (15-55) 04/02/18 06:00 Unsaturated IBC 40 ug/dL (111-343) L 04/02/18 06:00 Ferritin 1538 ng/mL (30-400) H 04/02/18 06:00 Total Bilirubin 0.4 mg/dL (0.3-1.0) 04/07/18 05:27 AST 7 U/L (13-39) L 04/07/18 05:27 ALT 3 U/L (7-52) L 04/07/18 05:27 Alkaline Phosphatase 108 U/L (34-104) H 04/07/18 05:27 Troponin I 0.05 ng/mL (0.01-0.05) 03/31/18 18:25 B-Natriuretic Peptide > 5000.0 pg/mL (5.0-100.0) H 04/08/18 08:35 Total Protein 5.5 gm/dL (6.0-8.3) L 04/07/18 05:27 Albumin 2.4 gm/dL (4.2-5.5) L 04/07/18 05:27 Globulin 3.1 gm/dL 04/07/18 05:27 Albumin/Globulin Ratio 0.8 (1.0-1.8) L 04/07/18 05:27 Urine Source CLEAN C 03/31/18 18:45 Urine Color YELLOW 03/31/18 18:45 Urine Clarity CLOUDY (CLEAR) 03/31/18 18:45 Urine pH 6.0 (4.6 - 8.0) 03/31/18 18:45 Ur Specific [place] 1.020 (1.005-1.030) 03/31/18 18:45 Urine Protein >=300 mg/dL (NEGATIVE) 03/31/18 18:45 Urine Glucose (UA) NEGATIVE mg/dL (NEGATIVE) 03/31/18 18:45 Urine Ketones NEGATIVE mg/dL (NEGATIVE) 03/31/18 18:45 Urine Blood LARGE (NEGATIVE) H 03/31/18 18:45 Urine Nitrate NEGATIVE (NEGATIVE) 03/31/18 18:45 Urine Bilirubin NEGATIVE (NEGATIVE) 03/31/18 18:45 Urine Urobilinogen 0.2 E.U./dL (0.2 - 1.0) 03/31/18 18:45 Ur Leukocyte Esterase MODERATE (NEGATIVE) H 03/31/18 18:45 Urine RBC 50-100 /hpf (0-5) H 03/31/18 18:45 Urine WBC 25-50 /hpf (0-5) H 03/31/18 18:45 Ur Epithelial Cells NONE SEEN /lpf (FEW) 03/31/18 18:45 Urine Bacteria FEW /hpf (NONE SEEN) 03/31/18 18:45 - Physical Exam Vitals and I&O: Vital Signs Temp 97.4 F 04/08/18 11:59 Pulse 97 04/08/18 12:25 Resp 18 04/08/18 12:25 BP 110/70 04/08/18 11:59 Pulse Ox 99 04/08/18 12:25 Intake & Output 04/07/18 04/08/18 04/08/18 18:59 06:59 18:59 Intake Total 500 340 Output Total 400 160 Balance 100 180 Weight (lbs) 90.718 kg 88.133 kg Intake: Intake, IV Amount 50 Levofloxacin 250mg/50mL 50 250 mg In 50 ml @ 50 mls/ hr IV Q24HR@0900 [facility] Rx#: [id number] Oral 450 340 Output: Urine 350 150 Stool 50 10 Other: Stool Characteristics Liquid Liquid Liquid Brown Brown Brown Weight Source Bedscale [facility] Active Medications: Current Medications Acetaminophen (Tylenol) 650 mg PO Q4HR PRN PRN Reason: MILD Pain or Fever >101 Stop: 05/30/18 22:21 Last Admin: 04/08/18 11:18 Dose: 650 mg Albuterol/Ipratropium (Duoneb Neb) 3 ml HHN Q6HRT [facility] Stop: 05/31/18 00:59 Last Admin: 04/08/18 12:12 Dose: 3 ml Aripiprazole (Abilify) 2 mg PO DAILY [facility]; Protocol Stop: 06/05/18 08:59 Last Admin: 04/08/18 08:47 Dose: 2 mg Ascorbic Acid (Vitamin C) 500 mg PO DAILY [facility] Stop: 05/31/18 08:59 Last Admin: 04/08/18 08:47 Dose: 500 mg Aspirin (Ecotrin) 81 mg PO DAILY [facility] Stop: 05/31/18 08:59 Last Admin: 04/08/18 08:47 Dose: 81 mg Atorvastatin Calcium (Lipitor) 20 mg PO HS [facility] Stop: 05/31/18 20:59 Last Admin: 04/07/18 22:37 Dose: 20 mg Bisacodyl (Dulcolax 10 Mg Supp) 10 mg RC DAILY PRN PRN Reason: Constipation Stop: 05/30/18 22:21 [place] Balsam/Trypsin (Venelex) 1 appl TP DAILY [facility] Stop: 06/02/18 08:59 Last Admin: 04/08/18 09:33 Dose: 1 appl Dextrose (D50w) 50 ml IVP PRN PRN; Protocol PRN Reason: HYPOGLYCEMIA PROTOCOL Stop: 05/30/18 23:03 Diphenhydramine HCl (Benadryl) 25 mg PO Q6HR PRN PRN Reason: Itching Stop: 05/30/18 22:21 Last Admin: 04/07/18 23:16 Dose: 25 mg Docusate Sodium (Colace) 100 mg PO DAILY [facility] Stop: 05/31/18 08:59 Last Admin: 04/08/18 09:33 Dose: Not Given Epoetin Ramirez (Epogen) 5,000 units IVP MoWeFr [facility] Stop: 06/01/18 14:59 Last Admin: 04/06/18 16:03 Dose: 5,000 units Levofloxacin (Levaquin Pb) 250 mg in 50 mls @ 50 mls/hr IV Q24HR@0900 [facility] Stop: 06/01/18 08:59 Last Admin: 04/08/18 09:24 Dose: 50 mls/hr Insulin Aspart (Novolog Insulin Sliding Scale) 0 units SUBQ ACHS [facility]; Protocol Stop: 05/31/18 07:29 Last Admin: 04/08/18 07:35 Dose: Not Given Lactobacillus Rhamnosus (Culturelle 15b) 1 each PO DAILY [facility] Stop: 06/01/18 12:59 Last Admin: 04/08/18 08:46 Dose: 1 each Levetiracetam (Keppra) 500 mg PO BID [facility] Stop: 05/31/18 08:59 Last Admin: 04/08/18 08:47 Dose: 500 mg Levothyroxine Sodium (Synthroid) 0.025 mg PO QDAC [facility] Stop: 05/31/18 07:29 Last Admin: 04/08/18 06:53 Dose: Not Given Lorazepam (Ativan) 1 mg IVP Q6H PRN; Protocol PRN Reason: Agitation Stop: 05/31/18 22:59 Last Admin: 04/08/18 10:20 Dose: 1 mg Miscellaneous (Clinical Monitoring) 1 ea MC PRN PRN PRN Reason: RENAL Stop: 06/01/18 10:15 Miscellaneous (Probiotic Screen) 1 ea MC PRN PRN PRN Reason: PROTOCOL Stop: 06/04/18 08:14 Pantoprazole Sodium (Protonix) 40 mg PO DAILY I[facility] Stop: 05/31/18 08:59 Last Admin: 04/08/18 08:47 Dose: 40 mg Sodium Chloride (Nacl Tab) 1 gm PO TID [facility] Stop: 06/06/18 15:14 Last Admin: 04/08/18 08:47 Dose: 1 gm Sodium Phosphate (Fleet Enema) 135 ml RC DAILY PRN PRN Reason: Constipation Stop: 05/30/18 22:21 Vitamin B Complex/Vit C/Folic Acid (Vitamin B Complex W/Vitamin C) 1 tab PO DAILY [facility] Stop: 05/31/18 08:59 Last Admin: 04/08/18 08:47 Dose: 1 tab Zinc Sulfate (Zinc Sulfate) 220 mg PO DAILY [facility] Stop: 05/31/18 08:59 Last Admin: 04/08/18 09:34 Dose: 220 mg General: No acute distress HEENT: Atraumatic Neck: Supple Cardiovascular: Regular rate, Normal S1, Normal S2 Lungs: Clear to auscultation Abdomen: Bowel sounds Nutritional Asmnt/Malnutr-PDOC - Dietary Evaluation Malnutrition Findings (Please click <Entered> for more info): Nutritional Asmnt/Malnutrition Start: 04/02/18 16: 21 Text: Status: Complete Freq: Protocol: Document 04/02/18 16:42 [id number] (Rec: 04/02/18 17:12 JAZZ [email or web address]) Nutritional Asmnt/Malnutrition Patient General Information Nutritional Screening High Risk Consult Diagnosis UTI, renal failure Pertinent Medical Hx/Surgical Hx HTN, DM, CVA/TIA, ESRD, dementia Subjective Information Consult for multiple ulcer. Pt seen lying in bed at time of visit, awake and alert. Pt reported appetite was not good , requesting for oral supplement (chocolate flavor only). Per nurse, pt will start dialysis. Pt has multiple wounds noted. Current Diet Order/ Nutrition Support 2gm sodium, renal Pertinent Medications vit C, D5-0.45ns, colace, novolog, culturelle, levaquin, synthroid, protonix, vit B complex w/ vit C, zinc Pertinent Labs 04/02 Na 125, Cl 90, BUN 31, Cr 2.8, glucose 141, POc 146-161 Nutritional Hx/Data Height 1.8 m Height (Calculated Centimeters) 180.3 Current Weight (lbs) 91.626 kg Weight (Calculated Kilograms) 91.6 Weight (Calculated Grams) 41934.7 [place] Body Weight 172 Body Mass Index (BMI) 28.1 GI Symptoms Skin Integrity/Comment: 3+ pitting adema to right upper extremity, 1+ pitting edemat to left arm reddened to right buttocks, ulcer to left buttocks, left and right arms Current %PO Fair (50-74%) Estimated Nutritional Goals BEE in Kcals: Adj wt of IBW Calories/Kcals/Kg 25-30 Kcals Calculated 5144-4369 Protein: Adj wt of IBW Protein g/k.1-1.3 Protein Calculated 89-105 Fluid: ml 2024-243ml (1ml/kcal) Nutritional Problem 3. Problem Problem increased nutrition needs ( calorie and protein) Etiology impaired skin integrity, increased protein loss Signs/Symptoms: multiple ulcer, pt on dialysis 2. Problem Problem inadequate food intake Etiology poor appetite Signs/Symptoms: PO intake 50% 1. Problem Problem altered nutrition related labs Etiology electrolytes imbalance, hx of DM, ESRD Signs/Symptoms: Na 125, Cl 90, BUN 31, Cr 2.8, Glucose 141, POC 146-161 Malnutrition Alert Is there a minimum of two criteria No selected? Query Text:Check all the applicable criteria. A minimum of two criteria are recommended for diagnosis of either severe or non-severe malnutrition. Malnutrition Related to Morbid Obesity Malnutrition related to morbid obesity No Intervention/Recommendation Comments 1. Continue with current diet as ordered. If glucose continue high, will consider adding CCHO diet. 2. Recommend adding oral supplement Glucerna (chocolate flavor) daily to increased nutrition intake, Hever BID for wound healing. DONAVAN Stack notified. 2. Monitor PO intake, wt, labs and skin integrity 3. F/U as high risk in 2-3 days, 04/04-04/04 Expected Outcomes/Goals Expected Outcomes/Goals 1. PO intake to meet at least 75% of nutritional needs. 2. Wt stability, skin to remain intact, labs to approach WNL.
--- NOTE | 2018-04-08 18:00 | Consultation ---
DATE OF CONSULTATION: 04/08/2018 DATE OF CONSULTATION: 04/08/[address] Schrader. HISTORY AND PHYSICAL: This is a 62-year-old male patient who was transferred from [facility] due to MRSA septicemia, MRSA sacral decubitus ulcer, stage IV. The patient is referred for preop evaluation for cardiac surgery. Apparently, the patient's BNP is 5000, hence we will do dialysis with extra filtration and if congestive failure gets improved at that point, we will decide about surgery. PAST MEDICAL HISTORY: Multiple decubitus ulcers, stage IV sacral decubitus ulcer infected with Staphylococcus, diabetes mellitus type 2, diabetic CKD stage V, end-stage renal disease; on dialysis, diabetic foot ulcers, urinary tract infection, iron deficiency anemia, hypertension, dementia, chronic pain syndrome with narcotic dependence, CVA with late effect. FAMILY HISTORY: Unremarkable. SOCIAL HISTORY: No history of smoking or alcohol abuse. ALLERGIES: No known allergies. PHYSICAL EXAMINATION: VITAL SIGNS: Blood pressure 150/80, pulse 88, respirations 28. HEAD: Normocephalic. No lumps or bumps. EYES: Pupils equal, reactive to light. Fundi show AV nicking, sclerae white, conjunctivae pink. NECK: Carotid 2+. Normal upstroke. JVD 10 cm above sternal angle. Thyroid not palpable. Lymph nodes not palpable. CHEST: Shows increased AP diameter. No kyphosis or scoliosis. LUNGS: Bilateral rales. Decreased breath sounds both the bases. HEART: PMI sixth intercostal space with [id number] line. S1, S2, S3, S4, soft systolic murmur. ABDOMEN: Soft. Liver and spleen not palpable. No organomegaly. Bowel sounds active. NEUROLOGIC: The patient is confused and demented. No focal neurological deficit. EXTREMITIES: Peripheral pulses 1+. The patient had multiple decubitus ulcers on the legs. CLINICAL IMPRESSION: Congestive heart failure, diastolic dysfunction; acute, multiple decubitus ulcers with stage IV sacral decubitus ulcer with MRSA infection, diabetes mellitus type 2, diabetic peripheral vascular disease, diabetic foot ulcers, urinary tract infection, iron deficiency anemia, hypertension, dementia, MRSA septicemia, chronic pain syndrome with narcotic dependence, CVA with late effect. PLAN: At the present time, we will get dialysis with ultrafiltration. Echocardiogram. Left ventricular function to be evaluated prior to surgery. [facility]# [id number]
[2018-04-08] MEDS: Atorvastatin Calcium 10 MG TAB PO SCH (20:41)
--- NOTE | 2018-04-08 21:47 | Infectious Disease Prog Note ---
Infectious Disease Subjective - Review of Systems Service Date: 04/08/18 Subjective: No new change, no fever. Infectious Disease Objective - Results Result Diagrams: 04/08/18 08:35 04/08/18 08:35 Recent Labs: Laboratory Last Values WBC 7.7 Th/cmm (4.8-10.8) 04/08/18 08:35 RBC 2.77 Mil/cmm (4.30-5.70) L 04/08/18 08:35 Hgb 8.5 gm/dL (12-16) L 04/08/18 08:35 Hct 26.4 % (41.0-60) L 04/08/18 08:35 MCV 95.3 fl (80-99) 04/08/18 08:35 MCH 30.8 pg (26.0-30.0) H 04/08/18 08:35 MCHC Differential 32.3 pg (28.0-36.0) 04/08/18 08:35 RDW 21.4 % (11.5-20.0) H 04/08/18 08:35 Plt Count 196 Th/cmm (150-400) 04/08/18 08:35 MPV 8.1 fl 04/08/18 08:35 Add Manual Diff YES 04/01/18 06:03 Neutrophils % 76.2 % (40.0-80.0) 04/08/18 08:35 Band Neutrophils % 1 % (0-10) 04/01/18 06:03 Lymphocytes % 10.6 % (20.0-50.0) L 04/08/18 08:35 Monocytes % 9.0 % (2.0-10.0) 04/08/18 08:35 Eosinophils % 2.7 % (0.0-5.0) 04/08/18 08:35 Basophils % 1.5 % (0.0-2.0) 04/08/18 08:35 Neutrophils (Manual) Not Reportable 04/04/18 10:40 Lymphocytes 7 % (20-50) L 04/02/18 06:00 Monocytes 6 % (2-10) 04/02/18 06:00 Eosinophils 3 % (0-5) 04/02/18 06:00 Basophils 2 % (0-3) 04/02/18 06:00 Platelet Estimate ADEQUATE (NORMAL) 04/02/18 06:00 Platelet Morphology NORMAL (NORMAL) 03/31/18 18:25 Anisocytosis 1+ 04/02/18 06:00 RBC Morph Micro Appear ABNORMAL (NORMAL) 03/31/18 18:25 Sodium 125 mEq/L (136-145) L 04/08/18 08:35 Potassium 4.6 mEq/L (3.5-5.1) 04/08/18 08:35 Chloride 95 mEq/L (98-107) L 04/08/18 08:35 Carbon Dioxide 21.0 mEq/L (21.0-31.0) 04/08/18 08:35 Anion Gap 13.6 (7.0-16.0) 04/08/18 08:35 BUN 34 mg/dL (7-25) H 04/08/18 08:35 Creatinine 3.0 mg/dL (0.7-1.3) H 04/08/18 08:35 Est GFR ( Amer) 27.6 ml/min (>90) 04/08/18 08:35 Est GFR (Non-Af Amer) 22.8 ml/min 04/08/18 08:35 BUN/Creatinine Ratio 11.3 04/08/18 08:35 Glucose 93 mg/dL (70-105) 04/08/18 08:35 POC Glucose 111 MG/DL (70 - 105) H 04/08/18 17:21 Calcium 8.3 mg/dL (8.6-10.3) L 04/08/18 08:35 Phosphorus 4.8 mg/dL (2.5-5.0) 04/02/18 06:00 Iron 33 ug/dL (38-169) L 04/02/18 06:00 TIBC 73 ug/dL (250-450) L 04/02/18 06:00 Iron Saturation 45 % (15-55) 04/02/18 06:00 Unsaturated IBC 40 ug/dL (111-343) L 04/02/18 06:00 Ferritin 1538 ng/mL (30-400) H 04/02/18 06:00 Total Bilirubin 0.4 mg/dL (0.3-1.0) 04/07/18 05:27 AST 7 U/L (13-39) L 04/07/18 05:27 ALT 3 U/L (7-52) L 04/07/18 05:27 Alkaline Phosphatase 108 U/L (34-104) H 04/07/18 05:27 Troponin I 0.05 ng/mL (0.01-0.05) 03/31/18 18:25 B-Natriuretic Peptide > 5000.0 pg/mL (5.0-100.0) H 04/08/18 08:35 Total Protein 5.5 gm/dL (6.0-8.3) L 04/07/18 05:27 Albumin 2.4 gm/dL (4.2-5.5) L 04/07/18 05:27 Globulin 3.1 gm/dL 04/07/18 05:27 Albumin/Globulin Ratio 0.8 (1.0-1.8) L 04/07/18 05:27 Urine Source CLEAN C 03/31/18 18:45 Urine Color YELLOW 03/31/18 18:45 Urine Clarity CLOUDY (CLEAR) 03/31/18 18:45 Urine pH 6.0 (4.6 - 8.0) 03/31/18 18:45 Ur Specific [place] 1.020 (1.005-1.030) 03/31/18 18:45 Urine Protein >=300 mg/dL (NEGATIVE) 03/31/18 18:45 Urine Glucose (UA) NEGATIVE mg/dL (NEGATIVE) 03/31/18 18:45 Urine Ketones NEGATIVE mg/dL (NEGATIVE) 03/31/18 18:45 Urine Blood LARGE (NEGATIVE) H 03/31/18 18:45 Urine Nitrate NEGATIVE (NEGATIVE) 03/31/18 18:45 Urine Bilirubin NEGATIVE (NEGATIVE) 03/31/18 18:45 Urine Urobilinogen 0.2 E.U./dL (0.2 - 1.0) 03/31/18 18:45 Ur Leukocyte Esterase MODERATE (NEGATIVE) H 03/31/18 18:45 Urine RBC 50-100 /hpf (0-5) H 03/31/18 18:45 Urine WBC 25-50 /hpf (0-5) H 03/31/18 18:45 Ur Epithelial Cells NONE SEEN /lpf (FEW) 03/31/18 18:45 Urine Bacteria FEW /hpf (NONE SEEN) 03/31/18 18:45 - Physical Exam Vitals and I&O: Vital Signs Temp 97.2 F 04/08/18 20:00 Pulse 98 04/08/18 20:00 Resp 19 04/08/18 20:00 BP 108/66 04/08/18 20:00 Pulse Ox 96 04/08/18 20:00 Intake & Output 04/08/18 04/08/18 04/09/18 06:59 18:59 06:59 Intake Total 340 400 50 Output Total 160 225 Balance 180 175 50 Weight (lbs) 88.133 kg 87.997 kg Intake: Intake, IV Amount 50 Levofloxacin 250mg/50mL 50 250 mg In 50 ml @ 50 mls/ hr IV Q24HR@0900 [facility] Rx#: [id number] Oral 340 400 Output: Urine 150 200 Stool 10 25 Other: Stool Characteristics Liquid Liquid Brown Brown Weight Source Bedscale Bedscale Active Medications: Current Medications Acetaminophen (Tylenol) 650 mg PO Q4HR PRN PRN Reason: MILD Pain or Fever >101 Stop: 05/30/18 22:21 Last Admin: 04/08/18 11:18 Dose: 650 mg Acetaminophen/Hydrocodone Bitart ([place] 5mg/325mg) 1 tab PO Q6H PRN PRN Reason: Pain (Severe) LEVEL 7-10 Stop: 06/07/18 17:24 Last Admin: 04/08/18 20:41 Dose: 1 tab Albuterol/Ipratropium (Duoneb Neb) 3 ml HHN Q6HRT [facility] Stop: 05/31/18 00:59 Last Admin: 04/08/18 18:39 Dose: 3 ml Aripiprazole (Abilify) 2 mg PO DAILY [facility]; Protocol Stop: 06/05/18 08:59 Last Admin: 04/08/18 08:47 Dose: 2 mg Ascorbic Acid (Vitamin C) 500 mg PO DAILY [facility] Stop: 05/31/18 08:59 Last Admin: 04/08/18 08:47 Dose: 500 mg Aspirin (Ecotrin) 81 mg PO DAILY [facility] Stop: 05/31/18 08:59 Last Admin: 04/08/18 08:47 Dose: 81 mg Atorvastatin Calcium (Lipitor) 20 mg PO HS [facility] Stop: 05/31/18 20:59 Last Admin: 04/08/18 20:41 Dose: 20 mg Bisacodyl (Dulcolax 10 Mg Supp) 10 mg RC DAILY PRN PRN Reason: Constipation Stop: 05/30/18 22:21 [place] Oil/[place] Balsam/Trypsin (Venelex) 1 appl TP DAILY [facility] Stop: 06/02/18 08:59 Last Admin: 04/08/18 09:33 Dose: 1 appl Dextrose (D50w) 50 ml IVP PRN PRN; Protocol PRN Reason: HYPOGLYCEMIA PROTOCOL Stop: 05/30/18 23:03 Diphenhydramine HCl (Benadryl) 25 mg PO Q6HR PRN PRN Reason: Itching Stop: 05/30/18 22:21 Last Admin: 04/08/18 21:13 Dose: 25 mg Docusate Sodium (Colace) 100 mg PO DAILY [facility] Stop: 05/31/18 08:59 Last Admin: 04/08/18 09:33 Dose: Not Given Epoetin Ramirez (Epogen) 5,000 units IVP MoWeFr [facility] Stop: 06/01/18 14:59 Last Admin: 04/06/18 16:03 Dose: 5,000 units Epoetin Ramirez (Epogen) 5,000 units IVP X1 ONE Stop: 04/09/18 15:01 Levofloxacin (Levaquin Pb) 250 mg in 50 mls @ 50 mls/hr IV Q24HR@0900 [facility] Stop: 06/01/18 08:59 Last Infusion: 04/08/18 19:06 Dose: Infused Insulin Aspart (Novolog Insulin Sliding Scale) 0 units SUBQ ACHS [facility]; Protocol Stop: 05/31/18 07:29 Last Admin: 04/08/18 20:49 Dose: Not Given Lactobacillus Rhamnosus (Culturelle 15b) 1 each PO DAILY [facility] Stop: 06/01/18 12:59 Last Admin: 04/08/18 08:46 Dose: 1 each Levetiracetam (Keppra) 500 mg PO BID [facility] Stop: 05/31/18 08:59 Last Admin: 04/08/18 16:08 Dose: 500 mg Levothyroxine Sodium (Synthroid) 0.025 mg PO QDAC [facility] Stop: 05/31/18 07:29 Last Admin: 04/08/18 06:53 Dose: Not Given Lorazepam (Ativan) 1 mg IVP Q6H PRN; Protocol PRN Reason: Agitation Stop: 05/31/18 22:59 Last Admin: 04/08/18 17:31 Dose: 1 mg Miscellaneous (Clinical Monitoring) 1 ea MC PRN PRN PRN Reason: RENAL Stop: 06/01/18 10:15 Miscellaneous (Probiotic Screen) 1 ea MC PRN PRN PRN Reason: PROTOCOL Stop: 06/04/18 08:14 Pantoprazole Sodium (Protonix) 40 mg PO DAILY [facility] Stop: 05/31/18 08:59 Last Admin: 04/08/18 08:47 Dose: 40 mg Sodium Chloride (Nacl Tab) 1 gm PO TID [facility] Stop: 06/06/18 15:14 Last Admin: 04/08/18 20:40 Dose: 1 gm Sodium Phosphate (Fleet Enema) 135 ml RC DAILY PRN PRN Reason: Constipation Stop: 05/30/18 22:21 Vitamin B Complex/Vit C/Folic Acid (Vitamin B Complex W/Vitamin C) 1 tab PO DAILY [facility] Stop: 05/31/18 08:59 Last Admin: 04/08/18 08:47 Dose: 1 tab Zinc Sulfate (Zinc Sulfate) 220 mg PO DAILY [facility] Stop: 05/31/18 08:59 Last Admin: 04/08/18 09:34 Dose: 220 mg HEENT: atraumatic, normocephalic, PERRLA, EOMI Neck: supple, no thyromegaly, no lymphadenopathy Cardiovascular: S1S2, regular, systolic murmur Lungs: clear to auscultation bilaterally, clear to percussion Abdomen: soft, no tender, no distended, no mass, no hepatomegaly Extremities: no cyanosis, no clubbing, no edema Neurological: awake, alert, oriented Skin: intact Infectious Disease Assmt/Plan - Assessment Assessment: 1. Sacral decubitus ulcer. 2. History of Methicillin-resistant Staphylococcus aureus infection. 3. Urinary tract infection. 4. Anemia. 5. Diabetes mellitus type 2. 6. Hypertension. - Plan Plan: Continue levaquin. Wound care. Nutritional Asmnt/Malnutr-PDOC - Dietary Evaluation Malnutrition Findings (Please click <Entered> for more info): Nutritional Asmnt/Malnutrition Start: 04/02/18 16: 21 Text: Status: Complete Freq: Protocol: Document 04/02/18 16:42 [email or web address] (Rec: 04/02/18 17:12 LCHENG [email or web address]) Nutritional Asmnt/Malnutrition Patient General Information Nutritional Screening High Risk Consult Diagnosis UTI, renal failure Pertinent Medical Hx/Surgical Hx HTN, DM, CVA/TIA, ESRD, dementia Subjective Information Consult for multiple ulcer. Pt seen lying in bed at time of visit, awake and alert. Pt reported appetite was not good , requesting for oral supplement (chocolate flavor only). Per nurse, pt will start dialysis. Pt has multiple wounds noted. Current Diet Order/ Nutrition Support 2gm sodium, renal Pertinent Medications vit C, D5-0.45ns, colace, novolog, culturelle, levaquin, synthroid, protonix, vit B complex w/ vit C, zinc Pertinent Labs 04/02 Na 125, Cl 90, BUN 31, Cr 2.8, glucose 141, POc 146-161 Nutritional Hx/Data Height 1.8 m Height (Calculated Centimeters) 180.3 Current Weight (lbs) 91.626 kg Weight (Calculated Kilograms) 91.6 Weight (Calculated Grams) 34659.7 [place] Body Weight 172 Body Mass Index (BMI) 28.1 GI Symptoms Skin Integrity/Comment: 3+ pitting adema to right upper extremity, 1+ pitting edemat to left arm reddened to right buttocks, ulcer to left buttocks, left and right arms Current %PO Fair (50-74%) Estimated Nutritional Goals BEE in Kcals: Adj wt of IBW Calories/Kcals/Kg 25-30 Kcals Calculated 3110-8255 Protein: Adj wt of IBW Protein g/k.1-1.3 Protein Calculated 89-105 Fluid: ml 2024-243ml (1ml/kcal) Nutritional Problem 3. Problem Problem increased nutrition needs ( calorie and protein) Etiology impaired skin integrity, increased protein loss Signs/Symptoms: multiple ulcer, pt on dialysis 2. Problem Problem inadequate food intake Etiology poor appetite Signs/Symptoms: PO intake 50% 1. Problem Problem altered nutrition related labs Etiology electrolytes imbalance, hx of DM, ESRD Signs/Symptoms: Na 125, Cl 90, BUN 31, Cr 2.8, Glucose 141, POC 146-161 Malnutrition Alert Is there a minimum of two criteria No selected? Query Text:Check all the applicable criteria. A minimum of two criteria are recommended for diagnosis of either severe or non-severe malnutrition. Malnutrition Related to Morbid Obesity Malnutrition related to morbid obesity No Intervention/Recommendation Comments 1. Continue with current diet as ordered. If glucose continue high, will consider adding CCHO diet. 2. Recommend adding oral supplement Glucerna (chocolate flavor) daily to increased nutrition intake, Hever BID for wound healing. DONAVAN Stack notified. 2. Monitor PO intake, wt, labs and skin integrity 3. F/U as high risk in 2-3 days, 04/04-04/04 Expected Outcomes/Goals Expected Outcomes/Goals 1. PO intake to meet at least 75% of nutritional needs. 2. Wt stability, skin to remain intact, labs to approach WNL.
[2018-04-09] MEDS: Hydrocodone/APAP 5mg/325mg Tab PO PRN (01:35)
[2018-04-09] MEDS: Albuterol/Ipratropium Neb 3 ML AERS HHN SCH ×4 (02:09→19:23)
[2018-04-09 06:26] LABS: % BASOPHILS 2.1 % (0.0-2.0); % EOSINOPHILS 2.9 % (0.0-5.0); % LYMPHOCYTES 9.7 % (20.0-50.0); % MONOCYTES 9.3 % (2.0-10.0); BASOPHILE ABSOLUTE 0.2 Th/cumm (0-0.2); EOSINOPHILE ABSOLUTE 0.2 Th/cmm (0.1-0.4); HEMATOCRIT 27.8 % (41.0-60); HEMOGLOBIN 9.2 gm/dL (12-16); LYMPHOCYTE ABSOLUTE 0.7 Th/cmm (1.5-3.0); MEAN CELL VOLUME 95.7 fl (80-99); MEAN CORPUSCULAR HEMOGLOBIN 31.6 pg (26.0-30.0); MONOCYTE ABSOLUTE 0.7 Th/cmm (0.3-1.0); NEUTROPHILE ABSOLUTE 5.5 Th/cmm (1.8-8.0); PLATELET COUNT 211 Th/cmm (150-400); RED BLOOD COUNT 2.91 Mil/cmm (4.30-5.70); RED CELL DISTRIBUTION WIDTH 21.7 % (11.5-20.0); WHITE BLOOD COUNT 7.3 Th/cmm (4.8-10.8)
[2018-04-09 06:40] LABS: ALB/GLOB RATIO 0.8 (1.0-1.8); ALBUMIN 2.4 gm/dL (4.2-5.5); ANION GAP 14.4 (7.0-16.0); BILIRUBIN,TOTAL 0.4 mg/dL (0.3-1.0); CALCIUM SERUM 8.5 mg/dL (8.6-10.3); CARBON DIOXIDE 21.1 mEq/L (21.0-31.0); CREATININE - SERUM 3.2 mg/dL (0.7-1.3); GFR AFRICAN-AMERICAN 25.6 ml/min (>90); GFR NON AFRICAN-AMERICAN 21.2 ml/min; POTASSIUM SERUM 4.5 mEq/L (3.5-5.1); TOTAL PROTEIN,SERUM 5.6 gm/dL (6.0-8.3)
[2018-04-09] MEDS: Levothyroxine 0.025 Mg Tab PO SCH (06:41)
[2018-04-09] MEDS: INSULIN ASPART SLIDING SCALE 100 UNITS/ML UNIT SUBQ SCH ×4 (06:41→20:51)
[2018-04-09] MEDS: Vitamin B Complex w/Vitamin C Tab PO SCH (08:31)
[2018-04-09] MEDS: Lactobacillus Rhamnosus GG 15 Billion CFU CAP.SPRINK PO SCH (08:31)
[2018-04-09] MEDS: Multivitamin w/ Minerals Tab PO SCH (08:31)
[2018-04-09] MEDS: Pantoprazole 40 mg EC Tab PO SCH (08:31)
[2018-04-09] MEDS: Levofloxacin 250mg/50mL 250 MG/50 ML BAG IV SCH (08:35)
[2018-04-09] MEDS: Venelex 60gm Tube TP SCH (08:38)
--- NOTE | 2018-04-09 09:04 | General Progress Note ---
Subjective - Review of Systems Service Date: 04/09/18 Events since last encounter: awaiting resolution of CHF before any surgery Objective - Results Result Diagrams: 04/09/18 05:40 04/09/18 05:40 Recent Labs: Laboratory Last Values WBC 7.3 Th/cmm (4.8-10.8) 04/09/18 05:40 RBC 2.91 Mil/cmm (4.30-5.70) L 04/09/18 05:40 Hgb 9.2 gm/dL (12-16) L 04/09/18 05:40 Hct 27.8 % (41.0-60) L 04/09/18 05:40 MCV 95.7 fl (80-99) 04/09/18 05:40 MCH 31.6 pg (26.0-30.0) H 04/09/18 05:40 MCHC Differential 33.0 pg (28.0-36.0) 04/09/18 05:40 RDW 21.7 % (11.5-20.0) H 04/09/18 05:40 Plt Count 211 Th/cmm (150-400) 04/09/18 05:40 MPV 8.0 fl 04/09/18 05:40 Add Manual Diff YES 04/01/18 06:03 Neutrophils % 76.0 % (40.0-80.0) 04/09/18 05:40 Band Neutrophils % 1 % (0-10) 04/01/18 06:03 Lymphocytes % 9.7 % (20.0-50.0) L 04/09/18 05:40 Monocytes % 9.3 % (2.0-10.0) 04/09/18 05:40 Eosinophils % 2.9 % (0.0-5.0) 04/09/18 05:40 Basophils % 2.1 % (0.0-2.0) H 04/09/18 05:40 Neutrophils (Manual) Not Reportable 04/04/18 10:40 Lymphocytes 7 % (20-50) L 04/02/18 06:00 Monocytes 6 % (2-10) 04/02/18 06:00 Eosinophils 3 % (0-5) 04/02/18 06:00 Basophils 2 % (0-3) 04/02/18 06:00 Platelet Estimate ADEQUATE (NORMAL) 04/02/18 06:00 Platelet Morphology NORMAL (NORMAL) 03/31/18 18:25 Anisocytosis 1+ 04/02/18 06:00 RBC Morph Micro Appear ABNORMAL (NORMAL) 03/31/18 18:25 Sodium 126 mEq/L (136-145) L 04/09/18 05:40 Potassium 4.5 mEq/L (3.5-5.1) 04/09/18 05:40 Chloride 95 mEq/L (98-107) L 04/09/18 05:40 Carbon Dioxide 21.1 mEq/L (21.0-31.0) 04/09/18 05:40 Anion Gap 14.4 (7.0-16.0) 04/09/18 05:40 BUN 34 mg/dL (7-25) H 04/09/18 05:40 Creatinine 3.2 mg/dL (0.7-1.3) H 04/09/18 05:40 Est GFR ( Amer) 25.6 ml/min (>90) 04/09/18 05:40 Est GFR (Non-Af Amer) 21.2 ml/min 04/09/18 05:40 BUN/Creatinine Ratio 10.6 04/09/18 05:40 Glucose 99 mg/dL (70-105) 04/09/18 05:40 POC Glucose 95 MG/DL (70 - 105) 04/09/18 06:13 Calcium 8.5 mg/dL (8.6-10.3) L 04/09/18 05:40 Phosphorus 4.8 mg/dL (2.5-5.0) 04/02/18 06:00 Iron 33 ug/dL (38-169) L 04/02/18 06:00 TIBC 73 ug/dL (250-450) L 04/02/18 06:00 Iron Saturation 45 % (15-55) 04/02/18 06:00 Unsaturated IBC 40 ug/dL (111-343) L 04/02/18 06:00 Ferritin 1538 ng/mL (30-400) H 04/02/18 06:00 Total Bilirubin 0.4 mg/dL (0.3-1.0) 04/09/18 05:40 AST 7 U/L (13-39) L 04/09/18 05:40 ALT 4 U/L (7-52) L 04/09/18 05:40 Alkaline Phosphatase 102 U/L (34-104) 04/09/18 05:40 Troponin I 0.05 ng/mL (0.01-0.05) 03/31/18 18:25 B-Natriuretic Peptide > 5000.0 pg/mL (5.0-100.0) H 04/09/18 05:40 Total Protein 5.6 gm/dL (6.0-8.3) L 04/09/18 05:40 Albumin 2.4 gm/dL (4.2-5.5) L 04/09/18 05:40 Globulin 3.2 gm/dL 04/09/18 05:40 Albumin/Globulin Ratio 0.8 (1.0-1.8) L 04/09/18 05:40 Urine Source CLEAN C 03/31/18 18:45 Urine Color YELLOW 03/31/18 18:45 Urine Clarity CLOUDY (CLEAR) 03/31/18 18:45 Urine pH 6.0 (4.6 - 8.0) 03/31/18 18:45 Ur Specific [place] 1.020 (1.005-1.030) 03/31/18 18:45 Urine Protein >=300 mg/dL (NEGATIVE) 03/31/18 18:45 Urine Glucose (UA) NEGATIVE mg/dL (NEGATIVE) 03/31/18 18:45 Urine Ketones NEGATIVE mg/dL (NEGATIVE) 03/31/18 18:45 Urine Blood LARGE (NEGATIVE) H 03/31/18 18:45 Urine Nitrate NEGATIVE (NEGATIVE) 03/31/18 18:45 Urine Bilirubin NEGATIVE (NEGATIVE) 03/31/18 18:45 Urine Urobilinogen 0.2 E.U./dL (0.2 - 1.0) 03/31/18 18:45 Ur Leukocyte Esterase MODERATE (NEGATIVE) H 03/31/18 18:45 Urine RBC 50-100 /hpf (0-5) H 03/31/18 18:45 Urine WBC 25-50 /hpf (0-5) H 03/31/18 18:45 Ur Epithelial Cells NONE SEEN /lpf (FEW) 03/31/18 18:45 Urine Bacteria FEW /hpf (NONE SEEN) 03/31/18 18:45 - Physical Exam Vitals and I&O: Vital Signs Temp 98.1 F 04/09/18 07:46 Pulse 90 04/09/18 07:46 Resp 18 04/09/18 08:10 BP 126/84 04/09/18 07:46 Pulse Ox 99 04/09/18 07:46 Intake & Output 04/08/18 04/09/18 04/09/18 18:59 06:59 18:59 Intake Total 400 150 Output Total 225 230 Balance 175 -80 Weight (lbs) 87.997 kg 87.997 kg Intake: Intake, IV Amount 50 Levofloxacin 250mg/50mL 50 250 mg In 50 ml @ 50 mls/ hr IV Q24HR@0900 [facility]PLAC[facility] Rx#: [id number] Oral 400 100 Output: Urine 200 200 Stool 25 30 Other: Stool Characteristics Liquid Liquid Liquid Brown Brown Brown Weight Source Bedscale Bedscale Active Medications: Current Medications Acetaminophen (Tylenol) 650 mg PO Q4HR PRN PRN Reason: MILD Pain or Fever >101 Stop: 05/30/18 22:21 Last Admin: 04/08/18 11:18 Dose: 650 mg Acetaminophen/Hydrocodone Bitart ([place] 5mg/325mg) 1 tab PO Q6H PRN PRN Reason: Pain (Severe) LEVEL 7-10 Stop: 06/07/18 17:24 Last Admin: 04/09/18 01:35 Dose: 1 tab Albuterol/Ipratropium (Duoneb Neb) 3 ml HHN Q6HRT [facility] Stop: 05/31/18 00:59 Last Admin: 04/09/18 07:01 Dose: 3 ml Aripiprazole (Abilify) 2 mg PO DAILY [facility]; Protocol Stop: 06/05/18 08:59 Last Admin: 04/09/18 08:31 Dose: Not Given Ascorbic Acid (Vitamin C) 500 mg PO DAILY [facility] Stop: 05/31/18 08:59 Last Admin: 04/09/18 08:31 Dose: Not Given Aspirin (Ecotrin) 81 mg PO DAILY [facility] Stop: 05/31/18 08:59 Last Admin: 04/09/18 08:31 Dose: Not Given Atorvastatin Calcium (Lipitor) 20 mg PO HS [facility] Stop: 05/31/18 20:59 Last Admin: 04/08/18 20:41 Dose: 20 mg Bisacodyl (Dulcolax 10 Mg Supp) 10 mg RC DAILY PRN PRN Reason: Constipation Stop: 05/30/18 22:21 [place] Oil/[place] Balsam/Trypsin (Venelex) 1 appl TP DAILY [facility] Stop: 06/02/18 08:59 Last Admin: 04/09/18 08:38 Dose: 1 appl Dextrose (D50w) 50 ml IVP PRN PRN; Protocol PRN Reason: HYPOGLYCEMIA PROTOCOL Stop: 05/30/18 23:03 Diphenhydramine HCl (Benadryl) 25 mg PO Q6HR PRN PRN Reason: Itching Stop: 05/30/18 22:21 Last Admin: 04/08/18 21:13 Dose: 25 mg Docusate Sodium (Colace) 100 mg PO DAILY [facility] Stop: 05/31/18 08:59 Last Admin: 04/09/18 08:31 Dose: Not Given Epoetin Ramirez (Epogen) 5,000 units IVP MoWeFr [facility] Stop: 06/01/18 14:59 Last Admin: 04/06/18 16:03 Dose: 5,000 units Epoetin Ramirez (Epogen) 5,000 units IVP X1 ONE Stop: 04/09/18 15:01 Levofloxacin (Levaquin Pb) 250 mg in 50 mls @ 50 mls/hr IV Q24HR@0900 [facility] Stop: 06/01/18 08:59 Last Admin: 04/09/18 08:35 Dose: 50 mls/hr Insulin Aspart (Novolog Insulin Sliding Scale) 0 units SUBQ ACHS [facility]; Protocol Stop: 05/31/18 07:29 Last Admin: 04/09/18 06:41 Dose: Not Given Lactobacillus Rhamnosus (Culturelle 15b) 1 each PO DAILY [facility] Stop: 06/01/18 12:59 Last Admin: 04/09/18 08:31 Dose: Not Given Levetiracetam (Keppra) 500 mg PO BID [facility] Stop: 05/31/18 08:59 Last Admin: 04/09/18 08:31 Dose: Not Given Levothyroxine Sodium (Synthroid) 0.025 mg PO QDAC [facility] Stop: 05/31/18 07:29 Last Admin: 04/09/18 06:41 Dose: 0.025 mg Lorazepam (Ativan) 1 mg IVP Q6H PRN; Protocol PRN Reason: Agitation Stop: 05/31/18 22:59 Last Admin: 04/08/18 23:25 Dose: 1 mg Miscellaneous (Clinical Monitoring) 1 ea PRN PRN PRN Reason: RENAL Stop: 06/01/18 10:15 Miscellaneous (Probiotic Screen) 1 ea PRN PRN PRN Reason: PROTOCOL Stop: 06/04/18 08:14 Pantoprazole Sodium (Protonix) 40 mg PO DAILY [facility] Stop: 05/31/18 08:59 Last Admin: 04/09/18 08:31 Dose: Not Given Sodium Chloride (Nacl Tab) 1 gm PO TID [facility] Stop: 06/06/18 15:14 Last Admin: 04/09/18 08:31 Dose: Not Given Sodium Phosphate (Fleet Enema) 135 ml RC DAILY PRN PRN Reason: Constipation Stop: 05/30/18 22:21 Vitamin B Complex/Vit C/Folic Acid (Vitamin B Complex W/Vitamin C) 1 tab PO DAILY [facility] Stop: 05/31/18 08:59 Last Admin: 04/09/18 08:31 Dose: Not Given Zinc Sulfate (Zinc Sulfate) 220 mg PO DAILY [facility] Stop: 05/31/18 08:59 Last Admin: 04/09/18 08:31 Dose: Not Given General: No acute distress HEENT: Atraumatic Neck: Supple Cardiovascular: Regular rate, Normal S1, Normal S2 Lungs: Clear to auscultation Abdomen: Bowel sounds Nutritional Asmnt/Malnutr-PDOC - Dietary Evaluation Malnutrition Findings (Please click <Entered> for more info): Nutritional Asmnt/Malnutrition Start: 04/02/18 16: 21 Text: Status: Complete Freq: Protocol: Document 04/02/18 16:42 LCHENG (Rec: 04/02/18 17:12 LCHENG [email or web address]) Nutritional Asmnt/Malnutrition Patient General Information Nutritional Screening High Risk Consult Diagnosis UTI, renal failure Pertinent Medical Hx/Surgical Hx HTN, DM, CVA/TIA, ESRD, dementia Subjective Information Consult for multiple ulcer. Pt seen lying in bed at time of visit, awake and alert. Pt reported appetite was not good , requesting for oral supplement (chocolate flavor only). Per nurse, pt will start dialysis. Pt has multiple wounds noted. Current Diet Order/ Nutrition Support 2gm sodium, renal Pertinent Medications vit C, D5-0.45ns, colace, novolog, culturelle, levaquin, synthroid, protonix, vit B complex w/ vit C, zinc Pertinent Labs 04/02 Na 125, Cl 90, BUN 31, Cr 2.8, glucose 141, POc 146-161 Nutritional Hx/Data Height 1.8 m Height (Calculated Centimeters) 180.3 Current Weight (lbs) 91.626 kg Weight (Calculated Kilograms) 91.6 Weight (Calculated Grams) 15722.7 [place] Body Weight 172 Body Mass Index (BMI) 28.1 GI Symptoms Skin Integrity/Comment: 3+ pitting adema to right upper extremity, 1+ pitting edemat to left arm reddened to right buttocks, ulcer to left buttocks, left and right arms Current %PO Fair (50-74%) Estimated Nutritional Goals BEE in Kcals: Adj wt of IBW Calories/Kcals/Kg 25-30 Kcals Calculated 8287-9866 Protein: Adj wt of IBW Protein g/k.1-1.3 Protein Calculated 89-105 Fluid: ml 2024-243ml (1ml/kcal) Nutritional Problem 3. Problem Problem increased nutrition needs ( calorie and protein) Etiology impaired skin integrity, increased protein loss Signs/Symptoms: multiple ulcer, pt on dialysis 2. Problem Problem inadequate food intake Etiology poor appetite Signs/Symptoms: PO intake 50% 1. Problem Problem altered nutrition related labs Etiology electrolytes imbalance, hx of DM, ESRD Signs/Symptoms: Na 125, Cl 90, BUN 31, Cr 2.8, Glucose 141, POC 146-161 Malnutrition Alert Is there a minimum of two criteria No selected? Query Text:Check all the applicable criteria. A minimum of two criteria are recommended for diagnosis of either severe or non-severe malnutrition. Malnutrition Related to Morbid Obesity Malnutrition related to morbid obesity No Intervention/Recommendation Comments 1. Continue with current diet as ordered. If glucose continue high, will consider adding CCHO diet. 2. Recommend adding oral supplement Glucerna (chocolate flavor) daily to increased nutrition intake, Hever BID for wound healing. DONAVAN Stack notified. 2. Monitor PO intake, wt, labs and skin integrity 3. F/U as high risk in 2-3 days, 04/04-04/04 Expected Outcomes/Goals Expected Outcomes/Goals 1. PO intake to meet at least 75% of nutritional needs. 2. Wt stability, skin to remain intact, labs to approach WNL.
--- NOTE | 2018-04-09 09:41 | Consultation ---
DATE OF CONSULTATION: 04/06/2018 SURGICAL CONSULTATION REFERRING PHYSICIAN: Dr. Schrader. REASON FOR CONSULTATION: Decubitus ulcers and gangrene of both heels. Thank you for referring this patient to me. HISTORY OF PRESENT ILLNESS: This is a 62-year-old male transferred from a group home because of worsening decubitus ulcers. PAST MEDICAL HISTORY: Includes chronic pain syndrome, chronic kidney disease on dialysis, CHF, CVA, TIA, diabetes mellitus, hypertension and depression. The patient apparently has been bedridden for several months per information from the who was called over the phone. The patient has been seen by multiple consultants including ID, Nephrology. LABORATORY STUDIES: Show the WBC to be normal, hemoglobin low at 8.5, platelet count is normal. BUN is 34, creatinine of 3.0, potassium is 4.6. BNP is over 5000. In view of the suspected peripheral vascular disease, Doppler studies were ordered for the arterial and venous circulation of both lower extremities. The arterial study shows moderate amount of plaque formation with triphasic waveforms throughout the common femoral bilaterally. Also, popliteal arteries, but with triphasic waveform. The venous study is negative for DVT. PHYSICAL EXAMINATION: The patient is very uncooperative. Findings include a huge right hip ulcer measuring about 12 cm at the base of which there is bone. There is a smaller one on the left side. Size of the ulcer around 4 cm, but again the bone is palpable. There is no sacral decubitus ulcers, some reddening of the skin. Both heels exhibited a large area of necrotic skin and there are multiple other areas of ischemia in the toes bilaterally. Skin eruptions in both legs. PLAN: Cardiology evaluation was done by Dr. Garcia and dialysis will have to be initiated to resolve the CHF, prior to any kind of surgical procedure that might include debridement of the hip decubitus ulcers and both feet necrotic tissues. We will follow with you. JOB# [id number]
[2018-04-09] MEDS ORDERED: Heparin Sod 1,000 Units/mL 10ml HD ONE (11:43)
[2018-04-09] MEDS: Epoetin Alfa 20000 Units/mL Vial IVP ONE ×2 (13:31→15:55)
[2018-04-09] MEDS ORDERED: Hydrocortisone Sodium Succ 100 mg Vial IVP ONE (14:08)
--- NOTE | 2018-04-09 14:59 | General Progress Note ---
Subjective - Review of Systems Events since last encounter: patient awake with decubitus ulcers and gangrene on both heels no fever Objective - Results Result Diagrams: 04/09/18 05:40 04/09/18 05:40 Recent Labs: Laboratory Last Values WBC 7.3 Th/cmm (4.8-10.8) 04/09/18 05:40 RBC 2.91 Mil/cmm (4.30-5.70) L 04/09/18 05:40 Hgb 9.2 gm/dL (12-16) L 04/09/18 05:40 Hct 27.8 % (41.0-60) L 04/09/18 05:40 MCV 95.7 fl (80-99) 04/09/18 05:40 MCH 31.6 pg (26.0-30.0) H 04/09/18 05:40 MCHC Differential 33.0 pg (28.0-36.0) 04/09/18 05:40 RDW 21.7 % (11.5-20.0) H 04/09/18 05:40 Plt Count 211 Th/cmm (150-400) 04/09/18 05:40 MPV 8.0 fl 04/09/18 05:40 Add Manual Diff YES 04/01/18 06:03 Neutrophils % 76.0 % (40.0-80.0) 04/09/18 05:40 Band Neutrophils % 1 % (0-10) 04/01/18 06:03 Lymphocytes % 9.7 % (20.0-50.0) L 04/09/18 05:40 Monocytes % 9.3 % (2.0-10.0) 04/09/18 05:40 Eosinophils % 2.9 % (0.0-5.0) 04/09/18 05:40 Basophils % 2.1 % (0.0-2.0) H 04/09/18 05:40 Neutrophils (Manual) Not Reportable 04/04/18 10:40 Lymphocytes 7 % (20-50) L 04/02/18 06:00 Monocytes 6 % (2-10) 04/02/18 06:00 Eosinophils 3 % (0-5) 04/02/18 06:00 Basophils 2 % (0-3) 04/02/18 06:00 Platelet Estimate ADEQUATE (NORMAL) 04/02/18 06:00 Platelet Morphology NORMAL (NORMAL) 03/31/18 18:25 Anisocytosis 1+ 04/02/18 06:00 RBC Morph Micro Appear ABNORMAL (NORMAL) 03/31/18 18:25 Sodium 126 mEq/L (136-145) L 04/09/18 05:40 Potassium 4.5 mEq/L (3.5-5.1) 04/09/18 05:40 Chloride 95 mEq/L (98-107) L 04/09/18 05:40 Carbon Dioxide 21.1 mEq/L (21.0-31.0) 04/09/18 05:40 Anion Gap 14.4 (7.0-16.0) 04/09/18 05:40 BUN 34 mg/dL (7-25) H 04/09/18 05:40 Creatinine 3.2 mg/dL (0.7-1.3) H 04/09/18 05:40 Est GFR ( Amer) 25.6 ml/min (>90) 04/09/18 05:40 Est GFR (Non-Af Amer) 21.2 ml/min 04/09/18 05:40 BUN/Creatinine Ratio 10.6 04/09/18 05:40 Glucose 99 mg/dL (70-105) 04/09/18 05:40 POC Glucose 133 MG/DL (70 - 105) H 04/09/18 12:34 Calcium 8.5 mg/dL (8.6-10.3) L 04/09/18 05:40 Phosphorus 4.8 mg/dL (2.5-5.0) 04/02/18 06:00 Iron 33 ug/dL (38-169) L 04/02/18 06:00 TIBC 73 ug/dL (250-450) L 04/02/18 06:00 Iron Saturation 45 % (15-55) 04/02/18 06:00 Unsaturated IBC 40 ug/dL (111-343) L 04/02/18 06:00 Ferritin 1538 ng/mL (30-400) H 04/02/18 06:00 Total Bilirubin 0.4 mg/dL (0.3-1.0) 04/09/18 05:40 AST 7 U/L (13-39) L 04/09/18 05:40 ALT 4 U/L (7-52) L 04/09/18 05:40 Alkaline Phosphatase 102 U/L (34-104) 04/09/18 05:40 Troponin I 0.05 ng/mL (0.01-0.05) 03/31/18 18:25 B-Natriuretic Peptide > 5000.0 pg/mL (5.0-100.0) H 04/09/18 05:40 Total Protein 5.6 gm/dL (6.0-8.3) L 04/09/18 05:40 Albumin 2.4 gm/dL (4.2-5.5) L 04/09/18 05:40 Globulin 3.2 gm/dL 04/09/18 05:40 Albumin/Globulin Ratio 0.8 (1.0-1.8) L 04/09/18 05:40 Urine Source CLEAN C 03/31/18 18:45 Urine Color YELLOW 03/31/18 18:45 Urine Clarity CLOUDY (CLEAR) 03/31/18 18:45 Urine pH 6.0 (4.6 - 8.0) 03/31/18 18:45 Ur Specific [place] 1.020 (1.005-1.030) 03/31/18 18:45 Urine Protein >=300 mg/dL (NEGATIVE) 03/31/18 18:45 Urine Glucose (UA) NEGATIVE mg/dL (NEGATIVE) 03/31/18 18:45 Urine Ketones NEGATIVE mg/dL (NEGATIVE) 03/31/18 18:45 Urine Blood LARGE (NEGATIVE) H 03/31/18 18:45 Urine Nitrate NEGATIVE (NEGATIVE) 03/31/18 18:45 Urine Bilirubin NEGATIVE (NEGATIVE) 03/31/18 18:45 Urine Urobilinogen 0.2 E.U./dL (0.2 - 1.0) 03/31/18 18:45 Ur Leukocyte Esterase MODERATE (NEGATIVE) H 03/31/18 18:45 Urine RBC 50-100 /hpf (0-5) H 03/31/18 18:45 Urine WBC 25-50 /hpf (0-5) H 03/31/18 18:45 Ur Epithelial Cells NONE SEEN /lpf (FEW) 03/31/18 18:45 Urine Bacteria FEW /hpf (NONE SEEN) 03/31/18 18:45 - Physical Exam Vitals and I&O: Vital Signs Temp 98.1 F 04/09/18 07:46 Pulse 96 04/09/18 13:40 Resp 18 04/09/18 13:40 BP 126/84 04/09/18 07:46 Pulse Ox 98 04/09/18 13:40 Intake & Output 04/08/18 04/09/18 04/09/18 18:59 06:59 18:59 Intake Total 400 150 Output Total 225 230 Balance 175 -80 Weight (lbs) 87.997 kg 87.997 kg Intake: Intake, IV Amount 50 Levofloxacin 250mg/50mL 50 250 mg In 50 ml @ 50 mls/ hr IV Q24HR@0900 [facility] Rx#: [id number] Oral 400 100 Output: Urine 200 200 Stool 25 30 Other: Stool Characteristics Liquid Liquid Liquid Brown Brown Brown Weight Source Bedscale Bedscale Active Medications: Current Medications Acetaminophen (Tylenol) 650 mg PO Q4HR PRN PRN Reason: MILD Pain or Fever >101 Stop: 05/30/18 22:21 Last Admin: 04/08/18 11:18 Dose: 650 mg Acetaminophen/Hydrocodone Bitart ([place] 5mg/325mg) 1 tab PO Q6H PRN PRN Reason: Pain (Severe) LEVEL 7-10 Stop: 06/07/18 17:24 Last Admin: 04/09/18 01:35 Dose: 1 tab Albuterol/Ipratropium (Duoneb Neb) 3 ml HHN Q6HRT [facility] Stop: 05/31/18 00:59 Last Admin: 04/09/18 13:40 Dose: 3 ml Aripiprazole (Abilify) 2 mg PO DAILY [facility]; Protocol Stop: 06/05/18 08:59 Last Admin: 04/09/18 08:31 Dose: Not Given Ascorbic Acid (Vitamin C) 500 mg PO DAILY [facility] Stop: 05/31/18 08:59 Last Admin: 04/09/18 08:31 Dose: Not Given Aspirin (Ecotrin) 81 mg PO DAILY [facility] Stop: 05/31/18 08:59 Last Admin: 04/09/18 08:31 Dose: Not Given Atorvastatin Calcium (Lipitor) 20 mg PO HS [facility] Stop: 05/31/18 20:59 Last Admin: 04/08/18 20:41 Dose: 20 mg Bisacodyl (Dulcolax 10 Mg Supp) 10 mg RC DAILY PRN PRN Reason: Constipation Stop: 05/30/18 22:21 [place] Oil/[place] Balsam/Trypsin (Venelex) 1 appl TP DAILY [facility] Stop: 06/02/18 08:59 Last Admin: 04/09/18 08:38 Dose: 1 appl Dextrose (D50w) 50 ml IVP PRN PRN; Protocol PRN Reason: HYPOGLYCEMIA PROTOCOL Stop: 05/30/18 23:03 Diphenhydramine HCl (Benadryl) 25 mg PO Q6HR PRN PRN Reason: Itching Stop: 05/30/18 22:21 Last Admin: 04/08/18 21:13 Dose: 25 mg Docusate Sodium (Colace) 100 mg PO DAILY [facility] Stop: 05/31/18 08:59 Last Admin: 04/09/18 08:31 Dose: Not Given Epoetin Ramirez (Epogen) 5,000 units IVP MoWeFr [facility] Stop: 06/01/18 14:59 Last Admin: 04/06/18 16:03 Dose: 5,000 units Epoetin Ramirez (Epogen) 5,000 units IVP X1 ONE Stop: 04/09/18 15:01 Last Admin: 04/09/18 13:31 Dose: 5,000 units Hydrocortisone Sodium Succinate (Solu-Cortef) 50 mg IVP Q12HR [facility] Stop: 06/08/18 20:59 Levofloxacin (Levaquin Pb) 250 mg in 50 mls @ 50 mls/hr IV Q24HR@0900 [facility] Stop: 06/01/18 08:59 Last Admin: 04/09/18 08:35 Dose: 50 mls/hr Insulin Aspart (Novolog Insulin Sliding Scale) 0 units SUBQ ACHS [facility]; Protocol Stop: 05/31/18 07:29 Last Admin: 04/09/18 13:29 Dose: Not Given Lactobacillus Rhamnosus (Culturelle 15b) 1 each PO DAILY [facility] Stop: 06/01/18 12:59 Last Admin: 04/09/18 08:31 Dose: Not Given Levetiracetam (Keppra) 500 mg PO BID [facility] Stop: 05/31/18 08:59 Last Admin: 04/09/18 08:31 Dose: Not Given Levothyroxine Sodium (Synthroid) 0.025 mg PO QDAC [facility] Stop: 05/31/18 07:29 Last Admin: 04/09/18 06:41 Dose: 0.025 mg Lorazepam (Ativan) 1 mg IVP Q6HR PRN; Protocol PRN Reason: Agitation Stop: 06/08/18 13:49 Miscellaneous (Clinical Monitoring) 1 ea MC PRN PRN PRN Reason: RENAL Stop: 06/01/18 10:15 Miscellaneous (Probiotic Screen) 1 ea PRN PRN PRN Reason: PROTOCOL Stop: 06/04/18 08:14 Pantoprazole Sodium (Protonix) 40 mg PO DAILY [facility] Stop: 05/31/18 08:59 Last Admin: 04/09/18 08:31 Dose: Not Given Sodium Chloride (Nacl Tab) 1 gm PO TID [facility] Stop: 06/06/18 15:14 Last Admin: 04/09/18 14:39 Dose: Not Given Sodium Phosphate (Fleet Enema) 135 ml RC DAILY PRN PRN Reason: Constipation Stop: 05/30/18 22:21 Vitamin B Complex/Vit C/Folic Acid (Vitamin B Complex W/Vitamin C) 1 tab PO DAILY [facility] Stop: 05/31/18 08:59 Last Admin: 04/09/18 08:31 Dose: Not Given Zinc Sulfate (Zinc Sulfate) 220 mg PO DAILY [facility] Stop: 05/31/18 08:59 Last Admin: 04/09/18 08:31 Dose: Not Given General: No acute distress HEENT: Atraumatic Neck: Supple Cardiovascular: Regular rate, Normal S1, Normal S2 Lungs: Clear to auscultation Abdomen: Bowel sounds Assessment/Plan - Plan Plan: as per order sheet wound care Nutritional Asmnt/Malnutr-PDOC - Dietary Evaluation Malnutrition Findings (Please click <Entered> for more info): Nutritional Asmnt/Malnutrition Start: 04/02/18 16: 21 Text: Status: Complete Freq: Protocol: Document 04/02/18 16:42 LCHENG (Rec: 04/02/18 17:12 JAZZ [email or web address]) Nutritional Asmnt/Malnutrition Patient General Information Nutritional Screening High Risk Consult Diagnosis UTI, renal failure Pertinent Medical Hx/Surgical Hx HTN, DM, CVA/TIA, ESRD, dementia Subjective Information Consult for multiple ulcer. Pt seen lying in bed at time of visit, awake and alert. Pt reported appetite was not good , requesting for oral supplement (chocolate flavor only). Per nurse, pt will start dialysis. Pt has multiple wounds noted. Current Diet Order/ Nutrition Support 2gm sodium, renal Pertinent Medications vit C, D5-0.45ns, colace, novolog, culturelle, levaquin, synthroid, protonix, vit B complex w/ vit C, zinc Pertinent Labs 04/02 Na 125, Cl 90, BUN 31, Cr 2.8, glucose 141, POc 146-161 Nutritional Hx/Data Height 1.8 m Height (Calculated Centimeters) 180.3 Current Weight (lbs) 91.626 kg Weight (Calculated Kilograms) 91.6 Weight (Calculated Grams) 08438.7 [place] Body Weight 172 Body Mass Index (BMI) 28.1 GI Symptoms Skin Integrity/Comment: 3+ pitting adema to right upper extremity, 1+ pitting edemat to left arm reddened to right buttocks, ulcer to left buttocks, left and right arms Current %PO Fair (50-74%) Estimated Nutritional Goals BEE in Kcals: Adj wt of IBW Calories/Kcals/Kg 25-30 Kcals Calculated 5221-5243 Protein: Adj wt of IBW Protein g/k.1-1.3 Protein Calculated 89-105 Fluid: ml 2024-243ml (1ml/kcal) Nutritional Problem 3. Problem Problem increased nutrition needs ( calorie and protein) Etiology impaired skin integrity, increased protein loss Signs/Symptoms: multiple ulcer, pt on dialysis 2. Problem Problem inadequate food intake Etiology poor appetite Signs/Symptoms: PO intake 50% 1. Problem Problem altered nutrition related labs Etiology electrolytes imbalance, hx of DM, ESRD Signs/Symptoms: Na 125, Cl 90, BUN 31, Cr 2.8, Glucose 141, POC 146-161 Malnutrition Alert Is there a minimum of two criteria No selected? Query Text:Check all the applicable criteria. A minimum of two criteria are recommended for diagnosis of either severe or non-severe malnutrition. Malnutrition Related to Morbid Obesity Malnutrition related to morbid obesity No Intervention/Recommendation Comments 1. Continue with current diet as ordered. If glucose continue high, will consider adding CCHO diet. 2. Recommend adding oral supplement Glucerna (chocolate flavor) daily to increased nutrition intake, Hever BID for wound healing. DONAVAN Stack notified. 2. Monitor PO intake, wt, labs and skin integrity 3. F/U as high risk in 2-3 days, 04/04-04/04 Expected Outcomes/Goals Expected Outcomes/Goals 1. PO intake to meet at least 75% of nutritional needs. 2. Wt stability, skin to remain intact, labs to approach WNL.
[2018-04-09] MEDS: Epoetin Alfa 20000 Units/mL Vial IVP SCH (15:55)
[2018-04-09] MEDS: Hydrocortisone Sodium Succ 100 mg Vial IVP SCH (20:55)
[2018-04-09] MEDS: Atorvastatin Calcium 10 MG TAB PO SCH (20:55)
--- NOTE | 2018-04-09 23:02 | Progress Notes ---
DATE: 04/09/2018 Case was discussed with staff of the patient, reviewed records, this is a 62-year-old male who was admitted to the hospital because of decubitus ulcer. The patient has been anxious, confused, and lives in [place] with his . He is restless, unable to make safe plan for self-care. The patient later found out he was living in a detention. The patient continues to be confused, continues to need redirection, though he is calmer, less agitated and irritable, sometimes with episodes of anger. He has been compliant with the medication with no side effects, no sedation, no nausea. Thank you very much for allowing me to participate in the care of this most interesting gentleman. [facility]# [id number]
--- NOTE | 2018-04-09 23:40 | Infectious Disease Prog Note ---
Infectious Disease Subjective - Review of Systems Service Date: 04/09/18 Subjective: No new change, no fever. Infectious Disease Objective - Results Result Diagrams: 04/09/18 05:40 04/09/18 05:40 Recent Labs: Laboratory Last Values WBC 7.3 Th/cmm (4.8-10.8) 04/09/18 05:40 RBC 2.91 Mil/cmm (4.30-5.70) L 04/09/18 05:40 Hgb 9.2 gm/dL (12-16) L 04/09/18 05:40 Hct 27.8 % (41.0-60) L 04/09/18 05:40 MCV 95.7 fl (80-99) 04/09/18 05:40 MCH 31.6 pg (26.0-30.0) H 04/09/18 05:40 MCHC Differential 33.0 pg (28.0-36.0) 04/09/18 05:40 RDW 21.7 % (11.5-20.0) H 04/09/18 05:40 Plt Count 211 Th/cmm (150-400) 04/09/18 05:40 MPV 8.0 fl 04/09/18 05:40 Add Manual Diff YES 04/01/18 06:03 Neutrophils % 76.0 % (40.0-80.0) 04/09/18 05:40 Band Neutrophils % 1 % (0-10) 04/01/18 06:03 Lymphocytes % 9.7 % (20.0-50.0) L 04/09/18 05:40 Monocytes % 9.3 % (2.0-10.0) 04/09/18 05:40 Eosinophils % 2.9 % (0.0-5.0) 04/09/18 05:40 Basophils % 2.1 % (0.0-2.0) H 04/09/18 05:40 Neutrophils (Manual) Not Reportable 04/04/18 10:40 Lymphocytes 7 % (20-50) L 04/02/18 06:00 Monocytes 6 % (2-10) 04/02/18 06:00 Eosinophils 3 % (0-5) 04/02/18 06:00 Basophils 2 % (0-3) 04/02/18 06:00 Platelet Estimate ADEQUATE (NORMAL) 04/02/18 06:00 Platelet Morphology NORMAL (NORMAL) 03/31/18 18:25 Anisocytosis 1+ 04/02/18 06:00 RBC Morph Micro Appear ABNORMAL (NORMAL) 03/31/18 18:25 Sodium 126 mEq/L (136-145) L 04/09/18 05:40 Potassium 4.5 mEq/L (3.5-5.1) 04/09/18 05:40 Chloride 95 mEq/L (98-107) L 04/09/18 05:40 Carbon Dioxide 21.1 mEq/L (21.0-31.0) 04/09/18 05:40 Anion Gap 14.4 (7.0-16.0) 04/09/18 05:40 BUN 34 mg/dL (7-25) H 04/09/18 05:40 Creatinine 3.2 mg/dL (0.7-1.3) H 04/09/18 05:40 Est GFR ( Amer) 25.6 ml/min (>90) 04/09/18 05:40 Est GFR (Non-Af Amer) 21.2 ml/min 04/09/18 05:40 BUN/Creatinine Ratio 10.6 04/09/18 05:40 Glucose 99 mg/dL (70-105) 04/09/18 05:40 POC Glucose 155 MG/DL (70 - 105) H 04/09/18 20:16 Calcium 8.5 mg/dL (8.6-10.3) L 04/09/18 05:40 Phosphorus 4.8 mg/dL (2.5-5.0) 04/02/18 06:00 Iron 33 ug/dL (38-169) L 04/02/18 06:00 TIBC 73 ug/dL (250-450) L 04/02/18 06:00 Iron Saturation 45 % (15-55) 04/02/18 06:00 Unsaturated IBC 40 ug/dL (111-343) L 04/02/18 06:00 Ferritin 1538 ng/mL (30-400) H 04/02/18 06:00 Total Bilirubin 0.4 mg/dL (0.3-1.0) 04/09/18 05:40 AST 7 U/L (13-39) L 04/09/18 05:40 ALT 4 U/L (7-52) L 04/09/18 05:40 Alkaline Phosphatase 102 U/L (34-104) 04/09/18 05:40 Troponin I 0.05 ng/mL (0.01-0.05) 03/31/18 18:25 B-Natriuretic Peptide > 5000.0 pg/mL (5.0-100.0) H 04/09/18 05:40 Total Protein 5.6 gm/dL (6.0-8.3) L 04/09/18 05:40 Albumin 2.4 gm/dL (4.2-5.5) L 04/09/18 05:40 Globulin 3.2 gm/dL 04/09/18 05:40 Albumin/Globulin Ratio 0.8 (1.0-1.8) L 04/09/18 05:40 Urine Source CLEAN C 03/31/18 18:45 Urine Color YELLOW 03/31/18 18:45 Urine Clarity CLOUDY (CLEAR) 03/31/18 18:45 Urine pH 6.0 (4.6 - 8.0) 03/31/18 18:45 Ur Specific [place] 1.020 (1.005-1.030) 03/31/18 18:45 Urine Protein >=300 mg/dL (NEGATIVE) 03/31/18 18:45 Urine Glucose (UA) NEGATIVE mg/dL (NEGATIVE) 03/31/18 18:45 Urine Ketones NEGATIVE mg/dL (NEGATIVE) 03/31/18 18:45 Urine Blood LARGE (NEGATIVE) H 03/31/18 18:45 Urine Nitrate NEGATIVE (NEGATIVE) 03/31/18 18:45 Urine Bilirubin NEGATIVE (NEGATIVE) 03/31/18 18:45 Urine Urobilinogen 0.2 E.U./dL (0.2 - 1.0) 03/31/18 18:45 Ur Leukocyte Esterase MODERATE (NEGATIVE) H 03/31/18 18:45 Urine RBC 50-100 /hpf (0-5) H 03/31/18 18:45 Urine WBC 25-50 /hpf (0-5) H 03/31/18 18:45 Ur Epithelial Cells NONE SEEN /lpf (FEW) 03/31/18 18:45 Urine Bacteria FEW /hpf (NONE SEEN) 03/31/18 18:45 - Physical Exam Vitals and I&O: Vital Signs Temp 98.1 F 04/09/18 20:00 Pulse 92 04/09/18 20:00 Resp 18 04/09/18 21:00 BP 114/68 04/09/18 20:00 Pulse Ox 98 04/09/18 20:00 Intake & Output 04/09/18 04/09/18 04/10/18 06:59 18:59 06:59 Intake Total 150 Output Total 230 Balance -80 Weight (lbs) 87.997 kg Intake: Intake, IV Amount 50 Levofloxacin 250mg/50mL 50 250 mg In 50 ml @ 50 mls/ hr IV Q24HR@0900 [facility] Rx#: [id number] Oral 100 Output: Urine 200 Stool 30 Other: Stool Characteristics Liquid Liquid Soft Brown Brown Brown Weight Source Bedscale Active Medications: Current Medications Acetaminophen (Tylenol) 650 mg PO Q4HR PRN PRN Reason: MILD Pain or Fever >101 Stop: 05/30/18 22:21 Last Admin: 04/08/18 11:18 Dose: 650 mg Acetaminophen/Hydrocodone Bitart ([place] 5mg/325mg) 1 tab PO Q6H PRN PRN Reason: Pain (Severe) LEVEL 7-10 Stop: 06/07/18 17:24 Last Admin: 04/09/18 01:35 Dose: 1 tab Albuterol/Ipratropium (Duoneb Neb) 3 ml HHN Q6HRT [facility] Stop: 05/31/18 00:59 Last Admin: 04/09/18 19:23 Dose: 3 ml Aripiprazole (Abilify) 2 mg PO DAILY [facility]; Protocol Stop: 06/05/18 08:59 Last Admin: 04/09/18 08:31 Dose: Not Given Ascorbic Acid (Vitamin C) 500 mg PO DAILY [facility] Stop: 05/31/18 08:59 Last Admin: 04/09/18 08:31 Dose: Not Given Aspirin (Ecotrin) 81 mg PO DAILY [facility] Stop: 05/31/18 08:59 Last Admin: 04/09/18 08:31 Dose: Not Given Atorvastatin Calcium (Lipitor) 20 mg PO HS [facility] Stop: 05/31/18 20:59 Last Admin: 04/09/18 20:55 Dose: 20 mg Bisacodyl (Dulcolax 10 Mg Supp) 10 mg RC DAILY PRN PRN Reason: Constipation Stop: 05/30/18 22:21 [place] Oil/[place] Balsam/Trypsin (Venelex) 1 appl TP DAILY [facility] Stop: 06/02/18 08:59 Last Admin: 04/09/18 08:38 Dose: 1 appl Dextrose (D50w) 50 ml IVP PRN PRN; Protocol PRN Reason: HYPOGLYCEMIA PROTOCOL Stop: 05/30/18 23:03 Diphenhydramine HCl (Benadryl) 25 mg PO Q6HR PRN PRN Reason: Itching Stop: 05/30/18 22:21 Last Admin: 04/09/18 20:54 Dose: 25 mg Docusate Sodium (Colace) 100 mg PO DAILY [facility] Stop: 05/31/18 08:59 Last Admin: 04/09/18 08:31 Dose: Not Given Epoetin Ramirez (Epogen) 5,000 units IVP MoWeFr [facility] Stop: 06/01/18 14:59 Last Admin: 04/09/18 15:55 Dose: Not Given Hydrocortisone Sodium Succinate (Solu-Cortef) 50 mg IVP Q12HR [facility] Stop: 06/08/18 20:59 Last Admin: 04/09/18 20:55 Dose: 50 mg Levofloxacin (Levaquin Pb) 250 mg in 50 mls @ 50 mls/hr IV Q24HR@0900 [facility] Stop: 06/01/18 08:59 Last Admin: 04/09/18 08:35 Dose: 50 mls/hr Insulin Aspart (Novolog Insulin Sliding Scale) 0 units SUBQ ACHS [facility]; Protocol Stop: 05/31/18 07:29 Last Admin: 04/09/18 20:51 Dose: 4 units Lactobacillus Rhamnosus (Culturelle 15b) 1 each PO DAILY [facility] Stop: 06/01/18 12:59 Last Admin: 04/09/18 08:31 Dose: Not Given Levetiracetam (Keppra) 500 mg PO BID [facility] Stop: 05/31/18 08:59 Last Admin: 04/09/18 17:06 Dose: Not Given Levothyroxine Sodium (Synthroid) 0.025 mg PO QDAC [facility] Stop: 05/31/18 07:29 Last Admin: 04/09/18 06:41 Dose: 0.025 mg Lorazepam (Ativan) 1 mg IVP Q6HR PRN; Protocol PRN Reason: Agitation Stop: 06/08/18 13:49 Last Admin: 04/09/18 22:47 Dose: 1 mg Miscellaneous (Clinical Monitoring) 1 ea MC PRN PRN PRN Reason: RENAL Stop: 06/01/18 10:15 Miscellaneous (Probiotic Screen) 1 ea MC PRN PRN PRN Reason: PROTOCOL Stop: 06/04/18 08:14 Pantoprazole Sodium (Protonix) 40 mg PO DAILY [facility] Stop: 05/31/18 08:59 Last Admin: 04/09/18 08:31 Dose: Not Given Sodium Chloride (Nacl Tab) 1 gm PO TID [facility] Stop: 06/06/18 15:14 Last Admin: 04/09/18 20:54 Dose: 1 gm Sodium Phosphate (Fleet Enema) 135 ml RC DAILY PRN PRN Reason: Constipation Stop: 05/30/18 22:21 Vitamin B Complex/Vit C/Folic Acid (Vitamin B Complex W/Vitamin C) 1 tab PO DAILY [facility] Stop: 05/31/18 08:59 Last Admin: 04/09/18 08:31 Dose: Not Given Zinc Sulfate (Zinc Sulfate) 220 mg PO DAILY [facility] Stop: 05/31/18 08:59 Last Admin: 04/09/18 08:31 Dose: Not Given General: no acute distress, well developed, well nourished HEENT: atraumatic, normocephalic, PERRLA, EOMI Neck: supple, no thyromegaly Cardiovascular: S1S2, regular Lungs: clear to auscultation bilaterally, clear to percussion Abdomen: soft, no tender, no distended, no mass Extremities: no cyanosis, no clubbing, no edema Neurological: awake, alert, oriented Infectious Disease Assmt/Plan - Assessment Assessment: 1. Sacral decubitus ulcer. 2. History of Methicillin-resistant Staphylococcus aureus infection. 3. Urinary tract infection. 4. Anemia. 5. Diabetes mellitus type 2. 6. Hypertension. - Plan Plan: Continue levaquin. Wound care. Nutritional Asmnt/Malnutr-PDOC - Dietary Evaluation Malnutrition Findings (Please click <Entered> for more info): Nutritional Asmnt/Malnutrition Start: 04/02/18 16: 21 Text: Status: Complete Freq: Protocol: Document 04/02/18 16:42 LCHENG (Rec: 04/02/18 17:12 LCHENG [email or web address]) Nutritional Asmnt/Malnutrition Patient General Information Nutritional Screening High Risk Consult Diagnosis UTI, renal failure Pertinent Medical Hx/Surgical Hx HTN, DM, CVA/TIA, ESRD, dementia Subjective Information Consult for multiple ulcer. Pt seen lying in bed at time of visit, awake and alert. Pt reported appetite was not good , requesting for oral supplement (chocolate flavor only). Per nurse, pt will start dialysis. Pt has multiple wounds noted. Current Diet Order/ Nutrition Support 2gm sodium, renal Pertinent Medications vit C, D5-0.45ns, colace, novolog, culturelle, levaquin, synthroid, protonix, vit B complex w/ vit C, zinc Pertinent Labs 04/02 Na 125, Cl 90, BUN 31, Cr 2.8, glucose 141, POc 146-161 Nutritional Hx/Data Height 1.8 m Height (Calculated Centimeters) 180.3 Current Weight (lbs) 91.626 kg Weight (Calculated Kilograms) 91.6 Weight (Calculated Grams) 69927.7 [place] Body Weight 172 Body Mass Index (BMI) 28.1 GI Symptoms Skin Integrity/Comment: 3+ pitting adema to right upper extremity, 1+ pitting edemat to left arm reddened to right buttocks, ulcer to left buttocks, left and right arms Current %PO Fair (50-74%) Estimated Nutritional Goals BEE in Kcals: Adj wt of IBW Calories/Kcals/Kg 25-30 Kcals Calculated 5736-8375 Protein: Adj wt of IBW Protein g/k.1-1.3 Protein Calculated 89-105 Fluid: ml 2024-243ml (1ml/kcal) Nutritional Problem 3. Problem Problem increased nutrition needs ( calorie and protein) Etiology impaired skin integrity, increased protein loss Signs/Symptoms: multiple ulcer, pt on dialysis 2. Problem Problem inadequate food intake Etiology poor appetite Signs/Symptoms: PO intake 50% 1. Problem Problem altered nutrition related labs Etiology electrolytes imbalance, hx of DM, ESRD Signs/Symptoms: Na 125, Cl 90, BUN 31, Cr 2.8, Glucose 141, POC 146-161 Malnutrition Alert Is there a minimum of two criteria No selected? Query Text:Check all the applicable criteria. A minimum of two criteria are recommended for diagnosis of either severe or non-severe malnutrition. Malnutrition Related to Morbid Obesity Malnutrition related to morbid obesity No Intervention/Recommendation Comments 1. Continue with current diet as ordered. If glucose continue high, will consider adding CCHO diet. 2. Recommend adding oral supplement Glucerna (chocolate flavor) daily to increased nutrition intake, Hever BID for wound healing. DONAVAN Stack notified. 2. Monitor PO intake, wt, labs and skin integrity 3. F/U as high risk in 2-3 days, 04/04-04/04 Expected Outcomes/Goals Expected Outcomes/Goals 1. PO intake to meet at least 75% of nutritional needs. 2. Wt stability, skin to remain intact, labs to approach WNL.
[2018-04-10] MEDS: Hydrocodone/APAP 5mg/325mg Tab PO PRN ×3 (00:26→20:54)
[2018-04-10] MEDS: Albuterol/Ipratropium Neb 3 ML AERS HHN SCH ×4 (02:26→19:08)
[2018-04-10 06:36] LABS: HEMATOCRIT 27.3 % (41.0-60); LYMPHOCYTE ABSOLUTE 0.3 Th/cmm (1.5-3.0); MEAN CORPUSCULAR HEMOGLOBIN 31.7 pg (26.0-30.0); MEAN PLATELET VOLUME 7.6 fl; MONOCYTE ABSOLUTE 0.3 Th/cmm (0.3-1.0); NEUTROPHILE ABSOLUTE 6.2 Th/cmm (1.8-8.0); PLATELET COUNT 218 Th/cmm (150-400); RED BLOOD COUNT 2.84 Mil/cmm (4.30-5.70); RED CELL DISTRIBUTION WIDTH 22.5 % (11.5-20.0); WHITE BLOOD COUNT 6.8 Th/cmm (4.8-10.8)
[2018-04-10 06:39] LABS: % BASOPHILS 0.4 % (0.0-2.0); % EOSINOPHILS 0.2 % (0.0-5.0); % MONOCYTES 3.9 % (2.0-10.0); % NEUTROPHILS 90.5 % (40.0-80.0)
[2018-04-10 06:54] LABS: ALB/GLOB RATIO 0.8 (1.0-1.8); ALBUMIN 2.4 gm/dL (4.2-5.5); ANION GAP 14.4 (7.0-16.0); BILIRUBIN,TOTAL 0.4 mg/dL (0.3-1.0); CALCIUM SERUM 8.5 mg/dL (8.6-10.3); CARBON DIOXIDE 25.6 mEq/L (21.0-31.0); CREATININE - SERUM 2.4 mg/dL (0.7-1.3); GFR AFRICAN-AMERICAN 35.7 ml/min (>90); GFR NON AFRICAN-AMERICAN 29.5 ml/min; TOTAL PROTEIN,SERUM 5.6 gm/dL (6.0-8.3)
[2018-04-10 07:03] LABS: ANISOCYTOSIS 1+; BAND NEUTROPHILE 3 % (0-10); LYMPHOCYTE 9 % (20-50); MONOCYTE 3 % (2-10); NEUTROPHILS 85 % (40-80)
[2018-04-10] MEDS: Levothyroxine 0.025 Mg Tab PO SCH (08:29)
[2018-04-10] MEDS: Lactobacillus Rhamnosus GG 15 Billion CFU CAP.SPRINK PO SCH (08:29)
[2018-04-10] MEDS: Pantoprazole 40 mg EC Tab PO SCH (08:29)
[2018-04-10] MEDS: Multivitamin w/ Minerals Tab PO SCH (08:29)
[2018-04-10] MEDS: Vitamin B Complex w/Vitamin C Tab PO SCH (08:29)
[2018-04-10] MEDS: Hydrocortisone Sodium Succ 100 mg Vial IVP SCH ×2 (08:30→20:54)
[2018-04-10] MEDS: Venelex 60gm Tube TP SCH (08:30)
[2018-04-10] MEDS: Levofloxacin 250mg/50mL 250 MG/50 ML BAG IV SCH (08:35)
[2018-04-10] MEDS: INSULIN ASPART SLIDING SCALE 100 UNITS/ML UNIT SUBQ SCH ×4 (10:20→21:04)
--- NOTE | 2018-04-10 11:54 | General Progress Note ---
Subjective - Review of Systems Service Date: 04/10/18 Events since last encounter: HD yesterday recheck BNP Objective - Results Result Diagrams: 04/10/18 05:50 04/10/18 05:50 Recent Labs: Laboratory Last Values WBC 6.8 Th/cmm (4.8-10.8) 04/10/18 05:50 RBC 2.84 Mil/cmm (4.30-5.70) L 04/10/18 05:50 Hgb 9.0 gm/dL (12-16) L 04/10/18 05:50 Hct 27.3 % (41.0-60) L 04/10/18 05:50 MCV 96.0 fl (80-99) 04/10/18 05:50 MCH 31.7 pg (26.0-30.0) H 04/10/18 05:50 MCHC Differential 33.0 pg (28.0-36.0) 04/10/18 05:50 RDW 22.5 % (11.5-20.0) H 04/10/18 05:50 Plt Count 218 Th/cmm (150-400) 04/10/18 05:50 MPV 7.6 fl 04/10/18 05:50 Add Manual Diff YES 04/10/18 05:50 Neutrophils % 90.5 % (40.0-80.0) H 04/10/18 05:50 Band Neutrophils % 3 % (0-10) 04/10/18 05:50 Lymphocytes % 5.0 % (20.0-50.0) L 04/10/18 05:50 Monocytes % 3.9 % (2.0-10.0) 04/10/18 05:50 Eosinophils % 0.2 % (0.0-5.0) 04/10/18 05:50 Basophils % 0.4 % (0.0-2.0) 04/10/18 05:50 Neutrophils (Manual) 85 % (40-80) H 04/10/18 05:50 Lymphocytes 9 % (20-50) L 04/10/18 05:50 Monocytes 3 % (2-10) 04/10/18 05:50 Eosinophils 3 % (0-5) 04/02/18 06:00 Basophils 2 % (0-3) 04/02/18 06:00 Platelet Estimate ADEQUATE (NORMAL) 04/02/18 06:00 Platelet Morphology NORMAL (NORMAL) 03/31/18 18:25 Anisocytosis 1+ 04/10/18 05:50 RBC Morph Micro Appear ABNORMAL (NORMAL) 03/31/18 18:25 Sodium 135 mEq/L (136-145) L 04/10/18 05:50 Potassium 4.0 mEq/L (3.5-5.1) 04/10/18 05:50 Chloride 99 mEq/L (98-107) 04/10/18 05:50 Carbon Dioxide 25.6 mEq/L (21.0-31.0) 04/10/18 05:50 Anion Gap 14.4 (7.0-16.0) 04/10/18 05:50 BUN 24 mg/dL (7-25) 04/10/18 05:50 Creatinine 2.4 mg/dL (0.7-1.3) H 04/10/18 05:50 Est GFR ( Amer) 35.7 ml/min (>90) 04/10/18 05:50 Est GFR (Non-Af Amer) 29.5 ml/min 04/10/18 05:50 BUN/Creatinine Ratio 10.0 04/10/18 05:50 Glucose 124 mg/dL (70-105) H 04/10/18 05:50 POC Glucose 121 MG/DL (70 - 105) H 04/10/18 07:10 Calcium 8.5 mg/dL (8.6-10.3) L 04/10/18 05:50 Phosphorus 4.8 mg/dL (2.5-5.0) 04/02/18 06:00 Iron 33 ug/dL (38-169) L 04/02/18 06:00 TIBC 73 ug/dL (250-450) L 04/02/18 06:00 Iron Saturation 45 % (15-55) 04/02/18 06:00 Unsaturated IBC 40 ug/dL (111-343) L 04/02/18 06:00 Ferritin 1538 ng/mL (30-400) H 04/02/18 06:00 Total Bilirubin 0.4 mg/dL (0.3-1.0) 04/10/18 05:50 AST 9 U/L (13-39) L 04/10/18 05:50 ALT 5 U/L (7-52) L 04/10/18 05:50 Alkaline Phosphatase 115 U/L (34-104) H 04/10/18 05:50 Troponin I 0.05 ng/mL (0.01-0.05) 03/31/18 18:25 B-Natriuretic Peptide > 5000.0 pg/mL (5.0-100.0) H 04/09/18 05:40 Total Protein 5.6 gm/dL (6.0-8.3) L 04/10/18 05:50 Albumin 2.4 gm/dL (4.2-5.5) L 04/10/18 05:50 Globulin 3.2 gm/dL 04/10/18 05:50 Albumin/Globulin Ratio 0.8 (1.0-1.8) L 04/10/18 05:50 Urine Source CLEAN C 03/31/18 18:45 Urine Color YELLOW 03/31/18 18:45 Urine Clarity CLOUDY (CLEAR) 03/31/18 18:45 Urine pH 6.0 (4.6 - 8.0) 03/31/18 18:45 Ur Specific [place] 1.020 (1.005-1.030) 03/31/18 18:45 Urine Protein >=300 mg/dL (NEGATIVE) 03/31/18 18:45 Urine Glucose (UA) NEGATIVE mg/dL (NEGATIVE) 03/31/18 18:45 Urine Ketones NEGATIVE mg/dL (NEGATIVE) 03/31/18 18:45 Urine Blood LARGE (NEGATIVE) H 03/31/18 18:45 Urine Nitrate NEGATIVE (NEGATIVE) 03/31/18 18:45 Urine Bilirubin NEGATIVE (NEGATIVE) 03/31/18 18:45 Urine Urobilinogen 0.2 E.U./dL (0.2 - 1.0) 03/31/18 18:45 Ur Leukocyte Esterase MODERATE (NEGATIVE) H 03/31/18 18:45 Urine RBC 50-100 /hpf (0-5) H 03/31/18 18:45 Urine WBC 25-50 /hpf (0-5) H 03/31/18 18:45 Ur Epithelial Cells NONE SEEN /lpf (FEW) 03/31/18 18:45 Urine Bacteria FEW /hpf (NONE SEEN) 03/31/18 18:45 - Physical Exam Vitals and I&O: Vital Signs Temp 97.0 F 04/10/18 08:00 Pulse 87 04/10/18 08:00 Resp 18 04/10/18 09:00 BP 117/72 04/10/18 08:00 Pulse Ox 96 04/10/18 08:00 Intake & Output 04/09/18 04/10/18 04/10/18 18:59 06:59 18:59 Intake Total 50 180 Output Total 300 Balance 50 -120 Weight (lbs) 87.997 kg Intake: Intake, IV Amount 50 Levofloxacin 250mg/50mL 50 250 mg In 50 ml @ 50 mls/ hr IV Q24HR@0900 [facility] Rx#: [id number] Oral 180 Output: Urine 300 Other: # Bowel Movements 1 Stool Characteristics Liquid Soft Brown Brown Weight Source Bedscale Active Medications: Current Medications Acetaminophen (Tylenol) 650 mg PO Q4HR PRN PRN Reason: MILD Pain or Fever >101 Stop: 05/30/18 22:21 Last Admin: 04/08/18 11:18 Dose: 650 mg Acetaminophen/Hydrocodone Bitart ([place] 5mg/325mg) 1 tab PO Q6H PRN PRN Reason: Pain (Severe) LEVEL 7-10 Stop: 06/07/18 17:24 Last Admin: 04/10/18 00:26 Dose: 1 tab Albuterol/Ipratropium (Duoneb Neb) 3 ml HHN Q6HRT [facility] Stop: 05/31/18 00:59 Last Admin: 04/10/18 07:30 Dose: 3 ml Aripiprazole (Abilify) 2 mg PO DAILY [facility]; Protocol Stop: 06/05/18 08:59 Last Admin: 04/10/18 08:29 Dose: 2 mg Ascorbic Acid (Vitamin C) 500 mg PO DAILY [facility] Stop: 05/31/18 08:59 Last Admin: 04/10/18 08:29 Dose: 500 mg Aspirin (Ecotrin) 81 mg PO DAILY [facility] Stop: 05/31/18 08:59 Last Admin: 04/10/18 08:30 Dose: 81 mg Atorvastatin Calcium (Lipitor) 20 mg PO HS [facility] Stop: 05/31/18 20:59 Last Admin: 04/09/18 20:55 Dose: 20 mg Bisacodyl (Dulcolax 10 Mg Supp) 10 mg RC DAILY PRN PRN Reason: Constipation Stop: 05/30/18 22:21 [place] Oil/[place] Balsam/Trypsin (Venelex) 1 appl TP DAILY I[facility] Stop: 06/02/18 08:59 Last Admin: 04/10/18 08:30 Dose: 1 appl Dextrose (D50w) 50 ml IVP PRN PRN; Protocol PRN Reason: HYPOGLYCEMIA PROTOCOL Stop: 05/30/18 23:03 Diphenhydramine HCl (Benadryl) 25 mg PO Q6HR PRN PRN Reason: Itching Stop: 05/30/18 22:21 Last Admin: 04/10/18 05:14 Dose: 25 mg Docusate Sodium (Colace) 100 mg PO DAILY [facility] Stop: 05/31/18 08:59 Last Admin: 04/10/18 08:29 Dose: 100 mg Hydrocortisone Sodium Succinate (Solu-Cortef) 50 mg IVP Q12HR [facility] Stop: 06/08/18 20:59 Last Admin: 04/10/18 08:30 Dose: 50 mg Levofloxacin (Levaquin Pb) 250 mg in 50 mls @ 50 mls/hr IV Q24HR@0900 [facility] Stop: 06/01/18 08:59 Last Admin: 04/10/18 08:35 Dose: 50 mls/hr Insulin Aspart (Novolog Insulin Sliding Scale) 0 units SUBQ ACHS [facility]; Protocol Stop: 05/31/18 07:29 Last Admin: 04/10/18 10:20 Dose: Not Given Lactobacillus Rhamnosus (Culturelle 15b) 1 each PO DAILY [facility] Stop: 06/01/18 12:59 Last Admin: 04/10/18 08:29 Dose: 1 each Levetiracetam (Keppra) 500 mg PO BID I[facility] Stop: 05/31/18 08:59 Last Admin: 04/10/18 08:30 Dose: 500 mg Levothyroxine Sodium (Synthroid) 0.025 mg PO QDAC [facility] Stop: 05/31/18 07:29 Last Admin: 04/10/18 08:29 Dose: 0.025 mg Lorazepam (Ativan) 1 mg IVP Q6HR PRN; Protocol PRN Reason: Agitation Stop: 06/08/18 13:49 Last Admin: 04/09/18 22:47 Dose: 1 mg Miscellaneous (Clinical Monitoring) 1 ea MC PRN PRN PRN Reason: RENAL Stop: 06/01/18 10:15 Miscellaneous (Probiotic Screen) 1 ea PRN PRN PRN Reason: PROTOCOL Stop: 06/04/18 08:14 Pantoprazole Sodium (Protonix) 40 mg PO DAILY [facility] Stop: 05/31/18 08:59 Last Admin: 04/10/18 08:29 Dose: 40 mg Sodium Chloride (Nacl Tab) 1 gm PO TID [facility] Stop: 06/06/18 15:14 Last Admin: 04/10/18 08:29 Dose: 1 gm Sodium Phosphate (Fleet Enema) 135 ml RC DAILY PRN PRN Reason: Constipation Stop: 05/30/18 22:21 Vitamin B Complex/Vit C/Folic Acid (Vitamin B Complex W/Vitamin C) 1 tab PO DAILY [facility] Stop: 05/31/18 08:59 Last Admin: 04/10/18 08:29 Dose: 1 tab Zinc Sulfate (Zinc Sulfate) 220 mg PO DAILY [facility] Stop: 05/31/18 08:59 Last Admin: 04/10/18 08:29 Dose: 220 mg General: No acute distress HEENT: Atraumatic Neck: Supple Cardiovascular: Regular rate, Normal S1, Normal S2 Lungs: Clear to auscultation Abdomen: Bowel sounds Nutritional Asmnt/Malnutr-PDOC - Dietary Evaluation Malnutrition Findings (Please click <Entered> for more info): Nutritional Asmnt/Malnutrition Start: 04/02/18 16: 21 Text: Status: Complete Freq: Protocol: Document 04/02/18 16:42 LCHENG (Rec: 04/02/18 17:12 [email or web address]) Nutritional Asmnt/Malnutrition Patient General Information Nutritional Screening High Risk Consult Diagnosis UTI, renal failure Pertinent Medical Hx/Surgical Hx HTN, DM, CVA/TIA, ESRD, dementia Subjective Information Consult for multiple ulcer. Pt seen lying in bed at time of visit, awake and alert. Pt reported appetite was not good , requesting for oral supplement (chocolate flavor only). Per nurse, pt will start dialysis. Pt has multiple wounds noted. Current Diet Order/ Nutrition Support 2gm sodium, renal Pertinent Medications vit C, D5-0.45ns, colace, novolog, culturelle, levaquin, synthroid, protonix, vit B complex w/ vit C, zinc Pertinent Labs 04/02 Na 125, Cl 90, BUN 31, Cr 2.8, glucose 141, POc 146-161 Nutritional Hx/Data Height 1.8 m Height (Calculated Centimeters) 180.3 Current Weight (lbs) 91.626 kg Weight (Calculated Kilograms) 91.6 Weight (Calculated Grams) 84772.7 [place] Body Weight 172 Body Mass Index (BMI) 28.1 GI Symptoms Skin Integrity/Comment: 3+ pitting adema to right upper extremity, 1+ pitting edemat to left arm reddened to right buttocks, ulcer to left buttocks, left and right arms Current %PO Fair (50-74%) Estimated Nutritional Goals BEE in Kcals: Adj wt of IBW Calories/Kcals/Kg 25-30 Kcals Calculated 5876-0066 Protein: Adj wt of IBW Protein g/k.1-1.3 Protein Calculated 89-105 Fluid: ml 2024-243ml (1ml/kcal) Nutritional Problem 3. Problem Problem increased nutrition needs ( calorie and protein) Etiology impaired skin integrity, increased protein loss Signs/Symptoms: multiple ulcer, pt on dialysis 2. Problem Problem inadequate food intake Etiology poor appetite Signs/Symptoms: PO intake 50% 1. Problem Problem altered nutrition related labs Etiology electrolytes imbalance, hx of DM, ESRD Signs/Symptoms: Na 125, Cl 90, BUN 31, Cr 2.8, Glucose 141, POC 146-161 Malnutrition Alert Is there a minimum of two criteria No selected? Query Text:Check all the applicable criteria. A minimum of two criteria are recommended for diagnosis of either severe or non-severe malnutrition. Malnutrition Related to Morbid Obesity Malnutrition related to morbid obesity No Intervention/Recommendation Comments 1. Continue with current diet as ordered. If glucose continue high, will consider adding CCHO diet. 2. Recommend adding oral supplement Glucerna (chocolate flavor) daily to increased nutrition intake, Hever BID for wound healing. DONAVAN Stack notified. 2. Monitor PO intake, wt, labs and skin integrity 3. F/U as high risk in 2-3 days, 04/04-04/04 Expected Outcomes/Goals Expected Outcomes/Goals 1. PO intake to meet at least 75% of nutritional needs. 2. Wt stability, skin to remain intact, labs to approach WNL.
--- NOTE | 2018-04-10 13:10 | Cardiology ---
04/09/2018 PATIENT OF: Dr. Schrader. M-MODE ECHOCARDIOGRAM: Mitral valve, anterior leaflet of mitral valve shows decreased excursion, EF velocity. Posterior leaflet of mitral valve shows decreased excursion. Left ventricular posterior wall shows increased thickness, decreased excursion. Interventricular septum shows increased thickness, decreased excursion, ejection fraction 20%. Left atrium enlarged 5.7 cm. Aortic root shows normal dimension, normal excursion of aortic leaflets. CONCLUSION: Cardiomyopathy, hypertrophy of the left ventricle, left atrial enlargement, ejection fraction 20%. 2D ECHO: Long axis view shows enlarged left ventricular cavity, hypertrophy of the left ventricle, ejection fraction 20%. Left atrium enlarged. Aortic root shows normal dimension, normal excursion of aortic leaflets. Short axis view of mitral valve normal. Short axis view of aortic valve normal. Apical four chamber view shows enlarged left ventricular cavity with decreased ejection fraction. Left atrium enlarged. Right ventricular cavity, right atrium normal, no pericardial effusion. CONCLUSION: Cardiomyopathy, ejection fraction 20%, left atrial enlargement. Doppler study shows moderate mitral regurgitation, moderate tricuspid regurgitation, right ventricular systolic pressure 53 mmHg with mild pulmonary hypertension. JOB# [id number]
--- NOTE | 2018-04-10 13:28 | Infectious Disease Prog Note ---
Infectious Disease Subjective - Review of Systems Service Date: 04/10/18 Subjective: No new change, no fever. Infectious Disease Objective - Results Result Diagrams: 04/10/18 05:50 04/10/18 05:50 Recent Labs: Laboratory Last Values WBC 6.8 Th/cmm (4.8-10.8) 04/10/18 05:50 RBC 2.84 Mil/cmm (4.30-5.70) L 04/10/18 05:50 Hgb 9.0 gm/dL (12-16) L 04/10/18 05:50 Hct 27.3 % (41.0-60) L 04/10/18 05:50 MCV 96.0 fl (80-99) 04/10/18 05:50 MCH 31.7 pg (26.0-30.0) H 04/10/18 05:50 MCHC Differential 33.0 pg (28.0-36.0) 04/10/18 05:50 RDW 22.5 % (11.5-20.0) H 04/10/18 05:50 Plt Count 218 Th/cmm (150-400) 04/10/18 05:50 MPV 7.6 fl 04/10/18 05:50 Add Manual Diff YES 04/10/18 05:50 Neutrophils % 90.5 % (40.0-80.0) H 04/10/18 05:50 Band Neutrophils % 3 % (0-10) 04/10/18 05:50 Lymphocytes % 5.0 % (20.0-50.0) L 04/10/18 05:50 Monocytes % 3.9 % (2.0-10.0) 04/10/18 05:50 Eosinophils % 0.2 % (0.0-5.0) 04/10/18 05:50 Basophils % 0.4 % (0.0-2.0) 04/10/18 05:50 Neutrophils (Manual) 85 % (40-80) H 04/10/18 05:50 Lymphocytes 9 % (20-50) L 04/10/18 05:50 Monocytes 3 % (2-10) 04/10/18 05:50 Eosinophils 3 % (0-5) 04/02/18 06:00 Basophils 2 % (0-3) 04/02/18 06:00 Platelet Estimate ADEQUATE (NORMAL) 04/02/18 06:00 Platelet Morphology NORMAL (NORMAL) 03/31/18 18:25 Anisocytosis 1+ 04/10/18 05:50 RBC Morph Micro Appear ABNORMAL (NORMAL) 03/31/18 18:25 Sodium 135 mEq/L (136-145) L 04/10/18 05:50 Potassium 4.0 mEq/L (3.5-5.1) 04/10/18 05:50 Chloride 99 mEq/L (98-107) 04/10/18 05:50 Carbon Dioxide 25.6 mEq/L (21.0-31.0) 04/10/18 05:50 Anion Gap 14.4 (7.0-16.0) 04/10/18 05:50 BUN 24 mg/dL (7-25) 04/10/18 05:50 Creatinine 2.4 mg/dL (0.7-1.3) H 04/10/18 05:50 Est GFR ( Amer) 35.7 ml/min (>90) 04/10/18 05:50 Est GFR (Non-Af Amer) 29.5 ml/min 04/10/18 05:50 BUN/Creatinine Ratio 10.0 04/10/18 05:50 Glucose 124 mg/dL (70-105) H 04/10/18 05:50 POC Glucose 121 MG/DL (70 - 105) H 04/10/18 07:10 Calcium 8.5 mg/dL (8.6-10.3) L 04/10/18 05:50 Phosphorus 4.8 mg/dL (2.5-5.0) 04/02/18 06:00 Iron 33 ug/dL (38-169) L 04/02/18 06:00 TIBC 73 ug/dL (250-450) L 04/02/18 06:00 Iron Saturation 45 % (15-55) 04/02/18 06:00 Unsaturated IBC 40 ug/dL (111-343) L 04/02/18 06:00 Ferritin 1538 ng/mL (30-400) H 04/02/18 06:00 Total Bilirubin 0.4 mg/dL (0.3-1.0) 04/10/18 05:50 AST 9 U/L (13-39) L 04/10/18 05:50 ALT 5 U/L (7-52) L 04/10/18 05:50 Alkaline Phosphatase 115 U/L (34-104) H 04/10/18 05:50 Troponin I 0.05 ng/mL (0.01-0.05) 03/31/18 18:25 B-Natriuretic Peptide > 5000.0 pg/mL (5.0-100.0) H 04/10/18 05:50 Total Protein 5.6 gm/dL (6.0-8.3) L 04/10/18 05:50 Albumin 2.4 gm/dL (4.2-5.5) L 04/10/18 05:50 Globulin 3.2 gm/dL 04/10/18 05:50 Albumin/Globulin Ratio 0.8 (1.0-1.8) L 04/10/18 05:50 Urine Source CLEAN C 03/31/18 18:45 Urine Color YELLOW 03/31/18 18:45 Urine Clarity CLOUDY (CLEAR) 03/31/18 18:45 Urine pH 6.0 (4.6 - 8.0) 03/31/18 18:45 Ur Specific [place] 1.020 (1.005-1.030) 03/31/18 18:45 Urine Protein >=300 mg/dL (NEGATIVE) 03/31/18 18:45 Urine Glucose (UA) NEGATIVE mg/dL (NEGATIVE) 03/31/18 18:45 Urine Ketones NEGATIVE mg/dL (NEGATIVE) 03/31/18 18:45 Urine Blood LARGE (NEGATIVE) H 03/31/18 18:45 Urine Nitrate NEGATIVE (NEGATIVE) 03/31/18 18:45 Urine Bilirubin NEGATIVE (NEGATIVE) 03/31/18 18:45 Urine Urobilinogen 0.2 E.U./dL (0.2 - 1.0) 03/31/18 18:45 Ur Leukocyte Esterase MODERATE (NEGATIVE) H 03/31/18 18:45 Urine RBC 50-100 /hpf (0-5) H 03/31/18 18:45 Urine WBC 25-50 /hpf (0-5) H 03/31/18 18:45 Ur Epithelial Cells NONE SEEN /lpf (FEW) 03/31/18 18:45 Urine Bacteria FEW /hpf (NONE SEEN) 03/31/18 18:45 - Physical Exam Vitals and I&O: Vital Signs Temp 97.0 F 04/10/18 08:00 Pulse 87 04/10/18 08:00 Resp 18 04/10/18 09:00 BP 117/72 04/10/18 08:00 Pulse Ox 96 04/10/18 08:00 Intake & Output 04/09/18 04/10/18 04/10/18 18:59 06:59 18:59 Intake Total 50 180 Output Total 300 Balance 50 -120 Weight (lbs) 87.997 kg Intake: Intake, IV Amount 50 Levofloxacin 250mg/50mL 50 250 mg In 50 ml @ 50 mls/ hr IV Q24HR@0900 [facility] Rx#: [id number] Oral 180 Output: Urine 300 Other: # Bowel Movements 1 Stool Characteristics Liquid Soft Brown Brown Weight Source Bedscale Active Medications: Current Medications Acetaminophen (Tylenol) 650 mg PO Q4HR PRN PRN Reason: MILD Pain or Fever >101 Stop: 05/30/18 22:21 Last Admin: 04/08/18 11:18 Dose: 650 mg Acetaminophen/Hydrocodone Bitart ([place] 5mg/325mg) 1 tab PO Q6H PRN PRN Reason: Pain (Severe) LEVEL 7-10 Stop: 06/07/18 17:24 Last Admin: 04/10/18 12:05 Dose: 1 tab Albuterol/Ipratropium (Duoneb Neb) 3 ml HHN Q6HRT [facility] Stop: 05/31/18 00:59 Last Admin: 04/10/18 07:30 Dose: 3 ml Aripiprazole (Abilify) 2 mg PO DAILY [facility]; Protocol Stop: 06/05/18 08:59 Last Admin: 04/10/18 08:29 Dose: 2 mg Ascorbic Acid (Vitamin C) 500 mg PO DAILY [facility] Stop: 05/31/18 08:59 Last Admin: 04/10/18 08:29 Dose: 500 mg Aspirin (Ecotrin) 81 mg PO DAILY [facility] Stop: 05/31/18 08:59 Last Admin: 04/10/18 08:30 Dose: 81 mg Atorvastatin Calcium (Lipitor) 20 mg PO HS [facility] Stop: 05/31/18 20:59 Last Admin: 04/09/18 20:55 Dose: 20 mg Bisacodyl (Dulcolax 10 Mg Supp) 10 mg RC DAILY PRN PRN Reason: Constipation Stop: 05/30/18 22:21 [place] Oil/[place] Balsam/Trypsin (Venelex) 1 appl TP DAILY [facility] Stop: 06/02/18 08:59 Last Admin: 04/10/18 08:30 Dose: 1 appl Dextrose (D50w) 50 ml IVP PRN PRN; Protocol PRN Reason: HYPOGLYCEMIA PROTOCOL Stop: 05/30/18 23:03 Diphenhydramine HCl (Benadryl) 25 mg PO Q6HR PRN PRN Reason: Itching Stop: 05/30/18 22:21 Last Admin: 04/10/18 12:11 Dose: 25 mg Docusate Sodium (Colace) 100 mg PO DAILY [facility] Stop: 05/31/18 08:59 Last Admin: 04/10/18 08:29 Dose: 100 mg Hydrocortisone Sodium Succinate (Solu-Cortef) 50 mg IVP Q12HR [facility] Stop: 06/08/18 20:59 Last Admin: 04/10/18 08:30 Dose: 50 mg Levofloxacin (Levaquin Pb) 250 mg in 50 mls @ 50 mls/hr IV Q24HR@0900 [facility] Stop: 06/01/18 08:59 Last Admin: 04/10/18 08:35 Dose: 50 mls/hr Insulin Aspart (Novolog Insulin Sliding Scale) 0 units SUBQ ACHS [facility]; Protocol Stop: 05/31/18 07:29 Last Admin: 04/10/18 12:11 Dose: 4 units Lactobacillus Rhamnosus (Culturelle 15b) 1 each PO DAILY [facility] Stop: 06/01/18 12:59 Last Admin: 04/10/18 08:29 Dose: 1 each Levetiracetam (Keppra) 500 mg PO BID [facility] Stop: 05/31/18 08:59 Last Admin: 04/10/18 08:30 Dose: 500 mg Levothyroxine Sodium (Synthroid) 0.025 mg PO QDAC [facility] Stop: 05/31/18 07:29 Last Admin: 04/10/18 08:29 Dose: 0.025 mg Lorazepam (Ativan) 1 mg IVP Q6HR PRN; Protocol PRN Reason: Agitation Stop: 06/08/18 13:49 Last Admin: 04/09/18 22:47 Dose: 1 mg Miscellaneous (Clinical Monitoring) 1 ea MC PRN PRN PRN Reason: RENAL Stop: 06/01/18 10:15 Miscellaneous (Probiotic Screen) 1 [facility] PRN PRN PRN Reason: PROTOCOL Stop: 06/04/18 08:14 Pantoprazole Sodium (Protonix) 40 mg PO DAILY [facility] Stop: 05/31/18 08:59 Last Admin: 04/10/18 08:29 Dose: 40 mg Sodium Chloride (Nacl Tab) 1 gm PO TID [facility] Stop: 06/06/18 15:14 Last Admin: 04/10/18 08:29 Dose: 1 gm Sodium Phosphate (Fleet Enema) 135 ml RC DAILY PRN PRN Reason: Constipation Stop: 05/30/18 22:21 Vitamin B Complex/Vit C/Folic Acid (Vitamin B Complex W/Vitamin C) 1 tab PO DAILY [facility] Stop: 05/31/18 08:59 Last Admin: 04/10/18 08:29 Dose: 1 tab Zinc Sulfate (Zinc Sulfate) 220 mg PO DAILY [facility] Stop: 05/31/18 08:59 Last Admin: 04/10/18 08:29 Dose: 220 mg General: no acute distress, well developed, well nourished HEENT: atraumatic, normocephalic, PERRLA, EOMI, moist mucous membrane Neck: supple, no thyromegaly, no lymphadenopathy Cardiovascular: S1S2, regular Lungs: clear to auscultation bilaterally, clear to percussion Abdomen: soft, no tender, no distended Extremities: no cyanosis, no clubbing, no edema Neurological: awake, alert, oriented Infectious Disease Assmt/Plan - Assessment Assessment: 1. Sacral decubitus ulcer. 2. History of Methicillin-resistant Staphylococcus aureus infection. 3. Urinary tract infection. 4. Anemia. 5. Diabetes mellitus type 2. 6. Hypertension. - Plan Plan: DC levaquin. Wound care. Nutritional Asmnt/Malnutr-PDOC - Dietary Evaluation Malnutrition Findings (Please click <Entered> for more info): Nutritional Asmnt/Malnutrition Start: 04/02/18 16: 21 Text: Status: Complete Freq: Protocol: Document 04/02/18 16:42 LCHENG (Rec: 04/02/18 17:12 [email or web address]) Nutritional Asmnt/Malnutrition Patient General Information Nutritional Screening High Risk Consult Diagnosis UTI, renal failure Pertinent Medical Hx/Surgical Hx HTN, DM, CVA/TIA, ESRD, dementia Subjective Information Consult for multiple ulcer. Pt seen lying in bed at time of visit, awake and alert. Pt reported appetite was not good , requesting for oral supplement (chocolate flavor only). Per nurse, pt will start dialysis. Pt has multiple wounds noted. Current Diet Order/ Nutrition Support 2gm sodium, renal Pertinent Medications vit C, D5-0.45ns, colace, novolog, culturelle, levaquin, synthroid, protonix, vit B complex w/ vit C, zinc Pertinent Labs 04/02 Na 125, Cl 90, BUN 31, Cr 2.8, glucose 141, POc 146-161 Nutritional Hx/Data Height 1.8 m Height (Calculated Centimeters) 180.3 Current Weight (lbs) 91.626 kg Weight (Calculated Kilograms) 91.6 Weight (Calculated Grams) 34921.7 [place] Body Weight 172 Body Mass Index (BMI) 28.1 GI Symptoms Skin Integrity/Comment: 3+ pitting adema to right upper extremity, 1+ pitting edemat to left arm reddened to right buttocks, ulcer to left buttocks, left and right arms Current %PO Fair (50-74%) Estimated Nutritional Goals BEE in Kcals: Adj wt of IBW Calories/Kcals/Kg 25-30 Kcals Calculated 9441-2553 Protein: Adj wt of IBW Protein g/k.1-1.3 Protein Calculated 89-105 Fluid: ml 2024-243ml (1ml/kcal) Nutritional Problem 3. Problem Problem increased nutrition needs ( calorie and protein) Etiology impaired skin integrity, increased protein loss Signs/Symptoms: multiple ulcer, pt on dialysis 2. Problem Problem inadequate food intake Etiology poor appetite Signs/Symptoms: PO intake 50% 1. Problem Problem altered nutrition related labs Etiology electrolytes imbalance, hx of DM, ESRD Signs/Symptoms: Na 125, Cl 90, BUN 31, Cr 2.8, Glucose 141, POC 146-161 Malnutrition Alert Is there a minimum of two criteria No selected? Query Text:Check all the applicable criteria. A minimum of two criteria are recommended for diagnosis of either severe or non-severe malnutrition. Malnutrition Related to Morbid Obesity Malnutrition related to morbid obesity No Intervention/Recommendation Comments 1. Continue with current diet as ordered. If glucose continue high, will consider adding CCHO diet. 2. Recommend adding oral supplement Glucerna (chocolate flavor) daily to increased nutrition intake, Hever BID for wound healing. RN Seda notified. 2. Monitor PO intake, wt, labs and skin integrity 3. F/U as high risk in 2-3 days, 04/04-04/04 Expected Outcomes/Goals Expected Outcomes/Goals 1. PO intake to meet at least 75% of nutritional needs. 2. Wt stability, skin to remain intact, labs to approach WNL.
--- NOTE | 2018-04-10 14:38 | Internal Medicine Prog Note ---
Internal Medicine Subjective - Subjective Service Date: 04/10/18 Patient seen and examined:: with staff Patient is:: awake Per staff patient has:: no adverse event Internal Medicine Objective - Results Result Diagrams: 04/10/18 05:50 04/10/18 05:50 Recent Labs: Laboratory Last Values WBC 6.8 Th/cmm (4.8-10.8) 04/10/18 05:50 RBC 2.84 Mil/cmm (4.30-5.70) L 04/10/18 05:50 Hgb 9.0 gm/dL (12-16) L 04/10/18 05:50 Hct 27.3 % (41.0-60) L 04/10/18 05:50 MCV 96.0 fl (80-99) 04/10/18 05:50 MCH 31.7 pg (26.0-30.0) H 04/10/18 05:50 MCHC Differential 33.0 pg (28.0-36.0) 04/10/18 05:50 RDW 22.5 % (11.5-20.0) H 04/10/18 05:50 Plt Count 218 Th/cmm (150-400) 04/10/18 05:50 MPV 7.6 fl 04/10/18 05:50 Add Manual Diff YES 04/10/18 05:50 Neutrophils % 90.5 % (40.0-80.0) H 04/10/18 05:50 Band Neutrophils % 3 % (0-10) 04/10/18 05:50 Lymphocytes % 5.0 % (20.0-50.0) L 04/10/18 05:50 Monocytes % 3.9 % (2.0-10.0) 04/10/18 05:50 Eosinophils % 0.2 % (0.0-5.0) 04/10/18 05:50 Basophils % 0.4 % (0.0-2.0) 04/10/18 05:50 Neutrophils (Manual) 85 % (40-80) H 04/10/18 05:50 Lymphocytes 9 % (20-50) L 04/10/18 05:50 Monocytes 3 % (2-10) 04/10/18 05:50 Eosinophils 3 % (0-5) 04/02/18 06:00 Basophils 2 % (0-3) 04/02/18 06:00 Platelet Estimate ADEQUATE (NORMAL) 04/02/18 06:00 Platelet Morphology NORMAL (NORMAL) 03/31/18 18:25 Anisocytosis 1+ 04/10/18 05:50 RBC Morph Micro Appear ABNORMAL (NORMAL) 03/31/18 18:25 Sodium 135 mEq/L (136-145) L 04/10/18 05:50 Potassium 4.0 mEq/L (3.5-5.1) 04/10/18 05:50 Chloride 99 mEq/L (98-107) 04/10/18 05:50 Carbon Dioxide 25.6 mEq/L (21.0-31.0) 04/10/18 05:50 Anion Gap 14.4 (7.0-16.0) 04/10/18 05:50 BUN 24 mg/dL (7-25) 04/10/18 05:50 Creatinine 2.4 mg/dL (0.7-1.3) H 04/10/18 05:50 Est GFR ( Amer) 35.7 ml/min (>90) 04/10/18 05:50 Est GFR (Non-Af Amer) 29.5 ml/min 04/10/18 05:50 BUN/Creatinine Ratio 10.0 04/10/18 05:50 Glucose 124 mg/dL (70-105) H 04/10/18 05:50 POC Glucose 121 MG/DL (70 - 105) H 04/10/18 07:10 Calcium 8.5 mg/dL (8.6-10.3) L 04/10/18 05:50 Phosphorus 4.8 mg/dL (2.5-5.0) 04/02/18 06:00 Iron 33 ug/dL (38-169) L 04/02/18 06:00 TIBC 73 ug/dL (250-450) L 04/02/18 06:00 Iron Saturation 45 % (15-55) 04/02/18 06:00 Unsaturated IBC 40 ug/dL (111-343) L 04/02/18 06:00 Ferritin 1538 ng/mL (30-400) H 04/02/18 06:00 Total Bilirubin 0.4 mg/dL (0.3-1.0) 04/10/18 05:50 AST 9 U/L (13-39) L 04/10/18 05:50 ALT 5 U/L (7-52) L 04/10/18 05:50 Alkaline Phosphatase 115 U/L (34-104) H 04/10/18 05:50 Troponin I 0.05 ng/mL (0.01-0.05) 03/31/18 18:25 B-Natriuretic Peptide > 5000.0 pg/mL (5.0-100.0) H 04/10/18 05:50 Total Protein 5.6 gm/dL (6.0-8.3) L 04/10/18 05:50 Albumin 2.4 gm/dL (4.2-5.5) L 04/10/18 05:50 Globulin 3.2 gm/dL 04/10/18 05:50 Albumin/Globulin Ratio 0.8 (1.0-1.8) L 04/10/18 05:50 Urine Source CLEAN C 03/31/18 18:45 Urine Color YELLOW 03/31/18 18:45 Urine Clarity CLOUDY (CLEAR) 03/31/18 18:45 Urine pH 6.0 (4.6 - 8.0) 03/31/18 18:45 Ur Specific [place] 1.020 (1.005-1.030) 03/31/18 18:45 Urine Protein >=300 mg/dL (NEGATIVE) 03/31/18 18:45 Urine Glucose (UA) NEGATIVE mg/dL (NEGATIVE) 03/31/18 18:45 Urine Ketones NEGATIVE mg/dL (NEGATIVE) 03/31/18 18:45 Urine Blood LARGE (NEGATIVE) H 03/31/18 18:45 Urine Nitrate NEGATIVE (NEGATIVE) 03/31/18 18:45 Urine Bilirubin NEGATIVE (NEGATIVE) 03/31/18 18:45 Urine Urobilinogen 0.2 E.U./dL (0.2 - 1.0) 03/31/18 18:45 Ur Leukocyte Esterase MODERATE (NEGATIVE) H 03/31/18 18:45 Urine RBC 50-100 /hpf (0-5) H 03/31/18 18:45 Urine WBC 25-50 /hpf (0-5) H 03/31/18 18:45 Ur Epithelial Cells NONE SEEN /lpf (FEW) 03/31/18 18:45 Urine Bacteria FEW /hpf (NONE SEEN) 03/31/18 18:45 - Physical Exam Vitals and I&O: Vital Signs Temp 97.0 F 04/10/18 08:00 Pulse 96 04/10/18 13:38 Resp 18 04/10/18 13:38 BP 117/72 04/10/18 08:00 Pulse Ox 95 04/10/18 13:38 Intake & Output 04/09/18 04/10/18 04/10/18 18:59 06:59 18:59 Intake Total 50 180 Output Total 300 Balance 50 -120 Weight (lbs) 194 lb Intake: Intake, IV Amount 50 Levofloxacin 250mg/50mL 50 250 mg In 50 ml @ 50 mls/ hr IV Q24HR@0900 [facility] Rx#: [id number] Oral 180 Output: Urine 300 Other: # Bowel Movements 1 Stool Characteristics Liquid Soft Brown Brown Weight Source Bedscale Active Medications: Current Medications Acetaminophen (Tylenol) 650 mg PO Q4HR PRN PRN Reason: MILD Pain or Fever >101 Stop: 05/30/18 22:21 Last Admin: 04/08/18 11:18 Dose: 650 mg Acetaminophen/Hydrocodone Bitart ([place] 5mg/325mg) 1 tab PO Q6H PRN PRN Reason: Pain (Severe) LEVEL 7-10 Stop: 06/07/18 17:24 Last Admin: 04/10/18 12:05 Dose: 1 tab Albuterol/Ipratropium (Duoneb Neb) 3 ml HHN Q6HRT [facility] Stop: 05/31/18 00:59 Last Admin: 04/10/18 13:38 Dose: 3 ml Aripiprazole (Abilify) 2 mg PO DAILY [facility]; Protocol Stop: 06/05/18 08:59 Last Admin: 04/10/18 08:29 Dose: 2 mg Ascorbic Acid (Vitamin C) 500 mg PO DAILY [facility] Stop: 05/31/18 08:59 Last Admin: 04/10/18 08:29 Dose: 500 mg Aspirin (Ecotrin) 81 mg PO DAILY [facility] Stop: 05/31/18 08:59 Last Admin: 04/10/18 08:30 Dose: 81 mg Atorvastatin Calcium (Lipitor) 20 mg PO HS [facility] Stop: 05/31/18 20:59 Last Admin: 04/09/18 20:55 Dose: 20 mg Bisacodyl (Dulcolax 10 Mg Supp) 10 mg RC DAILY PRN PRN Reason: Constipation Stop: 05/30/18 22:21 [place] Oil/[place] Balsam/Trypsin (Venelex) 1 appl TP DAILY [facility] Stop: 06/02/18 08:59 Last Admin: 04/10/18 08:30 Dose: 1 appl Dextrose (D50w) 50 ml IVP PRN PRN; Protocol PRN Reason: HYPOGLYCEMIA PROTOCOL Stop: 05/30/18 23:03 Diphenhydramine HCl (Benadryl) 25 mg PO Q6HR PRN PRN Reason: Itching Stop: 05/30/18 22:21 Last Admin: 04/10/18 12:11 Dose: 25 mg Docusate Sodium (Colace) 100 mg PO DAILY [facility] Stop: 05/31/18 08:59 Last Admin: 04/10/18 08:29 Dose: 100 mg Hydrocortisone Sodium Succinate (Solu-Cortef) 50 mg IVP Q12HR [facility] Stop: 06/08/18 20:59 Last Admin: 04/10/18 08:30 Dose: 50 mg Insulin Aspart (Novolog Insulin Sliding Scale) 0 units SUBQ ACHS [facility]; Protocol Stop: 05/31/18 07:29 Last Admin: 04/10/18 12:11 Dose: 4 units Lactobacillus Rhamnosus (Culturelle 15b) 1 each PO DAILY [facility] Stop: 06/01/18 12:59 Last Admin: 04/10/18 08:29 Dose: 1 each Levetiracetam (Keppra) 500 mg PO BID [facility] Stop: 05/31/18 08:59 Last Admin: 04/10/18 08:30 Dose: 500 mg Levothyroxine Sodium (Synthroid) 0.025 mg PO QDAC [facility] Stop: 05/31/18 07:29 Last Admin: 04/10/18 08:29 Dose: 0.025 mg Lorazepam (Ativan) 1 mg IVP Q6HR PRN; Protocol PRN Reason: Agitation Stop: 06/08/18 13:49 Last Admin: 04/09/18 22:47 Dose: 1 mg Miscellaneous (Clinical Monitoring) 1 ea PRN PRN PRN Reason: RENAL Stop: 06/01/18 10:15 Miscellaneous (Probiotic Screen) 1 ea PRN PRN PRN Reason: PROTOCOL Stop: 06/04/18 08:14 Pantoprazole Sodium (Protonix) 40 mg PO DAILY [facility] Stop: 05/31/18 08:59 Last Admin: 04/10/18 08:29 Dose: 40 mg Sodium Chloride (Nacl Tab) 1 gm PO TID [facility] Stop: 06/06/18 15:14 Last Admin: 04/10/18 14:25 Dose: 1 gm Sodium Phosphate (Fleet Enema) 135 ml RC DAILY PRN PRN Reason: Constipation Stop: 05/30/18 22:21 Vitamin B Complex/Vit C/Folic Acid (Vitamin B Complex W/Vitamin C) 1 tab PO DAILY [facility] Stop: 05/31/18 08:59 Last Admin: 04/10/18 08:29 Dose: 1 tab Zinc Sulfate (Zinc Sulfate) 220 mg PO DAILY [facility] Stop: 05/31/18 08:59 Last Admin: 04/10/18 08:29 Dose: 220 mg General: weak HEENT: NC/AT, PERRLA Neck: Supple Lungs: CTAB Cardiovascular: RRR, Normal S1, Normal S2, without murmur Abdomen: soft, non-distended, positive bowel sound Internal Medicine Assmt/Plan - Assessment Assessment: Sacral decubitus ulcer. History of Methicillin-resistant Staphylococcus aureus infection. Urinary tract infection. Anemia. Diabetes mellitus type 2. Hypertension. - Plan Plan: continue wound care follow up labs in am continue current plan of care Nutritional Asmnt/Malnutr-PDOC - Dietary Evaluation Malnutrition Findings (Please click <Entered> for more info): Nutritional Asmnt/Malnutrition Start: 04/02/18 16: 21 Text: Status: Complete Freq: Protocol: Document 04/02/18 16:42 LCHENG (Rec: 04/02/18 17:12 [facility] [email or web address]) Nutritional Asmnt/Malnutrition Patient General Information Nutritional Screening High Risk Consult Diagnosis UTI, renal failure Pertinent Medical Hx/Surgical Hx HTN, DM, CVA/TIA, ESRD, dementia Subjective Information Consult for multiple ulcer. Pt seen lying in bed at time of visit, awake and alert. Pt reported appetite was not good , requesting for oral supplement (chocolate flavor only). Per nurse, pt will start dialysis. Pt has multiple wounds noted. Current Diet Order/ Nutrition Support 2gm sodium, renal Pertinent Medications vit C, D5-0.45ns, colace, novolog, culturelle, levaquin, synthroid, protonix, vit B complex w/ vit C, zinc Pertinent Labs 04/02 Na 125, Cl 90, BUN 31, Cr 2.8, glucose 141, POc 146-161 Nutritional Hx/Data Height 5 ft 11 in Height (Calculated Centimeters) 180.3 Current Weight (lbs) 202 lb Weight (Calculated Kilograms) 91.6 Weight (Calculated Grams) 36114.7 [place] Body Weight 172 Body Mass Index (BMI) 28.1 GI Symptoms Skin Integrity/Comment: 3+ pitting adema to right upper extremity, 1+ pitting edemat to left arm reddened to right buttocks, ulcer to left buttocks, left and right arms Current %PO Fair (50-74%) Estimated Nutritional Goals BEE in Kcals: Adj wt of IBW Calories/Kcals/Kg 25-30 Kcals Calculated 7071-2935 Protein: Adj wt of IBW Protein g/k.1-1.3 Protein Calculated 89-105 Fluid: ml 2024-243ml (1ml/kcal) Nutritional Problem 3. Problem Problem increased nutrition needs ( calorie and protein) Etiology impaired skin integrity, increased protein loss Signs/Symptoms: multiple ulcer, pt on dialysis 2. Problem Problem inadequate food intake Etiology poor appetite Signs/Symptoms: PO intake 50% 1. Problem Problem altered nutrition related labs Etiology electrolytes imbalance, hx of DM, ESRD Signs/Symptoms: Na 125, Cl 90, BUN 31, Cr 2.8, Glucose 141, POC 146-161 Malnutrition Alert Is there a minimum of two criteria No selected? Query Text:Check all the applicable criteria. A minimum of two criteria are recommended for diagnosis of either severe or non-severe malnutrition. Malnutrition Related to Morbid Obesity Malnutrition related to morbid obesity No Intervention/Recommendation Comments 1. Continue with current diet as ordered. If glucose continue high, will consider adding CCHO diet. 2. Recommend adding oral supplement Glucerna (chocolate flavor) daily to increased nutrition intake, Hever BID for wound healing. DONAVAN Stack notified. 2. Monitor PO intake, wt, labs and skin integrity 3. F/U as high risk in 2-3 days, 04/04-04/04 Expected Outcomes/Goals Expected Outcomes/Goals 1. PO intake to meet at least 75% of nutritional needs. 2. Wt stability, skin to remain intact, labs to approach WNL.
--- NOTE | 2018-04-10 20:45 | Progress Notes ---
DATE: 04/10/2018 Case was discussed with staff of the patient. The patient is getting dialysis. He also has decubitus ulcer. Continues to be unable to make safe plan for self-care. Continues to be confused about where he lives, why he is here, unpredictable, impulsive, needing redirection. Thank you very much for allowing me to participate in the care of this most interesting gentleman. JOB# [id number]
[2018-04-10] MEDS: Atorvastatin Calcium 10 MG TAB PO SCH (20:54)
[2018-04-11] MEDS: Albuterol/Ipratropium Neb 3 ML AERS HHN SCH ×4 (00:50→19:00)
[2018-04-11] MEDS: Hydrocodone/APAP 5mg/325mg Tab PO PRN ×3 (04:41→21:00)
[2018-04-11] MEDS: INSULIN ASPART SLIDING SCALE 100 UNITS/ML UNIT SUBQ SCH ×4 (06:32→21:15)
[2018-04-11] MEDS: Levothyroxine 0.025 Mg Tab PO SCH (06:33)
[2018-04-11 06:34] LABS: % BASOPHILS 0.3 % (0.0-2.0); % EOSINOPHILS 0.5 % (0.0-5.0); % LYMPHOCYTES 5.9 % (20.0-50.0); % MONOCYTES 5.1 % (2.0-10.0); % NEUTROPHILS 88.2 % (40.0-80.0); HEMATOCRIT 26.9 % (41.0-60); HEMOGLOBIN 8.9 gm/dL (12-16); LYMPHOCYTE ABSOLUTE 0.5 Th/cmm (1.5-3.0); MEAN CELL VOLUME 96.2 fl (80-99); MEAN CORPUSCULAR HGB CONC 33.3 pg (28.0-36.0); MEAN PLATELET VOLUME 7.7 fl; MONOCYTE ABSOLUTE 0.4 Th/cmm (0.3-1.0); NEUTROPHILE ABSOLUTE 6.9 Th/cmm (1.8-8.0); PLATELET COUNT 224 Th/cmm (150-400); RED CELL DISTRIBUTION WIDTH 22.3 % (11.5-20.0); WHITE BLOOD COUNT 7.8 Th/cmm (4.8-10.8)
[2018-04-11 06:38] LABS: ANION GAP 14.5 (7.0-16.0); CALCIUM SERUM 8.5 mg/dL (8.6-10.3); CARBON DIOXIDE 25.7 mEq/L (21.0-31.0); CREATININE - SERUM 2.7 mg/dL (0.7-1.3); GFR AFRICAN-AMERICAN 31.2 ml/min (>90); GFR NON AFRICAN-AMERICAN 25.7 ml/min; POTASSIUM SERUM 4.2 mEq/L (3.5-5.1)
[2018-04-11 07:48] LABS: ANISOCYTOSIS 1+; BAND NEUTROPHILE 2 % (0-10); LYMPHOCYTE 4 % (20-50); MONOCYTE 2 % (2-10); NEUTROPHILS 92 % (40-80)
--- NOTE | 2018-04-11 09:12 | General Progress Note ---
Subjective - Review of Systems Events since last encounter: patient awake alert no distress Objective - Results Result Diagrams: 04/11/18 05:10 04/11/18 05:10 Recent Labs: Laboratory Last Values WBC 7.8 Th/cmm (4.8-10.8) 04/11/18 05:10 RBC 2.80 Mil/cmm (4.30-5.70) L 04/11/18 05:10 Hgb 8.9 gm/dL (12-16) L 04/11/18 05:10 Hct 26.9 % (41.0-60) L 04/11/18 05:10 MCV 96.2 fl (80-99) 04/11/18 05:10 MCH 32.0 pg (26.0-30.0) H 04/11/18 05:10 MCHC Differential 33.3 pg (28.0-36.0) 04/11/18 05:10 RDW 22.3 % (11.5-20.0) H 04/11/18 05:10 Plt Count 224 Th/cmm (150-400) 04/11/18 05:10 MPV 7.7 fl 04/11/18 05:10 Add Manual Diff YES 04/10/18 05:50 Neutrophils % 88.2 % (40.0-80.0) H 04/11/18 05:10 Band Neutrophils % 2 % (0-10) 04/11/18 05:10 Lymphocytes % 5.9 % (20.0-50.0) L 04/11/18 05:10 Monocytes % 5.1 % (2.0-10.0) 04/11/18 05:10 Eosinophils % 0.5 % (0.0-5.0) 04/11/18 05:10 Basophils % 0.3 % (0.0-2.0) 04/11/18 05:10 Neutrophils (Manual) 92 % (40-80) H 04/11/18 05:10 Lymphocytes 4 % (20-50) L 04/11/18 05:10 Monocytes 2 % (2-10) 04/11/18 05:10 Eosinophils 3 % (0-5) 04/02/18 06:00 Basophils 2 % (0-3) 04/02/18 06:00 Platelet Estimate ADEQUATE (NORMAL) 04/02/18 06:00 Platelet Morphology NORMAL (NORMAL) 03/31/18 18:25 Anisocytosis 1+ 04/11/18 05:10 RBC Morph Micro Appear ABNORMAL (NORMAL) 03/31/18 18:25 Sodium 134 mEq/L (136-145) L 04/11/18 05:10 Potassium 4.2 mEq/L (3.5-5.1) 04/11/18 05:10 Chloride 98 mEq/L (98-107) 04/11/18 05:10 Carbon Dioxide 25.7 mEq/L (21.0-31.0) 04/11/18 05:10 Anion Gap 14.5 (7.0-16.0) 04/11/18 05:10 BUN 27 mg/dL (7-25) H 04/11/18 05:10 Creatinine 2.7 mg/dL (0.7-1.3) H 04/11/18 05:10 Est GFR ( Amer) 31.2 ml/min (>90) 04/11/18 05:10 Est GFR (Non-Af Amer) 25.7 ml/min 04/11/18 05:10 BUN/Creatinine Ratio 10.0 04/11/18 05:10 Glucose 125 mg/dL (70-105) H 04/11/18 05:10 POC Glucose 126 MG/DL (70-105) H 04/11/18 05:46 Calcium 8.5 mg/dL (8.6-10.3) L 04/11/18 05:10 Phosphorus 4.8 mg/dL (2.5-5.0) 04/02/18 06:00 Iron 33 ug/dL (38-169) L 04/02/18 06:00 TIBC 73 ug/dL (250-450) L 04/02/18 06:00 Iron Saturation 45 % (15-55) 04/02/18 06:00 Unsaturated IBC 40 ug/dL (111-343) L 04/02/18 06:00 Ferritin 1538 ng/mL (30-400) H 04/02/18 06:00 Total Bilirubin 0.4 mg/dL (0.3-1.0) 04/10/18 05:50 AST 9 U/L (13-39) L 04/10/18 05:50 ALT 5 U/L (7-52) L 04/10/18 05:50 Alkaline Phosphatase 115 U/L (34-104) H 04/10/18 05:50 Troponin I 0.05 ng/mL (0.01-0.05) 03/31/18 18:25 B-Natriuretic Peptide > 5000.0 pg/mL (5.0-100.0) H 04/10/18 05:50 Total Protein 5.6 gm/dL (6.0-8.3) L 04/10/18 05:50 Albumin 2.4 gm/dL (4.2-5.5) L 04/10/18 05:50 Globulin 3.2 gm/dL 04/10/18 05:50 Albumin/Globulin Ratio 0.8 (1.0-1.8) L 04/10/18 05:50 Urine Source CLEAN C 03/31/18 18:45 Urine Color YELLOW 03/31/18 18:45 Urine Clarity CLOUDY (CLEAR) 03/31/18 18:45 Urine pH 6.0 (4.6 - 8.0) 03/31/18 18:45 Ur Specific [place] 1.020 (1.005-1.030) 03/31/18 18:45 Urine Protein >=300 mg/dL (NEGATIVE) 03/31/18 18:45 Urine Glucose (UA) NEGATIVE mg/dL (NEGATIVE) 03/31/18 18:45 Urine Ketones NEGATIVE mg/dL (NEGATIVE) 03/31/18 18:45 Urine Blood LARGE (NEGATIVE) H 03/31/18 18:45 Urine Nitrate NEGATIVE (NEGATIVE) 03/31/18 18:45 Urine Bilirubin NEGATIVE (NEGATIVE) 03/31/18 18:45 Urine Urobilinogen 0.2 E.U./dL (0.2 - 1.0) 03/31/18 18:45 Ur Leukocyte Esterase MODERATE (NEGATIVE) H 03/31/18 18:45 Urine RBC 50-100 /hpf (0-5) H 03/31/18 18:45 Urine WBC 25-50 /hpf (0-5) H 03/31/18 18:45 Ur Epithelial Cells NONE SEEN /lpf (FEW) 03/31/18 18:45 Urine Bacteria FEW /hpf (NONE SEEN) 03/31/18 18:45 - Physical Exam Vitals and I&O: Vital Signs Temp 97.6 F 04/11/18 07:41 Pulse 67 04/11/18 07:41 Resp 18 04/11/18 07:41 BP 141/77 04/11/18 07:41 Pulse Ox 96 04/11/18 07:41 Intake & Output 04/10/18 04/11/18 04/11/18 18:59 06:59 18:59 Intake Total 550 100 Output Total 200 200 Balance 350 -100 Weight (lbs) 87.997 kg 87.997 kg Intake: Oral 550 100 Output: Urine 200 150 Urine/Stool Mix 50 Other: # Bowel Movements 1 Stool Characteristics Soft Brown Weight Source Bedscale Bedscale Active Medications: Current Medications Acetaminophen (Tylenol) 650 mg PO Q4HR PRN PRN Reason: MILD Pain or Fever >101 Stop: 05/30/18 22:21 Last Admin: 04/10/18 23:25 Dose: 650 mg Acetaminophen/Hydrocodone Bitart ([place] 5mg/325mg) 1 tab PO Q6H PRN PRN Reason: Pain (Severe) LEVEL 7-10 Stop: 06/07/18 17:24 Last Admin: 04/11/18 04:41 Dose: 1 tab Albuterol/Ipratropium (Duoneb Neb) 3 ml HHN Q6HRT [facility] Stop: 05/31/18 00:59 Last Admin: 04/11/18 07:33 Dose: 3 ml Aripiprazole (Abilify) 2 mg PO DAILY [facility]; Protocol Stop: 06/05/18 08:59 Last Admin: 04/10/18 08:29 Dose: 2 mg Ascorbic Acid (Vitamin C) 500 mg PO DAILY [facility] Stop: 05/31/18 08:59 Last Admin: 04/10/18 08:29 Dose: 500 mg Aspirin (Ecotrin) 81 mg PO DAILY [facility] Stop: 05/31/18 08:59 Last Admin: 04/10/18 08:30 Dose: 81 mg Atorvastatin Calcium (Lipitor) 20 mg PO HS [facility] Stop: 05/31/18 20:59 Last Admin: 04/10/18 20:54 Dose: 20 mg Bisacodyl (Dulcolax 10 Mg Supp) 10 mg RC DAILY PRN PRN Reason: Constipation Stop: 05/30/18 22:21 [place] Oil/[place] Balsam/Trypsin (Venelex) 1 appl TP DAILY [facility] Stop: 06/02/18 08:59 Last Admin: 04/10/18 08:30 Dose: 1 appl Dextrose (D50w) 50 ml IVP PRN PRN; Protocol PRN Reason: HYPOGLYCEMIA PROTOCOL Stop: 05/30/18 23:03 Diphenhydramine HCl (Benadryl) 25 mg PO Q6HR PRN PRN Reason: Itching Stop: 05/30/18 22:21 Last Admin: 04/10/18 23:25 Dose: 25 mg Docusate Sodium (Colace) 100 mg PO DAILY [facility] Stop: 05/31/18 08:59 Last Admin: 04/10/18 08:29 Dose: 100 mg Hydrocortisone Sodium Succinate (Solu-Cortef) 50 mg IVP Q12HR [facility] Stop: 06/08/18 20:59 Last Admin: 04/10/18 20:54 Dose: 50 mg Insulin Aspart (Novolog Insulin Sliding Scale) 0 units SUBQ ACHS [facility]; Protocol Stop: 05/31/18 07:29 Last Admin: 04/11/18 06:32 Dose: Not Given Lactobacillus Rhamnosus (Culturelle 15b) 1 each PO DAILY [facility] Stop: 06/01/18 12:59 Last Admin: 04/10/18 08:29 Dose: 1 each Levetiracetam (Keppra) 500 mg PO BID [facility] Stop: 05/31/18 08:59 Last Admin: 04/10/18 16:30 Dose: 500 mg Levothyroxine Sodium (Synthroid) 0.025 mg PO QDAC [facility] Stop: 05/31/18 07:29 Last Admin: 04/11/18 06:33 Dose: 0.025 mg Lorazepam (Ativan) 1 mg IVP Q6HR PRN; Protocol PRN Reason: Agitation Stop: 06/08/18 13:49 Last Admin: 04/11/18 04:41 Dose: 1 mg Miscellaneous (Clinical Monitoring) 1 ea MC PRN PRN PRN Reason: RENAL Stop: 06/01/18 10:15 Miscellaneous (Probiotic Screen) 1 ea MC PRN PRN PRN Reason: PROTOCOL Stop: 06/04/18 08:14 Pantoprazole Sodium (Protonix) 40 mg PO DAILY [facility] Stop: 05/31/18 08:59 Last Admin: 04/10/18 08:29 Dose: 40 mg Sodium Chloride (Nacl Tab) 1 gm PO TID [facility] Stop: 06/06/18 15:14 Last Admin: 04/10/18 20:54 Dose: 1 gm Sodium Phosphate (Fleet Enema) 135 ml RC DAILY PRN PRN Reason: Constipation Stop: 05/30/18 22:21 Vitamin B Complex/Vit C/Folic Acid (Vitamin B Complex W/Vitamin C) 1 tab PO DAILY [facility] Stop: 05/31/18 08:59 Last Admin: 04/10/18 08:29 Dose: 1 tab Zinc Sulfate (Zinc Sulfate) 220 mg PO DAILY [facility] Stop: 05/31/18 08:59 Last Admin: 04/10/18 08:29 Dose: 220 mg General: No acute distress HEENT: Atraumatic Neck: Supple Cardiovascular: Regular rate, Normal S1, Normal S2 Lungs: Clear to auscultation Abdomen: Bowel sounds Assessment/Plan - Plan Plan: as per order sheet wound care Nutritional Asmnt/Malnutr-PDOC - Dietary Evaluation Malnutrition Findings (Please click <Entered> for more info): Nutritional Asmnt/Malnutrition Start: 04/02/18 16: 21 Text: Status: Complete Freq: Protocol: Document 04/02/18 16:42 LCHENG (Rec: 04/02/18 17:12 LCHENG [email or web address]) Nutritional Asmnt/Malnutrition Patient General Information Nutritional Screening High Risk Consult Diagnosis UTI, renal failure Pertinent Medical Hx/Surgical Hx HTN, DM, CVA/TIA, ESRD, dementia Subjective Information Consult for multiple ulcer. Pt seen lying in bed at time of visit, awake and alert. Pt reported appetite was not good , requesting for oral supplement (chocolate flavor only). Per nurse, pt will start dialysis. Pt has multiple wounds noted. Current Diet Order/ Nutrition Support 2gm sodium, renal Pertinent Medications vit C, D5-0.45ns, colace, novolog, culturelle, levaquin, synthroid, protonix, vit B complex w/ vit C, zinc Pertinent Labs 04/02 Na 125, Cl 90, BUN 31, Cr 2.8, glucose 141, POc 146-161 Nutritional Hx/Data Height 1.8 m Height (Calculated Centimeters) 180.3 Current Weight (lbs) 91.626 kg Weight (Calculated Kilograms) 91.6 Weight (Calculated Grams) 60952.7 [place] Body Weight 172 Body Mass Index (BMI) 28.1 GI Symptoms Skin Integrity/Comment: 3+ pitting adema to right upper extremity, 1+ pitting edemat to left arm reddened to right buttocks, ulcer to left buttocks, left and right arms Current %PO Fair (50-74%) Estimated Nutritional Goals BEE in Kcals: Adj wt of IBW Calories/Kcals/Kg 25-30 Kcals Calculated 5643-1047 Protein: Adj wt of IBW Protein g/k.1-1.3 Protein Calculated 89-105 Fluid: ml 2024-243ml (1ml/kcal) Nutritional Problem 3. Problem Problem increased nutrition needs ( calorie and protein) Etiology impaired skin integrity, increased protein loss Signs/Symptoms: multiple ulcer, pt on dialysis 2. Problem Problem inadequate food intake Etiology poor appetite Signs/Symptoms: PO intake 50% 1. Problem Problem altered nutrition related labs Etiology electrolytes imbalance, hx of DM, ESRD Signs/Symptoms: Na 125, Cl 90, BUN 31, Cr 2.8, Glucose 141, POC 146-161 Malnutrition Alert Is there a minimum of two criteria No selected? Query Text:Check all the applicable criteria. A minimum of two criteria are recommended for diagnosis of either severe or non-severe malnutrition. Malnutrition Related to Morbid Obesity Malnutrition related to morbid obesity No Intervention/Recommendation Comments 1. Continue with current diet as ordered. If glucose continue high, will consider adding CCHO diet. 2. Recommend adding oral supplement Glucerna (chocolate flavor) daily to increased nutrition intake, Hever BID for wound healing. DONAVAN Stack notified. 2. Monitor PO intake, wt, labs and skin integrity 3. F/U as high risk in 2-3 days, 04/04-04/04 Expected Outcomes/Goals Expected Outcomes/Goals 1. PO intake to meet at least 75% of nutritional needs. 2. Wt stability, skin to remain intact, labs to approach WNL.
[2018-04-11] MEDS: Hydrocortisone Sodium Succ 100 mg Vial IVP SCH ×2 (09:52→21:01)
[2018-04-11] MEDS: Lactobacillus Rhamnosus GG 15 Billion CFU CAP.SPRINK PO SCH (09:52)
[2018-04-11] MEDS: Multivitamin w/ Minerals Tab PO SCH (09:52)
[2018-04-11] MEDS: Pantoprazole 40 mg EC Tab PO SCH (09:53)
[2018-04-11] MEDS: Vitamin B Complex w/Vitamin C Tab PO SCH (09:53)
--- NOTE | 2018-04-11 14:43 | General Progress Note ---
Subjective - Review of Systems Service Date: 04/11/18 Events since last encounter: talked to who is driving in from [place] tomorrow, agress to debridement only Dr. Womack has cleared him for surgey will check with Dr. Rand Garcia for cardiology clearance Objective - Results Result Diagrams: 04/11/18 05:10 04/11/18 05:10 Recent Labs: Laboratory Last Values WBC 7.8 Th/cmm (4.8-10.8) 04/11/18 05:10 RBC 2.80 Mil/cmm (4.30-5.70) L 04/11/18 05:10 Hgb 8.9 gm/dL (12-16) L 04/11/18 05:10 Hct 26.9 % (41.0-60) L 04/11/18 05:10 MCV 96.2 fl (80-99) 04/11/18 05:10 MCH 32.0 pg (26.0-30.0) H 04/11/18 05:10 MCHC Differential 33.3 pg (28.0-36.0) 04/11/18 05:10 RDW 22.3 % (11.5-20.0) H 04/11/18 05:10 Plt Count 224 Th/cmm (150-400) 04/11/18 05:10 MPV 7.7 fl 04/11/18 05:10 Add Manual Diff YES 04/10/18 05:50 Neutrophils % 88.2 % (40.0-80.0) H 04/11/18 05:10 Band Neutrophils % 2 % (0-10) 04/11/18 05:10 Lymphocytes % 5.9 % (20.0-50.0) L 04/11/18 05:10 Monocytes % 5.1 % (2.0-10.0) 04/11/18 05:10 Eosinophils % 0.5 % (0.0-5.0) 04/11/18 05:10 Basophils % 0.3 % (0.0-2.0) 04/11/18 05:10 Neutrophils (Manual) 92 % (40-80) H 04/11/18 05:10 Lymphocytes 4 % (20-50) L 04/11/18 05:10 Monocytes 2 % (2-10) 04/11/18 05:10 Eosinophils 3 % (0-5) 04/02/18 06:00 Basophils 2 % (0-3) 04/02/18 06:00 Platelet Estimate ADEQUATE (NORMAL) 04/02/18 06:00 Platelet Morphology NORMAL (NORMAL) 03/31/18 18:25 Anisocytosis 1+ 04/11/18 05:10 RBC Morph Micro Appear ABNORMAL (NORMAL) 03/31/18 18:25 Sodium 134 mEq/L (136-145) L 04/11/18 05:10 Potassium 4.2 mEq/L (3.5-5.1) 04/11/18 05:10 Chloride 98 mEq/L (98-107) 04/11/18 05:10 Carbon Dioxide 25.7 mEq/L (21.0-31.0) 04/11/18 05:10 Anion Gap 14.5 (7.0-16.0) 04/11/18 05:10 BUN 27 mg/dL (7-25) H 04/11/18 05:10 Creatinine 2.7 mg/dL (0.7-1.3) H 04/11/18 05:10 Est GFR ( Amer) 31.2 ml/min (>90) 04/11/18 05:10 Est GFR (Non-Af Amer) 25.7 ml/min 04/11/18 05:10 BUN/Creatinine Ratio 10.0 04/11/18 05:10 Glucose 125 mg/dL (70-105) H 04/11/18 05:10 POC Glucose 142 MG/DL (70 - 105) H 04/11/18 11:33 Calcium 8.5 mg/dL (8.6-10.3) L 04/11/18 05:10 Phosphorus 4.8 mg/dL (2.5-5.0) 04/02/18 06:00 Iron 33 ug/dL (38-169) L 04/02/18 06:00 TIBC 73 ug/dL (250-450) L 04/02/18 06:00 Iron Saturation 45 % (15-55) 04/02/18 06:00 Unsaturated IBC 40 ug/dL (111-343) L 04/02/18 06:00 Ferritin 1538 ng/mL (30-400) H 04/02/18 06:00 Total Bilirubin 0.4 mg/dL (0.3-1.0) 04/10/18 05:50 AST 9 U/L (13-39) L 04/10/18 05:50 ALT 5 U/L (7-52) L 04/10/18 05:50 Alkaline Phosphatase 115 U/L (34-104) H 04/10/18 05:50 Troponin I 0.05 ng/mL (0.01-0.05) 03/31/18 18:25 B-Natriuretic Peptide > 5000.0 pg/mL (5.0-100.0) H 04/10/18 05:50 Total Protein 5.6 gm/dL (6.0-8.3) L 04/10/18 05:50 Albumin 2.4 gm/dL (4.2-5.5) L 04/10/18 05:50 Globulin 3.2 gm/dL 04/10/18 05:50 Albumin/Globulin Ratio 0.8 (1.0-1.8) L 04/10/18 05:50 Urine Source CLEAN C 03/31/18 18:45 Urine Color YELLOW 03/31/18 18:45 Urine Clarity CLOUDY (CLEAR) 03/31/18 18:45 Urine pH 6.0 (4.6 - 8.0) 03/31/18 18:45 Ur Specific [place] 1.020 (1.005-1.030) 03/31/18 18:45 Urine Protein >=300 mg/dL (NEGATIVE) 03/31/18 18:45 Urine Glucose (UA) NEGATIVE mg/dL (NEGATIVE) 03/31/18 18:45 Urine Ketones NEGATIVE mg/dL (NEGATIVE) 03/31/18 18:45 Urine Blood LARGE (NEGATIVE) H 03/31/18 18:45 Urine Nitrate NEGATIVE (NEGATIVE) 03/31/18 18:45 Urine Bilirubin NEGATIVE (NEGATIVE) 03/31/18 18:45 Urine Urobilinogen 0.2 E.U./dL (0.2 - 1.0) 03/31/18 18:45 Ur Leukocyte Esterase MODERATE (NEGATIVE) H 03/31/18 18:45 Urine RBC 50-100 /hpf (0-5) H 03/31/18 18:45 Urine WBC 25-50 /hpf (0-5) H 03/31/18 18:45 Ur Epithelial Cells NONE SEEN /lpf (FEW) 03/31/18 18:45 Urine Bacteria FEW /hpf (NONE SEEN) 03/31/18 18:45 - Physical Exam Vitals and I&O: Vital Signs Temp 97.0 F 04/11/18 11:50 Pulse 87 04/11/18 12:52 Resp 18 04/11/18 12:52 BP 107/63 04/11/18 11:50 Pulse Ox 97 04/11/18 12:52 Intake & Output 04/10/18 04/11/18 04/11/18 18:59 06:59 18:59 Intake Total 550 100 Output Total 200 200 Balance 350 -100 Weight (lbs) 87.997 kg 87.997 kg Intake: Oral 550 100 Output: Urine 200 150 Urine/Stool Mix 50 Other: # Bowel Movements 1 Stool Characteristics Soft Brown Weight Source Bedscale Bedscale Active Medications: Current Medications Acetaminophen (Tylenol) 650 mg PO Q4HR PRN PRN Reason: MILD Pain or Fever >101 Stop: 05/30/18 22:21 Last Admin: 04/10/18 23:25 Dose: 650 mg Acetaminophen/Hydrocodone Bitart ([place] 5mg/325mg) 1 tab PO Q6H PRN PRN Reason: Pain (Severe) LEVEL 7-10 Stop: 06/07/18 17:24 Last Admin: 04/11/18 11:30 Dose: 1 tab Albuterol/Ipratropium (Duoneb Neb) 3 ml HHN Q6HRT [facility] Stop: 05/31/18 00:59 Last Admin: 04/11/18 12:52 Dose: 3 ml Aripiprazole (Abilify) 2 mg PO DAILY [facility]; Protocol Stop: 06/05/18 08:59 Last Admin: 04/11/18 09:53 Dose: 2 mg Ascorbic Acid (Vitamin C) 500 mg PO DAILY [facility] Stop: 05/31/18 08:59 Last Admin: 04/11/18 09:53 Dose: 500 mg Aspirin (Ecotrin) 81 mg PO DAILY [facility] Stop: 05/31/18 08:59 Last Admin: 04/11/18 09:52 Dose: 81 mg Atorvastatin Calcium (Lipitor) 20 mg PO HS [facility] Stop: 05/31/18 20:59 Last Admin: 04/10/18 20:54 Dose: 20 mg Bisacodyl (Dulcolax 10 Mg Supp) 10 mg RC DAILY PRN PRN Reason: Constipation Stop: 05/30/18 22:21 [place] Oil/[place] Balsam/Trypsin (Venelex) 1 appl TP DAILY [facility] Stop: 06/02/18 08:59 Last Admin: 04/10/18 08:30 Dose: 1 appl Dextrose (D50w) 50 ml IVP PRN PRN; Protocol PRN Reason: HYPOGLYCEMIA PROTOCOL Stop: 05/30/18 23:03 Diphenhydramine HCl (Benadryl) 25 mg PO Q6HR PRN PRN Reason: Itching Stop: 05/30/18 22:21 Last Admin: 04/10/18 23:25 Dose: 25 mg Docusate Sodium (Colace) 100 mg PO DAILY [facility] Stop: 05/31/18 08:59 Last Admin: 04/11/18 09:52 Dose: 100 mg Hydrocortisone Sodium Succinate (Solu-Cortef) 50 mg IVP Q12HR [facility] Stop: 06/08/18 20:59 Last Admin: 04/11/18 09:52 Dose: 50 mg Insulin Aspart (Novolog Insulin Sliding Scale) 0 units SUBQ ACHS [facility]; Protocol Stop: 05/31/18 07:29 Last Admin: 04/11/18 11:41 Dose: Not Given Lactobacillus Rhamnosus (Culturelle 15b) 1 each PO DAILY [facility] Stop: 06/01/18 12:59 Last Admin: 04/11/18 09:52 Dose: 1 each Levetiracetam (Keppra) 500 mg PO BID [facility] Stop: 05/31/18 08:59 Last Admin: 04/11/18 09:53 Dose: 500 mg Levothyroxine Sodium (Synthroid) 0.025 mg PO QDAC [facility] Stop: 05/31/18 07:29 Last Admin: 04/11/18 06:33 Dose: 0.025 mg Lorazepam (Ativan) 1 mg IVP Q6HR PRN; Protocol PRN Reason: Agitation Stop: 06/08/18 13:49 Last Admin: 04/11/18 11:21 Dose: 1 mg Miscellaneous (Clinical Monitoring) 1 ea MC PRN PRN PRN Reason: RENAL Stop: 06/01/18 10:15 Miscellaneous (Probiotic Screen) 1 ea MC PRN PRN PRN Reason: PROTOCOL Stop: 06/04/18 08:14 Pantoprazole Sodium (Protonix) 40 mg PO DAILY [facility] Stop: 05/31/18 08:59 Last Admin: 04/11/18 09:53 Dose: 40 mg Sodium Chloride (Nacl Tab) 1 gm PO TID [facility] Stop: 06/06/18 15:14 Last Admin: 04/11/18 09:52 Dose: 1 gm Sodium Phosphate (Fleet Enema) 135 ml RC DAILY PRN PRN Reason: Constipation Stop: 05/30/18 22:21 Vitamin B Complex/Vit C/Folic Acid (Vitamin B Complex W/Vitamin C) 1 tab PO DAILY [facility] Stop: 05/31/18 08:59 Last Admin: 04/11/18 09:53 Dose: 1 tab Zinc Sulfate (Zinc Sulfate) 220 mg PO DAILY [facility] Stop: 05/31/18 08:59 Last Admin: 04/11/18 09:52 Dose: 220 mg General: No acute distress HEENT: Atraumatic Neck: Supple Cardiovascular: Regular rate, Normal S1, Normal S2 Lungs: Clear to auscultation Abdomen: Bowel sounds Nutritional Asmnt/Malnutr-PDOC - Dietary Evaluation Malnutrition Findings (Please click <Entered> for more info): Nutritional Asmnt/Malnutrition Start: 04/02/18 16: 21 Text: Status: Complete Freq: Protocol: Document 04/02/18 16:42 LCHENG (Rec: 04/02/18 17:12 [email or web address]) Nutritional Asmnt/Malnutrition Patient General Information Nutritional Screening High Risk Consult Diagnosis UTI, renal failure Pertinent Medical Hx/Surgical Hx HTN, DM, CVA/TIA, ESRD, dementia Subjective Information Consult for multiple ulcer. Pt seen lying in bed at time of visit, awake and alert. Pt reported appetite was not good , requesting for oral supplement (chocolate flavor only). Per nurse, pt will start dialysis. Pt has multiple wounds noted. Current Diet Order/ Nutrition Support 2gm sodium, renal Pertinent Medications vit C, D5-0.45ns, colace, novolog, culturelle, levaquin, synthroid, protonix, vit B complex w/ vit C, zinc Pertinent Labs 04/02 Na 125, Cl 90, BUN 31, Cr 2.8, glucose 141, POc 146-161 Nutritional Hx/Data Height 1.8 m Height (Calculated Centimeters) 180.3 Current Weight (lbs) 91.626 kg Weight (Calculated Kilograms) 91.6 Weight (Calculated Grams) 34176.7 [place] Body Weight 172 Body Mass Index (BMI) 28.1 GI Symptoms Skin Integrity/Comment: 3+ pitting adema to right upper extremity, 1+ pitting edemat to left arm reddened to right buttocks, ulcer to left buttocks, left and right arms Current %PO Fair (50-74%) Estimated Nutritional Goals BEE in Kcals: Adj wt of IBW Calories/Kcals/Kg 25-30 Kcals Calculated 3989-4295 Protein: Adj wt of IBW Protein g/k.1-1.3 Protein Calculated 89-105 Fluid: ml 2024-243ml (1ml/kcal) Nutritional Problem 3. Problem Problem increased nutrition needs ( calorie and protein) Etiology impaired skin integrity, increased protein loss Signs/Symptoms: multiple ulcer, pt on dialysis 2. Problem Problem inadequate food intake Etiology poor appetite Signs/Symptoms: PO intake 50% 1. Problem Problem altered nutrition related labs Etiology electrolytes imbalance, hx of DM, ESRD Signs/Symptoms: Na 125, Cl 90, BUN 31, Cr 2.8, Glucose 141, POC 146-161 Malnutrition Alert Is there a minimum of two criteria No selected? Query Text:Check all the applicable criteria. A minimum of two criteria are recommended for diagnosis of either severe or non-severe malnutrition. Malnutrition Related to Morbid Obesity Malnutrition related to morbid obesity No Intervention/Recommendation Comments 1. Continue with current diet as ordered. If glucose continue high, will consider adding CCHO diet. 2. Recommend adding oral supplement Glucerna (chocolate flavor) daily to increased nutrition intake, Hever BID for wound healing. DONAVAN Stack notified. 2. Monitor PO intake, wt, labs and skin integrity 3. F/U as high risk in 2-3 days, 04/04-04/04 Expected Outcomes/Goals Expected Outcomes/Goals 1. PO intake to meet at least 75% of nutritional needs. 2. Wt stability, skin to remain intact, labs to approach WNL.
[2018-04-11] MEDS: Venelex 60gm Tube TP SCH (18:52)
[2018-04-11] MEDS: Atorvastatin Calcium 10 MG TAB PO SCH (21:00)
--- NOTE | 2018-04-11 23:53 | Infectious Disease Prog Note ---
Infectious Disease Subjective - Review of Systems Service Date: 04/11/18 Subjective: No new change, no fever. Infectious Disease Objective - Results Result Diagrams: 04/11/18 05:10 04/11/18 05:10 Recent Labs: Laboratory Last Values WBC 7.8 Th/cmm (4.8-10.8) 04/11/18 05:10 RBC 2.80 Mil/cmm (4.30-5.70) L 04/11/18 05:10 Hgb 8.9 gm/dL (12-16) L 04/11/18 05:10 Hct 26.9 % (41.0-60) L 04/11/18 05:10 MCV 96.2 fl (80-99) 04/11/18 05:10 MCH 32.0 pg (26.0-30.0) H 04/11/18 05:10 MCHC Differential 33.3 pg (28.0-36.0) 04/11/18 05:10 RDW 22.3 % (11.5-20.0) H 04/11/18 05:10 Plt Count 224 Th/cmm (150-400) 04/11/18 05:10 MPV 7.7 fl 04/11/18 05:10 Add Manual Diff YES 04/10/18 05:50 Neutrophils % 88.2 % (40.0-80.0) H 04/11/18 05:10 Band Neutrophils % 2 % (0-10) 04/11/18 05:10 Lymphocytes % 5.9 % (20.0-50.0) L 04/11/18 05:10 Monocytes % 5.1 % (2.0-10.0) 04/11/18 05:10 Eosinophils % 0.5 % (0.0-5.0) 04/11/18 05:10 Basophils % 0.3 % (0.0-2.0) 04/11/18 05:10 Neutrophils (Manual) 92 % (40-80) H 04/11/18 05:10 Lymphocytes 4 % (20-50) L 04/11/18 05:10 Monocytes 2 % (2-10) 04/11/18 05:10 Eosinophils 3 % (0-5) 04/02/18 06:00 Basophils 2 % (0-3) 04/02/18 06:00 Platelet Estimate ADEQUATE (NORMAL) 04/02/18 06:00 Platelet Morphology NORMAL (NORMAL) 03/31/18 18:25 Anisocytosis 1+ 04/11/18 05:10 RBC Morph Micro Appear ABNORMAL (NORMAL) 03/31/18 18:25 Sodium 134 mEq/L (136-145) L 04/11/18 05:10 Potassium 4.2 mEq/L (3.5-5.1) 04/11/18 05:10 Chloride 98 mEq/L (98-107) 04/11/18 05:10 Carbon Dioxide 25.7 mEq/L (21.0-31.0) 04/11/18 05:10 Anion Gap 14.5 (7.0-16.0) 04/11/18 05:10 BUN 27 mg/dL (7-25) H 04/11/18 05:10 Creatinine 2.7 mg/dL (0.7-1.3) H 04/11/18 05:10 Est GFR ( Amer) 31.2 ml/min (>90) 04/11/18 05:10 Est GFR (Non-Af Amer) 25.7 ml/min 04/11/18 05:10 BUN/Creatinine Ratio 10.0 04/11/18 05:10 Glucose 125 mg/dL (70-105) H 04/11/18 05:10 POC Glucose 164 MG/DL (70 - 105) H 04/11/18 21:13 Calcium 8.5 mg/dL (8.6-10.3) L 04/11/18 05:10 Phosphorus 4.8 mg/dL (2.5-5.0) 04/02/18 06:00 Iron 33 ug/dL (38-169) L 04/02/18 06:00 TIBC 73 ug/dL (250-450) L 04/02/18 06:00 Iron Saturation 45 % (15-55) 04/02/18 06:00 Unsaturated IBC 40 ug/dL (111-343) L 04/02/18 06:00 Ferritin 1538 ng/mL (30-400) H 04/02/18 06:00 Total Bilirubin 0.4 mg/dL (0.3-1.0) 04/10/18 05:50 AST 9 U/L (13-39) L 04/10/18 05:50 ALT 5 U/L (7-52) L 04/10/18 05:50 Alkaline Phosphatase 115 U/L (34-104) H 04/10/18 05:50 Troponin I 0.05 ng/mL (0.01-0.05) 03/31/18 18:25 B-Natriuretic Peptide > 5000.0 pg/mL (5.0-100.0) H 04/11/18 05:10 Total Protein 5.6 gm/dL (6.0-8.3) L 04/10/18 05:50 Albumin 2.4 gm/dL (4.2-5.5) L 04/10/18 05:50 Globulin 3.2 gm/dL 04/10/18 05:50 Albumin/Globulin Ratio 0.8 (1.0-1.8) L 04/10/18 05:50 Urine Source CLEAN C 03/31/18 18:45 Urine Color YELLOW 03/31/18 18:45 Urine Clarity CLOUDY (CLEAR) 03/31/18 18:45 Urine pH 6.0 (4.6 - 8.0) 03/31/18 18:45 Ur Specific [place] 1.020 (1.005-1.030) 03/31/18 18:45 Urine Protein >=300 mg/dL (NEGATIVE) 03/31/18 18:45 Urine Glucose (UA) NEGATIVE mg/dL (NEGATIVE) 03/31/18 18:45 Urine Ketones NEGATIVE mg/dL (NEGATIVE) 03/31/18 18:45 Urine Blood LARGE (NEGATIVE) H 03/31/18 18:45 Urine Nitrate NEGATIVE (NEGATIVE) 03/31/18 18:45 Urine Bilirubin NEGATIVE (NEGATIVE) 03/31/18 18:45 Urine Urobilinogen 0.2 E.U./dL (0.2 - 1.0) 03/31/18 18:45 Ur Leukocyte Esterase MODERATE (NEGATIVE) H 03/31/18 18:45 Urine RBC 50-100 /hpf (0-5) H 03/31/18 18:45 Urine WBC 25-50 /hpf (0-5) H 03/31/18 18:45 Ur Epithelial Cells NONE SEEN /lpf (FEW) 03/31/18 18:45 Urine Bacteria FEW /hpf (NONE SEEN) 03/31/18 18:45 - Physical Exam Vitals and I&O: Vital Signs Temp 97.1 F 04/11/18 20:00 Pulse 96 04/11/18 20:00 Resp 18 04/11/18 20:00 BP 116/73 04/11/18 21:00 Pulse Ox 98 04/11/18 20:00 Intake & Output 04/11/18 04/11/18 04/12/18 06:59 18:59 06:59 Intake Total 100 500 Output Total 200 100 Balance -100 400 Weight (lbs) 87.997 kg 87.997 kg Intake: Oral 100 500 Output: Urine 150 100 Urine/Stool Mix 50 Other: # Bowel Movements 1 Stool Characteristics Soft Brown Weight Source Bedscale Bedscale Active Medications: Current Medications Acetaminophen (Tylenol) 650 mg PO Q4HR PRN PRN Reason: MILD Pain or Fever >101 Stop: 05/30/18 22:21 Last Admin: 04/10/18 23:25 Dose: 650 mg Acetaminophen/Hydrocodone Bitart ([place] 5mg/325mg) 1 tab PO Q6H PRN PRN Reason: Pain (Severe) LEVEL 7-10 Stop: 06/07/18 17:24 Last Admin: 04/11/18 21:00 Dose: 1 tab Albuterol/Ipratropium (Duoneb Neb) 3 ml HHN Q6HRT [facility] Stop: 05/31/18 00:59 Last Admin: 04/11/18 19:00 Dose: 3 ml Aripiprazole (Abilify) 2 mg PO DAILY [facility]; Protocol Stop: 06/05/18 08:59 Last Admin: 04/11/18 09:53 Dose: 2 mg Ascorbic Acid (Vitamin C) 500 mg PO DAILY [facility] Stop: 05/31/18 08:59 Last Admin: 04/11/18 09:53 Dose: 500 mg Aspirin (Ecotrin) 81 mg PO DAILY [facility] Stop: 05/31/18 08:59 Last Admin: 04/11/18 09:52 Dose: 81 mg Atorvastatin Calcium (Lipitor) 20 mg PO HS [facility] Stop: 05/31/18 20:59 Last Admin: 04/11/18 21:00 Dose: 20 mg Bisacodyl (Dulcolax 10 Mg Supp) 10 mg RC DAILY PRN PRN Reason: Constipation Stop: 05/30/18 22:21 [place] Oil/[place] Balsam/Trypsin (Venelex) 1 appl TP DAILY [facility] Stop: 06/02/18 08:59 Last Admin: 04/11/18 18:52 Dose: 1 appl Dextrose (D50w) 50 ml IVP PRN PRN; Protocol PRN Reason: HYPOGLYCEMIA PROTOCOL Stop: 05/30/18 23:03 Diphenhydramine HCl (Benadryl) 25 mg PO Q6HR PRN PRN Reason: Itching Stop: 05/30/18 22:21 Last Admin: 04/11/18 21:01 Dose: 25 mg Docusate Sodium (Colace) 100 mg PO DAILY [facility] Stop: 05/31/18 08:59 Last Admin: 04/11/18 09:52 Dose: 100 mg Furosemide (Lasix) 40 mg IVP DAILY [facility] Stop: 06/11/18 18:32 Furosemide (Lasix) 40 mg IVP BID [facility] Stop: 06/10/18 19:59 Last Admin: 04/11/18 21:00 Dose: 40 mg Hydrocortisone Sodium Succinate (Solu-Cortef) 50 mg IVP Q12HR [facility] Stop: 06/08/18 20:59 Last Admin: 04/11/18 21:01 Dose: 50 mg Insulin Aspart (Novolog Insulin Sliding Scale) 0 units SUBQ ACHS [facility]; Protocol Stop: 05/31/18 07:29 Last Admin: 04/11/18 21:15 Dose: 4 units Lactobacillus Rhamnosus (Culturelle 15b) 1 each PO DAILY [facility] Stop: 06/01/18 12:59 Last Admin: 04/11/18 09:52 Dose: 1 each Levetiracetam (Keppra) 500 mg PO BID [facility] Stop: 05/31/18 08:59 Last Admin: 04/11/18 18:48 Dose: 500 mg Levothyroxine Sodium (Synthroid) 0.025 mg PO QDAC [facility] Stop: 05/31/18 07:29 Last Admin: 04/11/18 06:33 Dose: 0.025 mg Lorazepam (Ativan) 1 mg IVP Q6HR PRN; Protocol PRN Reason: Agitation Stop: 06/08/18 13:49 Last Admin: 04/11/18 21:01 Dose: 1 mg Miscellaneous (Clinical Monitoring) 1 ea MC PRN PRN PRN Reason: RENAL Stop: 06/01/18 10:15 Miscellaneous (Probiotic Screen) 1 ea MC PRN PRN PRN Reason: PROTOCOL Stop: 06/04/18 08:14 Pantoprazole Sodium (Protonix) 40 mg PO DAILY [facility] Stop: 05/31/18 08:59 Last Admin: 04/11/18 09:53 Dose: 40 mg Sodium Chloride (Nacl Tab) 1 gm PO TID [facility] Stop: 06/06/18 15:14 Last Admin: 04/11/18 21:01 Dose: 1 gm Sodium Phosphate (Fleet Enema) 135 ml RC DAILY PRN PRN Reason: Constipation Stop: 05/30/18 22:21 Vitamin B Complex/Vit C/Folic Acid (Vitamin B Complex W/Vitamin C) 1 tab PO DAILY [facility] Stop: 05/31/18 08:59 Last Admin: 04/11/18 09:53 Dose: 1 tab Zinc Sulfate (Zinc Sulfate) 220 mg PO DAILY [facility] Stop: 05/31/18 08:59 Last Admin: 04/11/18 09:52 Dose: 220 mg Infectious Disease Assmt/Plan - Assessment Assessment: 1. Sacral decubitus ulcer. 2. History of Methicillin-resistant Staphylococcus aureus infection. 3. Urinary tract infection. 4. Anemia. 5. Diabetes mellitus type 2. 6. Hypertension. - Plan Plan: off antibiotics. Wound care. Nutritional Asmnt/Malnutr-PDOC - Dietary Evaluation Malnutrition Findings (Please click <Entered> for more info): Nutritional Asmnt/Malnutrition Start: 04/02/18 16: 21 Text: Status: Complete Freq: Protocol: Document 04/02/18 16:42 [email or web address] (Rec: 04/02/18 17:12 JAZZ [email or web address]) Nutritional Asmnt/Malnutrition Patient General Information Nutritional Screening High Risk Consult Diagnosis UTI, renal failure Pertinent Medical Hx/Surgical Hx HTN, DM, CVA/TIA, ESRD, dementia Subjective Information Consult for multiple ulcer. Pt seen lying in bed at time of visit, awake and alert. Pt reported appetite was not good , requesting for oral supplement (chocolate flavor only). Per nurse, pt will start dialysis. Pt has multiple wounds noted. Current Diet Order/ Nutrition Support 2gm sodium, renal Pertinent Medications vit C, D5-0.45ns, colace, novolog, culturelle, levaquin, synthroid, protonix, vit B complex w/ vit C, zinc Pertinent Labs 04/02 Na 125, Cl 90, BUN 31, Cr 2.8, glucose 141, POc 146-161 Nutritional Hx/Data Height 1.8 m Height (Calculated Centimeters) 180.3 Current Weight (lbs) 91.626 kg Weight (Calculated Kilograms) 91.6 Weight (Calculated Grams) 91757.7 [place] Body Weight 172 Body Mass Index (BMI) 28.1 GI Symptoms Skin Integrity/Comment: 3+ pitting adema to right upper extremity, 1+ pitting edemat to left arm reddened to right buttocks, ulcer to left buttocks, left and right arms Current %PO Fair (50-74%) Estimated Nutritional Goals BEE in Kcals: Adj wt of IBW Calories/Kcals/Kg 25-30 Kcals Calculated 8868-7062 Protein: Adj wt of IBW Protein g/k.1-1.3 Protein Calculated 89-105 Fluid: ml 2024-243ml (1ml/kcal) Nutritional Problem 3. Problem Problem increased nutrition needs ( calorie and protein) Etiology impaired skin integrity, increased protein loss Signs/Symptoms: multiple ulcer, pt on dialysis 2. Problem Problem inadequate food intake Etiology poor appetite Signs/Symptoms: PO intake 50% 1. Problem Problem altered nutrition related labs Etiology electrolytes imbalance, hx of DM, ESRD Signs/Symptoms: Na 125, Cl 90, BUN 31, Cr 2.8, Glucose 141, POC 146-161 Malnutrition Alert Is there a minimum of two criteria No selected? Query Text:Check all the applicable criteria. A minimum of two criteria are recommended for diagnosis of either severe or non-severe malnutrition. Malnutrition Related to Morbid Obesity Malnutrition related to morbid obesity No Intervention/Recommendation Comments 1. Continue with current diet as ordered. If glucose continue high, will consider adding CCHO diet. 2. Recommend adding oral supplement Glucerna (chocolate flavor) daily to increased nutrition intake, Hever BID for wound healing. RN Seda notified. 2. Monitor PO intake, wt, labs and skin integrity 3. F/U as high risk in 2-3 days, 04/04-04/04 Expected Outcomes/Goals Expected Outcomes/Goals 1. PO intake to meet at least 75% of nutritional needs. 2. Wt stability, skin to remain intact, labs to approach WNL.
[2018-04-12] MEDS ORDERED: Heparin Sod 1,000 Units/mL 10ml HD SCH
[2018-04-12] MEDS: Albuterol/Ipratropium Neb 3 ML AERS HHN SCH ×4 (00:49→19:45)
[2018-04-12 07:19] LABS: INR 1.24 (0.5-1.4)
--- NOTE | 2018-04-12 09:32 | General Progress Note ---
Subjective - Review of Systems Service Date: 04/12/18 Events since last encounter: clearance for surgery not given by [employer] Objective - Results Result Diagrams: 04/11/18 05:10 04/11/18 05:10 Recent Labs: Laboratory Last Values WBC 7.8 Th/cmm (4.8-10.8) 04/11/18 05:10 RBC 2.80 Mil/cmm (4.30-5.70) L 04/11/18 05:10 Hgb 8.9 gm/dL (12-16) L 04/11/18 05:10 Hct 26.9 % (41.0-60) L 04/11/18 05:10 MCV 96.2 fl (80-99) 04/11/18 05:10 MCH 32.0 pg (26.0-30.0) H 04/11/18 05:10 MCHC Differential 33.3 pg (28.0-36.0) 04/11/18 05:10 RDW 22.3 % (11.5-20.0) H 04/11/18 05:10 Plt Count 224 Th/cmm (150-400) 04/11/18 05:10 MPV 7.7 fl 04/11/18 05:10 Add Manual Diff YES 04/10/18 05:50 Neutrophils % 88.2 % (40.0-80.0) H 04/11/18 05:10 Band Neutrophils % 2 % (0-10) 04/11/18 05:10 Lymphocytes % 5.9 % (20.0-50.0) L 04/11/18 05:10 Monocytes % 5.1 % (2.0-10.0) 04/11/18 05:10 Eosinophils % 0.5 % (0.0-5.0) 04/11/18 05:10 Basophils % 0.3 % (0.0-2.0) 04/11/18 05:10 Neutrophils (Manual) 92 % (40-80) H 04/11/18 05:10 Lymphocytes 4 % (20-50) L 04/11/18 05:10 Monocytes 2 % (2-10) 04/11/18 05:10 Eosinophils 3 % (0-5) 04/02/18 06:00 Basophils 2 % (0-3) 04/02/18 06:00 Platelet Estimate ADEQUATE (NORMAL) 04/02/18 06:00 Platelet Morphology NORMAL (NORMAL) 03/31/18 18:25 Anisocytosis 1+ 04/11/18 05:10 RBC Morph Micro Appear ABNORMAL (NORMAL) 03/31/18 18:25 PT 13.0 SECONDS (9.5-11.5) H 04/12/18 06:35 INR 1.24 (0.5-1.4) 04/12/18 06:35 Sodium 134 mEq/L (136-145) L 04/11/18 05:10 Potassium 4.2 mEq/L (3.5-5.1) 04/11/18 05:10 Chloride 98 mEq/L (98-107) 04/11/18 05:10 Carbon Dioxide 25.7 mEq/L (21.0-31.0) 04/11/18 05:10 Anion Gap 14.5 (7.0-16.0) 04/11/18 05:10 BUN 27 mg/dL (7-25) H 04/11/18 05:10 Creatinine 2.7 mg/dL (0.7-1.3) H 04/11/18 05:10 Est GFR ( Amer) 31.2 ml/min (>90) 04/11/18 05:10 Est GFR (Non-Af Amer) 25.7 ml/min 04/11/18 05:10 BUN/Creatinine Ratio 10.0 04/11/18 05:10 Glucose 125 mg/dL (70-105) H 04/11/18 05:10 POC Glucose 161 MG/DL (70 - 105) H 04/12/18 06:56 Calcium 8.5 mg/dL (8.6-10.3) L 04/11/18 05:10 Phosphorus 4.8 mg/dL (2.5-5.0) 04/02/18 06:00 Iron 33 ug/dL (38-169) L 04/02/18 06:00 TIBC 73 ug/dL (250-450) L 04/02/18 06:00 Iron Saturation 45 % (15-55) 04/02/18 06:00 Unsaturated IBC 40 ug/dL (111-343) L 04/02/18 06:00 Ferritin 1538 ng/mL (30-400) H 04/02/18 06:00 Total Bilirubin 0.4 mg/dL (0.3-1.0) 04/10/18 05:50 AST 9 U/L (13-39) L 04/10/18 05:50 ALT 5 U/L (7-52) L 04/10/18 05:50 Alkaline Phosphatase 115 U/L (34-104) H 04/10/18 05:50 Troponin I 0.05 ng/mL (0.01-0.05) 03/31/18 18:25 B-Natriuretic Peptide > 5000.0 pg/mL (5.0-100.0) H 04/12/18 06:35 Total Protein 5.6 gm/dL (6.0-8.3) L 04/10/18 05:50 Albumin 2.4 gm/dL (4.2-5.5) L 04/10/18 05:50 Globulin 3.2 gm/dL 04/10/18 05:50 Albumin/Globulin Ratio 0.8 (1.0-1.8) L 04/10/18 05:50 Urine Source CLEAN C 03/31/18 18:45 Urine Color YELLOW 03/31/18 18:45 Urine Clarity CLOUDY (CLEAR) 03/31/18 18:45 Urine pH 6.0 (4.6 - 8.0) 03/31/18 18:45 Ur Specific [place] 1.020 (1.005-1.030) 03/31/18 18:45 Urine Protein >=300 mg/dL (NEGATIVE) 03/31/18 18:45 Urine Glucose (UA) NEGATIVE mg/dL (NEGATIVE) 03/31/18 18:45 Urine Ketones NEGATIVE mg/dL (NEGATIVE) 03/31/18 18:45 Urine Blood LARGE (NEGATIVE) H 03/31/18 18:45 Urine Nitrate NEGATIVE (NEGATIVE) 03/31/18 18:45 Urine Bilirubin NEGATIVE (NEGATIVE) 03/31/18 18:45 Urine Urobilinogen 0.2 E.U./dL (0.2 - 1.0) 03/31/18 18:45 Ur Leukocyte Esterase MODERATE (NEGATIVE) H 03/31/18 18:45 Urine RBC 50-100 /hpf (0-5) H 03/31/18 18:45 Urine WBC 25-50 /hpf (0-5) H 07/14/18 18:45 Ur Epithelial Cells NONE SEEN /lpf (FEW) 03/31/18 18:45 Urine Bacteria FEW /hpf (NONE SEEN) 03/31/18 18:45 - Physical Exam Vitals and I&O: Vital Signs Temp 96.4 F 04/12/18 07:53 Pulse 93 04/12/18 07:53 Resp 20 04/12/18 07:53 BP 112/69 04/12/18 07:53 Pulse Ox 98 04/12/18 07:53 Intake & Output 04/11/18 04/12/18 04/12/18 18:59 06:59 18:59 Intake Total 500 600 Output Total 100 Balance 400 600 Weight (lbs) 87.997 kg 87.997 kg Intake: Oral 500 600 Output: Urine 100 Other: Weight Source Bedscale Bedscale Active Medications: Current Medications Acetaminophen (Tylenol) 650 mg PO Q4HR PRN PRN Reason: MILD Pain or Fever >101 Stop: 05/30/18 22:21 Last Admin: 04/10/18 23:25 Dose: 650 mg Acetaminophen/Hydrocodone Bitart ([place] 5mg/325mg) 1 tab PO Q6H PRN PRN Reason: Pain (Severe) LEVEL 7-10 Stop: 06/07/18 17:24 Last Admin: 04/11/18 21:00 Dose: 1 tab Albuterol/Ipratropium (Duoneb Neb) 3 ml HHN Q6HRT COUNTS INCLUDE 234 BEDS AT THE [facility] Stop: 05/31/18 00:59 Last Admin: 04/12/18 07:13 Dose: 3 ml Aripiprazole (Abilify) 2 mg PO DAILY COUNTS INCLUDE 234 BEDS AT THE [facility]; Protocol Stop: 06/05/18 08:59 Last Admin: 04/11/18 09:53 Dose: 2 mg Ascorbic Acid (Vitamin C) 500 mg PO DAILY COUNTS INCLUDE 234 BEDS AT THE [facility] Stop: 05/31/18 08:59 Last Admin: 04/11/18 09:53 Dose: 500 mg Aspirin (Ecotrin) 81 mg PO DAILY COUNTS INCLUDE 234 BEDS AT THE [facility] Stop: 05/31/18 08:59 Last Admin: 04/11/18 09:52 Dose: 81 mg Atorvastatin Calcium (Lipitor) 20 mg PO HS COUNTS INCLUDE 234 BEDS AT THE [facility] Stop: 05/31/18 20:59 Last Admin: 04/11/18 21:00 Dose: 20 mg Bisacodyl (Dulcolax 10 Mg Supp) 10 mg RC DAILY PRN PRN Reason: Constipation Stop: 05/30/18 22:21 [place] Oil/[place] Balsam/Trypsin (Venelex) 1 appl TP DAILY [facility] Stop: 06/02/18 08:59 Last Admin: 04/11/18 18:52 Dose: 1 appl Dextrose (D50w) 50 ml IVP PRN PRN; Protocol PRN Reason: HYPOGLYCEMIA PROTOCOL Stop: 05/30/18 23:03 Diphenhydramine HCl (Benadryl) 25 mg PO Q6HR PRN PRN Reason: Itching Stop: 05/30/18 22:21 Last Admin: 04/11/18 21:01 Dose: 25 mg Docusate Sodium (Colace) 100 mg PO DAILY [facility] Stop: 05/31/18 08:59 Last Admin: 04/11/18 09:52 Dose: 100 mg Furosemide (Lasix) 40 mg IVP DAILY [facility] Stop: 06/11/18 18:32 Furosemide (Lasix) 40 mg IVP BID I[facility] Stop: 06/10/18 19:59 Last Admin: 04/11/18 21:00 Dose: 40 mg Hydrocortisone Sodium Succinate (Solu-Cortef) 50 mg IVP Q12HR [facility] Stop: 06/08/18 20:59 Last Admin: 04/11/18 21:01 Dose: 50 mg Insulin Aspart (Novolog Insulin Sliding Scale) 0 units SUBQ ACHS [facility]; Protocol Stop: 05/31/18 07:29 Last Admin: 04/11/18 21:15 Dose: 4 units Lactobacillus Rhamnosus (Culturelle 15b) 1 each PO DAILY I[facility] Stop: 06/01/18 12:59 Last Admin: 04/11/18 09:52 Dose: 1 each Levetiracetam (Keppra) 500 mg PO BID I[facility] Stop: 05/31/18 08:59 Last Admin: 04/11/18 18:48 Dose: 500 mg Levothyroxine Sodium (Synthroid) 0.025 mg PO QDAC [facility] Stop: 05/31/18 07:29 Last Admin: 04/11/18 06:33 Dose: 0.025 mg Lorazepam (Ativan) 1 mg IVP Q6HR PRN; Protocol PRN Reason: Agitation Stop: 06/08/18 13:49 Last Admin: 04/11/18 21:01 Dose: 1 mg Miscellaneous (Clinical Monitoring) 1 ea PRN PRN PRN Reason: RENAL Stop: 06/01/18 10:15 Miscellaneous (Probiotic Screen) 1 ea PRN PRN PRN Reason: PROTOCOL Stop: 06/04/18 08:14 Pantoprazole Sodium (Protonix) 40 mg PO DAILY [facility] Stop: 05/31/18 08:59 Last Admin: 04/11/18 09:53 Dose: 40 mg Sodium Chloride (Nacl Tab) 1 gm PO TID I[facility] Stop: 06/06/18 15:14 Last Admin: 04/11/18 21:01 Dose: 1 gm Sodium Phosphate (Fleet Enema) 135 ml RC DAILY PRN PRN Reason: Constipation Stop: 05/30/18 22:21 Vitamin B Complex/Vit C/Folic Acid (Vitamin B Complex W/Vitamin C) 1 tab PO DAILY [facility] Stop: 05/31/18 08:59 Last Admin: 04/11/18 09:53 Dose: 1 tab Zinc Sulfate (Zinc Sulfate) 220 mg PO DAILY [facility] Stop: 05/31/18 08:59 Last Admin: 04/11/18 09:52 Dose: 220 mg General: No acute distress HEENT: Atraumatic Neck: Supple Cardiovascular: Regular rate, Normal S1, Normal S2 Lungs: Clear to auscultation Abdomen: Bowel sounds Nutritional Asmnt/Malnutr-PDOC - Dietary Evaluation Malnutrition Findings (Please click <Entered> for more info): Nutritional Asmnt/Malnutrition Start: 04/02/18 16: 21 Text: Status: Complete Freq: Protocol: Document 04/02/18 16:42 LCHENG (Rec: 04/02/18 17:12 JAZZ [email or web address]) Nutritional Asmnt/Malnutrition Patient General Information Nutritional Screening High Risk Consult Diagnosis UTI, renal failure Pertinent Medical Hx/Surgical Hx HTN, DM, CVA/TIA, ESRD, dementia Subjective Information Consult for multiple ulcer. Pt seen lying in bed at time of visit, awake and alert. Pt reported appetite was not good , requesting for oral supplement (chocolate flavor only). Per nurse, pt will start dialysis. Pt has multiple wounds noted. Current Diet Order/ Nutrition Support 2gm sodium, renal Pertinent Medications vit C, D5-0.45ns, colace, novolog, culturelle, levaquin, synthroid, protonix, vit B complex w/ vit C, zinc Pertinent Labs 04/02 Na 125, Cl 90, BUN 31, Cr 2.8, glucose 141, POc 146-161 Nutritional Hx/Data Height 1.8 m Height (Calculated Centimeters) 180.3 Current Weight (lbs) 91.626 kg Weight (Calculated Kilograms) 91.6 Weight (Calculated Grams) 52927.7 [place] Body Weight 172 Body Mass Index (BMI) 28.1 GI Symptoms Skin Integrity/Comment: 3+ pitting adema to right upper extremity, 1+ pitting edemat to left arm reddened to right buttocks, ulcer to left buttocks, left and right arms Current %PO Fair (50-74%) Estimated Nutritional Goals BEE in Kcals: Adj wt of IBW Calories/Kcals/Kg 25-30 Kcals Calculated 9232-4847 Protein: Adj wt of IBW Protein g/k.1-1.3 Protein Calculated 89-105 Fluid: ml 2024-243ml (1ml/kcal) Nutritional Problem 3. Problem Problem increased nutrition needs ( calorie and protein) Etiology impaired skin integrity, increased protein loss Signs/Symptoms: multiple ulcer, pt on dialysis 2. Problem Problem inadequate food intake Etiology poor appetite Signs/Symptoms: PO intake 50% 1. Problem Problem altered nutrition related labs Etiology electrolytes imbalance, hx of DM, ESRD Signs/Symptoms: Na 125, Cl 90, BUN 31, Cr 2.8, Glucose 141, POC 146-161 Malnutrition Alert Is there a minimum of two criteria No selected? Query Text:Check all the applicable criteria. A minimum of two criteria are recommended for diagnosis of either severe or non-severe malnutrition. Malnutrition Related to Morbid Obesity Malnutrition related to morbid obesity No Intervention/Recommendation Comments 1. Continue with current diet as ordered. If glucose continue high, will consider adding CCHO diet. 2. Recommend adding oral supplement Glucerna (chocolate flavor) daily to increased nutrition intake, Hever BID for wound healing. DONAVAN Stack notified. 2. Monitor PO intake, wt, labs and skin integrity 3. F/U as high risk in 2-3 days, 04/04-04/04 Expected Outcomes/Goals Expected Outcomes/Goals 1. PO intake to meet at least 75% of nutritional needs. 2. Wt stability, skin to remain intact, labs to approach WNL.
[2018-04-12] MEDS: Levothyroxine 0.025 Mg Tab PO SCH (09:52)
[2018-04-12] MEDS: Vitamin B Complex w/Vitamin C Tab PO SCH (09:52)
[2018-04-12] MEDS: Multivitamin w/ Minerals Tab PO SCH (09:52)
[2018-04-12] MEDS: INSULIN ASPART SLIDING SCALE 100 UNITS/ML UNIT SUBQ SCH ×4 (09:52→22:55)
[2018-04-12] MEDS: Hydrocortisone Sodium Succ 100 mg Vial IVP SCH ×2 (09:53→21:35)
[2018-04-12] MEDS: Pantoprazole 40 mg EC Tab PO SCH (09:53)
[2018-04-12] MEDS: Lactobacillus Rhamnosus GG 15 Billion CFU CAP.SPRINK PO SCH (09:53)
--- NOTE | 2018-04-12 09:53 | Progress Notes ---
DATE: PSYCHIATRIC CONSULT FOLLOWUP SUBJECTIVE: Chart reviewed and the patient interviewed. Also discussed the patient's condition with the staff and reviewed records and labs. The patient continued to be extremely angry and is in irritable mood. The patient also is still demanding and restless and "I need ice pack." The patient has difficulty making decisions and he is demanding and just trying to get attention. Otherwise, the patient continued to comply with taking medications. No major behavioral problems. ASSESSMENT: The patient is still agitated and has periods of irritability, but no major problems. TREATMENT PLAN: Continue to monitor his medications and his condition closely and continue to work on his poor impulse control and continue to follow up. JOB# [id number]
[2018-04-12] MEDS ORDERED: Heparin Sodium 1,000 Units/mL Vial ONE (12:43)
[2018-04-12] MEDS: Venelex 60gm Tube TP SCH (13:00)
--- NOTE | 2018-04-12 13:12 | Diagnostic Imaging Report ---
Portable chest x-ray HISTORY: Shortness of breath Compared with prior exam of March 31, 2018, the heart remains enlarged. Evidence of bilateral pleural effusions. Surgical hardware noted within the thoracic spine. A right-sided vascular catheter tip is in the region of the superior vena cava. IMPRESSION: 1. Cardiomegaly 2. Bilateral pleural effusions
--- NOTE | 2018-04-12 16:15 | General Progress Note ---
Subjective - Review of Systems Subjective: Awake, alert, NAD Objective - Results Result Diagrams: 04/11/18 05:10 04/11/18 05:10 Recent Labs: Laboratory Last Values WBC 7.8 Th/cmm (4.8-10.8) 04/11/18 05:10 RBC 2.80 Mil/cmm (4.30-5.70) L 04/11/18 05:10 Hgb 8.9 gm/dL (12-16) L 04/11/18 05:10 Hct 26.9 % (41.0-60) L 04/11/18 05:10 MCV 96.2 fl (80-99) 04/11/18 05:10 MCH 32.0 pg (26.0-30.0) H 04/11/18 05:10 MCHC Differential 33.3 pg (28.0-36.0) 04/11/18 05:10 RDW 22.3 % (11.5-20.0) H 04/11/18 05:10 Plt Count 224 Th/cmm (150-400) 04/11/18 05:10 MPV 7.7 fl 04/11/18 05:10 Add Manual Diff YES 04/10/18 05:50 Neutrophils % 88.2 % (40.0-80.0) H 04/11/18 05:10 Band Neutrophils % 2 % (0-10) 04/11/18 05:10 Lymphocytes % 5.9 % (20.0-50.0) L 04/11/18 05:10 Monocytes % 5.1 % (2.0-10.0) 04/11/18 05:10 Eosinophils % 0.5 % (0.0-5.0) 04/11/18 05:10 Basophils % 0.3 % (0.0-2.0) 04/11/18 05:10 Neutrophils (Manual) 92 % (40-80) H 04/11/18 05:10 Lymphocytes 4 % (20-50) L 04/11/18 05:10 Monocytes 2 % (2-10) 04/11/18 05:10 Eosinophils 3 % (0-5) 04/02/18 06:00 Basophils 2 % (0-3) 04/02/18 06:00 Platelet Estimate ADEQUATE (NORMAL) 04/02/18 06:00 Platelet Morphology NORMAL (NORMAL) 03/31/18 18:25 Anisocytosis 1+ 04/11/18 05:10 RBC Morph Micro Appear ABNORMAL (NORMAL) 03/31/18 18:25 PT 13.0 SECONDS (9.5-11.5) H 04/12/18 06:35 INR 1.24 (0.5-1.4) 04/12/18 06:35 Sodium 134 mEq/L (136-145) L 04/11/18 05:10 Potassium 4.2 mEq/L (3.5-5.1) 04/11/18 05:10 Chloride 98 mEq/L (98-107) 04/11/18 05:10 Carbon Dioxide 25.7 mEq/L (21.0-31.0) 04/11/18 05:10 Anion Gap 14.5 (7.0-16.0) 04/11/18 05:10 BUN 27 mg/dL (7-25) H 04/11/18 05:10 Creatinine 2.7 mg/dL (0.7-1.3) H 04/11/18 05:10 Est GFR ( Amer) 31.2 ml/min (>90) 04/11/18 05:10 Est GFR (Non-Af Amer) 25.7 ml/min 04/11/18 05:10 BUN/Creatinine Ratio 10.0 04/11/18 05:10 Glucose 125 mg/dL (70-105) H 04/11/18 05:10 POC Glucose 161 MG/DL (70 - 105) H 04/12/18 06:56 Calcium 8.5 mg/dL (8.6-10.3) L 04/11/18 05:10 Phosphorus 4.8 mg/dL (2.5-5.0) 04/02/18 06:00 Iron 33 ug/dL (38-169) L 04/02/18 06:00 TIBC 73 ug/dL (250-450) L 04/02/18 06:00 Iron Saturation 45 % (15-55) 04/02/18 06:00 Unsaturated IBC 40 ug/dL (111-343) L 04/02/18 06:00 Ferritin 1538 ng/mL (30-400) H 04/02/18 06:00 Total Bilirubin 0.4 mg/dL (0.3-1.0) 04/10/18 05:50 AST 9 U/L (13-39) L 04/10/18 05:50 ALT 5 U/L (7-52) L 04/10/18 05:50 Alkaline Phosphatase 115 U/L (34-104) H 04/10/18 05:50 Troponin I 0.05 ng/mL (0.01-0.05) 03/31/18 18:25 B-Natriuretic Peptide > 5000.0 pg/mL (5.0-100.0) H 04/12/18 06:35 Total Protein 5.6 gm/dL (6.0-8.3) L 04/10/18 05:50 Albumin 2.4 gm/dL (4.2-5.5) L 04/10/18 05:50 Globulin 3.2 gm/dL 04/10/18 05:50 Albumin/Globulin Ratio 0.8 (1.0-1.8) L 04/10/18 05:50 Urine Source CLEAN C 03/31/18 18:45 Urine Color YELLOW 03/31/18 18:45 Urine Clarity CLOUDY (CLEAR) 03/31/18 18:45 Urine pH 6.0 (4.6 - 8.0) 03/31/18 18:45 Ur Specific [place] 1.020 (1.005-1.030) 03/31/18 18:45 Urine Protein >=300 mg/dL (NEGATIVE) 03/31/18 18:45 Urine Glucose (UA) NEGATIVE mg/dL (NEGATIVE) 03/31/18 18:45 Urine Ketones NEGATIVE mg/dL (NEGATIVE) 03/31/18 18:45 Urine Blood LARGE (NEGATIVE) H 03/31/18 18:45 Urine Nitrate NEGATIVE (NEGATIVE) 03/31/18 18:45 Urine Bilirubin NEGATIVE (NEGATIVE) 03/31/18 18:45 Urine Urobilinogen 0.2 E.U./dL (0.2 - 1.0) 03/31/18 18:45 Ur Leukocyte Esterase MODERATE (NEGATIVE) H 03/31/18 18:45 Urine RBC 50-100 /hpf (0-5) H 03/31/18 18:45 Urine WBC 25-50 /hpf (0-5) H 03/31/18 18:45 Ur Epithelial Cells NONE SEEN /lpf (FEW) 03/31/18 18:45 Urine Bacteria FEW /hpf (NONE SEEN) 03/31/18 18:45 - Physical Exam Vitals and I&O: Vital Signs Temp 97.2 F 04/12/18 15:55 Pulse 100 04/12/18 15:55 Resp 20 04/12/18 15:55 BP 111/63 04/12/18 15:55 Pulse Ox 96 04/12/18 15:55 Intake & Output 04/11/18 04/12/18 04/12/18 18:59 06:59 18:59 Intake Total 500 600 Output Total 100 Balance 400 600 Weight (lbs) 87.997 kg 87.997 kg Intake: Oral 500 600 Output: Urine 100 Other: Weight Source Bedscale Bedscale Active Medications: Current Medications Acetaminophen (Tylenol) 650 mg PO Q4HR PRN PRN Reason: MILD Pain or Fever >101 Stop: 05/30/18 22:21 Last Admin: 04/10/18 23:25 Dose: 650 mg Acetaminophen/Hydrocodone Bitart ([place] 5mg/325mg) 1 tab PO Q6H PRN PRN Reason: Pain (Severe) LEVEL 7-10 Stop: 06/07/18 17:24 Last Admin: 04/11/18 21:00 Dose: 1 tab Albuterol/Ipratropium (Duoneb Neb) 3 ml HHN Q6HRT [facility] Stop: 05/31/18 00:59 Last Admin: 04/12/18 14:04 Dose: 3 ml Aripiprazole (Abilify) 2 mg PO DAILY [facility]; Protocol Stop: 06/05/18 08:59 Last Admin: 04/12/18 09:57 Dose: 2 mg Ascorbic Acid (Vitamin C) 500 mg PO DAILY [facility] Stop: 05/31/18 08:59 Last Admin: 04/12/18 09:53 Dose: 500 mg Aspirin (Ecotrin) 81 mg PO DAILY [facility] Stop: 05/31/18 08:59 Last Admin: 04/12/18 09:53 Dose: 81 mg Atorvastatin Calcium (Lipitor) 20 mg PO HS [facility] Stop: 05/31/18 20:59 Last Admin: 04/11/18 21:00 Dose: 20 mg Bisacodyl (Dulcolax 10 Mg Supp) 10 mg RC DAILY PRN PRN Reason: Constipation Stop: 05/30/18 22:21 [place] Oil/[place] Balsam/Trypsin (Venelex) 1 appl TP DAILY [facility] Stop: 06/02/18 08:59 Last Admin: 04/12/18 13:00 Dose: 1 appl Dextrose (D50w) 50 ml IVP PRN PRN; Protocol PRN Reason: HYPOGLYCEMIA PROTOCOL Stop: 05/30/18 23:03 Diphenhydramine HCl (Benadryl) 25 mg PO Q6HR PRN PRN Reason: Itching Stop: 05/30/18 22:21 Last Admin: 04/11/18 21:01 Dose: 25 mg Docusate Sodium (Colace) 100 mg PO DAILY [facility] Stop: 05/31/18 08:59 Last Admin: 04/12/18 09:53 Dose: 100 mg Furosemide (Lasix) 40 mg IVP DAILY [facility] Stop: 06/11/18 18:32 Last Admin: 04/12/18 09:56 Dose: 40 mg Furosemide (Lasix) 40 mg IVP BID [facility] Stop: 06/10/18 19:59 Last Admin: 04/12/18 10:03 Dose: 40 mg Hydrocortisone Sodium Succinate (Solu-Cortef) 50 mg IVP Q12HR [facility] Stop: 06/08/18 20:59 Last Admin: 04/12/18 09:53 Dose: 50 mg Insulin Aspart (Novolog Insulin Sliding Scale) 0 units SUBQ ACHS [facility]; Protocol Stop: 05/31/18 07:29 Last Admin: 04/12/18 13:05 Dose: 4 units Lactobacillus Rhamnosus (Culturelle 15b) 1 each PO DAILY [facility] Stop: 06/01/18 12:59 Last Admin: 04/12/18 09:53 Dose: 1 each Levetiracetam (Keppra) 500 mg PO BID [facility] Stop: 05/31/18 08:59 Last Admin: 04/12/18 09:52 Dose: 500 mg Levothyroxine Sodium (Synthroid) 0.025 mg PO QDAC [facility] Stop: 05/31/18 07:29 Last Admin: 04/12/18 09:52 Dose: Not Given Lorazepam (Ativan) 1 mg IVP Q6HR PRN; Protocol PRN Reason: Agitation Stop: 06/08/18 13:49 Last Admin: 04/11/18 21:01 Dose: 1 mg Miscellaneous (Clinical Monitoring) 1 ea MC PRN PRN PRN Reason: RENAL Stop: 06/01/18 10:15 Miscellaneous (Probiotic Screen) 1 ea PRN PRN PRN Reason: PROTOCOL Stop: 06/04/18 08:14 Pantoprazole Sodium (Protonix) 40 mg PO DAILY [facility] Stop: 05/31/18 08:59 Last Admin: 04/12/18 09:53 Dose: 40 mg Sodium Chloride (Nacl Tab) 1 gm PO TID [facility] Stop: 06/06/18 15:14 Last Admin: 04/12/18 09:59 Dose: 1 gm Sodium Phosphate (Fleet Enema) 135 ml RC DAILY PRN PRN Reason: Constipation Stop: 05/30/18 22:21 Vitamin B Complex/Vit C/Folic Acid (Vitamin B Complex W/Vitamin C) 1 tab PO DAILY [facility] Stop: 05/31/18 08:59 Last Admin: 04/12/18 09:52 Dose: 1 tab Zinc Sulfate (Zinc Sulfate) 220 mg PO DAILY [facility] Stop: 05/31/18 08:59 Last Admin: 04/12/18 09:53 Dose: 220 mg General: No acute distress HEENT: Atraumatic Neck: Supple Cardiovascular: Regular rate, Normal S1, Normal S2 Lungs: Clear to auscultation Abdomen: Bowel sounds Assessment/Plan - Assessment Assessment: Sacral decubitus ulcer H/o MRSA UTI Anemia Type 2 Diabetes HTN - Plan Plan: as per order sheet CPM wound care Nutritional Asmnt/Malnutr-PDOC - Dietary Evaluation Malnutrition Findings (Please click <Entered> for more info): Nutritional Asmnt/Malnutrition Start: 04/02/18 16: 21 Text: Status: Complete Freq: Protocol: Document 04/02/18 16:42 LCHENG (Rec: 04/02/18 17:12 LCHENG [email or web address]) Nutritional Asmnt/Malnutrition Patient General Information Nutritional Screening High Risk Consult Diagnosis UTI, renal failure Pertinent Medical Hx/Surgical Hx HTN, DM, CVA/TIA, ESRD, dementia Subjective Information Consult for multiple ulcer. Pt seen lying in bed at time of visit, awake and alert. Pt reported appetite was not good , requesting for oral supplement (chocolate flavor only). Per nurse, pt will start dialysis. Pt has multiple wounds noted. Current Diet Order/ Nutrition Support 2gm sodium, renal Pertinent Medications vit C, D5-0.45ns, colace, novolog, culturelle, levaquin, synthroid, protonix, vit B complex w/ vit C, zinc Pertinent Labs 04/02 Na 125, Cl 90, BUN 31, Cr 2.8, glucose 141, POc 146-161 Nutritional Hx/Data Height 1.8 m Height (Calculated Centimeters) 180.3 Current Weight (lbs) 91.626 kg Weight (Calculated Kilograms) 91.6 Weight (Calculated Grams) 06377.7 [place] Body Weight 172 Body Mass Index (BMI) 28.1 GI Symptoms Skin Integrity/Comment: 3+ pitting adema to right upper extremity, 1+ pitting edemat to left arm reddened to right buttocks, ulcer to left buttocks, left and right arms Current %PO Fair (50-74%) Estimated Nutritional Goals BEE in Kcals: Adj wt of IBW Calories/Kcals/Kg 25-30 Kcals Calculated 2101-7197 Protein: Adj wt of IBW Protein g/k.1-1.3 Protein Calculated 89-105 Fluid: ml 2024-243ml (1ml/kcal) Nutritional Problem 3. Problem Problem increased nutrition needs ( calorie and protein) Etiology impaired skin integrity, increased protein loss Signs/Symptoms: multiple ulcer, pt on dialysis 2. Problem Problem inadequate food intake Etiology poor appetite Signs/Symptoms: PO intake 50% 1. Problem Problem altered nutrition related labs Etiology electrolytes imbalance, hx of DM, ESRD Signs/Symptoms: Na 125, Cl 90, BUN 31, Cr 2.8, Glucose 141, POC 146-161 Malnutrition Alert Is there a minimum of two criteria No selected? Query Text:Check all the applicable criteria. A minimum of two criteria are recommended for diagnosis of either severe or non-severe malnutrition. Malnutrition Related to Morbid Obesity Malnutrition related to morbid obesity No Intervention/Recommendation Comments 1. Continue with current diet as ordered. If glucose continue high, will consider adding CCHO diet. 2. Recommend adding oral supplement Glucerna (chocolate flavor) daily to increased nutrition intake, Hever BID for wound healing. DONAVAN Stack notified. 2. Monitor PO intake, wt, labs and skin integrity 3. F/U as high risk in 2-3 days, 04/04-04/04 Expected Outcomes/Goals Expected Outcomes/Goals 1. PO intake to meet at least 75% of nutritional needs. 2. Wt stability, skin to remain intact, labs to approach WNL.
[2018-04-12] MEDS: Hydrocodone/APAP 5mg/325mg Tab PO PRN (21:34)
[2018-04-12] MEDS: Atorvastatin Calcium 10 MG TAB PO SCH (21:35)
[2018-04-13 06:31] LABS: % BASOPHILS 0.3 % (0.0-2.0); % EOSINOPHILS 0.3 % (0.0-5.0); % LYMPHOCYTES 6.4 % (20.0-50.0); % MONOCYTES 4.9 % (2.0-10.0); % NEUTROPHILS 88.1 % (40.0-80.0); HEMATOCRIT 30.3 % (41.0-60); LYMPHOCYTE ABSOLUTE 0.7 Th/cmm (1.5-3.0); MEAN CELL VOLUME 96.1 fl (80-99); MEAN CORPUSCULAR HEMOGLOBIN 31.7 pg (26.0-30.0); MEAN PLATELET VOLUME 7.5 fl; MONOCYTE ABSOLUTE 0.5 Th/cmm (0.3-1.0); NEUTROPHILE ABSOLUTE 9.5 Th/cmm (1.8-8.0); PLATELET COUNT 224 Th/cmm (150-400); RED BLOOD COUNT 3.15 Mil/cmm (4.30-5.70); RED CELL DISTRIBUTION WIDTH 21.6 % (11.5-20.0); WHITE BLOOD COUNT 10.7 Th/cmm (4.8-10.8)
[2018-04-13 06:52] LABS: ALB/GLOB RATIO 0.8 (1.0-1.8); ALBUMIN 2.5 gm/dL (4.2-5.5); ANION GAP 12.7 (7.0-16.0); BILIRUBIN,TOTAL 0.5 mg/dL (0.3-1.0); CALCIUM SERUM 8.5 mg/dL (8.6-10.3); CARBON DIOXIDE 24.6 mEq/L (21.0-31.0); CREATININE - SERUM 2.3 mg/dL (0.7-1.3); GFR AFRICAN-AMERICAN 37.5 ml/min (>90); POTASSIUM SERUM 4.3 mEq/L (3.5-5.1); TOTAL PROTEIN,SERUM 5.7 gm/dL (6.0-8.3)
[2018-04-13] MEDS: Levothyroxine 0.025 Mg Tab PO SCH (07:04)
[2018-04-13] MEDS: Hydrocodone/APAP 5mg/325mg Tab PO PRN (07:04)
[2018-04-13] MEDS: INSULIN ASPART SLIDING SCALE 100 UNITS/ML UNIT SUBQ SCH ×4 (07:12→20:46)
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
[2018-04-13] MEDS: Albuterol/Ipratropium Neb 3 ML AERS HHN SCH ×3 (07:48→19:48)
[2018-04-13] MEDS: Vitamin B Complex w/Vitamin C Tab PO SCH (09:47)
[2018-04-13] MEDS: Lactobacillus Rhamnosus GG 15 Billion CFU CAP.SPRINK PO SCH (09:47)
[2018-04-13] MEDS: Multivitamin w/ Minerals Tab PO SCH (09:47)
[2018-04-13] MEDS: Pantoprazole 40 mg EC Tab PO SCH (09:48)
[2018-04-13] MEDS: Venelex 60gm Tube TP SCH (09:51)
[2018-04-13] MEDS: Hydrocortisone Sodium Succ 100 mg Vial IVP SCH ×2 (09:53→09:59)
--- NOTE | 2018-04-13 11:30 | Infectious Disease Prog Note ---
Infectious Disease Subjective - Review of Systems Service Date: 04/13/18 Subjective: No new change, no fever. Infectious Disease Objective - Results Result Diagrams: 04/13/18 05:35 04/13/18 05:35 Recent Labs: Laboratory Last Values WBC 10.7 Th/cmm (4.8-10.8) 04/13/18 05:35 RBC 3.15 Mil/cmm (4.30-5.70) L 04/13/18 05:35 Hgb 10.0 gm/dL (12-16) L 04/13/18 05:35 Hct 30.3 % (41.0-60) L 04/13/18 05:35 MCV 96.1 fl (80-99) 04/13/18 05:35 MCH 31.7 pg (26.0-30.0) H 04/13/18 05:35 MCHC Differential 33.0 pg (28.0-36.0) 04/13/18 05:35 RDW 21.6 % (11.5-20.0) H 04/13/18 05:35 Plt Count 224 Th/cmm (150-400) 04/13/18 05:35 MPV 7.5 fl 04/13/18 05:35 Add Manual Diff YES 04/10/18 05:50 Neutrophils % 88.1 % (40.0-80.0) H 04/13/18 05:35 Band Neutrophils % 2 % (0-10) 04/11/18 05:10 Lymphocytes % 6.4 % (20.0-50.0) L 04/13/18 05:35 Monocytes % 4.9 % (2.0-10.0) 04/13/18 05:35 Eosinophils % 0.3 % (0.0-5.0) 04/13/18 05:35 Basophils % 0.3 % (0.0-2.0) 04/13/18 05:35 Neutrophils (Manual) Not Reportable 04/13/18 05:35 Lymphocytes 4 % (20-50) L 04/11/18 05:10 Monocytes 2 % (2-10) 04/11/18 05:10 Eosinophils 3 % (0-5) 04/02/18 06:00 Basophils 2 % (0-3) 04/02/18 06:00 Platelet Estimate ADEQUATE (NORMAL) 04/02/18 06:00 Platelet Morphology NORMAL (NORMAL) 03/31/18 18:25 Anisocytosis 1+ 04/11/18 05:10 RBC Morph Micro Appear ABNORMAL (NORMAL) 03/31/18 18:25 PT 13.0 SECONDS (9.5-11.5) H 04/12/18 06:35 INR 1.24 (0.5-1.4) 04/12/18 06:35 Sodium 133 mEq/L (136-145) L 04/13/18 05:35 Potassium 4.3 mEq/L (3.5-5.1) 04/13/18 05:35 Chloride 100 mEq/L (98-107) 04/13/18 05:35 Carbon Dioxide 24.6 mEq/L (21.0-31.0) 04/13/18 05:35 Anion Gap 12.7 (7.0-16.0) 04/13/18 05:35 BUN 25 mg/dL (7-25) 04/13/18 05:35 Creatinine 2.3 mg/dL (0.7-1.3) H 04/13/18 05:35 Est GFR ( Amer) 37.5 ml/min (>90) 04/13/18 05:35 Est GFR (Non-Af Amer) 31.0 ml/min 04/13/18 05:35 BUN/Creatinine Ratio 10.9 04/13/18 05:35 Glucose 147 mg/dL (70-105) H 04/13/18 05:35 POC Glucose 177 MG/DL (70 - 105) H 04/12/18 22:11 Calcium 8.5 mg/dL (8.6-10.3) L 04/13/18 05:35 Phosphorus 4.8 mg/dL (2.5-5.0) 04/02/18 06:00 Iron 33 ug/dL (38-169) L 04/02/18 06:00 TIBC 73 ug/dL (250-450) L 04/02/18 06:00 Iron Saturation 45 % (15-55) 04/02/18 06:00 Unsaturated IBC 40 ug/dL (111-343) L 04/02/18 06:00 Ferritin 1538 ng/mL (30-400) H 04/02/18 06:00 Total Bilirubin 0.5 mg/dL (0.3-1.0) 04/13/18 05:35 AST 8 U/L (13-39) L 04/13/18 05:35 ALT 4 U/L (7-52) L 04/13/18 05:35 Alkaline Phosphatase 98 U/L (34-104) 04/13/18 05:35 Troponin I 0.05 ng/mL (0.01-0.05) 03/31/18 18:25 B-Natriuretic Peptide > 5000.0 pg/mL (5.0-100.0) H 04/12/18 06:35 Total Protein 5.7 gm/dL (6.0-8.3) L 04/13/18 05:35 Albumin 2.5 gm/dL (4.2-5.5) L 04/13/18 05:35 Globulin 3.2 gm/dL 04/13/18 05:35 Albumin/Globulin Ratio 0.8 (1.0-1.8) L 04/13/18 05:35 Urine Source CLEAN C 03/31/18 18:45 Urine Color YELLOW 03/31/18 18:45 Urine Clarity CLOUDY (CLEAR) 03/31/18 18:45 Urine pH 6.0 (4.6 - 8.0) 03/31/18 18:45 Ur Specific [place] 1.020 (1.005-1.030) 03/31/18 18:45 Urine Protein >=300 mg/dL (NEGATIVE) 03/31/18 18:45 Urine Glucose (UA) NEGATIVE mg/dL (NEGATIVE) 03/31/18 18:45 Urine Ketones NEGATIVE mg/dL (NEGATIVE) 03/31/18 18:45 Urine Blood LARGE (NEGATIVE) H 03/31/18 18:45 Urine Nitrate NEGATIVE (NEGATIVE) 03/31/18 18:45 Urine Bilirubin NEGATIVE (NEGATIVE) 03/31/18 18:45 Urine Urobilinogen 0.2 E.U./dL (0.2 - 1.0) 03/31/18 18:45 Ur Leukocyte Esterase MODERATE (NEGATIVE) H 03/31/18 18:45 Urine RBC 50-100 /hpf (0-5) H 03/31/18 18:45 Urine WBC 25-50 /hpf (0-5) H 03/31/18 18:45 Ur Epithelial Cells NONE SEEN /lpf (FEW) 03/31/18 18:45 Urine Bacteria FEW /hpf (NONE SEEN) 03/31/18 18:45 - Physical Exam Vitals and I&O: Vital Signs Temp 98.2 F 04/13/18 00:04 Pulse 94 04/13/18 07:48 Resp 18 04/13/18 07:48 BP 115/76 04/13/18 00:04 Pulse Ox 98 04/13/18 07:48 Intake & Output 04/12/18 04/13/18 04/13/18 18:59 06:59 18:59 Output Total 400 250 Balance -400 -250 Weight (lbs) 87.997 kg 88.451 kg Output: Urine 400 Other 250 Other: Weight Source Bedscale Bedscale Active Medications: Current Medications Acetaminophen (Tylenol) 650 mg PO Q4HR PRN PRN Reason: MILD Pain or Fever >101 Stop: 05/30/18 22:21 Last Admin: 04/10/18 23:25 Dose: 650 mg Acetaminophen/Hydrocodone Bitart ([place] 5mg/325mg) 1 tab PO Q6H PRN PRN Reason: Pain (Severe) LEVEL 7-10 Stop: 06/07/18 17:24 Last Admin: 04/13/18 07:04 Dose: 1 tab Albuterol/Ipratropium (Duoneb Neb) 3 ml HHN Q6HRT [facility] Stop: 05/31/18 00:59 Last Admin: 04/13/18 07:48 Dose: 3 ml Aripiprazole (Abilify) 5 mg PO BID [facility]; Protocol Stop: 06/12/18 08:59 Last Admin: 04/13/18 10:04 Dose: 5 mg Ascorbic Acid (Vitamin C) 500 mg PO DAILY [facility] Stop: 05/31/18 08:59 Last Admin: 04/13/18 09:47 Dose: 500 mg Aspirin (Ecotrin) 81 mg PO DAILY [facility] Stop: 05/31/18 08:59 Last Admin: 04/13/18 09:47 Dose: 81 mg Atorvastatin Calcium (Lipitor) 20 mg PO HS [facility] Stop: 05/31/18 20:59 Last Admin: 04/12/18 21:35 Dose: 20 mg Bisacodyl (Dulcolax 10 Mg Supp) 10 mg RC DAILY PRN PRN Reason: Constipation Stop: 05/30/18 22:21 [place] Oil/[place] Balsam/Trypsin (Venelex) 1 appl TP DAILY [facility] Stop: 06/02/18 08:59 Last Admin: 04/13/18 09:51 Dose: 1 appl Dextrose (D50w) 50 ml IVP PRN PRN; Protocol PRN Reason: HYPOGLYCEMIA PROTOCOL Stop: 05/30/18 23:03 Diphenhydramine HCl (Benadryl) 25 mg PO Q6HR PRN PRN Reason: Itching Stop: 05/30/18 22:21 Last Admin: 04/11/18 21:01 Dose: 25 mg Docusate Sodium (Colace) 100 mg PO DAILY [facility] Stop: 05/31/18 08:59 Last Admin: 04/13/18 09:47 Dose: 100 mg Furosemide (Lasix) 40 mg IVP DAILY [facility] Stop: 06/11/18 18:32 Last Admin: 04/12/18 09:56 Dose: 40 mg Furosemide (Lasix) 40 mg IVP BID [facility] Stop: 06/10/18 19:59 Last Admin: 04/13/18 09:52 Dose: 40 mg Hydrocortisone Sodium Succinate (Solu-Cortef) 50 mg IVP Q12HR [facility] Stop: 06/08/18 20:59 Last Admin: 04/13/18 09:59 Dose: 50 mg Insulin Aspart (Novolog Insulin Sliding Scale) 0 units SUBQ ACHS [facility]; Protocol Stop: 05/31/18 07:29 Last Admin: 04/13/18 07:12 Dose: Not Given Lactobacillus Rhamnosus (Culturelle 15b) 1 each PO DAILY [facility] Stop: 06/01/18 12:59 Last Admin: 04/13/18 09:47 Dose: 1 each Levetiracetam (Keppra) 500 mg PO BID [facility] Stop: 05/31/18 08:59 Last Admin: 04/13/18 09:47 Dose: 500 mg Levothyroxine Sodium (Synthroid) 0.025 mg PO QDAC [facility] Stop: 05/31/18 07:29 Last Admin: 04/13/18 07:04 Dose: 0.025 mg Lorazepam (Ativan) 1 mg IVP Q6HR PRN; Protocol PRN Reason: Agitation Stop: 06/08/18 13:49 Last Admin: 04/12/18 22:56 Dose: 1 mg Miscellaneous (Clinical Monitoring) 1 ea PRN PRN PRN Reason: RENAL Stop: 06/01/18 10:15 Miscellaneous (Probiotic Screen) 1 ea PRN PRN PRN Reason: PROTOCOL Stop: 06/04/18 08:14 Pantoprazole Sodium (Protonix) 40 mg PO DAILY [facility] Stop: 05/31/18 08:59 Last Admin: 04/13/18 09:48 Dose: 40 mg Sodium Chloride (Nacl Tab) 1 gm PO TID [facility] Stop: 06/06/18 15:14 Last Admin: 04/13/18 09:56 Dose: 1 gm Sodium Phosphate (Fleet Enema) 135 ml RC DAILY PRN PRN Reason: Constipation Stop: 05/30/18 22:21 Vitamin B Complex/Vit C/Folic Acid (Vitamin B Complex W/Vitamin C) 1 tab PO DAILY [facility] Stop: 05/31/18 08:59 Last Admin: 04/13/18 09:47 Dose: 1 tab Zinc Sulfate (Zinc Sulfate) 220 mg PO DAILY [facility] Stop: 05/31/18 08:59 Last Admin: 04/13/18 09:46 Dose: 220 mg General: no acute distress, well developed, well nourished HEENT: atraumatic, normocephalic, PERRLA Neck: supple, no thyromegaly, no lymphadenopathy, no rigid Cardiovascular: S1S2, regular Lungs: clear to auscultation bilaterally, clear to percussion Abdomen: soft, no tender, no distended Extremities: no cyanosis, no clubbing, no edema Neurological: awake, alert, oriented Skin: intact - Procedures Procedures: Procedures Procedure Code Date PERFORMANCE OF URINARY FILTRATION, <6 HRS/DAY [id number] 03/31/18 Infectious Disease Assmt/Plan - Assessment Assessment: 1. Sacral decubitus ulcer. 2. History of Methicillin-resistant Staphylococcus aureus infection. 3. Urinary tract infection. 4. Anemia. 5. Diabetes mellitus type 2. 6. Hypertension. - Plan Plan: off antibiotics. Wound care. Nutritional Asmnt/Malnutr-PDOC - Dietary Evaluation Malnutrition Findings (Please click <Entered> for more info): Nutritional Asmnt/Malnutrition Start: 04/02/18 16: 21 Text: Status: Complete Freq: Protocol: Document 04/02/18 16:42 LCHENG (Rec: 04/02/18 17:12 [email or web address] [email or web address]) Nutritional Asmnt/Malnutrition Patient General Information Nutritional Screening High Risk Consult Diagnosis UTI, renal failure Pertinent Medical Hx/Surgical Hx HTN, DM, CVA/TIA, ESRD, dementia Subjective Information Consult for multiple ulcer. Pt seen lying in bed at time of visit, awake and alert. Pt reported appetite was not good , requesting for oral supplement (chocolate flavor only). Per nurse, pt will start dialysis. Pt has multiple wounds noted. Current Diet Order/ Nutrition Support 2gm sodium, renal Pertinent Medications vit C, D5-0.45ns, colace, novolog, culturelle, levaquin, synthroid, protonix, vit B complex w/ vit C, zinc Pertinent Labs 04/02 Na 125, Cl 90, BUN 31, Cr 2.8, glucose 141, POc 146-161 Nutritional Hx/Data Height 1.8 m Height (Calculated Centimeters) 180.3 Current Weight (lbs) 91.626 kg Weight (Calculated Kilograms) 91.6 Weight (Calculated Grams) 35623.7 [place] Body Weight 172 Body Mass Index (BMI) 28.1 GI Symptoms Skin Integrity/Comment: 3+ pitting adema to right upper extremity, 1+ pitting edemat to left arm reddened to right buttocks, ulcer to left buttocks, left and right arms Current %PO Fair (50-74%) Estimated Nutritional Goals BEE in Kcals: Adj wt of IBW Calories/Kcals/Kg 25-30 Kcals Calculated 2123-0032 Protein: Adj wt of IBW Protein g/k.1-1.3 Protein Calculated 89-105 Fluid: ml 2024-243ml (1ml/kcal) Nutritional Problem 3. Problem Problem increased nutrition needs ( calorie and protein) Etiology impaired skin integrity, increased protein loss Signs/Symptoms: multiple ulcer, pt on dialysis 2. Problem Problem inadequate food intake Etiology poor appetite Signs/Symptoms: PO intake 50% 1. Problem Problem altered nutrition related labs Etiology electrolytes imbalance, hx of DM, ESRD Signs/Symptoms: Na 125, Cl 90, BUN 31, Cr 2.8, Glucose 141, POC 146-161 Malnutrition Alert Is there a minimum of two criteria No selected? Query Text:Check all the applicable criteria. A minimum of two criteria are recommended for diagnosis of either severe or non-severe malnutrition. Malnutrition Related to Morbid Obesity Malnutrition related to morbid obesity No Intervention/Recommendation Comments 1. Continue with current diet as ordered. If glucose continue high, will consider adding CCHO diet. 2. Recommend adding oral supplement Glucerna (chocolate flavor) daily to increased nutrition intake, Hever BID for wound healing. DONAVAN Stack notified. 2. Monitor PO intake, wt, labs and skin integrity 3. F/U as high risk in 2-3 days, 04/04-04/04 Expected Outcomes/Goals Expected Outcomes/Goals 1. PO intake to meet at least 75% of nutritional needs. 2. Wt stability, skin to remain intact, labs to approach WNL.
--- NOTE | 2018-04-13 12:19 | General Progress Note ---
Subjective - Review of Systems Service Date: 04/13/18 Events since last encounter: came here to see patient yesterday and informed why surgery was cancelled per Combination Worker Objective - Results Result Diagrams: 04/13/18 05:35 04/13/18 05:35 Recent Labs: Laboratory Last Values WBC 10.7 Th/cmm (4.8-10.8) 04/13/18 05:35 RBC 3.15 Mil/cmm (4.30-5.70) L 04/13/18 05:35 Hgb 10.0 gm/dL (12-16) L 04/13/18 05:35 Hct 30.3 % (41.0-60) L 04/13/18 05:35 MCV 96.1 fl (80-99) 04/13/18 05:35 MCH 31.7 pg (26.0-30.0) H 04/13/18 05:35 MCHC Differential 33.0 pg (28.0-36.0) 04/13/18 05:35 RDW 21.6 % (11.5-20.0) H 04/13/18 05:35 Plt Count 224 Th/cmm (150-400) 04/13/18 05:35 MPV 7.5 fl 04/13/18 05:35 Add Manual Diff YES 04/10/18 05:50 Neutrophils % 88.1 % (40.0-80.0) H 04/13/18 05:35 Band Neutrophils % 2 % (0-10) 04/11/18 05:10 Lymphocytes % 6.4 % (20.0-50.0) L 04/13/18 05:35 Monocytes % 4.9 % (2.0-10.0) 04/13/18 05:35 Eosinophils % 0.3 % (0.0-5.0) 04/13/18 05:35 Basophils % 0.3 % (0.0-2.0) 04/13/18 05:35 Neutrophils (Manual) Not Reportable 04/13/18 05:35 Lymphocytes 4 % (20-50) L 04/11/18 05:10 Monocytes 2 % (2-10) 04/11/18 05:10 Eosinophils 3 % (0-5) 04/02/18 06:00 Basophils 2 % (0-3) 04/02/18 06:00 Platelet Estimate ADEQUATE (NORMAL) 04/02/18 06:00 Platelet Morphology NORMAL (NORMAL) 03/31/18 18:25 Anisocytosis 1+ 04/11/18 05:10 RBC Morph Micro Appear ABNORMAL (NORMAL) 03/31/18 18:25 PT 13.0 SECONDS (9.5-11.5) H 04/12/18 06:35 INR 1.24 (0.5-1.4) 04/12/18 06:35 Sodium 133 mEq/L (136-145) L 04/13/18 05:35 Potassium 4.3 mEq/L (3.5-5.1) 04/13/18 05:35 Chloride 100 mEq/L (98-107) 04/13/18 05:35 Carbon Dioxide 24.6 mEq/L (21.0-31.0) 04/13/18 05:35 Anion Gap 12.7 (7.0-16.0) 04/13/18 05:35 BUN 25 mg/dL (7-25) 04/13/18 05:35 Creatinine 2.3 mg/dL (0.7-1.3) H 04/13/18 05:35 Est GFR ( Amer) 37.5 ml/min (>90) 04/13/18 05:35 Est GFR (Non-Af Amer) 31.0 ml/min 04/13/18 05:35 BUN/Creatinine Ratio 10.9 04/13/18 05:35 Glucose 147 mg/dL (70-105) H 04/13/18 05:35 POC Glucose 148 MG/DL (70 - 105) H 04/13/18 12:07 Calcium 8.5 mg/dL (8.6-10.3) L 04/13/18 05:35 Phosphorus 4.8 mg/dL (2.5-5.0) 04/02/18 06:00 Iron 33 ug/dL (38-169) L 04/02/18 06:00 TIBC 73 ug/dL (250-450) L 04/02/18 06:00 Iron Saturation 45 % (15-55) 04/02/18 06:00 Unsaturated IBC 40 ug/dL (111-343) L 04/02/18 06:00 Ferritin 1538 ng/mL (30-400) H 04/02/18 06:00 Total Bilirubin 0.5 mg/dL (0.3-1.0) 04/13/18 05:35 AST 8 U/L (13-39) L 04/13/18 05:35 ALT 4 U/L (7-52) L 04/13/18 05:35 Alkaline Phosphatase 98 U/L (34-104) 04/13/18 05:35 Troponin I 0.05 ng/mL (0.01-0.05) 03/31/18 18:25 B-Natriuretic Peptide > 5000.0 pg/mL (5.0-100.0) H 04/12/18 06:35 Total Protein 5.7 gm/dL (6.0-8.3) L 04/13/18 05:35 Albumin 2.5 gm/dL (4.2-5.5) L 04/13/18 05:35 Globulin 3.2 gm/dL 04/13/18 05:35 Albumin/Globulin Ratio 0.8 (1.0-1.8) L 04/13/18 05:35 Urine Source CLEAN C 03/31/18 18:45 Urine Color YELLOW 03/31/18 18:45 Urine Clarity CLOUDY (CLEAR) 03/31/18 18:45 Urine pH 6.0 (4.6 - 8.0) 03/31/18 18:45 Ur Specific [place] 1.020 (1.005-1.030) 03/31/18 18:45 Urine Protein >=300 mg/dL (NEGATIVE) 03/31/18 18:45 Urine Glucose (UA) NEGATIVE mg/dL (NEGATIVE) 03/31/18 18:45 Urine Ketones NEGATIVE mg/dL (NEGATIVE) 03/31/18 18:45 Urine Blood LARGE (NEGATIVE) H 03/31/18 18:45 Urine Nitrate NEGATIVE (NEGATIVE) 03/31/18 18:45 Urine Bilirubin NEGATIVE (NEGATIVE) 03/31/18 18:45 Urine Urobilinogen 0.2 E.U./dL (0.2 - 1.0) 03/31/18 18:45 Ur Leukocyte Esterase MODERATE (NEGATIVE) H 03/31/18 18:45 Urine RBC 50-100 /hpf (0-5) H 03/31/18 18:45 Urine WBC 25-50 /hpf (0-5) H 03/31/18 18:45 Ur Epithelial Cells NONE SEEN /lpf (FEW) 03/31/18 18:45 Urine Bacteria FEW /hpf (NONE SEEN) 03/31/18 18:45 - Physical Exam Vitals and I&O: Vital Signs Temp 98.2 F 04/13/18 00:04 Pulse 94 04/13/18 07:48 Resp 18 04/13/18 07:48 BP 115/76 04/13/18 00:04 Pulse Ox 98 04/13/18 07:48 Intake & Output 04/12/18 04/13/18 04/13/18 18:59 06:59 18:59 Output Total 400 250 Balance -400 -250 Weight (lbs) 87.997 kg 88.451 kg Output: Urine 400 Other 250 Other: Weight Source Bedscale Bedscale Active Medications: Current Medications Acetaminophen (Tylenol) 650 mg PO Q4HR PRN PRN Reason: MILD Pain or Fever >101 Stop: 05/30/18 22:21 Last Admin: 04/10/18 23:25 Dose: 650 mg Acetaminophen/Hydrocodone Bitart ([place] 5mg/325mg) 1 tab PO Q6H PRN PRN Reason: Pain (Severe) LEVEL 7-10 Stop: 06/07/18 17:24 Last Admin: 04/13/18 07:04 Dose: 1 tab Albuterol/Ipratropium (Duoneb Neb) 3 ml HHN Q6HRT [facility] Stop: 05/31/18 00:59 Last Admin: 04/13/18 07:48 Dose: 3 ml Aripiprazole (Abilify) 5 mg PO BID [facility]; Protocol Stop: 06/12/18 08:59 Last Admin: 04/13/18 10:04 Dose: 5 mg Ascorbic Acid (Vitamin C) 500 mg PO DAILY [facility] Stop: 05/31/18 08:59 Last Admin: 04/13/18 09:47 Dose: 500 mg Aspirin (Ecotrin) 81 mg PO DAILY [facility] Stop: 05/31/18 08:59 Last Admin: 04/13/18 09:47 Dose: 81 mg Atorvastatin Calcium (Lipitor) 20 mg PO HS [facility] Stop: 05/31/18 20:59 Last Admin: 04/12/18 21:35 Dose: 20 mg Bisacodyl (Dulcolax 10 Mg Supp) 10 mg RC DAILY PRN PRN Reason: Constipation Stop: 05/30/18 22:21 [place] Oil/[place] Balsam/Trypsin (Venelex) 1 appl TP DAILY [facility] Stop: 06/02/18 08:59 Last Admin: 04/13/18 09:51 Dose: 1 appl Dextrose (D50w) 50 ml IVP PRN PRN; Protocol PRN Reason: HYPOGLYCEMIA PROTOCOL Stop: 05/30/18 23:03 Diphenhydramine HCl (Benadryl) 25 mg PO Q6HR PRN PRN Reason: Itching Stop: 05/30/18 22:21 Last Admin: 04/11/18 21:01 Dose: 25 mg Docusate Sodium (Colace) 100 mg PO DAILY [facility] Stop: 05/31/18 08:59 Last Admin: 04/13/18 09:47 Dose: 100 mg Furosemide (Lasix) 40 mg IVP DAILY [facility] Stop: 06/11/18 18:32 Last Admin: 04/12/18 09:56 Dose: 40 mg Furosemide (Lasix) 40 mg IVP BID [facility] Stop: 06/10/18 19:59 Last Admin: 04/13/18 09:52 Dose: 40 mg Hydrocortisone Sodium Succinate (Solu-Cortef) 50 mg IVP Q12HR [facility] Stop: 06/08/18 20:59 Last Admin: 04/13/18 09:59 Dose: 50 mg Insulin Aspart (Novolog Insulin Sliding Scale) 0 units SUBQ ACHS [facility]; Protocol Stop: 05/31/18 07:29 Last Admin: 04/13/18 12:15 Dose: Not Given Lactobacillus Rhamnosus (Culturelle 15b) 1 each PO DAILY [facility] Stop: 06/01/18 12:59 Last Admin: 04/13/18 09:47 Dose: 1 each Levetiracetam (Keppra) 500 mg PO BID [facility] Stop: 05/31/18 08:59 Last Admin: 04/13/18 09:47 Dose: 500 mg Levothyroxine Sodium (Synthroid) 0.025 mg PO QDAC [facility] Stop: 05/31/18 07:29 Last Admin: 04/13/18 07:04 Dose: 0.025 mg Lorazepam (Ativan) 1 mg IVP Q6HR PRN; Protocol PRN Reason: Agitation Stop: 06/08/18 13:49 Last Admin: 04/13/18 11:47 Dose: 1 mg Miscellaneous (Clinical Monitoring) 1 ea MC PRN PRN PRN Reason: RENAL Stop: 06/01/18 10:15 Miscellaneous (Probiotic Screen) 1 ea MC PRN PRN PRN Reason: PROTOCOL Stop: 06/04/18 08:14 Pantoprazole Sodium (Protonix) 40 mg PO DAILY [facility] Stop: 05/31/18 08:59 Last Admin: 04/13/18 09:48 Dose: 40 mg Sodium Chloride (Nacl Tab) 1 gm PO TID [facility] Stop: 06/06/18 15:14 Last Admin: 04/13/18 09:56 Dose: 1 gm Sodium Phosphate (Fleet Enema) 135 ml RC DAILY PRN PRN Reason: Constipation Stop: 05/30/18 22:21 Vitamin B Complex/Vit C/Folic Acid (Vitamin B Complex W/Vitamin C) 1 tab PO DAILY [facility] Stop: 05/31/18 08:59 Last Admin: 04/13/18 09:47 Dose: 1 tab Zinc Sulfate (Zinc Sulfate) 220 mg PO DAILY [facility] Stop: 05/31/18 08:59 Last Admin: 04/13/18 09:46 Dose: 220 mg General: No acute distress HEENT: Atraumatic Neck: Supple Cardiovascular: Regular rate, Normal S1, Normal S2 Lungs: Clear to auscultation Abdomen: Bowel sounds - Procedures Procedures: Procedures Procedure Code Date PERFORMANCE OF URINARY FILTRATION, <6 HRS/DAY [id number] 03/31/18 Nutritional Asmnt/Malnutr-PDOC - Dietary Evaluation Malnutrition Findings (Please click <Entered> for more info): Nutritional Asmnt/Malnutrition Start: 04/02/18 16: 21 Text: Status: Complete Freq: Protocol: Document 04/02/18 16:42 LCHENG (Rec: 04/02/18 17:12 LCHENG [email or web address]) Nutritional Asmnt/Malnutrition Patient General Information Nutritional Screening High Risk Consult Diagnosis UTI, renal failure Pertinent Medical Hx/Surgical Hx HTN, DM, CVA/TIA, ESRD, dementia Subjective Information Consult for multiple ulcer. Pt seen lying in bed at time of visit, awake and alert. Pt reported appetite was not good , requesting for oral supplement (chocolate flavor only). Per nurse, pt will start dialysis. Pt has multiple wounds noted. Current Diet Order/ Nutrition Support 2gm sodium, renal Pertinent Medications vit C, D5-0.45ns, colace, novolog, culturelle, levaquin, synthroid, protonix, vit B complex w/ vit C, zinc Pertinent Labs 04/02 Na 125, Cl 90, BUN 31, Cr 2.8, glucose 141, POc 146-161 Nutritional Hx/Data Height 1.8 m Height (Calculated Centimeters) 180.3 Current Weight (lbs) 91.626 kg Weight (Calculated Kilograms) 91.6 Weight (Calculated Grams) 94599.7 [place] Body Weight 172 Body Mass Index (BMI) 28.1 GI Symptoms Skin Integrity/Comment: 3+ pitting adema to right upper extremity, 1+ pitting edemat to left arm reddened to right buttocks, ulcer to left buttocks, left and right arms Current %PO Fair (50-74%) Estimated Nutritional Goals BEE in Kcals: Adj wt of IBW Calories/Kcals/Kg 25-30 Kcals Calculated 8462-4279 Protein: Adj wt of IBW Protein g/k.1-1.3 Protein Calculated 89-105 Fluid: ml 2024-243ml (1ml/kcal) Nutritional Problem 3. Problem Problem increased nutrition needs ( calorie and protein) Etiology impaired skin integrity, increased protein loss Signs/Symptoms: multiple ulcer, pt on dialysis 2. Problem Problem inadequate food intake Etiology poor appetite Signs/Symptoms: PO intake 50% 1. Problem Problem altered nutrition related labs Etiology electrolytes imbalance, hx of DM, ESRD Signs/Symptoms: Na 125, Cl 90, BUN 31, Cr 2.8, Glucose 141, POC 146-161 Malnutrition Alert Is there a minimum of two criteria No selected? Query Text:Check all the applicable criteria. A minimum of two criteria are recommended for diagnosis of either severe or non-severe malnutrition. Malnutrition Related to Morbid Obesity Malnutrition related to morbid obesity No Intervention/Recommendation Comments 1. Continue with current diet as ordered. If glucose continue high, will consider adding CCHO diet. 2. Recommend adding oral supplement Glucerna (chocolate flavor) daily to increased nutrition intake, Hever BID for wound healing. DONAVAN Stack notified. 2. Monitor PO intake, wt, labs and skin integrity 3. F/U as high risk in 2-3 days, 04/04-04/04 Expected Outcomes/Goals Expected Outcomes/Goals 1. PO intake to meet at least 75% of nutritional needs. 2. Wt stability, skin to remain intact, labs to approach WNL.
[2018-04-13] MEDS: Atorvastatin Calcium 10 MG TAB PO SCH (20:45)
[2018-04-14] MEDS: Albuterol/Ipratropium Neb 3 ML AERS HHN SCH ×4 (01:05→19:13)
[2018-04-14] MEDS: INSULIN ASPART SLIDING SCALE 100 UNITS/ML UNIT SUBQ SCH ×4 (06:38→20:31)
[2018-04-14] MEDS: Levothyroxine 0.025 Mg Tab PO SCH (06:49)
[2018-04-14 08:17] LABS: ANION GAP 14.5 (7.0-16.0); CALCIUM SERUM 8.4 mg/dL (8.6-10.3); CARBON DIOXIDE 22.6 mEq/L (21.0-31.0); CREATININE - SERUM 2.6 mg/dL (0.7-1.3); GFR AFRICAN-AMERICAN 32.5 ml/min (>90); GFR NON AFRICAN-AMERICAN 26.9 ml/min; POTASSIUM SERUM 4.1 mEq/L (3.5-5.1)
--- NOTE | 2018-04-14 09:14 | Diagnostic Imaging Report ---
Portable chest x-ray HISTORY: Shortness of breath Compared with prior exam of 04/12/2018, the heart remains enlarged. Evidence persistent bilateral pleural effusions. Pulmonary vascular distribution is seen consistent with changes of congestive heart failure. IMPRESSION: 1. No significant change in the cardiopulmonary status. Persistent cardiomegaly with bilateral pleural effusions. The findings may be associated with congestive heart failure. Clinical correlation is needed.
[2018-04-14] MEDS: Venelex 60gm Tube TP SCH (09:35)
[2018-04-14] MEDS: Lactobacillus Rhamnosus GG 15 Billion CFU CAP.SPRINK PO SCH (09:36)
[2018-04-14] MEDS: Multivitamin w/ Minerals Tab PO SCH (09:36)
[2018-04-14] MEDS: Pantoprazole 40 mg EC Tab PO SCH (09:36)
[2018-04-14] MEDS: Vitamin B Complex w/Vitamin C Tab PO SCH (09:36)
[2018-04-14] MEDS: Hydrocodone/APAP 5mg/325mg Tab PO PRN (10:13)
[2018-04-14] MEDS: Atorvastatin Calcium 10 MG TAB PO SCH (20:31)
--- NOTE | 2018-04-14 22:04 | Progress Notes ---
DATE: 04/14/2018 SUBJECTIVE: The patient was seen in his room. The patient appears to be comfortable, in no distress. The patient is a poor historian due to medical condition, otherwise he is in no acute distress. Surgery for sacral decubitus ulcer was on hold. Per Cardiology standpoint, it is too risky currently for the patient's multiple medical conditions. Family is aware of the hold for the procedure. OBJECTIVE: VITAL SIGNS: Temperature 97.9, heart rate 72, blood pressure 136/83, respirations 20, 99% on room air. HEENT: Head is atraumatic and normocephalic. Eyes: Bilateral conjunctivae are clear. Bilateral pupils are equally round and reactive. NECK: Supple. No JVD. CARDIOVASCULAR: S1 and S2, without murmur. PULMONARY: Clear to auscultation. GASTROINTESTINAL: Soft and nontender without guarding. Positive bowel sounds. MUSCULOSKELETAL: No clubbing. No cyanosis noted. ASSESSMENT: 1. Sacral decubitus ulcer. 2. Dementia. 3. End-stage renal disease. 4. Hypertension. 5. Anemia. 6. Diabetes. PLAN: We will continue to keep the patient inpatient. We will follow up with the ID doctor for antibiotic management. We will also get a followup with a psychiatrist to monitor the patient's condition and behavior. Treatment plans were discussed with the patient's nurse. Treatment plans were discussed with Dr. Schrader. JOB# [id number]
--- NOTE | 2018-04-14 23:54 | Progress Notes ---
DATE: 04/14/[address] Shannon. Case was discussed with staff of the patient, reviewed records. The patient continues to be paranoid, delusional thinking there is a fire in the hospital. He is still irritable, angry, garcia, agitated. He is on dialysis. The patient is on Abilify and that was increased yesterday to 5 mg twice a day with no side effects, no sedation, no nausea, no extrapyramidal symptoms. The patient continues to be unpredictable and impulsive. Thank you very much for allowing me to participate in the care of this most interesting gentleman. JOB# [id number]
[2018-04-15] MEDS: Albuterol/Ipratropium Neb 3 ML AERS HHN SCH ×4 (00:06→18:34)
[2018-04-15] MEDS: Hydrocodone/APAP 5mg/325mg Tab PO PRN ×2 (03:30→10:23)
[2018-04-15] MEDS: Levothyroxine 0.025 Mg Tab PO SCH (06:49)
[2018-04-15 07:05] LABS: HEMATOCRIT 31.8 % (41.0-60); HEMOGLOBIN 10.6 gm/dL (12-16); MEAN CORPUSCULAR HEMOGLOBIN 32.2 pg (26.0-30.0); MEAN CORPUSCULAR HGB CONC 33.2 pg (28.0-36.0); MEAN PLATELET VOLUME 7.7 fl; PLATELET COUNT 116 Th/cmm (150-400); RED BLOOD COUNT 3.28 Mil/cmm (4.30-5.70); RED CELL DISTRIBUTION WIDTH 21.7 % (11.5-20.0); WHITE BLOOD COUNT 12.9 Th/cmm (4.8-10.8)
[2018-04-15 07:25] LABS: ALB/GLOB RATIO 0.8 (1.0-1.8); ALBUMIN 2.5 gm/dL (4.2-5.5); ANION GAP 13.8 (7.0-16.0); BILIRUBIN,TOTAL 0.5 mg/dL (0.3-1.0); CALCIUM SERUM 8.2 mg/dL (8.6-10.3); CARBON DIOXIDE 22.4 mEq/L (21.0-31.0); CREATININE - SERUM 2.9 mg/dL (0.7-1.3); GFR AFRICAN-AMERICAN 28.7 ml/min (>90); GFR NON AFRICAN-AMERICAN 23.7 ml/min; POTASSIUM SERUM 4.2 mEq/L (3.5-5.1); TOTAL PROTEIN,SERUM 5.6 gm/dL (6.0-8.3)
[2018-04-15 07:47] LABS: ANISOCYTOSIS 1+; BAND NEUTROPHILE 3 % (0-10); EOSINOPHIL 0 % (0-5); LYMPHOCYTE 1 % (20-50); MONOCYTE 2 % (2-10); NEUTROPHILS 94 % (40-80)
[2018-04-15] MEDS: Pantoprazole 40 mg EC Tab PO SCH (10:01)
[2018-04-15] MEDS: Vitamin B Complex w/Vitamin C Tab PO SCH (10:02)
[2018-04-15] MEDS: Lactobacillus Rhamnosus GG 15 Billion CFU CAP.SPRINK PO SCH (10:03)
[2018-04-15] MEDS: Multivitamin w/ Minerals Tab PO SCH (10:03)
[2018-04-15] MEDS ORDERED: Albumin 25% 25gm/100mL 25 GM/100 ML BTL IV ONE (10:12)
[2018-04-15] MEDS ORDERED: Heparin Sodium 1,000 Units/mL Vial IVP ONE (10:19)
[2018-04-15] MEDS: Venelex 60gm Tube TP SCH (10:29)
[2018-04-15] MEDS: INSULIN ASPART SLIDING SCALE 100 UNITS/ML UNIT SUBQ SCH ×4 (10:30→21:45)
--- NOTE | 2018-04-15 11:09 | General Progress Note ---
Subjective - Review of Systems Events since last encounter: patient in no distress poor historian due to medical condition Subjective: Awake, alert, NAD Objective - Results Result Diagrams: 04/15/18 06:55 04/15/18 06:55 Recent Labs: Laboratory Last Values WBC 12.9 Th/cmm (4.8-10.8) H 04/15/18 06:55 RBC 3.28 Mil/cmm (4.30-5.70) L 04/15/18 06:55 Hgb 10.6 gm/dL (12-16) L 04/15/18 06:55 Hct 31.8 % (41.0-60) L 04/15/18 06:55 MCV 97.0 fl (80-99) 04/15/18 06:55 MCH 32.2 pg (26.0-30.0) H 04/15/18 06:55 MCHC Differential 33.2 pg (28.0-36.0) 04/15/18 06:55 RDW 21.7 % (11.5-20.0) H 04/15/18 06:55 Plt Count 116 Th/cmm (150-400) L 04/15/18 06:55 MPV 7.7 fl 04/15/18 06:55 Add Manual Diff YES 04/15/18 06:55 Neutrophils % 88.1 % (40.0-80.0) H 04/13/18 05:35 Band Neutrophils % 3 % (0-10) 04/15/18 06:55 Lymphocytes % 6.4 % (20.0-50.0) L 04/13/18 05:35 Monocytes % 4.9 % (2.0-10.0) 04/13/18 05:35 Eosinophils % 0.3 % (0.0-5.0) 04/13/18 05:35 Basophils % 0.3 % (0.0-2.0) 04/13/18 05:35 Neutrophils (Manual) 94 % (40-80) H 04/15/18 06:55 Lymphocytes 1 % (20-50) L 04/15/18 06:55 Monocytes 2 % (2-10) 04/15/18 06:55 Eosinophils 0 % (0-5) 04/15/18 06:55 Basophils 2 % (0-3) 04/02/18 06:00 Platelet Estimate ADEQUATE (NORMAL) 04/02/18 06:00 Platelet Morphology NORMAL (NORMAL) 03/31/18 18:25 Anisocytosis 1+ 04/15/18 06:55 RBC Morph Micro Appear ABNORMAL (NORMAL) 03/31/18 18:25 PT 13.0 SECONDS (9.5-11.5) H 04/12/18 06:35 INR 1.24 (0.5-1.4) 04/12/18 06:35 Sodium 130 mEq/L (136-145) L 04/15/18 06:55 Potassium 4.2 mEq/L (3.5-5.1) 04/15/18 06:55 Chloride 98 mEq/L (98-107) 04/15/18 06:55 Carbon Dioxide 22.4 mEq/L (21.0-31.0) 04/15/18 06:55 Anion Gap 13.8 (7.0-16.0) 04/15/18 06:55 BUN 36 mg/dL (7-25) H 04/15/18 06:55 Creatinine 2.9 mg/dL (0.7-1.3) H 04/15/18 06:55 Est GFR ( Amer) 28.7 ml/min (>90) 04/15/18 06:55 Est GFR (Non-Af Amer) 23.7 ml/min 04/15/18 06:55 BUN/Creatinine Ratio 12.4 04/15/18 06:55 Glucose 145 mg/dL (70-105) H 04/15/18 06:55 POC Glucose 131 MG/DL (70 - 105) H 04/15/18 05:45 Calcium 8.2 mg/dL (8.6-10.3) L 04/15/18 06:55 Phosphorus 4.8 mg/dL (2.5-5.0) 04/02/18 06:00 Iron 33 ug/dL (38-169) L 04/02/18 06:00 TIBC 73 ug/dL (250-450) L 04/02/18 06:00 Iron Saturation 45 % (15-55) 04/02/18 06:00 Unsaturated IBC 40 ug/dL (111-343) L 04/02/18 06:00 Ferritin 1538 ng/mL (30-400) H 04/02/18 06:00 Total Bilirubin 0.5 mg/dL (0.3-1.0) 04/15/18 06:55 AST 8 U/L (13-39) L 04/15/18 06:55 ALT 6 U/L (7-52) L 04/15/18 06:55 Alkaline Phosphatase 118 U/L (34-104) H 04/15/18 06:55 Troponin I 0.05 ng/mL (0.01-0.05) 03/31/18 18:25 B-Natriuretic Peptide > 5000.0 pg/mL (5.0-100.0) H 04/15/18 07:02 Total Protein 5.6 gm/dL (6.0-8.3) L 04/15/18 06:55 Albumin 2.5 gm/dL (4.2-5.5) L 04/15/18 06:55 Globulin 3.1 gm/dL 04/15/18 06:55 Albumin/Globulin Ratio 0.8 (1.0-1.8) L 04/15/18 06:55 Urine Source CLEAN C 03/31/18 18:45 Urine Color YELLOW 03/31/18 18:45 Urine Clarity CLOUDY (CLEAR) 03/31/18 18:45 Urine pH 6.0 (4.6 - 8.0) 03/31/18 18:45 Ur Specific [place] 1.020 (1.005-1.030) 03/31/18 18:45 Urine Protein >=300 mg/dL (NEGATIVE) 03/31/18 18:45 Urine Glucose (UA) NEGATIVE mg/dL (NEGATIVE) 03/31/18 18:45 Urine Ketones NEGATIVE mg/dL (NEGATIVE) 03/31/18 18:45 Urine Blood LARGE (NEGATIVE) H 03/31/18 18:45 Urine Nitrate NEGATIVE (NEGATIVE) 03/31/18 18:45 Urine Bilirubin NEGATIVE (NEGATIVE) 03/31/18 18:45 Urine Urobilinogen 0.2 E.U./dL (0.2 - 1.0) 03/31/18 18:45 Ur Leukocyte Esterase MODERATE (NEGATIVE) H 03/31/18 18:45 Urine RBC 50-100 /hpf (0-5) H 03/31/18 18:45 Urine WBC 25-50 /hpf (0-5) H 03/31/18 18:45 Ur Epithelial Cells NONE SEEN /lpf (FEW) 03/31/18 18:45 Urine Bacteria FEW /hpf (NONE SEEN) 03/31/18 18:45 - Physical Exam Vitals and I&O: Vital Signs Temp 96.8 F 04/15/18 07:44 Pulse 88 04/15/18 07:44 Resp 18 04/15/18 08:00 BP 136/82 04/15/18 07:44 Pulse Ox 98 04/15/18 07:44 Intake & Output 04/14/18 04/15/18 04/15/18 18:59 06:59 18:59 Intake Total 740 Output Total 400 Balance 340 Weight (lbs) 86.183 kg Intake: Oral 740 Output: Urine 300 Stool 100 Other: # Bowel Movements 1 Stool Characteristics Formed Weight Source Bedscale Active Medications: Current Medications Acetaminophen (Tylenol) 650 mg PO Q4HR PRN PRN Reason: MILD Pain or Fever >101 Stop: 05/30/18 22:21 Last Admin: 04/10/18 23:25 Dose: 650 mg Acetaminophen/Hydrocodone Bitart ([place] 5mg/325mg) 1 tab PO Q6H PRN PRN Reason: Pain (Severe) LEVEL 7-10 Stop: 06/07/18 17:24 Last Admin: 04/15/18 10:23 Dose: 1 tab Albuterol/Ipratropium (Duoneb Neb) 3 ml HHN Q6HRT [facility] Stop: 05/31/18 00:59 Last Admin: 04/15/18 07:09 Dose: 3 ml Aripiprazole (Abilify) 5 mg PO BID [facility]; Protocol Stop: 06/12/18 16:59 Last Admin: 04/15/18 10:02 Dose: 5 mg Ascorbic Acid (Vitamin C) 500 mg PO DAILY [facility] Stop: 05/31/18 08:59 Last Admin: 04/15/18 10:02 Dose: 500 mg Aspirin (Ecotrin) 81 mg PO DAILY [facility] Stop: 05/31/18 08:59 Last Admin: 04/15/18 10:02 Dose: 81 mg Atorvastatin Calcium (Lipitor) 20 mg PO HS [facility] Stop: 05/31/18 20:59 Last Admin: 04/14/18 20:31 Dose: 20 mg Bisacodyl (Dulcolax 10 Mg Supp) 10 mg RC DAILY PRN PRN Reason: Constipation Stop: 05/30/18 22:21 [place] Oil/[place] Balsam/Trypsin (Venelex) 1 appl TP DAILY [facility] Stop: 06/02/18 08:59 Last Admin: 04/15/18 10:29 Dose: 1 appl Dextrose (D50w) 50 ml IVP PRN PRN; Protocol PRN Reason: HYPOGLYCEMIA PROTOCOL Stop: 05/30/18 23:03 Diphenhydramine HCl (Benadryl) 25 mg PO Q6HR PRN PRN Reason: Itching Stop: 05/30/18 22:21 Last Admin: 04/11/18 21:01 Dose: 25 mg Docusate Sodium (Colace) 100 mg PO DAILY [facility] Stop: 05/31/18 08:59 Last Admin: 04/15/18 10:02 Dose: 100 mg Furosemide (Lasix) 40 mg IVP BID [facility] Stop: 06/10/18 19:59 Last Admin: 04/15/18 10:13 Dose: Not Given Albumin Human (Albuminar 25%) 25 gm in 100 mls @ 50 mls/hr IV X1 ONE Stop: 04/15/18 12:11 Last Admin: 04/15/18 10:34 Dose: 50 mls/hr Insulin Aspart (Novolog Insulin Sliding Scale) 0 units SUBQ ACHS [facility]; Protocol Stop: 05/31/18 07:29 Last Admin: 04/15/18 10:30 Dose: Not Given Lactobacillus Rhamnosus (Culturelle 15b) 1 each PO DAILY [facility] Stop: 06/01/18 12:59 Last Admin: 04/15/18 10:03 Dose: 1 each Levetiracetam (Keppra) 500 mg PO BID [facility] Stop: 05/31/18 08:59 Last Admin: 04/15/18 10:02 Dose: 500 mg Levothyroxine Sodium (Synthroid) 0.025 mg PO QDAC [facility] Stop: 05/31/18 07:29 Last Admin: 04/15/18 06:49 Dose: 0.025 mg Lorazepam (Ativan) 1 mg IVP Q6HR PRN; Protocol PRN Reason: Agitation Stop: 06/08/18 13:49 Last Admin: 04/13/18 11:47 Dose: 1 mg Miscellaneous (Clinical Monitoring) 1 ea MC PRN PRN PRN Reason: RENAL Stop: 06/01/18 10:15 Miscellaneous (Probiotic Screen) 1 ea PRN PRN PRN Reason: PROTOCOL Stop: 06/04/18 08:14 Pantoprazole Sodium (Protonix) 40 mg PO DAILY [facility] Stop: 05/31/18 08:59 Last Admin: 04/15/18 10:01 Dose: 40 mg Sodium Chloride (Nacl Tab) 1 gm PO TID [facility] Stop: 06/06/18 15:14 Last Admin: 04/15/18 10:03 Dose: 1 gm Sodium Phosphate (Fleet Enema) 135 ml RC DAILY PRN PRN Reason: Constipation Stop: 05/30/18 22:21 Vitamin B Complex/Vit C/Folic Acid (Vitamin B Complex W/Vitamin C) 1 tab PO DAILY [facility] Stop: 05/31/18 08:59 Last Admin: 04/15/18 10:02 Dose: 1 tab Zinc Sulfate (Zinc Sulfate) 220 mg PO DAILY [facility] Stop: 05/31/18 08:59 Last Admin: 04/15/18 10:01 Dose: 220 mg General: No acute distress HEENT: Atraumatic Neck: Supple Cardiovascular: Regular rate, Normal S1, Normal S2 Lungs: Clear to auscultation Abdomen: Bowel sounds - Procedures Procedures: Procedures Procedure Code Date PERFORMANCE OF URINARY FILTRATION, <6 HRS/DAY [id number] 03/31/18 Assessment/Plan - Problem List Patient Problems: All Active Problems Anemia (Acute) D64.9 Dementia (Acute) F03.90 Diabetes (Acute) E11.9 ESRD (end stage renal disease) (Acute) HTN (hypertension) (Acute) I10 Sacral decubitus ulcer (Acute) L89.159 - Assessment Assessment: Sacral decubitus ulcer H/o MRSA UTI Anemia Type 2 Diabetes HTN - Plan Plan: as per order sheet wound care cardio monitoring Nutritional Asmnt/Malnutr-PDOC - Dietary Evaluation Malnutrition Findings (Please click <Entered> for more info): Nutritional Asmnt/Malnutrition Start: 04/02/18 16: 21 Text: Status: Complete Freq: Protocol: Document 04/02/18 16:42 AUGUSTAG (Rec: 04/02/18 17:12 JAZZ [email or web address]) Nutritional Asmnt/Malnutrition Patient General Information Nutritional Screening High Risk Consult Diagnosis UTI, renal failure Pertinent Medical Hx/Surgical Hx HTN, DM, CVA/TIA, ESRD, dementia Subjective Information Consult for multiple ulcer. Pt seen lying in bed at time of visit, awake and alert. Pt reported appetite was not good , requesting for oral supplement (chocolate flavor only). Per nurse, pt will start dialysis. Pt has multiple wounds noted. Current Diet Order/ Nutrition Support 2gm sodium, renal Pertinent Medications vit C, D5-0.45ns, colace, novolog, culturelle, levaquin, synthroid, protonix, vit B complex w/ vit C, zinc Pertinent Labs 04/02 Na 125, Cl 90, BUN 31, Cr 2.8, glucose 141, POc 146-161 Nutritional Hx/Data Height 1.8 m Height (Calculated Centimeters) 180.3 Current Weight (lbs) 91.626 kg Weight (Calculated Kilograms) 91.6 Weight (Calculated Grams) 07619.7 [place] Body Weight 172 Body Mass Index (BMI) 28.1 GI Symptoms Skin Integrity/Comment: 3+ pitting adema to right upper extremity, 1+ pitting edemat to left arm reddened to right buttocks, ulcer to left buttocks, left and right arms Current %PO Fair (50-74%) Estimated Nutritional Goals BEE in Kcals: Adj wt of IBW Calories/Kcals/Kg 25-30 Kcals Calculated 9256-8758 Protein: Adj wt of IBW Protein g/k.1-1.3 Protein Calculated 89-105 Fluid: ml 2024-243ml (1ml/kcal) Nutritional Problem 3. Problem Problem increased nutrition needs ( calorie and protein) Etiology impaired skin integrity, increased protein loss Signs/Symptoms: multiple ulcer, pt on dialysis 2. Problem Problem inadequate food intake Etiology poor appetite Signs/Symptoms: PO intake 50% 1. Problem Problem altered nutrition related labs Etiology electrolytes imbalance, hx of DM, ESRD Signs/Symptoms: Na 125, Cl 90, BUN 31, Cr 2.8, Glucose 141, POC 146-161 Malnutrition Alert Is there a minimum of two criteria No selected? Query Text:Check all the applicable criteria. A minimum of two criteria are recommended for diagnosis of either severe or non-severe malnutrition. Malnutrition Related to Morbid Obesity Malnutrition related to morbid obesity No Intervention/Recommendation Comments 1. Continue with current diet as ordered. If glucose continue high, will consider adding CCHO diet. 2. Recommend adding oral supplement Glucerna (chocolate flavor) daily to increased nutrition intake, Hever BID for wound healing. RN Seda notified. 2. Monitor PO intake, wt, labs and skin integrity 3. F/U as high risk in 2-3 days, 04/04-04/04 Expected Outcomes/Goals Expected Outcomes/Goals 1. PO intake to meet at least 75% of nutritional needs. 2. Wt stability, skin to remain intact, labs to approach WNL.
[2018-04-15] MEDS: Atorvastatin Calcium 10 MG TAB PO SCH (20:39)
--- NOTE | 2018-04-15 22:09 | Progress Notes ---
DATE: 04/15/2018 SUBJECTIVE: Case was discussed with staff of the patient, reviewed records. The patient continues to have episodes of agitation and irritability. He continues to be suspicious at times. His Abilify dose was increased to 5 mg twice a day with no side effects, no sedation, and no nausea. He denies any intent to harm himself or anybody. Thank you very much for allowing me to participate in the care of this most interesting gentleman. JOB# [id number]
[2018-04-16] MEDS: Albuterol/Ipratropium Neb 3 ML AERS HHN SCH ×4 (00:04→19:07)
[2018-04-16] MEDS: Levothyroxine 0.025 Mg Tab PO SCH (06:31)
[2018-04-16] MEDS: Vitamin B Complex w/Vitamin C Tab PO SCH (08:27)
[2018-04-16] MEDS: Pantoprazole 40 mg EC Tab PO SCH (08:27)
[2018-04-16] MEDS: Multivitamin w/ Minerals Tab PO SCH (08:27)
[2018-04-16] MEDS: INSULIN ASPART SLIDING SCALE 100 UNITS/ML UNIT SUBQ SCH ×4 (08:29→22:12)
[2018-04-16] MEDS: Lactobacillus Rhamnosus GG 15 Billion CFU CAP.SPRINK PO SCH (08:52)
[2018-04-16] MEDS: Venelex 60gm Tube TP SCH (08:53)
--- NOTE | 2018-04-16 09:09 | General Progress Note ---
Subjective - Review of Systems Service Date: 04/16/18 Events since last encounter: awaiting clearance for debridement Objective - Results Result Diagrams: 04/15/18 06:55 04/15/18 06:55 Recent Labs: Laboratory Last Values WBC 12.9 Th/cmm (4.8-10.8) H 04/15/18 06:55 RBC 3.28 Mil/cmm (4.30-5.70) L 04/15/18 06:55 Hgb 10.6 gm/dL (12-16) L 04/15/18 06:55 Hct 31.8 % (41.0-60) L 04/15/18 06:55 MCV 97.0 fl (80-99) 04/15/18 06:55 MCH 32.2 pg (26.0-30.0) H 04/15/18 06:55 MCHC Differential 33.2 pg (28.0-36.0) 04/15/18 06:55 RDW 21.7 % (11.5-20.0) H 04/15/18 06:55 Plt Count 116 Th/cmm (150-400) L 04/15/18 06:55 MPV 7.7 fl 04/15/18 06:55 Add Manual Diff YES 04/15/18 06:55 Neutrophils % 88.1 % (40.0-80.0) H 04/13/18 05:35 Band Neutrophils % 3 % (0-10) 04/15/18 06:55 Lymphocytes % 6.4 % (20.0-50.0) L 04/13/18 05:35 Monocytes % 4.9 % (2.0-10.0) 04/13/18 05:35 Eosinophils % 0.3 % (0.0-5.0) 04/13/18 05:35 Basophils % 0.3 % (0.0-2.0) 04/13/18 05:35 Neutrophils (Manual) 94 % (40-80) H 04/15/18 06:55 Lymphocytes 1 % (20-50) L 04/15/18 06:55 Monocytes 2 % (2-10) 04/15/18 06:55 Eosinophils 0 % (0-5) 04/15/18 06:55 Basophils 2 % (0-3) 04/02/18 06:00 Platelet Estimate ADEQUATE (NORMAL) 04/02/18 06:00 Platelet Morphology NORMAL (NORMAL) 03/31/18 18:25 Anisocytosis 1+ 04/15/18 06:55 RBC Morph Micro Appear ABNORMAL (NORMAL) 03/31/18 18:25 PT 13.0 SECONDS (9.5-11.5) H 04/12/18 06:35 INR 1.24 (0.5-1.4) 04/12/18 06:35 Sodium 130 mEq/L (136-145) L 04/15/18 06:55 Potassium 4.2 mEq/L (3.5-5.1) 04/15/18 06:55 Chloride 98 mEq/L (98-107) 04/15/18 06:55 Carbon Dioxide 22.4 mEq/L (21.0-31.0) 04/15/18 06:55 Anion Gap 13.8 (7.0-16.0) 04/15/18 06:55 BUN 36 mg/dL (7-25) H 04/15/18 06:55 Creatinine 2.9 mg/dL (0.7-1.3) H 04/15/18 06:55 Est GFR ( Amer) 28.7 ml/min (>90) 04/15/18 06:55 Est GFR (Non-Af Amer) 23.7 ml/min 04/15/18 06:55 BUN/Creatinine Ratio 12.4 04/15/18 06:55 Glucose 145 mg/dL (70-105) H 04/15/18 06:55 POC Glucose 158 MG/DL (70 - 105) H 04/16/18 05:50 Calcium 8.2 mg/dL (8.6-10.3) L 04/15/18 06:55 Phosphorus 4.8 mg/dL (2.5-5.0) 04/02/18 06:00 Iron 33 ug/dL (38-169) L 04/02/18 06:00 TIBC 73 ug/dL (250-450) L 04/02/18 06:00 Iron Saturation 45 % (15-55) 04/02/18 06:00 Unsaturated IBC 40 ug/dL (111-343) L 04/02/18 06:00 Ferritin 1538 ng/mL (30-400) H 04/02/18 06:00 Total Bilirubin 0.5 mg/dL (0.3-1.0) 04/15/18 06:55 AST 8 U/L (13-39) L 04/15/18 06:55 ALT 6 U/L (7-52) L 04/15/18 06:55 Alkaline Phosphatase 118 U/L (34-104) H 04/15/18 06:55 Troponin I 0.05 ng/mL (0.01-0.05) 03/31/18 18:25 B-Natriuretic Peptide > 5000.0 pg/mL (5.0-100.0) H 04/15/18 07:02 Total Protein 5.6 gm/dL (6.0-8.3) L 04/15/18 06:55 Albumin 2.5 gm/dL (4.2-5.5) L 04/15/18 06:55 Globulin 3.1 gm/dL 04/15/18 06:55 Albumin/Globulin Ratio 0.8 (1.0-1.8) L 04/15/18 06:55 Urine Source CLEAN C 03/31/18 18:45 Urine Color YELLOW 03/31/18 18:45 Urine Clarity CLOUDY (CLEAR) 03/31/18 18:45 Urine pH 6.0 (4.6 - 8.0) 03/31/18 18:45 Ur Specific [place] 1.020 (1.005-1.030) 03/31/18 18:45 Urine Protein >=300 mg/dL (NEGATIVE) 03/31/18 18:45 Urine Glucose (UA) NEGATIVE mg/dL (NEGATIVE) 03/31/18 18:45 Urine Ketones NEGATIVE mg/dL (NEGATIVE) 03/31/18 18:45 Urine Blood LARGE (NEGATIVE) H 03/31/18 18:45 Urine Nitrate NEGATIVE (NEGATIVE) 03/31/18 18:45 Urine Bilirubin NEGATIVE (NEGATIVE) 03/31/18 18:45 Urine Urobilinogen 0.2 E.U./dL (0.2 - 1.0) 03/31/18 18:45 Ur Leukocyte Esterase MODERATE (NEGATIVE) H 03/31/18 18:45 Urine RBC 50-100 /hpf (0-5) H 03/31/18 18:45 Urine WBC 25-50 /hpf (0-5) H 03/31/18 18:45 Ur Epithelial Cells NONE SEEN /lpf (FEW) 03/31/18 18:45 Urine Bacteria FEW /hpf (NONE SEEN) 03/31/18 18:45 - Physical Exam Vitals and I&O: Vital Signs Temp 97.0 F 04/16/18 08:52 Pulse 89 04/16/18 08:52 Resp 18 04/16/18 08:52 BP 97/58 04/16/18 08:52 Pulse Ox 97 04/16/18 08:52 Intake & Output 04/15/18 04/16/18 04/16/18 18:59 06:59 18:59 Intake Total 500 1080 Output Total 100 150 Balance 400 930 Weight (lbs) 86.183 kg 86.183 kg Intake: Oral 500 1080 Output: Urine 100 100 Stool 50 Other: # Bowel Movements 1 Weight Source Bedscale Bedscale Active Medications: Current Medications Acetaminophen (Tylenol) 650 mg PO Q4HR PRN PRN Reason: MILD Pain or Fever >101 Stop: 05/30/18 22:21 Last Admin: 04/16/18 06:31 Dose: 650 mg Albuterol/Ipratropium (Duoneb Neb) 3 ml HHN Q6HRT [facility] Stop: 05/31/18 00:59 Last Admin: 04/16/18 06:59 Dose: 3 ml Aripiprazole (Abilify) 5 mg PO BID [facility]; Protocol Stop: 06/12/18 16:59 Last Admin: 04/16/18 08:25 Dose: 5 mg Ascorbic Acid (Vitamin C) 500 mg PO DAILY [facility] Stop: 05/31/18 08:59 Last Admin: 04/16/18 08:27 Dose: 500 mg Aspirin (Ecotrin) 81 mg PO DAILY [facility] Stop: 05/31/18 08:59 Last Admin: 04/16/18 08:27 Dose: 81 mg Atorvastatin Calcium (Lipitor) 20 mg PO HS [facility] Stop: 05/31/18 20:59 Last Admin: 04/15/18 20:39 Dose: 20 mg Bisacodyl (Dulcolax 10 Mg Supp) 10 mg RC DAILY PRN PRN Reason: Constipation Stop: 05/30/18 22:21 [place] Oil/[place] Balsam/Trypsin (Venelex) 1 appl TP DAILY [facility] Stop: 06/02/18 08:59 Last Admin: 04/16/18 08:53 Dose: 1 appl Dextrose (D50w) 50 ml IVP PRN PRN; Protocol PRN Reason: HYPOGLYCEMIA PROTOCOL Stop: 05/30/18 23:03 Diphenhydramine HCl (Benadryl) 25 mg PO Q6HR PRN PRN Reason: Itching Stop: 05/30/18 22:21 Last Admin: 04/11/18 21:01 Dose: 25 mg Docusate Sodium (Colace) 100 mg PO DAILY [facility] Stop: 05/31/18 08:59 Last Admin: 04/16/18 08:27 Dose: 100 mg Fludrocortisone Acetate (Florinef) 0.1 mg PO DAILY [facility] Stop: 06/15/18 08:59 Last Admin: 04/16/18 08:26 Dose: 0.1 mg Furosemide (Lasix) 40 mg IVP BID [facility] Stop: 06/10/18 19:59 Last Admin: 04/15/18 19:16 Dose: Not Given Insulin Aspart (Novolog Insulin Sliding Scale) 0 units SUBQ ACHS [facility]; Protocol Stop: 05/31/18 07:29 Last Admin: 04/16/18 08:29 Dose: 1,000 units Lactobacillus Rhamnosus (Culturelle 15b) 1 each PO DAILY [facility] Stop: 06/01/18 12:59 Last Admin: 04/16/18 08:52 Dose: 1 each Levetiracetam (Keppra) 500 mg PO BID [facility] Stop: 05/31/18 08:59 Last Admin: 04/16/18 08:27 Dose: 500 mg Levothyroxine Sodium (Synthroid) 0.025 mg PO QDAC [facility] Stop: 05/31/18 07:29 Last Admin: 04/16/18 06:31 Dose: 0.025 mg Lorazepam (Ativan) 1 mg IVP Q6HR PRN; Protocol PRN Reason: Agitation Stop: 06/08/18 13:49 Last Admin: 04/13/18 11:47 Dose: 1 mg Miscellaneous (Clinical Monitoring) 1 ea MC PRN PRN PRN Reason: RENAL Stop: 06/01/18 10:15 Miscellaneous (Probiotic Screen) 1 ea PRN PRN PRN Reason: PROTOCOL Stop: 06/04/18 08:14 Pantoprazole Sodium (Protonix) 40 mg PO DAILY [facility] Stop: 05/31/18 08:59 Last Admin: 04/16/18 08:27 Dose: 40 mg Sodium Chloride (Nacl Tab) 1 gm PO TID [facility] Stop: 06/06/18 15:14 Last Admin: 04/16/18 08:28 Dose: 1 gm Sodium Phosphate (Fleet Enema) 135 ml RC DAILY PRN PRN Reason: Constipation Stop: 05/30/18 22:21 Vitamin B Complex/Vit C/Folic Acid (Vitamin B Complex W/Vitamin C) 1 tab PO DAILY [facility] Stop: 05/31/18 08:59 Last Admin: 04/16/18 08:27 Dose: 1 tab Zinc Sulfate (Zinc Sulfate) 220 mg PO DAILY [facility] Stop: 05/31/18 08:59 Last Admin: 04/16/18 08:27 Dose: 220 mg General: No acute distress HEENT: Atraumatic Neck: Supple Cardiovascular: Regular rate, Normal S1, Normal S2 Lungs: Clear to auscultation Abdomen: Bowel sounds - Procedures Procedures: Procedures Procedure Code Date PERFORMANCE OF URINARY FILTRATION, <6 HRS/DAY [id number] 03/31/18 Assessment/Plan - Problem List Patient Problems: All Active Problems Anemia (Acute) D64.9 Dementia (Acute) F03.90 Diabetes (Acute) E11.9 ESRD (end stage renal disease) (Acute) HTN (hypertension) (Acute) I10 Sacral decubitus ulcer (Acute) L89.159 Nutritional Asmnt/Malnutr-PDOC - Dietary Evaluation Malnutrition Findings (Please click <Entered> for more info): Nutritional Asmnt/Malnutrition Start: 04/02/18 16: 21 Text: Status: Complete Freq: Protocol: Document 04/02/18 16:42 CHRISTG (Rec: 04/02/18 17:12 CHRIST [email or web address]) Nutritional Asmnt/Malnutrition Patient General Information Nutritional Screening High Risk Consult Diagnosis UTI, renal failure Pertinent Medical Hx/Surgical Hx HTN, DM, CVA/TIA, ESRD, dementia Subjective Information Consult for multiple ulcer. Pt seen lying in bed at time of visit, awake and alert. Pt reported appetite was not good , requesting for oral supplement (chocolate flavor only). Per nurse, pt will start dialysis. Pt has multiple wounds noted. Current Diet Order/ Nutrition Support 2gm sodium, renal Pertinent Medications vit C, D5-0.45ns, colace, novolog, culturelle, levaquin, synthroid, protonix, vit B complex w/ vit C, zinc Pertinent Labs 04/02 Na 125, Cl 90, BUN 31, Cr 2.8, glucose 141, POc 146-161 Nutritional Hx/Data Height 1.8 m Height (Calculated Centimeters) 180.3 Current Weight (lbs) 91.626 kg Weight (Calculated Kilograms) 91.6 Weight (Calculated Grams) 01346.7 [place] Body Weight 172 Body Mass Index (BMI) 28.1 GI Symptoms Skin Integrity/Comment: 3+ pitting adema to right upper extremity, 1+ pitting edemat to left arm reddened to right buttocks, ulcer to left buttocks, left and right arms Current %PO Fair (50-74%) Estimated Nutritional Goals BEE in Kcals: Adj wt of IBW Calories/Kcals/Kg 25-30 Kcals Calculated 3887-8579 Protein: Adj wt of IBW Protein g/k.1-1.3 Protein Calculated 89-105 Fluid: ml 2024-243ml (1ml/kcal) Nutritional Problem 3. Problem Problem increased nutrition needs ( calorie and protein) Etiology impaired skin integrity, increased protein loss Signs/Symptoms: multiple ulcer, pt on dialysis 2. Problem Problem inadequate food intake Etiology poor appetite Signs/Symptoms: PO intake 50% 1. Problem Problem altered nutrition related labs Etiology electrolytes imbalance, hx of DM, ESRD Signs/Symptoms: Na 125, Cl 90, BUN 31, Cr 2.8, Glucose 141, POC 146-161 Malnutrition Alert Is there a minimum of two criteria No selected? Query Text:Check all the applicable criteria. A minimum of two criteria are recommended for diagnosis of either severe or non-severe malnutrition. Malnutrition Related to Morbid Obesity Malnutrition related to morbid obesity No Intervention/Recommendation Comments 1. Continue with current diet as ordered. If glucose continue high, will consider adding CCHO diet. 2. Recommend adding oral supplement Glucerna (chocolate flavor) daily to increased nutrition intake, Hever BID for wound healing. DONAVAN Stack notified. 2. Monitor PO intake, wt, labs and skin integrity 3. F/U as high risk in 2-3 days, 04/04-04/04 Expected Outcomes/Goals Expected Outcomes/Goals 1. PO intake to meet at least 75% of nutritional needs. 2. Wt stability, skin to remain intact, labs to approach WNL.
--- NOTE | 2018-04-16 13:06 | Infectious Disease Prog Note ---
Infectious Disease Subjective - Review of Systems Service Date: 04/16/18 Events since last encounter: Leukocytosis. Subjective: No new change, no fever. Infectious Disease Objective - Results Result Diagrams: 04/15/18 06:55 04/15/18 06:55 Recent Labs: Laboratory Last Values WBC 12.9 Th/cmm (4.8-10.8) H 04/15/18 06:55 RBC 3.28 Mil/cmm (4.30-5.70) L 04/15/18 06:55 Hgb 10.6 gm/dL (12-16) L 04/15/18 06:55 Hct 31.8 % (41.0-60) L 04/15/18 06:55 MCV 97.0 fl (80-99) 04/15/18 06:55 MCH 32.2 pg (26.0-30.0) H 04/15/18 06:55 MCHC Differential 33.2 pg (28.0-36.0) 04/15/18 06:55 RDW 21.7 % (11.5-20.0) H 04/15/18 06:55 Plt Count 116 Th/cmm (150-400) L 04/15/18 06:55 MPV 7.7 fl 04/15/18 06:55 Add Manual Diff YES 04/15/18 06:55 Neutrophils % 88.1 % (40.0-80.0) H 04/13/18 05:35 Band Neutrophils % 3 % (0-10) 04/15/18 06:55 Lymphocytes % 6.4 % (20.0-50.0) L 04/13/18 05:35 Monocytes % 4.9 % (2.0-10.0) 04/13/18 05:35 Eosinophils % 0.3 % (0.0-5.0) 04/13/18 05:35 Basophils % 0.3 % (0.0-2.0) 04/13/18 05:35 Neutrophils (Manual) 94 % (40-80) H 04/15/18 06:55 Lymphocytes 1 % (20-50) L 04/15/18 06:55 Monocytes 2 % (2-10) 04/15/18 06:55 Eosinophils 0 % (0-5) 04/15/18 06:55 Basophils 2 % (0-3) 04/02/18 06:00 Platelet Estimate ADEQUATE (NORMAL) 04/02/18 06:00 Platelet Morphology NORMAL (NORMAL) 03/31/18 18:25 Anisocytosis 1+ 04/15/18 06:55 RBC Morph Micro Appear ABNORMAL (NORMAL) 03/31/18 18:25 PT 13.0 SECONDS (9.5-11.5) H 04/12/18 06:35 INR 1.24 (0.5-1.4) 04/12/18 06:35 Sodium 130 mEq/L (136-145) L 04/15/18 06:55 Potassium 4.2 mEq/L (3.5-5.1) 04/15/18 06:55 Chloride 98 mEq/L (98-107) 04/15/18 06:55 Carbon Dioxide 22.4 mEq/L (21.0-31.0) 04/15/18 06:55 Anion Gap 13.8 (7.0-16.0) 04/15/18 06:55 BUN 36 mg/dL (7-25) H 04/15/18 06:55 Creatinine 2.9 mg/dL (0.7-1.3) H 04/15/18 06:55 Est GFR ( Amer) 28.7 ml/min (>90) 04/15/18 06:55 Est GFR (Non-Af Amer) 23.7 ml/min 04/15/18 06:55 BUN/Creatinine Ratio 12.4 04/15/18 06:55 Glucose 145 mg/dL (70-105) H 04/15/18 06:55 POC Glucose 158 MG/DL (70 - 105) H 04/16/18 05:50 Calcium 8.2 mg/dL (8.6-10.3) L 04/15/18 06:55 Phosphorus 4.8 mg/dL (2.5-5.0) 04/02/18 06:00 Iron 33 ug/dL (38-169) L 04/02/18 06:00 TIBC 73 ug/dL (250-450) L 04/02/18 06:00 Iron Saturation 45 % (15-55) 04/02/18 06:00 Unsaturated IBC 40 ug/dL (111-343) L 04/02/18 06:00 Ferritin 1538 ng/mL (30-400) H 04/02/18 06:00 Total Bilirubin 0.5 mg/dL (0.3-1.0) 04/15/18 06:55 AST 8 U/L (13-39) L 04/15/18 06:55 ALT 6 U/L (7-52) L 04/15/18 06:55 Alkaline Phosphatase 118 U/L (34-104) H 04/15/18 06:55 Troponin I 0.05 ng/mL (0.01-0.05) 03/31/18 18:25 B-Natriuretic Peptide > 5000.0 pg/mL (5.0-100.0) H 04/15/18 07:02 Total Protein 5.6 gm/dL (6.0-8.3) L 04/15/18 06:55 Albumin 2.5 gm/dL (4.2-5.5) L 04/15/18 06:55 Globulin 3.1 gm/dL 04/15/18 06:55 Albumin/Globulin Ratio 0.8 (1.0-1.8) L 04/15/18 06:55 Urine Source CLEAN C 03/31/18 18:45 Urine Color YELLOW 03/31/18 18:45 Urine Clarity CLOUDY (CLEAR) 03/31/18 18:45 Urine pH 6.0 (4.6 - 8.0) 03/31/18 18:45 Ur Specific [place] 1.020 (1.005-1.030) 03/31/18 18:45 Urine Protein >=300 mg/dL (NEGATIVE) 03/31/18 18:45 Urine Glucose (UA) NEGATIVE mg/dL (NEGATIVE) 03/31/18 18:45 Urine Ketones NEGATIVE mg/dL (NEGATIVE) 03/31/18 18:45 Urine Blood LARGE (NEGATIVE) H 03/31/18 18:45 Urine Nitrate NEGATIVE (NEGATIVE) 03/31/18 18:45 Urine Bilirubin NEGATIVE (NEGATIVE) 03/31/18 18:45 Urine Urobilinogen 0.2 E.U./dL (0.2 - 1.0) 03/31/18 18:45 Ur Leukocyte Esterase MODERATE (NEGATIVE) H 03/31/18 18:45 Urine RBC 50-100 /hpf (0-5) H 03/31/18 18:45 Urine WBC 25-50 /hpf (0-5) H 03/31/18 18:45 Ur Epithelial Cells NONE SEEN /lpf (FEW) 03/31/18 18:45 Urine Bacteria FEW /hpf (NONE SEEN) 03/31/18 18:45 - Physical Exam Vitals and I&O: Vital Signs Temp 97.0 F 04/16/18 08:52 Pulse 90 04/16/18 12:20 Resp 18 04/16/18 12:25 BP 98/58 04/16/18 10:17 Pulse Ox 98 04/16/18 12:20 Intake & Output 04/15/18 04/16/18 04/16/18 18:59 06:59 18:59 Intake Total 500 1080 Output Total 100 150 Balance 400 930 Weight (lbs) 86.183 kg 86.183 kg Intake: Oral 500 1080 Output: Urine 100 100 Stool 50 Other: # Bowel Movements 1 Weight Source Bedscale Bedscale Active Medications: Current Medications Acetaminophen (Tylenol) 650 mg PO Q4HR PRN PRN Reason: MILD Pain or Fever >101 Stop: 05/30/18 22:21 Last Admin: 04/16/18 06:31 Dose: 650 mg Albuterol/Ipratropium (Duoneb Neb) 3 ml HHN Q6HRT [facility] Stop: 05/31/18 00:59 Last Admin: 04/16/18 12:20 Dose: 3 ml Aripiprazole (Abilify) 5 mg PO BID [facility]; Protocol Stop: 06/12/18 16:59 Last Admin: 04/16/18 08:25 Dose: 5 mg Ascorbic Acid (Vitamin C) 500 mg PO DAILY [facility] Stop: 05/31/18 08:59 Last Admin: 04/16/18 08:27 Dose: 500 mg Aspirin (Ecotrin) 81 mg PO DAILY [facility] Stop: 05/31/18 08:59 Last Admin: 04/16/18 08:27 Dose: 81 mg Atorvastatin Calcium (Lipitor) 20 mg PO HS [facility] Stop: 05/31/18 20:59 Last Admin: 04/15/18 20:39 Dose: 20 mg Bisacodyl (Dulcolax 10 Mg Supp) 10 mg RC DAILY PRN PRN Reason: Constipation Stop: 05/30/18 22:21 [place] Oil/[place] Balsam/Trypsin (Venelex) 1 appl TP DAILY [facility] Stop: 06/02/18 08:59 Last Admin: 04/16/18 08:53 Dose: 1 appl Dextrose (D50w) 50 ml IVP PRN PRN; Protocol PRN Reason: HYPOGLYCEMIA PROTOCOL Stop: 05/30/18 23:03 Diphenhydramine HCl (Benadryl) 25 mg PO Q6HR PRN PRN Reason: Itching Stop: 05/30/18 22:21 Last Admin: 04/11/18 21:01 Dose: 25 mg Docusate Sodium (Colace) 100 mg PO DAILY [facility] Stop: 05/31/18 08:59 Last Admin: 04/16/18 08:27 Dose: 100 mg Fludrocortisone Acetate (Florinef) 0.1 mg PO DAILY [facility] Stop: 06/15/18 08:59 Last Admin: 04/16/18 08:26 Dose: 0.1 mg Furosemide (Lasix) 40 mg IVP BID [facility] Stop: 06/10/18 19:59 Last Admin: 04/16/18 10:17 Dose: Not Given Insulin Aspart (Novolog Insulin Sliding Scale) 0 units SUBQ ACHS [facility]; Protocol Stop: 05/31/18 07:29 Last Admin: 04/16/18 12:04 Dose: Not Given Lactobacillus Rhamnosus (Culturelle 15b) 1 each PO DAILY [facility] Stop: 06/01/18 12:59 Last Admin: 04/16/18 08:52 Dose: 1 each Levetiracetam (Keppra) 500 mg PO BID [facility] Stop: 05/31/18 08:59 Last Admin: 04/16/18 08:27 Dose: 500 mg Levothyroxine Sodium (Synthroid) 0.025 mg PO QDAC [facility] Stop: 05/31/18 07:29 Last Admin: 04/16/18 06:31 Dose: 0.025 mg Lorazepam (Ativan) 1 mg IVP Q6HR PRN; Protocol PRN Reason: Agitation Stop: 06/08/18 13:49 Last Admin: 04/13/18 11:47 Dose: 1 mg Midodrine (Proamatine) 10 mg PO TID [facility] Stop: 06/15/18 13:59 Miscellaneous (Clinical Monitoring) 1 ea PRN PRN PRN Reason: RENAL Stop: 06/01/18 10:15 Miscellaneous (Probiotic Screen) 1 ea PRN PRN PRN Reason: PROTOCOL Stop: 06/04/18 08:14 Pantoprazole Sodium (Protonix) 40 mg PO DAILY [facility] Stop: 05/31/18 08:59 Last Admin: 04/16/18 08:27 Dose: 40 mg Sodium Chloride (Nacl Tab) 1 gm PO TID [facility] Stop: 06/06/18 15:14 Last Admin: 04/16/18 08:28 Dose: 1 gm Sodium Phosphate (Fleet Enema) 135 ml RC DAILY PRN PRN Reason: Constipation Stop: 05/30/18 22:21 Vitamin B Complex/Vit C/Folic Acid (Vitamin B Complex W/Vitamin C) 1 tab PO DAILY [facility] Stop: 05/31/18 08:59 Last Admin: 04/16/18 08:27 Dose: 1 tab Zinc Sulfate (Zinc Sulfate) 220 mg PO DAILY [facility] Stop: 05/31/18 08:59 Last Admin: 04/16/18 08:27 Dose: 220 mg General: no acute distress, well developed, well nourished HEENT: atraumatic, normocephalic, PERRLA, EOMI Neck: supple, no thyromegaly Cardiovascular: S1S2, regular Lungs: clear to auscultation bilaterally, clear to percussion Abdomen: soft, no tender, no distended, no rebound Extremities: no cyanosis, no clubbing, no edema Neurological: awake, alert, oriented Skin: intact - Procedures Procedures: Procedures Procedure Code Date PERFORMANCE OF URINARY FILTRATION, <6 HRS/DAY [id number] 03/31/18 Infectious Disease Assmt/Plan - Problem List Patient Problems: All Active Problems Anemia (Acute) D64.9 Dementia (Acute) F03.90 Diabetes (Acute) E11.9 ESRD (end stage renal disease) (Acute) HTN (hypertension) (Acute) I10 Sacral decubitus ulcer (Acute) L89.159 - Assessment Assessment: 1. Sacral decubitus ulcer. 2. History of Methicillin-resistant Staphylococcus aureus infection. 3. Urinary tract infection. 4. Anemia. 5. Diabetes mellitus type 2. 6. Hypertension. 7. Leukocytosis: monitor. - Plan Plan: off antibiotics. Wound care. Monitor CBC. Nutritional Asmnt/Malnutr-PDOC - Dietary Evaluation Malnutrition Findings (Please click <Entered> for more info): Nutritional Asmnt/Malnutrition Start: 04/02/18 16: 21 Text: Status: Complete Freq: Protocol: Document 04/02/18 16:42 LCHENG (Rec: 04/02/18 17:12 [email or web address]) Nutritional Asmnt/Malnutrition Patient General Information Nutritional Screening High Risk Consult Diagnosis UTI, renal failure Pertinent Medical Hx/Surgical Hx HTN, DM, CVA/TIA, ESRD, dementia Subjective Information Consult for multiple ulcer. Pt seen lying in bed at time of visit, awake and alert. Pt reported appetite was not good , requesting for oral supplement (chocolate flavor only). Per nurse, pt will start dialysis. Pt has multiple wounds noted. Current Diet Order/ Nutrition Support 2gm sodium, renal Pertinent Medications vit C, D5-0.45ns, colace, novolog, culturelle, levaquin, synthroid, protonix, vit B complex w/ vit C, zinc Pertinent Labs 04/02 Na 125, Cl 90, BUN 31, Cr 2.8, glucose 141, POc 146-161 Nutritional Hx/Data Height 1.8 m Height (Calculated Centimeters) 180.3 Current Weight (lbs) 91.626 kg Weight (Calculated Kilograms) 91.6 Weight (Calculated Grams) 14078.7 [place] Body Weight 172 Body Mass Index (BMI) 28.1 GI Symptoms Skin Integrity/Comment: 3+ pitting adema to right upper extremity, 1+ pitting edemat to left arm reddened to right buttocks, ulcer to left buttocks, left and right arms Current %PO Fair (50-74%) Estimated Nutritional Goals BEE in Kcals: Adj wt of IBW Calories/Kcals/Kg 25-30 Kcals Calculated 1375-3367 Protein: Adj wt of IBW Protein g/k.1-1.3 Protein Calculated 89-105 Fluid: ml 2024-243ml (1ml/kcal) Nutritional Problem 3. Problem Problem increased nutrition needs ( calorie and protein) Etiology impaired skin integrity, increased protein loss Signs/Symptoms: multiple ulcer, pt on dialysis 2. Problem Problem inadequate food intake Etiology poor appetite Signs/Symptoms: PO intake 50% 1. Problem Problem altered nutrition related labs Etiology electrolytes imbalance, hx of DM, ESRD Signs/Symptoms: Na 125, Cl 90, BUN 31, Cr 2.8, Glucose 141, POC 146-161 Malnutrition Alert Is there a minimum of two criteria No selected? Query Text:Check all the applicable criteria. A minimum of two criteria are recommended for diagnosis of either severe or non-severe malnutrition. Malnutrition Related to Morbid Obesity Malnutrition related to morbid obesity No Intervention/Recommendation Comments 1. Continue with current diet as ordered. If glucose continue high, will consider adding CCHO diet. 2. Recommend adding oral supplement Glucerna (chocolate flavor) daily to increased nutrition intake, Hever BID for wound healing. DONAVAN Stack notified. 2. Monitor PO intake, wt, labs and skin integrity 3. F/U as high risk in 2-3 days, 04/04-04/04 Expected Outcomes/Goals Expected Outcomes/Goals 1. PO intake to meet at least 75% of nutritional needs. 2. Wt stability, skin to remain intact, labs to approach WNL.
--- NOTE | 2018-04-16 13:57 | Internal Medicine Prog Note ---
Internal Medicine Subjective - Subjective Service Date: 04/16/18 Patient is:: awake Per staff patient has:: no adverse event Internal Medicine Objective - Results Result Diagrams: 04/15/18 06:55 04/15/18 06:55 Recent Labs: Laboratory Last Values WBC 12.9 Th/cmm (4.8-10.8) H 04/15/18 06:55 RBC 3.28 Mil/cmm (4.30-5.70) L 04/15/18 06:55 Hgb 10.6 gm/dL (12-16) L 04/15/18 06:55 Hct 31.8 % (41.0-60) L 04/15/18 06:55 MCV 97.0 fl (80-99) 04/15/18 06:55 MCH 32.2 pg (26.0-30.0) H 04/15/18 06:55 MCHC Differential 33.2 pg (28.0-36.0) 04/15/18 06:55 RDW 21.7 % (11.5-20.0) H 04/15/18 06:55 Plt Count 116 Th/cmm (150-400) L 04/15/18 06:55 MPV 7.7 fl 04/15/18 06:55 Add Manual Diff YES 04/15/18 06:55 Neutrophils % 88.1 % (40.0-80.0) H 04/13/18 05:35 Band Neutrophils % 3 % (0-10) 04/15/18 06:55 Lymphocytes % 6.4 % (20.0-50.0) L 04/13/18 05:35 Monocytes % 4.9 % (2.0-10.0) 04/13/18 05:35 Eosinophils % 0.3 % (0.0-5.0) 04/13/18 05:35 Basophils % 0.3 % (0.0-2.0) 04/13/18 05:35 Neutrophils (Manual) 94 % (40-80) H 04/15/18 06:55 Lymphocytes 1 % (20-50) L 04/15/18 06:55 Monocytes 2 % (2-10) 04/15/18 06:55 Eosinophils 0 % (0-5) 04/15/18 06:55 Basophils 2 % (0-3) 04/02/18 06:00 Platelet Estimate ADEQUATE (NORMAL) 04/02/18 06:00 Platelet Morphology NORMAL (NORMAL) 03/31/18 18:25 Anisocytosis 1+ 04/15/18 06:55 RBC Morph Micro Appear ABNORMAL (NORMAL) 03/31/18 18:25 PT 13.0 SECONDS (9.5-11.5) H 04/12/18 06:35 INR 1.24 (0.5-1.4) 04/12/18 06:35 Sodium 130 mEq/L (136-145) L 04/15/18 06:55 Potassium 4.2 mEq/L (3.5-5.1) 04/15/18 06:55 Chloride 98 mEq/L (98-107) 04/15/18 06:55 Carbon Dioxide 22.4 mEq/L (21.0-31.0) 04/15/18 06:55 Anion Gap 13.8 (7.0-16.0) 04/15/18 06:55 BUN 36 mg/dL (7-25) H 04/15/18 06:55 Creatinine 2.9 mg/dL (0.7-1.3) H 04/15/18 06:55 Est GFR ( Amer) 28.7 ml/min (>90) 04/15/18 06:55 Est GFR (Non-Af Amer) 23.7 ml/min 04/15/18 06:55 BUN/Creatinine Ratio 12.4 04/15/18 06:55 Glucose 145 mg/dL (70-105) H 04/15/18 06:55 POC Glucose 158 MG/DL (70 - 105) H 04/16/18 05:50 Calcium 8.2 mg/dL (8.6-10.3) L 04/15/18 06:55 Phosphorus 4.8 mg/dL (2.5-5.0) 04/02/18 06:00 Iron 33 ug/dL (38-169) L 04/02/18 06:00 TIBC 73 ug/dL (250-450) L 04/02/18 06:00 Iron Saturation 45 % (15-55) 04/02/18 06:00 Unsaturated IBC 40 ug/dL (111-343) L 04/02/18 06:00 Ferritin 1538 ng/mL (30-400) H 04/02/18 06:00 Total Bilirubin 0.5 mg/dL (0.3-1.0) 04/15/18 06:55 AST 8 U/L (13-39) L 04/15/18 06:55 ALT 6 U/L (7-52) L 04/15/18 06:55 Alkaline Phosphatase 118 U/L (34-104) H 04/15/18 06:55 Troponin I 0.05 ng/mL (0.01-0.05) 03/31/18 18:25 B-Natriuretic Peptide > 5000.0 pg/mL (5.0-100.0) H 04/15/18 07:02 Total Protein 5.6 gm/dL (6.0-8.3) L 04/15/18 06:55 Albumin 2.5 gm/dL (4.2-5.5) L 04/15/18 06:55 Globulin 3.1 gm/dL 04/15/18 06:55 Albumin/Globulin Ratio 0.8 (1.0-1.8) L 04/15/18 06:55 Urine Source CLEAN C 03/31/18 18:45 Urine Color YELLOW 03/31/18 18:45 Urine Clarity CLOUDY (CLEAR) 03/31/18 18:45 Urine pH 6.0 (4.6 - 8.0) 03/31/18 18:45 Ur Specific [place] 1.020 (1.005-1.030) 03/31/18 18:45 Urine Protein >=300 mg/dL (NEGATIVE) 03/31/18 18:45 Urine Glucose (UA) NEGATIVE mg/dL (NEGATIVE) 03/31/18 18:45 Urine Ketones NEGATIVE mg/dL (NEGATIVE) 03/31/18 18:45 Urine Blood LARGE (NEGATIVE) H 03/31/18 18:45 Urine Nitrate NEGATIVE (NEGATIVE) 03/31/18 18:45 Urine Bilirubin NEGATIVE (NEGATIVE) 03/31/18 18:45 Urine Urobilinogen 0.2 E.U./dL (0.2 - 1.0) 03/31/18 18:45 Ur Leukocyte Esterase MODERATE (NEGATIVE) H 03/31/18 18:45 Urine RBC 50-100 /hpf (0-5) H 03/31/18 18:45 Urine WBC 25-50 /hpf (0-5) H 03/31/18 18:45 Ur Epithelial Cells NONE SEEN /lpf (FEW) 03/31/18 18:45 Urine Bacteria FEW /hpf (NONE SEEN) 03/31/18 18:45 - Physical Exam Vitals and I&O: Vital Signs Temp 97.0 F 04/16/18 08:52 Pulse 90 04/16/18 12:20 Resp 18 04/16/18 12:25 BP 98/58 04/16/18 10:17 Pulse Ox 98 04/16/18 12:20 Intake & Output 04/15/18 04/16/18 04/16/18 18:59 06:59 18:59 Intake Total 500 1080 Output Total 100 150 Balance 400 930 Weight (lbs) 190 lb 190 lb Intake: Oral 500 1080 Output: Urine 100 100 Stool 50 Other: # Bowel Movements 1 Weight Source Bedscale Bedscale Active Medications: Current Medications Acetaminophen (Tylenol) 650 mg PO Q4HR PRN PRN Reason: MILD Pain or Fever >101 Stop: 05/30/18 22:21 Last Admin: 04/16/18 06:31 Dose: 650 mg Albuterol/Ipratropium (Duoneb Neb) 3 ml HHN Q6HRT [facility] Stop: 05/31/18 00:59 Last Admin: 04/16/18 12:20 Dose: 3 ml Aripiprazole (Abilify) 5 mg PO BID [facility]; Protocol Stop: 06/12/18 16:59 Last Admin: 04/16/18 08:25 Dose: 5 mg Ascorbic Acid (Vitamin C) 500 mg PO DAILY [facility] Stop: 05/31/18 08:59 Last Admin: 04/16/18 08:27 Dose: 500 mg Aspirin (Ecotrin) 81 mg PO DAILY [facility] Stop: 05/31/18 08:59 Last Admin: 04/16/18 08:27 Dose: 81 mg Atorvastatin Calcium (Lipitor) 20 mg PO HS [facility] Stop: 05/31/18 20:59 Last Admin: 04/15/18 20:39 Dose: 20 mg Bisacodyl (Dulcolax 10 Mg Supp) 10 mg RC DAILY PRN PRN Reason: Constipation Stop: 05/30/18 22:21 [place] Oil/[place] Balsam/Trypsin (Venelex) 1 appl TP DAILY [facility] Stop: 06/02/18 08:59 Last Admin: 04/16/18 08:53 Dose: 1 appl Dextrose (D50w) 50 ml IVP PRN PRN; Protocol PRN Reason: HYPOGLYCEMIA PROTOCOL Stop: 05/30/18 23:03 Diphenhydramine HCl (Benadryl) 25 mg PO Q6HR PRN PRN Reason: Itching Stop: 05/30/18 22:21 Last Admin: 04/11/18 21:01 Dose: 25 mg Docusate Sodium (Colace) 100 mg PO DAILY [facility] Stop: 05/31/18 08:59 Last Admin: 04/16/18 08:27 Dose: 100 mg Fludrocortisone Acetate (Florinef) 0.1 mg PO DAILY [facility] Stop: 06/15/18 08:59 Last Admin: 04/16/18 08:26 Dose: 0.1 mg Furosemide (Lasix) 40 mg IVP BID [facility] Stop: 06/10/18 19:59 Last Admin: 04/16/18 10:17 Dose: Not Given Insulin Aspart (Novolog Insulin Sliding Scale) 0 units SUBQ ACHS [facility]; Protocol Stop: 05/31/18 07:29 Last Admin: 04/16/18 12:04 Dose: Not Given Lactobacillus Rhamnosus (Culturelle 15b) 1 each PO DAILY [facility] Stop: 06/01/18 12:59 Last Admin: 04/16/18 08:52 Dose: 1 each Levetiracetam (Keppra) 500 mg PO BID [facility] Stop: 05/31/18 08:59 Last Admin: 04/16/18 08:27 Dose: 500 mg Levothyroxine Sodium (Synthroid) 0.025 mg PO QDAC [facility] Stop: 05/31/18 07:29 Last Admin: 04/16/18 06:31 Dose: 0.025 mg Lorazepam (Ativan) 1 mg IVP Q6HR PRN; Protocol PRN Reason: Agitation Stop: 06/08/18 13:49 Last Admin: 04/13/18 11:47 Dose: 1 mg Midodrine (Proamatine) 10 mg PO TID [facility] Stop: 06/15/18 13:59 Miscellaneous (Clinical Monitoring) 1 ea PRN PRN PRN Reason: RENAL Stop: 06/01/18 10:15 Miscellaneous (Probiotic Screen) 1 ea PRN PRN PRN Reason: PROTOCOL Stop: 06/04/18 08:14 Pantoprazole Sodium (Protonix) 40 mg PO DAILY [facility] Stop: 05/31/18 08:59 Last Admin: 04/16/18 08:27 Dose: 40 mg Sodium Chloride (Nacl Tab) 1 gm PO TID [facility] Stop: 06/06/18 15:14 Last Admin: 04/16/18 08:28 Dose: 1 gm Sodium Phosphate (Fleet Enema) 135 ml RC DAILY PRN PRN Reason: Constipation Stop: 05/30/18 22:21 Vitamin B Complex/Vit C/Folic Acid (Vitamin B Complex W/Vitamin C) 1 tab PO DAILY [facility] Stop: 05/31/18 08:59 Last Admin: 04/16/18 08:27 Dose: 1 tab Zinc Sulfate (Zinc Sulfate) 220 mg PO DAILY [facility] Stop: 05/31/18 08:59 Last Admin: 04/16/18 08:27 Dose: 220 mg General: weak HEENT: NC/AT, PERRLA Neck: Supple Lungs: CTAB Cardiovascular: RRR, Normal S1, Normal S2, without murmur Abdomen: soft, non-distended, positive bowel sound - Procedures Procedures: Procedures Procedure Code Date PERFORMANCE OF URINARY FILTRATION, <6 HRS/DAY [id number] 03/31/18 Internal Medicine Assmt/Plan - Assessment Assessment: Sacral decubitus ulcer. History of Methicillin-resistant Staphylococcus aureus infection. Urinary tract infection. Anemia. Diabetes mellitus type 2. Hypertension. - Plan Plan: continue wound care follow up labs in am continue current plan of care Nutritional Asmnt/Malnutr-PDOC - Dietary Evaluation Malnutrition Findings (Please click <Entered> for more info): Nutritional Asmnt/Malnutrition Start: 04/02/18 16: 21 Text: Status: Complete Freq: Protocol: Document 04/02/18 16:42 LCHENG (Rec: 04/02/18 17:12 LCHENG [email or web address]) Nutritional Asmnt/Malnutrition Patient General Information Nutritional Screening High Risk Consult Diagnosis UTI, renal failure Pertinent Medical Hx/Surgical Hx HTN, DM, CVA/TIA, ESRD, dementia Subjective Information Consult for multiple ulcer. Pt seen lying in bed at time of visit, awake and alert. Pt reported appetite was not good , requesting for oral supplement (chocolate flavor only). Per nurse, pt will start dialysis. Pt has multiple wounds noted. Current Diet Order/ Nutrition Support 2gm sodium, renal Pertinent Medications vit C, D5-0.45ns, colace, novolog, culturelle, levaquin, synthroid, protonix, vit B complex w/ vit C, zinc Pertinent Labs 04/02 Na 125, Cl 90, BUN 31, Cr 2.8, glucose 141, POc 146-161 Nutritional Hx/Data Height 5 ft 11 in Height (Calculated Centimeters) 180.3 Current Weight (lbs) 202 lb Weight (Calculated Kilograms) 91.6 Weight (Calculated Grams) 61270.7 [place] Body Weight 172 Body Mass Index (BMI) 28.1 GI Symptoms Skin Integrity/Comment: 3+ pitting adema to right upper extremity, 1+ pitting edemat to left arm reddened to right buttocks, ulcer to left buttocks, left and right arms Current %PO Fair (50-74%) Estimated Nutritional Goals BEE in Kcals: Adj wt of IBW Calories/Kcals/Kg 25-30 Kcals Calculated 9662-0786 Protein: Adj wt of IBW Protein g/k.1-1.3 Protein Calculated 89-105 Fluid: ml 2024-243ml (1ml/kcal) Nutritional Problem 3. Problem Problem increased nutrition needs ( calorie and protein) Etiology impaired skin integrity, increased protein loss Signs/Symptoms: multiple ulcer, pt on dialysis 2. Problem Problem inadequate food intake Etiology poor appetite Signs/Symptoms: PO intake 50% 1. Problem Problem altered nutrition related labs Etiology electrolytes imbalance, hx of DM, ESRD Signs/Symptoms: Na 125, Cl 90, BUN 31, Cr 2.8, Glucose 141, POC 146-161 Malnutrition Alert Is there a minimum of two criteria No selected? Query Text:Check all the applicable criteria. A minimum of two criteria are recommended for diagnosis of either severe or non-severe malnutrition. Malnutrition Related to Morbid Obesity Malnutrition related to morbid obesity No Intervention/Recommendation Comments 1. Continue with current diet as ordered. If glucose continue high, will consider adding CCHO diet. 2. Recommend adding oral supplement Glucerna (chocolate flavor) daily to increased nutrition intake, Hever BID for wound healing. DONAVAN Stack notified. 2. Monitor PO intake, wt, labs and skin integrity 3. F/U as high risk in 2-3 days, 04/04-04/04 Expected Outcomes/Goals Expected Outcomes/Goals 1. PO intake to meet at least 75% of nutritional needs. 2. Wt stability, skin to remain intact, labs to approach WNL.
[2018-04-16] MEDS: Atorvastatin Calcium 10 MG TAB PO SCH (21:12)
[2018-04-17] MEDS: Albuterol/Ipratropium Neb 3 ML AERS HHN SCH ×4 (00:56→18:55)
[2018-04-17] MEDS: INSULIN ASPART SLIDING SCALE 100 UNITS/ML UNIT SUBQ SCH ×4 (06:31→20:58)
[2018-04-17 06:40] LABS: HEMATOCRIT 28.2 % (41.0-60); HEMOGLOBIN 9.2 gm/dL (12-16); MEAN CELL VOLUME 94.6 fl (80-99); MEAN CORPUSCULAR HGB CONC 32.8 pg (28.0-36.0); MEAN PLATELET VOLUME 8.3 fl; PLATELET COUNT 140 Th/cmm (150-400); RED BLOOD COUNT 2.98 Mil/cmm (4.30-5.70); WHITE BLOOD COUNT 14.3 Th/cmm (4.8-10.8)
[2018-04-17 07:00] LABS: ALB/GLOB RATIO 0.8 (1.0-1.8); ALBUMIN 2.3 gm/dL (4.2-5.5); ANION GAP 14.4 (7.0-16.0); BILIRUBIN,TOTAL 0.5 mg/dL (0.3-1.0); CALCIUM SERUM 8.2 mg/dL (8.6-10.3); CARBON DIOXIDE 21.8 mEq/L (21.0-31.0); CREATININE - SERUM 3.2 mg/dL (0.7-1.3); GFR AFRICAN-AMERICAN 25.6 ml/min (>90); GFR NON AFRICAN-AMERICAN 21.2 ml/min; MAGNESIUM 1.7 mg/dL (1.9-2.7); PHOSPHOROUS 3.2 mg/dL (2.5-5.0); POTASSIUM SERUM 4.2 mEq/L (3.5-5.1); TOTAL PROTEIN,SERUM 5.2 gm/dL (6.0-8.3)
[2018-04-17 07:21] LABS: BAND NEUTROPHILE 1 % (0-10); BASOPHIL 0 % (0-3); EOSINOPHIL 0 % (0-5); LYMPHOCYTE 4 % (20-50); MONOCYTE 4 % (2-10); NEUTROPHILS 91 % (40-80)
[2018-04-17] MEDS: Levothyroxine 0.025 Mg Tab PO SCH (09:04)
[2018-04-17] MEDS: Lactobacillus Rhamnosus GG 15 Billion CFU CAP.SPRINK PO SCH (09:07)
[2018-04-17] MEDS: Multivitamin w/ Minerals Tab PO SCH (09:07)
[2018-04-17] MEDS: Vitamin B Complex w/Vitamin C Tab PO SCH (09:08)
[2018-04-17] MEDS: Pantoprazole 40 mg EC Tab PO SCH (09:08)
[2018-04-17] MEDS: Venelex 60gm Tube TP SCH (09:11)
--- NOTE | 2018-04-17 12:48 | Internal Medicine Prog Note ---
Internal Medicine Subjective - Subjective Service Date: 04/17/18 Patient seen and examined:: with staff Patient is:: awake Per staff patient has:: no adverse event Internal Medicine Objective - Results Result Diagrams: 04/17/18 06:20 04/17/18 06:20 Recent Labs: Laboratory Last Values WBC 14.3 Th/cmm (4.8-10.8) H 04/17/18 06:20 RBC 2.98 Mil/cmm (4.30-5.70) L 04/17/18 06:20 Hgb 9.2 gm/dL (12-16) L 04/17/18 06:20 Hct 28.2 % (41.0-60) L 04/17/18 06:20 MCV 94.6 fl (80-99) 04/17/18 06:20 MCH 31.0 pg (26.0-30.0) H 04/17/18 06:20 MCHC Differential 32.8 pg (28.0-36.0) 04/17/18 06:20 RDW 20.0 % (11.5-20.0) 04/17/18 06:20 Plt Count 140 Th/cmm (150-400) L 04/17/18 06:20 MPV 8.3 fl 04/17/18 06:20 Add Manual Diff YES 04/17/18 06:20 Neutrophils % 88.1 % (40.0-80.0) H 04/13/18 05:35 Band Neutrophils % 1 % (0-10) 04/17/18 06:20 Lymphocytes % 6.4 % (20.0-50.0) L 04/13/18 05:35 Monocytes % 4.9 % (2.0-10.0) 04/13/18 05:35 Eosinophils % 0.3 % (0.0-5.0) 04/13/18 05:35 Basophils % 0.3 % (0.0-2.0) 04/13/18 05:35 Neutrophils (Manual) 91 % (40-80) H 04/17/18 06:20 Lymphocytes 4 % (20-50) L 04/17/18 06:20 Monocytes 4 % (2-10) 04/17/18 06:20 Eosinophils 0 % (0-5) 04/17/18 06:20 Basophils 0 % (0-3) 04/17/18 06:20 Platelet Estimate ADEQUATE (NORMAL) 04/02/18 06:00 Platelet Morphology NORMAL (NORMAL) 03/31/18 18:25 Anisocytosis 1+ 04/15/18 06:55 RBC Morph Micro Appear ABNORMAL (NORMAL) 03/31/18 18:25 PT 13.0 SECONDS (9.5-11.5) H 04/12/18 06:35 INR 1.24 (0.5-1.4) 04/12/18 06:35 Sodium 130 mEq/L (136-145) L 04/17/18 06:20 Potassium 4.2 mEq/L (3.5-5.1) 04/17/18 06:20 Chloride 98 mEq/L (98-107) 04/17/18 06:20 Carbon Dioxide 21.8 mEq/L (21.0-31.0) 04/17/18 06:20 Anion Gap 14.4 (7.0-16.0) 04/17/18 06:20 BUN 46 mg/dL (7-25) H 04/17/18 06:20 Creatinine 3.2 mg/dL (0.7-1.3) H 04/17/18 06:20 Est GFR ( Amer) 25.6 ml/min (>90) 04/17/18 06:20 Est GFR (Non-Af Amer) 21.2 ml/min 04/17/18 06:20 BUN/Creatinine Ratio 14.4 04/17/18 06:20 Glucose 95 mg/dL (70-105) 04/17/18 06:20 POC Glucose 123 MG/DL (70 - 105) H 04/17/18 11:34 Calcium 8.2 mg/dL (8.6-10.3) L 04/17/18 06:20 Phosphorus 3.2 mg/dL (2.5-5.0) 04/17/18 06:20 Magnesium 1.7 mg/dL (1.9-2.7) L 04/17/18 06:20 Iron 33 ug/dL (38-169) L 04/02/18 06:00 TIBC 73 ug/dL (250-450) L 04/02/18 06:00 Iron Saturation 45 % (15-55) 04/02/18 06:00 Unsaturated IBC 40 ug/dL (111-343) L 04/02/18 06:00 Ferritin 1538 ng/mL (30-400) H 04/02/18 06:00 Total Bilirubin 0.5 mg/dL (0.3-1.0) 04/17/18 06:20 AST 7 U/L (13-39) L 04/17/18 06:20 ALT 6 U/L (7-52) L 04/17/18 06:20 Alkaline Phosphatase 91 U/L (34-104) 04/17/18 06:20 Troponin I 0.05 ng/mL (0.01-0.05) 03/31/18 18:25 B-Natriuretic Peptide > 5000.0 pg/mL (5.0-100.0) H 04/15/18 07:02 Total Protein 5.2 gm/dL (6.0-8.3) L 04/17/18 06:20 Albumin 2.3 gm/dL (4.2-5.5) L 04/17/18 06:20 Globulin 2.9 gm/dL 04/17/18 06:20 Albumin/Globulin Ratio 0.8 (1.0-1.8) L 04/17/18 06:20 Urine Source CLEAN C 03/31/18 18:45 Urine Color YELLOW 03/31/18 18:45 Urine Clarity CLOUDY (CLEAR) 03/31/18 18:45 Urine pH 6.0 (4.6 - 8.0) 03/31/18 18:45 Ur Specific [place] 1.020 (1.005-1.030) 03/31/18 18:45 Urine Protein >=300 mg/dL (NEGATIVE) 03/31/18 18:45 Urine Glucose (UA) NEGATIVE mg/dL (NEGATIVE) 03/31/18 18:45 Urine Ketones NEGATIVE mg/dL (NEGATIVE) 03/31/18 18:45 Urine Blood LARGE (NEGATIVE) H 03/31/18 18:45 Urine Nitrate NEGATIVE (NEGATIVE) 03/31/18 18:45 Urine Bilirubin NEGATIVE (NEGATIVE) 03/31/18 18:45 Urine Urobilinogen 0.2 E.U./dL (0.2 - 1.0) 03/31/18 18:45 Ur Leukocyte Esterase MODERATE (NEGATIVE) H 03/31/18 18:45 Urine RBC 50-100 /hpf (0-5) H 03/31/18 18:45 Urine WBC 25-50 /hpf (0-5) H 03/31/18 18:45 Ur Epithelial Cells NONE SEEN /lpf (FEW) 03/31/18 18:45 Urine Bacteria FEW /hpf (NONE SEEN) 03/31/18 18:45 - Physical Exam Vitals and I&O: Vital Signs Temp 98.1 F 04/17/18 08:00 Pulse 94 04/17/18 08:00 Resp 20 04/17/18 08:00 BP 120/74 04/17/18 09:04 Pulse Ox 98 04/17/18 08:00 Intake & Output 04/16/18 04/17/18 04/17/18 18:59 06:59 18:59 Intake Total 450 200 Output Total 270 400 Balance 180 -200 Weight (lbs) 190 lb 190 lb Intake: Oral 450 200 Output: Urine 250 400 Stool 20 0 Other: Weight Source Bedscale Bedscale Active Medications: Current Medications Acetaminophen (Tylenol) 650 mg PO Q4HR PRN PRN Reason: MILD Pain or Fever >101 Stop: 05/30/18 22:21 Last Admin: 04/16/18 06:31 Dose: 650 mg Albuterol/Ipratropium (Duoneb Neb) 3 ml HHN Q6HRT [facility] Stop: 05/31/18 00:59 Last Admin: 04/17/18 07:47 Dose: 3 ml Aripiprazole (Abilify) 5 mg PO BID [facility]; Protocol Stop: 06/12/18 16:59 Last Admin: 04/17/18 09:05 Dose: 5 mg Ascorbic Acid (Vitamin C) 500 mg PO DAILY [facility] Stop: 05/31/18 08:59 Last Admin: 04/17/18 09:08 Dose: 500 mg Aspirin (Ecotrin) 81 mg PO DAILY [facility] Stop: 05/31/18 08:59 Last Admin: 04/17/18 09:07 Dose: 81 mg Atorvastatin Calcium (Lipitor) 20 mg PO HS [facility] Stop: 05/31/18 20:59 Last Admin: 04/16/18 21:12 Dose: 20 mg Bisacodyl (Dulcolax 10 Mg Supp) 10 mg RC DAILY PRN PRN Reason: Constipation Stop: 05/30/18 22:21 [place] Oil/[place] Balsam/Trypsin (Venelex) 1 appl TP DAILY [facility] Stop: 06/02/18 08:59 Last Admin: 04/17/18 09:11 Dose: 1 appl Dextrose (D50w) 50 ml IVP PRN PRN; Protocol PRN Reason: HYPOGLYCEMIA PROTOCOL Stop: 05/30/18 23:03 Diphenhydramine HCl (Benadryl) 25 mg PO Q6HR PRN PRN Reason: Itching Stop: 05/30/18 22:21 Last Admin: 04/11/18 21:01 Dose: 25 mg Docusate Sodium (Colace) 100 mg PO DAILY [facility] Stop: 05/31/18 08:59 Last Admin: 04/17/18 09:08 Dose: 100 mg Fludrocortisone Acetate (Florinef) 0.1 mg PO DAILY [facility] Stop: 06/15/18 08:59 Last Admin: 04/17/18 09:05 Dose: 0.1 mg Furosemide (Lasix) 40 mg IVP BID [facility] Stop: 06/10/18 19:59 Last Admin: 04/17/18 09:04 Dose: 40 mg Insulin Aspart (Novolog Insulin Sliding Scale) 0 units SUBQ ACHS [facility]; Protocol Stop: 05/31/18 07:29 Last Admin: 04/17/18 11:47 Dose: Not Given Lactobacillus Rhamnosus (Culturelle 15b) 1 each PO DAILY [facility] Stop: 06/01/18 12:59 Last Admin: 04/17/18 09:07 Dose: 1 each Levetiracetam (Keppra) 500 mg PO BID [facility] Stop: 05/31/18 08:59 Last Admin: 04/17/18 09:05 Dose: 500 mg Levothyroxine Sodium (Synthroid) 0.025 mg PO QDAC [facility] Stop: 05/31/18 07:29 Last Admin: 04/17/18 09:04 Dose: 0.025 mg Midodrine (Proamatine) 10 mg PO TID [facility] Stop: 06/15/18 13:59 Last Admin: 04/17/18 09:05 Dose: 10 mg Miscellaneous (Clinical Monitoring) 1 ea PRN PRN PRN Reason: RENAL Stop: 06/01/18 10:15 Miscellaneous (Probiotic Screen) 1 ea PRN PRN PRN Reason: PROTOCOL Stop: 06/04/18 08:14 Pantoprazole Sodium (Protonix) 40 mg PO DAILY [facility] Stop: 05/31/18 08:59 Last Admin: 04/17/18 09:08 Dose: 40 mg Sodium Chloride (Nacl Tab) 1 gm PO TID [facility] Stop: 06/06/18 15:14 Last Admin: 04/17/18 09:10 Dose: 1 gm Sodium Phosphate (Fleet Enema) 135 ml RC DAILY PRN PRN Reason: Constipation Stop: 05/30/18 22:21 Vitamin B Complex/Vit C/Folic Acid (Vitamin B Complex W/Vitamin C) 1 tab PO DAILY [facility] Stop: 05/31/18 08:59 Last Admin: 04/17/18 09:08 Dose: 1 tab Zinc Sulfate (Zinc Sulfate) 220 mg PO DAILY [facility] Stop: 05/31/18 08:59 Last Admin: 04/17/18 09:07 Dose: 220 mg General: weak HEENT: NC/AT, PERRLA Neck: Supple Lungs: CTAB Cardiovascular: RRR, Normal S1, Normal S2, without murmur Abdomen: soft, non-distended, positive bowel sound - Procedures Procedures: Procedures Procedure Code Date PERFORMANCE OF URINARY FILTRATION, <6 HRS/DAY [id number] 03/31/18 Internal Medicine Assmt/Plan - Assessment Assessment: Sacral decubitus ulcer. History of Methicillin-resistant Staphylococcus aureus infection. Urinary tract infection. Anemia. Diabetes mellitus type 2. Hypertension. - Plan Plan: continue wound care follow up labs in am continue current plan of care Nutritional Asmnt/Malnutr-PDOC - Dietary Evaluation Malnutrition Findings (Please click <Entered> for more info): Nutritional Asmnt/Malnutrition Start: 04/02/18 16: 21 Text: Status: Complete Freq: Protocol: Document 04/02/18 16:42 [facility] (Rec: 04/02/18 17:12 [email or web address] [email or web address]) Nutritional Asmnt/Malnutrition Patient General Information Nutritional Screening High Risk Consult Diagnosis UTI, renal failure Pertinent Medical Hx/Surgical Hx HTN, DM, CVA/TIA, ESRD, dementia Subjective Information Consult for multiple ulcer. Pt seen lying in bed at time of visit, awake and alert. Pt reported appetite was not good , requesting for oral supplement (chocolate flavor only). Per nurse, pt will start dialysis. Pt has multiple wounds noted. Current Diet Order/ Nutrition Support 2gm sodium, renal Pertinent Medications vit C, D5-0.45ns, colace, novolog, culturelle, levaquin, synthroid, protonix, vit B complex w/ vit C, zinc Pertinent Labs 04/02 Na 125, Cl 90, BUN 31, Cr 2.8, glucose 141, POc 146-161 Nutritional Hx/Data Height 5 ft 11 in Height (Calculated Centimeters) 180.3 Current Weight (lbs) 202 lb Weight (Calculated Kilograms) 91.6 Weight (Calculated Grams) 87578.7 [place] Body Weight 172 Body Mass Index (BMI) 28.1 GI Symptoms Skin Integrity/Comment: 3+ pitting adema to right upper extremity, 1+ pitting edemat to left arm reddened to right buttocks, ulcer to left buttocks, left and right arms Current %PO Fair (50-74%) Estimated Nutritional Goals BEE in Kcals: Adj wt of IBW Calories/Kcals/Kg 25-30 Kcals Calculated 9696-7967 Protein: Adj wt of IBW Protein g/k.1-1.3 Protein Calculated 89-105 Fluid: ml 2024-243ml (1ml/kcal) Nutritional Problem 3. Problem Problem increased nutrition needs ( calorie and protein) Etiology impaired skin integrity, increased protein loss Signs/Symptoms: multiple ulcer, pt on dialysis 2. Problem Problem inadequate food intake Etiology poor appetite Signs/Symptoms: PO intake 50% 1. Problem Problem altered nutrition related labs Etiology electrolytes imbalance, hx of DM, ESRD Signs/Symptoms: Na 125, Cl 90, BUN 31, Cr 2.8, Glucose 141, POC 146-161 Malnutrition Alert Is there a minimum of two criteria No selected? Query Text:Check all the applicable criteria. A minimum of two criteria are recommended for diagnosis of either severe or non-severe malnutrition. Malnutrition Related to Morbid Obesity Malnutrition related to morbid obesity No Intervention/Recommendation Comments 1. Continue with current diet as ordered. If glucose continue high, will consider adding CCHO diet. 2. Recommend adding oral supplement Glucerna (chocolate flavor) daily to increased nutrition intake, Hever BID for wound healing. DONAVAN Stack notified. 2. Monitor PO intake, wt, labs and skin integrity 3. F/U as high risk in 2-3 days, 04/04-04/04 Expected Outcomes/Goals Expected Outcomes/Goals 1. PO intake to meet at least 75% of nutritional needs. 2. Wt stability, skin to remain intact, labs to approach WNL.
[2018-04-17] MEDS: Atorvastatin Calcium 10 MG TAB PO SCH (20:56)
--- NOTE | 2018-04-17 22:15 | Progress Notes ---
DATE: SUBJECTIVE: Chart reviewed and the patient interviewed. Also discussed the patient's condition with the staff and reviewed records and labs. The patient is still in irritable and angry mood. The patient also is still demanding. He also is still easily irritable and easily agitated, but on the other hand is compliant with taking medications and treatment. No major behavioral problems. ASSESSMENT: The patient is still confused and irritable. TREATMENT PLAN: Continue to monitor behavior and condition closely. Also, continue to work on his ineffective coping and his irritability and continue to follow up. [facility]# [id number]
[2018-04-18] MEDS: Albuterol/Ipratropium Neb 3 ML AERS HHN SCH ×4 (01:56→18:25)
[2018-04-18 07:06] LABS: HEMATOCRIT 28.7 % (41.0-60); HEMOGLOBIN 9.7 gm/dL (12-16); MEAN CELL VOLUME 94.2 fl (80-99); MEAN CORPUSCULAR HEMOGLOBIN 31.8 pg (26.0-30.0); MEAN CORPUSCULAR HGB CONC 33.7 pg (28.0-36.0); MEAN PLATELET VOLUME 8.8 fl; PLATELET COUNT 146 Th/cmm (150-400); RED BLOOD COUNT 3.04 Mil/cmm (4.30-5.70); RED CELL DISTRIBUTION WIDTH 19.7 % (11.5-20.0); WHITE BLOOD COUNT 12.3 Th/cmm (4.8-10.8)
[2018-04-18] MEDS: INSULIN ASPART SLIDING SCALE 100 UNITS/ML UNIT SUBQ SCH ×4 (07:13→21:42)
[2018-04-18 07:27] LABS: ALB/GLOB RATIO 0.9 (1.0-1.8); ALBUMIN 2.4 gm/dL (4.2-5.5); ANION GAP 15.8 (7.0-16.0); BILIRUBIN,TOTAL 0.6 mg/dL (0.3-1.0); CALCIUM SERUM 8.3 mg/dL (8.6-10.3); CARBON DIOXIDE 20.6 mEq/L (21.0-31.0); CREATININE - SERUM 3.4 mg/dL (0.7-1.3); GFR AFRICAN-AMERICAN 23.9 ml/min (>90); GFR NON AFRICAN-AMERICAN 19.7 ml/min; POTASSIUM SERUM 4.4 mEq/L (3.5-5.1); TOTAL PROTEIN,SERUM 5.1 gm/dL (6.0-8.3)
[2018-04-18 07:30] LABS: BAND NEUTROPHILE 1 % (0-10); BASOPHIL 0 % (0-3); EOSINOPHIL 0 % (0-5); LYMPHOCYTE 5 % (20-50); MONOCYTE 4 % (2-10); NEUTROPHILS 90 % (40-80)
[2018-04-18] MEDS: Levothyroxine 0.025 Mg Tab PO SCH (08:54)
[2018-04-18] MEDS: Vitamin B Complex w/Vitamin C Tab PO SCH (08:55)
[2018-04-18] MEDS: Pantoprazole 40 mg EC Tab PO SCH (08:57)
[2018-04-18] MEDS: Lactobacillus Rhamnosus GG 15 Billion CFU CAP.SPRINK PO SCH (08:57)
[2018-04-18] MEDS: Multivitamin w/ Minerals Tab PO SCH (08:57)
[2018-04-18] MEDS: Venelex 60gm Tube TP SCH (09:01)
--- NOTE | 2018-04-18 11:34 | Infectious Disease Prog Note ---
Infectious Disease Subjective - Review of Systems Service Date: 04/18/18 Subjective: No new change, no fever. Infectious Disease Objective - Results Result Diagrams: 04/18/18 06:30 04/18/18 06:30 Recent Labs: Laboratory Last Values WBC 12.3 Th/cmm (4.8-10.8) H 04/18/18 06:30 RBC 3.04 Mil/cmm (4.30-5.70) L 04/18/18 06:30 Hgb 9.7 gm/dL (12-16) L 04/18/18 06:30 Hct 28.7 % (41.0-60) L 04/18/18 06:30 MCV 94.2 fl (80-99) 04/18/18 06:30 MCH 31.8 pg (26.0-30.0) H 04/18/18 06:30 MCHC Differential 33.7 pg (28.0-36.0) 04/18/18 06:30 RDW 19.7 % (11.5-20.0) 04/18/18 06:30 Plt Count 146 Th/cmm (150-400) L 04/18/18 06:30 MPV 8.8 fl 04/18/18 06:30 Add Manual Diff YES 04/18/18 06:30 Neutrophils % 88.1 % (40.0-80.0) H 04/13/18 05:35 Band Neutrophils % 1 % (0-10) 04/18/18 06:30 Lymphocytes % 6.4 % (20.0-50.0) L 04/13/18 05:35 Monocytes % 4.9 % (2.0-10.0) 04/13/18 05:35 Eosinophils % 0.3 % (0.0-5.0) 04/13/18 05:35 Basophils % 0.3 % (0.0-2.0) 04/13/18 05:35 Neutrophils (Manual) 90 % (40-80) H 04/18/18 06:30 Lymphocytes 5 % (20-50) L 04/18/18 06:30 Monocytes 4 % (2-10) 04/18/18 06:30 Eosinophils 0 % (0-5) 04/18/18 06:30 Basophils 0 % (0-3) 04/18/18 06:30 Platelet Estimate ADEQUATE (NORMAL) 04/02/18 06:00 Platelet Morphology NORMAL (NORMAL) 03/31/18 18:25 Anisocytosis 1+ 04/15/18 06:55 RBC Morph Micro Appear ABNORMAL (NORMAL) 03/31/18 18:25 PT 13.0 SECONDS (9.5-11.5) H 04/12/18 06:35 INR 1.24 (0.5-1.4) 04/12/18 06:35 Sodium 132 mEq/L (136-145) L 04/18/18 06:30 Potassium 4.4 mEq/L (3.5-5.1) 04/18/18 06:30 Chloride 100 mEq/L (98-107) 04/18/18 06:30 Carbon Dioxide 20.6 mEq/L (21.0-31.0) L 04/18/18 06:30 Anion Gap 15.8 (7.0-16.0) 04/18/18 06:30 BUN 51 mg/dL (7-25) H 04/18/18 06:30 Creatinine 3.4 mg/dL (0.7-1.3) H 04/18/18 06:30 Est GFR ( Amer) 23.9 ml/min (>90) 04/18/18 06:30 Est GFR (Non-Af Amer) 19.7 ml/min 04/18/18 06:30 BUN/Creatinine Ratio 15.0 04/18/18 06:30 Glucose 85 mg/dL (70-105) 04/18/18 06:30 POC Glucose 89 MG/DL (70 - 105) 04/18/18 05:34 Calcium 8.3 mg/dL (8.6-10.3) L 04/18/18 06:30 Phosphorus 3.2 mg/dL (2.5-5.0) 04/17/18 06:20 Magnesium 1.7 mg/dL (1.9-2.7) L 04/17/18 06:20 Iron 33 ug/dL (38-169) L 04/02/18 06:00 TIBC 73 ug/dL (250-450) L 04/02/18 06:00 Iron Saturation 45 % (15-55) 04/02/18 06:00 Unsaturated IBC 40 ug/dL (111-343) L 04/02/18 06:00 Ferritin 1538 ng/mL (30-400) H 04/02/18 06:00 Total Bilirubin 0.6 mg/dL (0.3-1.0) 04/18/18 06:30 AST 7 U/L (13-39) L 04/18/18 06:30 ALT 6 U/L (7-52) L 04/18/18 06:30 Alkaline Phosphatase 98 U/L (34-104) 04/18/18 06:30 Troponin I 0.05 ng/mL (0.01-0.05) 03/31/18 18:25 B-Natriuretic Peptide > 5000.0 pg/mL (5.0-100.0) H 04/15/18 07:02 Total Protein 5.1 gm/dL (6.0-8.3) L 04/18/18 06:30 Albumin 2.4 gm/dL (4.2-5.5) L 04/18/18 06:30 Globulin 2.7 gm/dL 04/18/18 06:30 Albumin/Globulin Ratio 0.9 (1.0-1.8) L 04/18/18 06:30 Urine Source CLEAN C 03/31/18 18:45 Urine Color YELLOW 03/31/18 18:45 Urine Clarity CLOUDY (CLEAR) 03/31/18 18:45 Urine pH 6.0 (4.6 - 8.0) 03/31/18 18:45 Ur Specific [place] 1.020 (1.005-1.030) 03/31/18 18:45 Urine Protein >=300 mg/dL (NEGATIVE) 03/31/18 18:45 Urine Glucose (UA) NEGATIVE mg/dL (NEGATIVE) 03/31/18 18:45 Urine Ketones NEGATIVE mg/dL (NEGATIVE) 03/31/18 18:45 Urine Blood LARGE (NEGATIVE) H 03/31/18 18:45 Urine Nitrate NEGATIVE (NEGATIVE) 03/31/18 18:45 Urine Bilirubin NEGATIVE (NEGATIVE) 03/31/18 18:45 Urine Urobilinogen 0.2 E.U./dL (0.2 - 1.0) 03/31/18 18:45 Ur Leukocyte Esterase MODERATE (NEGATIVE) H 03/31/18 18:45 Urine RBC 50-100 /hpf (0-5) H 03/31/18 18:45 Urine WBC 25-50 /hpf (0-5) H 03/31/18 18:45 Ur Epithelial Cells NONE SEEN /lpf (FEW) 03/31/18 18:45 Urine Bacteria FEW /hpf (NONE SEEN) 03/31/18 18:45 - Physical Exam Vitals and I&O: Vital Signs Temp 96.3 F 04/18/18 09:17 Pulse 90 04/18/18 09:17 Resp 95 04/18/18 09:17 BP 124/78 04/18/18 09:17 Pulse Ox 98 04/18/18 09:17 Intake & Output 04/17/18 04/18/18 04/18/18 18:59 06:59 18:59 Intake Total 200 200 Output Total 150 50 Balance 50 150 Weight (lbs) 86.183 kg 112.037 kg Intake: Oral 200 200 Output: Urine 150 50 Other: # Bowel Movements 1 Weight Source Bedscale Bedscale Active Medications: Current Medications Acetaminophen (Tylenol) 650 mg PO Q4HR PRN PRN Reason: MILD Pain or Fever >101 Stop: 05/30/18 22:21 Last Admin: 04/17/18 13:38 Dose: 650 mg Albuterol/Ipratropium (Duoneb Neb) 3 ml HHN Q6HRT [facility] Stop: 05/31/18 00:59 Last Admin: 04/18/18 07:09 Dose: 3 ml Aripiprazole (Abilify) 5 mg PO BID [facility]; Protocol Stop: 06/12/18 16:59 Last Admin: 04/18/18 08:57 Dose: 5 mg Ascorbic Acid (Vitamin C) 500 mg PO DAILY [facility] Stop: 05/31/18 08:59 Last Admin: 04/18/18 08:57 Dose: 500 mg Aspirin (Ecotrin) 81 mg PO DAILY [facility] Stop: 05/31/18 08:59 Last Admin: 04/18/18 08:54 Dose: 81 mg Atorvastatin Calcium (Lipitor) 20 mg PO HS [facility] Stop: 05/31/18 20:59 Last Admin: 04/17/18 20:56 Dose: 20 mg Bisacodyl (Dulcolax 10 Mg Supp) 10 mg RC DAILY PRN PRN Reason: Constipation Stop: 05/30/18 22:21 [place] Oil/[place] Balsam/Trypsin (Venelex) 1 appl TP DAILY [facility] Stop: 06/02/18 08:59 Last Admin: 04/18/18 09:01 Dose: 1 appl Dextrose (D50w) 50 ml IVP PRN PRN; Protocol PRN Reason: HYPOGLYCEMIA PROTOCOL Stop: 05/30/18 23:03 Diphenhydramine HCl (Benadryl) 25 mg PO Q6HR PRN PRN Reason: Itching Stop: 05/30/18 22:21 Last Admin: 04/11/18 21:01 Dose: 25 mg Docusate Sodium (Colace) 100 mg PO DAILY [facility] Stop: 05/31/18 08:59 Last Admin: 04/18/18 08:55 Dose: 100 mg Fludrocortisone Acetate (Florinef) 0.1 mg PO DAILY [facility] Stop: 06/15/18 08:59 Last Admin: 04/18/18 08:54 Dose: 0.1 mg Furosemide (Lasix) 40 mg IVP BID [facility] Stop: 06/10/18 19:59 Last Admin: 04/18/18 08:58 Dose: 40 mg Insulin Aspart (Novolog Insulin Sliding Scale) 0 units SUBQ ACHS [facility]; Protocol Stop: 05/31/18 07:29 Last Admin: 04/18/18 07:13 Dose: Not Given Lactobacillus Rhamnosus (Culturelle 15b) 1 each PO DAILY [facility] Stop: 06/01/18 12:59 Last Admin: 04/18/18 08:57 Dose: 1 each Levetiracetam (Keppra) 500 mg PO BID [facility] Stop: 05/31/18 08:59 Last Admin: 04/18/18 08:54 Dose: 500 mg Levothyroxine Sodium (Synthroid) 0.025 mg PO QDAC [facility] Stop: 05/31/18 07:29 Last Admin: 04/18/18 08:54 Dose: 0.025 mg Midodrine (Proamatine) 10 mg PO TID [facility] Stop: 06/15/18 13:59 Last Admin: 04/18/18 08:57 Dose: 10 mg Miscellaneous (Clinical Monitoring) 1 ea MC PRN PRN PRN Reason: RENAL Stop: 06/01/18 10:15 Miscellaneous (Probiotic Screen) 1 ea MC PRN PRN PRN Reason: PROTOCOL Stop: 06/04/18 08:14 Pantoprazole Sodium (Protonix) 40 mg PO DAILY [facility] Stop: 05/31/18 08:59 Last Admin: 04/18/18 08:57 Dose: 40 mg Sodium Chloride (Nacl Tab) 1 gm PO TID [facility] Stop: 06/06/18 15:14 Last Admin: 04/18/18 09:02 Dose: 1 gm Sodium Phosphate (Fleet Enema) 135 ml RC DAILY PRN PRN Reason: Constipation Stop: 05/30/18 22:21 Vitamin B Complex/Vit C/Folic Acid (Vitamin B Complex W/Vitamin C) 1 tab PO DAILY [facility] Stop: 05/31/18 08:59 Last Admin: 04/18/18 08:55 Dose: 1 tab Zinc Sulfate (Zinc Sulfate) 220 mg PO DAILY [facility] Stop: 05/31/18 08:59 Last Admin: 04/18/18 08:57 Dose: 220 mg General: no acute distress, well developed, well nourished HEENT: atraumatic, normocephalic, PERRLA, EOMI Neck: supple, no thyromegaly Cardiovascular: S1S2, regular Lungs: clear to auscultation bilaterally, clear to percussion Abdomen: soft, no tender, no distended Extremities: no cyanosis, no clubbing, no edema Neurological: awake, alert, oriented Skin: intact - Procedures Procedures: Procedures Procedure Code Date PERFORMANCE OF URINARY FILTRATION, <6 HRS/DAY [id number] 03/31/18 Infectious Disease Assmt/Plan - Problem List Patient Problems: All Active Problems Anemia (Acute) D64.9 Dementia (Acute) F03.90 Diabetes (Acute) E11.9 ESRD (end stage renal disease) (Acute) HTN (hypertension) (Acute) I10 Sacral decubitus ulcer (Acute) L89.159 - Assessment Assessment: 1. Sacral decubitus ulcer. 2. History of Methicillin-resistant Staphylococcus aureus infection. 3. Urinary tract infection. 4. Anemia. 5. Diabetes mellitus type 2. 6. Hypertension. 7. Leukocytosis: monitor. - Plan Plan: off antibiotics. Wound care. Monitor CBC. Patient is in hospice care. Nutritional Asmnt/Malnutr-PDOC - Dietary Evaluation Malnutrition Findings (Please click <Entered> for more info): Nutritional Asmnt/Malnutrition Start: 04/02/18 16: 21 Text: Status: Complete Freq: Protocol: Document 04/02/18 16:42 [facility] (Rec: 04/02/18 17:12 [facility] [email or web address]) Nutritional Asmnt/Malnutrition Patient General Information Nutritional Screening High Risk Consult Diagnosis UTI, renal failure Pertinent Medical Hx/Surgical Hx HTN, DM, CVA/TIA, ESRD, dementia Subjective Information Consult for multiple ulcer. Pt seen lying in bed at time of visit, awake and alert. Pt reported appetite was not good , requesting for oral supplement (chocolate flavor only). Per nurse, pt will start dialysis. Pt has multiple wounds noted. Current Diet Order/ Nutrition Support 2gm sodium, renal Pertinent Medications vit C, D5-0.45ns, colace, novolog, culturelle, levaquin, synthroid, protonix, vit B complex w/ vit C, zinc Pertinent Labs 04/02 Na 125, Cl 90, BUN 31, Cr 2.8, glucose 141, POc 146-161 Nutritional Hx/Data Height 1.8 m Height (Calculated Centimeters) 180.3 Current Weight (lbs) 91.626 kg Weight (Calculated Kilograms) 91.6 Weight (Calculated Grams) 13978.7 [place] Body Weight 172 Body Mass Index (BMI) 28.1 GI Symptoms Skin Integrity/Comment: 3+ pitting adema to right upper extremity, 1+ pitting edemat to left arm reddened to right buttocks, ulcer to left buttocks, left and right arms Current %PO Fair (50-74%) Estimated Nutritional Goals BEE in Kcals: Adj wt of IBW Calories/Kcals/Kg 25-30 Kcals Calculated 2726-1978 Protein: Adj wt of IBW Protein g/k.1-1.3 Protein Calculated 89-105 Fluid: ml 2024-243ml (1ml/kcal) Nutritional Problem 3. Problem Problem increased nutrition needs ( calorie and protein) Etiology impaired skin integrity, increased protein loss Signs/Symptoms: multiple ulcer, pt on dialysis 2. Problem Problem inadequate food intake Etiology poor appetite Signs/Symptoms: PO intake 50% 1. Problem Problem altered nutrition related labs Etiology electrolytes imbalance, hx of DM, ESRD Signs/Symptoms: Na 125, Cl 90, BUN 31, Cr 2.8, Glucose 141, POC 146-161 Malnutrition Alert Is there a minimum of two criteria No selected? Query Text:Check all the applicable criteria. A minimum of two criteria are recommended for diagnosis of either severe or non-severe malnutrition. Malnutrition Related to Morbid Obesity Malnutrition related to morbid obesity No Intervention/Recommendation Comments 1. Continue with current diet as ordered. If glucose continue high, will consider adding CCHO diet. 2. Recommend adding oral supplement Glucerna (chocolate flavor) daily to increased nutrition intake, Hever BID for wound healing. DONAVAN Stack notified. 2. Monitor PO intake, wt, labs and skin integrity 3. F/U as high risk in 2-3 days, 04/04-04/04 Expected Outcomes/Goals Expected Outcomes/Goals 1. PO intake to meet at least 75% of nutritional needs. 2. Wt stability, skin to remain intact, labs to approach WNL.
--- NOTE | 2018-04-18 11:55 | General Progress Note ---
Subjective - Review of Systems Events since last encounter: no new change in no distress Subjective: Awake, alert, NAD Objective - Results Result Diagrams: 04/18/18 06:30 04/18/18 06:30 Recent Labs: Laboratory Last Values WBC 12.3 Th/cmm (4.8-10.8) H 04/18/18 06:30 RBC 3.04 Mil/cmm (4.30-5.70) L 04/18/18 06:30 Hgb 9.7 gm/dL (12-16) L 04/18/18 06:30 Hct 28.7 % (41.0-60) L 04/18/18 06:30 MCV 94.2 fl (80-99) 04/18/18 06:30 MCH 31.8 pg (26.0-30.0) H 04/18/18 06:30 MCHC Differential 33.7 pg (28.0-36.0) 04/18/18 06:30 RDW 19.7 % (11.5-20.0) 04/18/18 06:30 Plt Count 146 Th/cmm (150-400) L 04/18/18 06:30 MPV 8.8 fl 04/18/18 06:30 Add Manual Diff YES 04/18/18 06:30 Neutrophils % 88.1 % (40.0-80.0) H 04/13/18 05:35 Band Neutrophils % 1 % (0-10) 04/18/18 06:30 Lymphocytes % 6.4 % (20.0-50.0) L 04/13/18 05:35 Monocytes % 4.9 % (2.0-10.0) 04/13/18 05:35 Eosinophils % 0.3 % (0.0-5.0) 04/13/18 05:35 Basophils % 0.3 % (0.0-2.0) 04/13/18 05:35 Neutrophils (Manual) 90 % (40-80) H 04/18/18 06:30 Lymphocytes 5 % (20-50) L 04/18/18 06:30 Monocytes 4 % (2-10) 04/18/18 06:30 Eosinophils 0 % (0-5) 04/18/18 06:30 Basophils 0 % (0-3) 04/18/18 06:30 Platelet Estimate ADEQUATE (NORMAL) 04/02/18 06:00 Platelet Morphology NORMAL (NORMAL) 03/31/18 18:25 Anisocytosis 1+ 04/15/18 06:55 RBC Morph Micro Appear ABNORMAL (NORMAL) 03/31/18 18:25 PT 13.0 SECONDS (9.5-11.5) H 04/12/18 06:35 INR 1.24 (0.5-1.4) 04/12/18 06:35 Sodium 132 mEq/L (136-145) L 04/18/18 06:30 Potassium 4.4 mEq/L (3.5-5.1) 04/18/18 06:30 Chloride 100 mEq/L (98-107) 04/18/18 06:30 Carbon Dioxide 20.6 mEq/L (21.0-31.0) L 04/18/18 06:30 Anion Gap 15.8 (7.0-16.0) 04/18/18 06:30 BUN 51 mg/dL (7-25) H 04/18/18 06:30 Creatinine 3.4 mg/dL (0.7-1.3) H 04/18/18 06:30 Est GFR ( Amer) 23.9 ml/min (>90) 04/18/18 06:30 Est GFR (Non-Af Amer) 19.7 ml/min 04/18/18 06:30 BUN/Creatinine Ratio 15.0 04/18/18 06:30 Glucose 85 mg/dL (70-105) 04/18/18 06:30 POC Glucose 89 MG/DL (70 - 105) 04/18/18 05:34 Calcium 8.3 mg/dL (8.6-10.3) L 04/18/18 06:30 Phosphorus 3.2 mg/dL (2.5-5.0) 04/17/18 06:20 Magnesium 1.7 mg/dL (1.9-2.7) L 04/17/18 06:20 Iron 33 ug/dL (38-169) L 04/02/18 06:00 TIBC 73 ug/dL (250-450) L 04/02/18 06:00 Iron Saturation 45 % (15-55) 04/02/18 06:00 Unsaturated IBC 40 ug/dL (111-343) L 04/02/18 06:00 Ferritin 1538 ng/mL (30-400) H 04/02/18 06:00 Total Bilirubin 0.6 mg/dL (0.3-1.0) 04/18/18 06:30 AST 7 U/L (13-39) L 04/18/18 06:30 ALT 6 U/L (7-52) L 04/18/18 06:30 Alkaline Phosphatase 98 U/L (34-104) 04/18/18 06:30 Troponin I 0.05 ng/mL (0.01-0.05) 03/31/18 18:25 B-Natriuretic Peptide > 5000.0 pg/mL (5.0-100.0) H 04/15/18 07:02 Total Protein 5.1 gm/dL (6.0-8.3) L 04/18/18 06:30 Albumin 2.4 gm/dL (4.2-5.5) L 04/18/18 06:30 Globulin 2.7 gm/dL 04/18/18 06:30 Albumin/Globulin Ratio 0.9 (1.0-1.8) L 04/18/18 06:30 Urine Source CLEAN C 03/31/18 18:45 Urine Color YELLOW 03/31/18 18:45 Urine Clarity CLOUDY (CLEAR) 03/31/18 18:45 Urine pH 6.0 (4.6 - 8.0) 03/31/18 18:45 Ur Specific [place] 1.020 (1.005-1.030) 03/31/18 18:45 Urine Protein >=300 mg/dL (NEGATIVE) 03/31/18 18:45 Urine Glucose (UA) NEGATIVE mg/dL (NEGATIVE) 03/31/18 18:45 Urine Ketones NEGATIVE mg/dL (NEGATIVE) 03/31/18 18:45 Urine Blood LARGE (NEGATIVE) H 03/31/18 18:45 Urine Nitrate NEGATIVE (NEGATIVE) 03/31/18 18:45 Urine Bilirubin NEGATIVE (NEGATIVE) 03/31/18 18:45 Urine Urobilinogen 0.2 E.U./dL (0.2 - 1.0) 03/31/18 18:45 Ur Leukocyte Esterase MODERATE (NEGATIVE) H 03/31/18 18:45 Urine RBC 50-100 /hpf (0-5) H 03/31/18 18:45 Urine WBC 25-50 /hpf (0-5) H 03/31/18 18:45 Ur Epithelial Cells NONE SEEN /lpf (FEW) 03/31/18 18:45 Urine Bacteria FEW /hpf (NONE SEEN) 03/31/18 18:45 - Physical Exam Vitals and I&O: Vital Signs Temp 96.3 F 04/18/18 09:17 Pulse 90 04/18/18 09:17 Resp 95 04/18/18 09:17 BP 124/78 04/18/18 09:17 Pulse Ox 98 04/18/18 09:17 Intake & Output 04/17/18 04/18/18 04/18/18 18:59 06:59 18:59 Intake Total 200 200 Output Total 150 50 Balance 50 150 Weight (lbs) 86.183 kg 112.037 kg Intake: Oral 200 200 Output: Urine 150 50 Other: # Bowel Movements 1 Weight Source Bedscale Bedscale Active Medications: Current Medications Acetaminophen (Tylenol) 650 mg PO Q4HR PRN PRN Reason: MILD Pain or Fever >101 Stop: 05/30/18 22:21 Last Admin: 04/17/18 13:38 Dose: 650 mg Albuterol/Ipratropium (Duoneb Neb) 3 ml HHN Q6HRT [facility] Stop: 05/31/18 00:59 Last Admin: 04/18/18 07:09 Dose: 3 ml Aripiprazole (Abilify) 5 mg PO BID [facility]; Protocol Stop: 06/12/18 16:59 Last Admin: 04/18/18 08:57 Dose: 5 mg Ascorbic Acid (Vitamin C) 500 mg PO DAILY [facility] Stop: 05/31/18 08:59 Last Admin: 04/18/18 08:57 Dose: 500 mg Aspirin (Ecotrin) 81 mg PO DAILY [facility] Stop: 05/31/18 08:59 Last Admin: 04/18/18 08:54 Dose: 81 mg Atorvastatin Calcium (Lipitor) 20 mg PO HS [facility] Stop: 05/31/18 20:59 Last Admin: 04/17/18 20:56 Dose: 20 mg Bisacodyl (Dulcolax 10 Mg Supp) 10 mg RC DAILY PRN PRN Reason: Constipation Stop: 05/30/18 22:21 [place] Oil/Chinese Balsam/Trypsin (Venelex) 1 appl TP DAILY [facility] Stop: 06/02/18 08:59 Last Admin: 04/18/18 09:01 Dose: 1 appl Dextrose (D50w) 50 ml IVP PRN PRN; Protocol PRN Reason: HYPOGLYCEMIA PROTOCOL Stop: 05/30/18 23:03 Diphenhydramine HCl (Benadryl) 25 mg PO Q6HR PRN PRN Reason: Itching Stop: 05/30/18 22:21 Last Admin: 04/11/18 21:01 Dose: 25 mg Docusate Sodium (Colace) 100 mg PO DAILY [facility] Stop: 05/31/18 08:59 Last Admin: 04/18/18 08:55 Dose: 100 mg Fludrocortisone Acetate (Florinef) 0.1 mg PO DAILY [facility] Stop: 06/15/18 08:59 Last Admin: 04/18/18 08:54 Dose: 0.1 mg Furosemide (Lasix) 40 mg IVP BID [facility] Stop: 06/10/18 19:59 Last Admin: 04/18/18 08:58 Dose: 40 mg Insulin Aspart (Novolog Insulin Sliding Scale) 0 units SUBQ ACHS [facility]; Protocol Stop: 05/31/18 07:29 Last Admin: 04/18/18 07:13 Dose: Not Given Lactobacillus Rhamnosus (Culturelle 15b) 1 each PO DAILY [facility] Stop: 06/01/18 12:59 Last Admin: 04/18/18 08:57 Dose: 1 each Levetiracetam (Keppra) 500 mg PO BID [facility] Stop: 05/31/18 08:59 Last Admin: 04/18/18 08:54 Dose: 500 mg Levothyroxine Sodium (Synthroid) 0.025 mg PO QDAC [facility] Stop: 05/31/18 07:29 Last Admin: 04/18/18 08:54 Dose: 0.025 mg Midodrine (Proamatine) 10 mg PO TID [facility] Stop: 06/15/18 13:59 Last Admin: 04/18/18 08:57 Dose: 10 mg Miscellaneous (Clinical Monitoring) 1 ea MC PRN PRN PRN Reason: RENAL Stop: 06/01/18 10:15 Miscellaneous (Probiotic Screen) 1 ea MC PRN PRN PRN Reason: PROTOCOL Stop: 06/04/18 08:14 Pantoprazole Sodium (Protonix) 40 mg PO DAILY [facility] Stop: 05/31/18 08:59 Last Admin: 04/18/18 08:57 Dose: 40 mg Sodium Chloride (Nacl Tab) 1 gm PO TID [facility] Stop: 06/06/18 15:14 Last Admin: 04/18/18 09:02 Dose: 1 gm Sodium Phosphate (Fleet Enema) 135 ml RC DAILY PRN PRN Reason: Constipation Stop: 05/30/18 22:21 Vitamin B Complex/Vit C/Folic Acid (Vitamin B Complex W/Vitamin C) 1 tab PO DAILY [facility] Stop: 05/31/18 08:59 Last Admin: 04/18/18 08:55 Dose: 1 tab Zinc Sulfate (Zinc Sulfate) 220 mg PO DAILY [facility] Stop: 05/31/18 08:59 Last Admin: 04/18/18 08:57 Dose: 220 mg General: No acute distress HEENT: Atraumatic Neck: Supple Cardiovascular: Regular rate, Normal S1, Normal S2 Lungs: Clear to auscultation Abdomen: Bowel sounds - Procedures Procedures: Procedures Procedure Code Date PERFORMANCE OF URINARY FILTRATION, <6 HRS/DAY [id number] 03/31/18 Assessment/Plan - Problem List Patient Problems: All Active Problems Anemia (Acute) D64.9 Dementia (Acute) F03.90 Diabetes (Acute) E11.9 ESRD (end stage renal disease) (Acute) HTN (hypertension) (Acute) I10 Sacral decubitus ulcer (Acute) L89.159 - Assessment Assessment: Sacral decubitus ulcer H/o MRSA UTI Anemia Type 2 Diabetes HTN - Plan Plan: dc planning Nutritional Asmnt/Malnutr-PDOC - Dietary Evaluation Malnutrition Findings (Please click <Entered> for more info): Nutritional Asmnt/Malnutrition Start: 04/02/18 16: 21 Text: Status: Complete Freq: Protocol: Document 04/02/18 16:42 LCHENG (Rec: 04/02/18 17:12 [email or web address]) Nutritional Asmnt/Malnutrition Patient General Information Nutritional Screening High Risk Consult Diagnosis UTI, renal failure Pertinent Medical Hx/Surgical Hx HTN, DM, CVA/TIA, ESRD, dementia Subjective Information Consult for multiple ulcer. Pt seen lying in bed at time of visit, awake and alert. Pt reported appetite was not good , requesting for oral supplement (chocolate flavor only). Per nurse, pt will start dialysis. Pt has multiple wounds noted. Current Diet Order/ Nutrition Support 2gm sodium, renal Pertinent Medications vit C, D5-0.45ns, colace, novolog, culturelle, levaquin, synthroid, protonix, vit B complex w/ vit C, zinc Pertinent Labs 04/02 Na 125, Cl 90, BUN 31, Cr 2.8, glucose 141, POc 146-161 Nutritional Hx/Data Height 1.8 m Height (Calculated Centimeters) 180.3 Current Weight (lbs) 91.626 kg Weight (Calculated Kilograms) 91.6 Weight (Calculated Grams) 49060.7 [place] Body Weight 172 Body Mass Index (BMI) 28.1 GI Symptoms Skin Integrity/Comment: 3+ pitting adema to right upper extremity, 1+ pitting edemat to left arm reddened to right buttocks, ulcer to left buttocks, left and right arms Current %PO Fair (50-74%) Estimated Nutritional Goals BEE in Kcals: Adj wt of IBW Calories/Kcals/Kg 25-30 Kcals Calculated 4810-2622 Protein: Adj wt of IBW Protein g/k.1-1.3 Protein Calculated 89-105 Fluid: ml 2024-243ml (1ml/kcal) Nutritional Problem 3. Problem Problem increased nutrition needs ( calorie and protein) Etiology impaired skin integrity, increased protein loss Signs/Symptoms: multiple ulcer, pt on dialysis 2. Problem Problem inadequate food intake Etiology poor appetite Signs/Symptoms: PO intake 50% 1. Problem Problem altered nutrition related labs Etiology electrolytes imbalance, hx of DM, ESRD Signs/Symptoms: Na 125, Cl 90, BUN 31, Cr 2.8, Glucose 141, POC 146-161 Malnutrition Alert Is there a minimum of two criteria No selected? Query Text:Check all the applicable criteria. A minimum of two criteria are recommended for diagnosis of either severe or non-severe malnutrition. Malnutrition Related to Morbid Obesity Malnutrition related to morbid obesity No Intervention/Recommendation Comments 1. Continue with current diet as ordered. If glucose continue high, will consider adding CCHO diet. 2. Recommend adding oral supplement Glucerna (chocolate flavor) daily to increased nutrition intake, Hever BID for wound healing. DONAVAN Stack notified. 2. Monitor PO intake, wt, labs and skin integrity 3. F/U as high risk in 2-3 days, 04/04-04/04 Expected Outcomes/Goals Expected Outcomes/Goals 1. PO intake to meet at least 75% of nutritional needs. 2. Wt stability, skin to remain intact, labs to approach WNL.
--- NOTE | 2018-04-18 16:25 | Discharge Summary ---
DATE OF DISCHARGE: The patient in [facility] in [facility] yesterday afternoon around 3:30. I had discussion, family conference with Smita who is a of the patient and as well as I had discussion with the son and they in turn also discussed this with the daughter and all agreed and called me back saying that they want him no more dialysis and they have discussed along with the patient. The patient himself, especially said he does not want any more dialysis and everybody agreed on sending the patient back to the senior living without any hemodialysis. Again, this is Dr. Schrader, making an addendum for his discharge note regarding the family conference I had with the , Smita and with the son and with the patient regarding discontinuing hemodialysis and putting him on hospice. JOB# [id number]
[2018-04-18] MEDS: Atorvastatin Calcium 10 MG TAB PO SCH ×2 (21:39→21:49)
[2018-04-19] MEDS: Albuterol/Ipratropium Neb 3 ML AERS HHN SCH ×3 (00:22→13:49)
[2018-04-19 07:04] LABS: ANION GAP 15.1 (7.0-16.0); CARBON DIOXIDE 20.5 mEq/L (21.0-31.0); CREATININE - SERUM 3.6 mg/dL (0.7-1.3); GFR AFRICAN-AMERICAN 22.4 ml/min (>90); GFR NON AFRICAN-AMERICAN 18.5 ml/min; POTASSIUM SERUM 4.6 mEq/L (3.5-5.1)
[2018-04-19] MEDS: INSULIN ASPART SLIDING SCALE 100 UNITS/ML UNIT SUBQ SCH ×2 (07:13→12:36)
[2018-04-19] MEDS: Pantoprazole 40 mg EC Tab PO SCH (10:00)
[2018-04-19 10:06] LABS: HEMATOCRIT 26.2 % (41.0-60); HEMOGLOBIN 8.8 gm/dL (12-16); MEAN CELL VOLUME 94.5 fl (80-99); MEAN CORPUSCULAR HEMOGLOBIN 31.6 pg (26.0-30.0); MEAN CORPUSCULAR HGB CONC 33.4 pg (28.0-36.0); MEAN PLATELET VOLUME 9.3 fl; PLATELET COUNT 134 Th/cmm (150-400); RED BLOOD COUNT 2.78 Mil/cmm (4.30-5.70); RED CELL DISTRIBUTION WIDTH 20.2 % (11.5-20.0)
[2018-04-19] MEDS: Venelex 60gm Tube TP SCH (10:12)
[2018-04-19] MEDS: Lactobacillus Rhamnosus GG 15 Billion CFU CAP.SPRINK PO SCH (10:12)
[2018-04-19] MEDS: Levothyroxine 0.025 Mg Tab PO SCH (10:12)
[2018-04-19] MEDS: Vitamin B Complex w/Vitamin C Tab PO SCH (10:13)
[2018-04-19] MEDS: Multivitamin w/ Minerals Tab PO SCH (10:13)
[2018-04-19 11:15] LABS: LYMPHOCYTE 5 % (20-50); MONOCYTE 5 % (2-10); NEUTROPHILS 90 % (40-80)
[2018-04-19 11:16] LABS: PLATELET ESTIMATE ADEQUATE (NORMAL)
--- NOTE | 2018-04-21 06:45 | Progress Notes ---
DATE: 04/18/2018 DATE OF SERVICE: 04/18/2018 SUBJECTIVE: Chart reviewed and the patient interviewed. Also discussed the patient's condition with the staff and reviewed records and labs. The patient is still in irritable mood and he is still demanding and is still slightly confused and paranoid. The patient also is still easily agitated. He also is having severe mood swings and he is still having severe anxiety. The patient also still has episodes of anger and irritability. Otherwise, the patient is compliant with taking medications with no side effect of medications. ASSESSMENT: The patient is still psychotic and agitated, but easier to redirect and no major behavioral issues. TREATMENT PLAN: Continue to monitor behavior and condition closely. Also, continue adjusting psychotropic medications and working on discharge plans and placement issue. JOB# [id number]
--- NOTE | 2018-04-21 18:39 | Progress Notes ---
DATE: 04/19/2018 Chart reviewed and the patient interviewed. Also discussed the patient's condition with the staff and reviewed records and labs. The patient is still impulsive and is still in irritable mood. Also, is still angry and is still demanding. He also still at times gets agitated, especially when his demands does not get met immediately. He also is still angry. Otherwise, the patient is compliant with taking medication with no side effects. ASSESSMENT: The patient is still agitated, but no major behavioral problems. TREATMENT PLAN: Continue current treatment and current medications and will continue to follow up. JOB# [id number]
== END 2018-04-19 15:45 | DRG 871 ==
LOC: ER 18:03 → MSI 20:26 → UNDODISIN 04-04 20:45 → TELE 04-06 10:04 → MSI 04-12 08:56
PROVIDERS: ADMIT Internal Medicine; ATTEND Internal Medicine
PROC: 5A1D70Z Performance of Urinary Filtration, Intermittent, Less than 6 Hours Per Day (ICD-10-PCS; 2018-04-02)
PROC: 5A1D70Z Performance of Urinary Filtration, Intermittent, Less than 6 Hours Per Day (ICD-10-PCS; 2018-04-04)
PROC: 5A1D70Z Performance of Urinary Filtration, Intermittent, Less than 6 Hours Per Day (ICD-10-PCS; 2018-04-09)
PROC: 5A1D70Z Performance of Urinary Filtration, Intermittent, Less than 6 Hours Per Day (ICD-10-PCS; principal; 2018-04-12)
DX: A41.02 Sepsis due to Methicillin resistant Staphylococcus aureus (principal); L89.214 Pressure ulcer of right hip, stage 4; L89.313 Pressure ulcer of right buttock, stage 3; L89.153 Pressure ulcer of sacral region, stage 3; L89.613 Pressure ulcer of right heel, stage 3; N18.6 End stage renal disease; I50.31 Acute diastolic (congestive) heart failure; N39.0 Urinary tract infection, site not specified; I13.2 Hypertensive heart and chronic kidney disease with heart failure and with stage 5 chronic kidney disease, or end stage renal disease; F11.20 Opioid dependence, uncomplicated; E11.52 Type 2 diabetes mellitus with diabetic peripheral angiopathy with gangrene; I96 Gangrene, not elsewhere classified; E11.22 Type 2 diabetes mellitus with diabetic chronic kidney disease; Z99.2 Dependence on renal dialysis; Z66 Do not resuscitate; L89.622 Pressure ulcer of left heel, stage 2; L89.891 Pressure ulcer of other site, stage 1; F03.90 Unspecified dementia, unspecified severity, without behavioral disturbance, psychotic disturbance, mood disturbance, and anxiety; E86.0 Dehydration; R21 Rash and other nonspecific skin eruption; G89.4 Chronic pain syndrome; F41.1 Generalized anxiety disorder; I69.30 Unspecified sequelae of cerebral infarction; D50.9 Iron deficiency anemia, unspecified; E11.621 Type 2 diabetes mellitus with foot ulcer; Z74.01 Bed confinement status; Z88.0 Allergy status to penicillin; Z88.1 Allergy status to other antibiotic agents
CPT/HCPCS: 36415-UA; 71045-TC; 80048-TC; 80053-TC; 81001-TC; 82533-90; 82728-90; 82948-90; 83540-90; 83550-90; 83735-TC; 83880-TC; 84100-TC; 84484-TC; 85007-TC; 85025-TC; 85610-TC; 87086-90; 90937; 93005; 93925-TC; 93970-TC-50; 94640; 94760; 96374; J0696; J0885; J1644; J1720; J1815; J1940; J1956; J2060; J7030; J7040; P9046; Z7610